=== PATIENT | female | born 1930 | race Caucasian/White ===

== ENCOUNTER 2016-08-12 14:47 | Observation (INO) | payer MEDICARE, OTHER ==
[2016-08-12] VITALS (10 sets, daily range): BP systolic 118–172; BP diastolic 49–75; PULSE 62–70; RESP 16–20; TEMP 97.8–98.1; O2SAT 92–99
[~2016-08-12] VITALS: Ht 152.4 cm; Wt 62.4 kg
[~2016-08-12 14:47] MED LIST: 1-ME1LIQ PO; ACET325 PO; ALBU6.7H INH; AMIT25; CLOP75 PO; DIOV320T PO; LEVEMIR SQ; METO25CR PO; NIFE1TAB86 PO; NITR-29 PO; NOVOLOGSS SQ; RANI150T PO; ROSU1TAB4 PO; Z.0.WALKERFRONT
[2016-08-12] MEDS ORDERED: SODIUM CHLORIDE 0.9% FLUSH 5 ML FLUSH IVF PRN ×2 (15:30→17:30)
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
[2016-08-12 15:50] LABS: AUTOMATED NEUTROPHIL # 4.6 TH/MM3 (1.8-7.7); BASOPHIL % 0.6 % (0.0-2.0); EOSINOPHIL # 0.1 TH/MM3 (0-0.4); EOSINOPHIL % 1.2 % (0.0-4.0); HEMATOCRIT 42.7 % (35.0-46.0); HEMO FLAGS DIFF FINAL; LYMPH % 11.1 % (9.0-44.0); LYMPHOCYTE # 0.7 TH/MM3 (1.0-4.8); MEAN CELL VOLUME 87.5 FL (80.0-100.0); MEAN CORPUSCULAR HEMOGLOBIN 29.1 PG (27.0-34.0); MEAN CORPUSCULAR HGB CONC 33.2 % (32.0-36.0); MONO % 10.5 % (0.0-8.0); NEUT % 76.6 % (16.0-70.0); PLATELET COUNT 150 TH/MM3 (150-450); RED BLOOD COUNT 4.88 MIL/MM3 (4.00-5.30); RED CELL DISTRIBUTION WIDTH 13.1 % (11.6-17.2)
--- NOTE | 2016-08-12 15:51 | RADHPO ---
EXAM DATE/TIME: 08/12/2016 15:42 [facility] COMPARISON: CHEST SINGLE AP, April 14, 2016, 12:17. INDICATIONS : Syncope. MEDICAL HISTORY : Atrial fibrillation SURGICAL HISTORY : None. ENCOUNTER: Initial ACUITY: 3 days PAIN SCORE: 2/10 LOCATION: Bilateral chest FINDINGS: A single portable frontal view of the chest shows hyperinflation. No discrete infiltrate or effusion. Heart is mildly enlarged but stable. Bony structures are unremarkable. CONCLUSION: Hyperinflation suggesting COPD. Cardiomegaly. Smooth Ledezma Jr., MD on August 12, 2016 at 15:49 Board Certified Radiologist. This report was verified electronically.
[2016-08-12 16:05] LABS: CHLORIDE 102 MEQ/L (98-107); POTASSIUM 3.9 MEQ/L (3.5-5.1); SODIUM (NA) 139 MEQ/L (136-145)
[2016-08-12 16:08] LABS: ANION GAP 8 MEQ/L (5-15); BICARBONATE 28.8 MEQ/L (21.0-32.0)
[2016-08-12 16:09] LABS: BLOOD UREA NITROGEN 24 MG/DL (7-18)
[2016-08-12 16:10] LABS: APTT (PATIENT) 34.2 SEC (24.3-30.1); INTERNATIONAL NORMALIZED RATIO 1.1 RATIO; PROTHROMBIN TIME - PATIENT 12.3 SEC (9.8-11.6)
[2016-08-12 16:11] LABS: ALT (GPT) 148 U/L (10-53)
[2016-08-12 16:12] LABS: AST (GOT) 159 U/L (15-37); GLOMERULAR FILTRATION RATE 36 ML/MIN (>89)
[2016-08-12 16:13] LABS: TOTAL BILIRUBIN ADULT 0.7 MG/DL (0.2-1.0)
[2016-08-12 16:14] LABS: ALKALINE PHOSPHATASE 103 U/L (45-117); CREATINE KINASE 307 U/L (26-192)
[2016-08-12] MEDS ORDERED: ALPR0.25 PO (16:21)
[2016-08-12] MEDS ORDERED: AMIO200T PO (16:21)
[2016-08-12] MEDS ORDERED: DAPA1TAB3 PO (16:21)
[2016-08-12] MEDS ORDERED: VALS1TAB70 PO (16:21)
[2016-08-12] MEDS ORDERED: METF500T PO (16:21)
[2016-08-12] MEDS ORDERED: LOSA50TA PO (16:21)
[2016-08-12] MEDS ORDERED: TRIAPOW (16:21)
[2016-08-12] MEDS ORDERED: ESCI10TA PO (16:21)
[2016-08-12] MEDS ORDERED: ROSU5 PO (16:21)
[2016-08-12] MEDS ORDERED: CLOP75TA PO (16:21)
[2016-08-12] MEDS ORDERED: AMIT25TA9 PO (16:21)
[2016-08-12] MEDS ORDERED: SITA1TAB2 PO (16:21)
[2016-08-12] MEDS ORDERED: RANI150T PO (16:21)
[2016-08-12 16:27] LABS: CKMB 4.3 NG/ML (0.5-3.6)
--- NOTE | 2016-08-12 16:53 | RADHPO ---
EXAM DATE/TIME: 08/12/2016 16:15 [facility] COMPARISON: CT BRAIN W/O CONTRAST, September 01, 2014, 14:35. INDICATIONS : Altered mental status. General weakness. Vertigo. RADIATION DOSE: 63.00 CTDIvol (mGy) MEDICAL HISTORY : Hypertension. Diabetes mellitus type 2. SURGICAL HISTORY : Hysterectomy. ENCOUNTER: Initial ACUITY: 1 day PAIN SCALE: 3/10 LOCATION: cranial TECHNIQUE: Multiple contiguous axial images were obtained of the head. Using automated exposure control and adj ustment of the mA and/or kV according to patient size, radiation dose was kept as low as reasonably a chievable to obtain optimal diagnostic quality images. FINDINGS: CEREBRUM: The ventricles are normal for age. No evidence of midline shift, mass lesion, hemorrhage or acute in farction. No extra-axial fluid collections are seen. POSTERIOR FOSSA: The cerebellum and brainstem are intact. The 4th ventricle is midline. The cerebellopontine angle i s unremarkable. EXTRACRANIAL: The visualized portion of the orbits is intact. SKULL: The calvaria is intact. No evidence of skull fracture. CONCLUSION: Normal examination for a patient of this age. No significant change has occurred. Doni Westfall MD on August 12, 2016 at 16:48 Board Certified Radiologist. This report was verified electronically.
[2016-08-12] MEDS ORDERED: SODIUM CHLORID 0.9% 500 ML INJ 500 ML IV ONE (17:00)
[2016-08-12] MEDS ORDERED: ACETAMINOPHEN 650 MG SUPP PR PRN (17:30)
[2016-08-12] MEDS ORDERED: ASPIRIN 81 MG CHEW TAB CHEW ONE (17:30)
[2016-08-12] MEDS ORDERED: ACETAMINOPHEN 325 MG TAB PO PRN (17:30)
[2016-08-12] MEDS ORDERED: ONDANSETRON HCL 4 MG/2 ML VIAL IV PRN (17:30)
[2016-08-12 17:46] LABS: KETONE, URINE NEG (NEG); NITRITE,URINE NEG (NEG)
[2016-08-12 17:56] LABS: BLOOD, URINE MOD (NEG); GLUCOSE,URINE 1000 OR GREATER mg/dL (NEG)
[2016-08-12 17:57] LABS: URINE COLOR YELLOW (YELLW/STRAW)
[2016-08-12 17:58] LABS: METHOD OF COLLECTION CLEAN CATCH; SQUAMOUS EPITHELIAL CELL URINE > 8 /hpf (0-5)
[2016-08-12 17:59] LABS: BACTERIA, URINE OCC /hpf; COMMENT (UR) CULTURE INDICATED; CULTURE IF INDICATED CULTURE INDICATED
[2016-08-12] MEDS ORDERED: DEXTROSE 50% IN WATER 50 ML VIAL(D50) IV PUSH PRN (18:00)
[2016-08-12] MEDS ORDERED: GLUCAGON 1 MG/ML VIAL OTHER PRN (18:00)
[2016-08-12] MEDS ORDERED: PILL SPLITTER OTHER PRN (18:00)
[2016-08-12] MEDS: ALPRAZolam 0.25 MG TAB PO SCH (18:14)
--- NOTE | 2016-08-12 19:57 | RADHPO ---
EXAM DATE/TIME: 08/12/2016 19:06 [facility] COMPARISON: No previous studies available for comparison. INDICATIONS : Dizziness, weakness, and vertigo. MEDICAL HISTORY : Hypercholesterolemia. Hypertension. Coronary artery disease. Heart murmur. Asthma. Arthritis. Diabe juliana. Depression. Anxiety. Measles. Pulmonary embolism. SURGICAL HISTORY : Hysterectomy. Tonsillectomy. Bilateral cataract removal. Right eye glaucoma surgery. Cardiac ablasi on. ENCOUNTER: Initial ACUITY: 1 day PAIN SCORE: 0/10 LOCATION: Bilateral neck PEAK SYSTOLIC VELOCITIES (cm/sec): ICA/CCA RATIO: Right: 1.6 Left: 1.3 ICA: Right: 110 Left: 118 CCA: Right: 69 Left: 88 ECA: Right: 139 Left: 163 VERTEBRAL: Right: 47 antegrade Left: 64 antegrade Elevated flow velocities and ICA/CCA ratios have been found to correlate with increased degrees of vessel stenosis, calculated as percentage of diameter relative to a normal segment of distal ICA/CCA FINDINGS: RIGHT CAROTID: There is mild plaque in the carotid bulb regions. No significant stenosis is visualized. The wavefor ms are within normal limits. LEFT CAROTID: There is mild plaque in the carotid bulb regions. No significant stenosis is visualized. The wavefor ms are within normal limits. VERTEBRAL ARTERIES: Antegrade flow is seen in both vertebral arteries. MISCELLANEOUS: None. CONCLUSION: Mild plaque seen on the grayscale images at the carotid bulb regions without a significant stenosis. Pollo Nash MD on August 12, 2016 at 19:54 Board Certified Radiologist. This report was verified electronically.
[2016-08-12] MEDS: INSULIN ASPART SUPPLEMENTAL SCALE SQ SCH (20:57)
[2016-08-12] MEDS: AMIODARONE 200 MG TAB PO SCH (20:57)
[2016-08-12] MEDS: SODIUM CHLORIDE 0.9% FLUSH 5 ML FLUSH IVF SCH (20:57)
[2016-08-12] MEDS: FAMOTIDINE 20 MG TAB PO SCH (20:57)
[2016-08-12] MEDS ORDERED: AMITRIPTYLINE HCL 25 MG TAB PO SCH (21:00)
[2016-08-12 22:54] LABS: CKMB 3.7 NG/ML (0.5-3.6)
[2016-08-13] VITALS: BP 147/70; PULSE 62; RESP 20; TEMP 97.5; O2SAT 92
[2016-08-13 04:00] VITALS: BP 152/66; PULSE 62; RESP 20; TEMP 96.2; O2SAT 90
[2016-08-13] MEDS: INSULIN ASPART SUPPLEMENTAL SCALE SQ SCH ×3 (06:00→16:00)
[2016-08-13 06:39] LABS: AUTOMATED NEUTROPHIL # 3.5 TH/MM3 (1.8-7.7); BASOPHIL # 0.1 TH/MM3 (0-0.2); EOSINOPHIL # 0.3 TH/MM3 (0-0.4); EOSINOPHIL % 6.4 % (0.0-4.0); HEMATOCRIT 45.6 % (35.0-46.0); HEMO FLAGS DIFF FINAL; LYMPH % 15.8 % (9.0-44.0); LYMPHOCYTE # 0.8 TH/MM3 (1.0-4.8); MEAN CELL VOLUME 86.2 FL (80.0-100.0); MEAN CORPUSCULAR HEMOGLOBIN 28.7 PG (27.0-34.0); MEAN CORPUSCULAR HGB CONC 33.3 % (32.0-36.0); MONO % 9.5 % (0.0-8.0); NEUT % 67.3 % (16.0-70.0); PLATELET COUNT 130 TH/MM3 (150-450); RED BLOOD COUNT 5.29 MIL/MM3 (4.00-5.30); WHITE BLOOD COUNT 5.2 TH/MM3 (4.0-11.0)
[2016-08-13 06:53] LABS: CHLORIDE 104 MEQ/L (98-107); POTASSIUM 3.6 MEQ/L (3.5-5.1); SODIUM (NA) 141 MEQ/L (136-145)
[2016-08-13 06:59] LABS: ANION GAP 10 MEQ/L (5-15); BICARBONATE 27.5 MEQ/L (21.0-32.0); BLOOD UREA NITROGEN 19 MG/DL (7-18)
--- NOTE | 2016-08-13 07:00 | MB ---
cc: NIGEL ABRAMS,ANIYAH CORDON,LISSET López MD DATE OF CONSULTATION 08/13/2016 REASON FOR CONSULTATION Prior records have been reviewed and the patient spoken with. She is an 86-year-old white woman who I am seeing for elevated troponin. The patient has peripheral vascular disease with prior fem-pop bypass. Because of a minimally abnormal SPECT nuclear, she underwent catheterization 04/11 which showed at most 40% narrowings of the LAD and right coronary artery, but no significant obstructive disease. She has known valvular disease with echocardiogram 01/09 showing a 50% ejection fraction with moderate aortic stenosis with mean 32-mm gradient and mild to moderate MR. She has undergone atrial flutter ablation by Dr. Birmingham 01/09. The patient notes that she has balance issues and did fall 1-1/2 weeks ago injuring her left shoulder. She also notes that she has been more sleepy recently with some vertigo, generalized weakness and difficulty concentrating. She notes mild stable dyspnea, but no PND, orthopnea, pedal edema, syncope or palpitations, chest discomfort. PAST MEDICAL HISTORY 1. Hypertension 2. Diabetes 3. Hyperlipidemia 4. Peripheral vascular disease 5. Asthma 6. Osteoarthritis 7. Prior pulmonary embolus 8. Prior atrial flutter and cardiac as above 9. Constipation 10. Venous ablation 11. Glaucoma 12. Hysterectomy SOCIAL HISTORY The patient is and has a rare drink and does not smoke. ALLERGIES ARABELLA INHIBITORS, AMOXICILLIN, FENTANYL, KEFLEX, MONOSODIUM GLUTAMATE, NEOMYCIN, METROLATINE, SULFA, SULFITE. MEDICATIONS The medication list reviewed includin. Alprazolam 2. Amiodarone 3. Amitriptyline 4. Clopidogrel 5. Farxiga 6. Escitalopram 7. Losartan 8. Metformin 9. Ranitidine 10. Crest 11. Januvia 12. Valsartan, although I do not think she is on both Valsartan and Losartan and would leave it to the primary service to review this. REVIEW OF SYSTEMS Remarkable for the balance problems. She did have some dark stool a few days ago and she is hard of hearing. She also has generalized joint aches. PHYSICAL EXAM On exam. she is alert and oriented x3. HEAD, EYES, EARS, NOSE, AND THROAT: There are no xanthelasma and oral pharyngeal mucosa normal. CHEST: Decreased breath sounds clear. JVD normal. PMI is normal. S1-S2 with a 2-3/6 mid peaking systolic ejection murmur at the base radiating to the carotids. ABDOMEN: Benign. EXTREMITIES: Show no cyanosis, clubbing or edema. Pulses carotids with bruits versus transmitted murmurs. Radials 1+. Femorals not felt through her diaper. Pedal is trace. She is not ambulated EKG shows sinus rhythm with left ventricle hypertrophy and repolarization abnormalities and a mildly prolonged QT interval. Carotid ultrasound shows no significant obstructive disease. Head CT Normal chest x-ray with hyperinflation and cardiomegaly. LABORATORY DATA CBC normal. PT/PTT normal. Urinalysis abnormal with culture indicated. Potassium 3.9, creatinine 1.4 which is elevated, glucose 172. Liver transaminase is mildly elevated. Total CPK maximum 307 with negative MB percent. Troponins flat at 0.1/0.1/0.1. TSH normal. ASSESSMENT/PLAN Jammie has no cardiac symptomatology whatsoever. The reason for her cardiac enzymes being drawn are unclear, but her troponins are minimally elevated, flat and nonspecific. The liver transaminases are mildly abnormal, but she has had this before. Certainly if she is on amiodarone which can affect this but she has had elevated transaminases before and this probably should be followed. Certainly if they persist, GI consult should be entertained. I would continue her present home medications although clarification needs to be done to make sure she is not on two angiotensin receptor blockers. Additionally, she needs to be restarted on her statins. She should continue a low cholesterol/salt/diabetic diet. I would not pursue any further coronary for cardiac intervention at this point and she does need to follow up with Dr. Castaneda. She is probably prerenal and probably has not been taking adequate oral intake. I will leave further management to the primary service. All questions have been answered. MD LION Wyatt/KEVIN /6:33 AM /6:49 AM
[2016-08-13 07:02] LABS: ALT (GPT) 161 U/L (10-53); AST (GOT) 193 U/L (15-37)
[2016-08-13 07:03] LABS: GLOMERULAR FILTRATION RATE 56 ML/MIN (>89)
[2016-08-13 07:04] LABS: TOTAL BILIRUBIN ADULT 0.6 MG/DL (0.2-1.0)
[2016-08-13 07:05] LABS: ALKALINE PHOSPHATASE 108 U/L (45-117)
[2016-08-13 07:40] VITALS: O2SAT 92
[2016-08-13 08:00] VITALS: BP 143/69; PULSE 65; RESP 20; TEMP 96.7; O2SAT 90
[2016-08-13] MEDS: ALPRAZolam 0.25 MG TAB PO SCH ×2 (08:05→12:14)
[2016-08-13] MEDS: FAMOTIDINE 20 MG TAB PO SCH (08:05)
[2016-08-13] MEDS: AMIODARONE 200 MG TAB PO SCH (08:06)
[2016-08-13] MEDS: SODIUM CHLORIDE 0.9% FLUSH 5 ML FLUSH IVF SCH (08:07)
[2016-08-13] MEDS ORDERED: ESCITALOPRAM OXALATE 10 MG TAB PO SCH (09:00)
[2016-08-13] MEDS ORDERED: CLOPIDOGREL 75 MG TAB PO SCH (09:00)
[2016-08-13] MEDS ORDERED: VALSARTAN 160 MG TAB PO SCH (09:00)
[2016-08-13 12:00] VITALS: BP 145/67; PULSE 65; RESP 22; TEMP 98.2; O2SAT 91
--- NOTE | 2016-08-13 12:29 | HHI.HP ---
[facility] Francisco Park MD Admission Diagnosis acute kidney injury, elevated transaminases, elevated troponin, dizz Diagnoses: (1) Dizziness Diagnosis: Principal (2) Weakness Diagnosis: Principal (3) Elevated troponin Diagnosis: Principal (4) Abnormal transaminases Diagnosis: Principal (5) Acute on chronic kidney disease, stage 3 Diagnosis: Principal Chief Complaint: Weakness, dizziness Travel History International Travel<30 Days: No Contact w/Intl Traveler <30 Da: No Traveled to Known Affected Are: No History of Present Illness 86-year-old female with known history of hypertension, hyperlipidemia , peripheral vascular disease, history of PE, chronic atrial fibrillation, diabetes, anxiety, depression who presented to hospital because of weakness and dizziness. Patient states that she is in her normal state of health until approximately 3 days ago when she noticed that she little more fatigued than usual. She states that she has been under a lot of stress lately with her son, that she takes care of on a daily basis because of his dementia. She does have home health care that is coming by a couple days a week that does help her and her out. However over the last 3 days she has had increased fatigue, wants to sleep all the time. Her lvbyurde-bd-mze came over and visited with her yesterday and noticed that she was slow with getting up, she indicates that she had some dizziness so they recommended her to come to the hospital for evaluation. Patient denied any other symptomatology to include headache, visual disturbances, dysphagia, chest pain, shortness of breath, dyspnea, abdominal pain, unilateral weakness, paresthesia. Patient had workup done emergency department and found to have some mild dehydration with acute renal failure superimposed on chronic kidney disease, elevated liver enzymes, elevated troponin. Because of those reasons is recommended that the patient be observed in the hospital for further evaluation.. Review of Systems Constitutional: COMPLAINS OF: Dizziness, DENIES: Diaphoretic episodes, Fatigue , Fever, Weight gain, Weight loss, Chills, Change in appetite, Night Sweats Eyes: DENIES: Blurred vision, Diplopia, Eye inflammation, Eye pain, Vision loss , Double Vision Ears, nose, mouth, throat: DENIES: Vertigo, Nasal discharge, Throat pain, Ear Pain, Running Nose, Sinus Pain Respiratory: DENIES: Apneas, Cough, Snoring, Wheezing, Hemoptysis, Sputum production, Shortness of breath Cardiovascular: DENIES: Chest pain, Palpitations, Syncope, Dyspnea on Exertion , Lower Extremity Edema, Orthopnea Gastrointestinal: DENIES: Abdominal pain, Black stools, Bloody stools, Constipation, Diarrhea, Nausea, Vomiting, Difficulty Swallowing, Anorexia Neurologic: DENIES: Abnormal gait, Headache, Localized weakness, Paresthesias, Seizures, Speech Problems, Tremor, Poor Balance Psychiatric: COMPLAINS OF: Depression, DENIES: Anxiety, Confusion, Mood changes Past Family Social History Past Medical History Pulmonary embolus Asthma PVD heart murmur hyperlipidemia type 2 diabetes hypertension anxiety and depression glaucoma History of atrial flutter Past Surgical History R Femoropopliteal revascularization 07/27/11 H/o R femoral-tibial bypass graft and R femoral-proximal peroneal bypass graft Vein stripping Hysterectomy for fibroids Tonsillectomy Laser surgery both eyes Reported Medications Reported Meds & Active Scripts Active Reported Valsartan 320 Mg Tab 320 Mg PO DAILY Triamcinolone Acetonide (Triamcinolone Acetonide (Topic) 1 Pow Pow Ranitidine (Ranitidine HCl) 150 Mg Tab 150 Mg PO HS Metformin (Metformin HCl) 500 Mg Tab 500 Mg PO BIDPC With meals Losartan (Losartan Potassium) 50 Mg Tab 50 Mg PO DAILY Januvia (Sitagliptin Phosphate) 100 Mg Tab 100 Mg PO DAILY Farxiga (Dapagliflozin) 10 Mg Tab 10 Mg PO DAILY Escitalopram (Escitalopram Oxalate) 10 Mg Tab 10 Mg PO DAILY Crestor (Rosuvastatin Calcium) 5 Mg Tab 5 Mg PO DAILY Clopidogrel (Clopidogrel Bisulfate) 75 Mg Tab 75 Mg PO DAILY Amitriptyline (Amitriptyline HCl) 25 Mg Tab 25 Mg PO HS Amiodarone (Amiodarone HCl) 200 Mg Tab 200 Mg PO BID Alprazolam 0.25 Mg Tab 0.25 Mg PO TID Allergies: Coded Allergies: ARABELLA Inhibitors (Verified Allergy, Severe, Anaphylaxis, 08/12/16) Amoxicillin (Verified Allergy, Severe, Anaphylaxis, 08/12/16) Fentanyl (Verified Allergy, Severe, 08/12/16) ALLERGIC TO PATCH, RASH AT PATCH SITE pt states she was not aware of ever having a patch Keflex (Verified Allergy, Severe, Anaphylaxis, 08/12/16) Monosodium Glutamate (Verified Allergy, Severe, asthma attack, 08/12/16) Neomycin (Verified Allergy, Severe, Anaphylaxis, 08/12/16) Petrolatum (Verified Allergy, Severe, SWELLING, 08/12/16) Sulfa (Verified Allergy, Severe, Anaphylaxis, 08/12/16) Sulfites & Bisulfites (Verified Allergy, Severe, ASTHMA ATTACK, 08/12/16) Family History Reviewed and patient states that her mother fired from old age Social History Patient denies any tobacco, alcohol or illicit drugs Physical Exam Vital Signs Vital Signs Date Time Temp Pulse Resp B/P Pulse Ox O2 Delivery O2 Flow Rate FiO2 08/13/16 08:00 96.7 65 20 143/69 90 08/13/16 07:40 92 21 08/13/16 04:00 96.2 62 20 152/66 90 08/13/16 00:00 97.5 62 20 147/70 92 08/12/16 20:20 62 08/12/16 20:00 98.1 64 20 167/75 92 08/12/16 19:00 16 95 Room Air 08/12/16 19:00 97.8 69 16 118/49 95 Room Air 08/12/16 19:00 95 21 08/12/16 18:18 69 16 100 Room Air 08/12/16 18:18 68 16 134/70 99 Room Air 08/12/16 17:55 95 21 08/12/16 17:33 62 16 170/62 66 16 171/68 69 18 134/65 08/12/16 17:02 63 16 172/70 94 Room Air 08/12/16 17:02 Room Air 08/12/16 16:08 70 16 149/72 96 Room Air 08/12/16 16:08 16 Room Air 08/12/16 15:44 98 Room Air 08/12/16 15:06 64 16 96 Room Air 08/12/16 15:02 62 16 164/65 99 Physical Exam GENERAL: Well-developed, well-nourished, in no acute distress. alert and orientated HEENT: Head is normocephalic without any lesions or masses noted. Facial features are symmetric. Eyes: Pupils equal round reactive to light. Extraocular muscles are intact. Conjunctivae were clear. Oropharyngeal: Pharynx without any erythema edema. Tongue is midline without deviation. Buccal mucosa is moist without any masses or lesions NECK: Supple without any masses. Trachea midline no deviation. No JVD, no bruits are appreciated CARDIAC: Regular rhythm, regular rate. S1/S2 are heard. 2/6 holosystolic murmur. Gallops or rubs. LUNGS: Clear to auscultation bilaterally. No wheeze, rhonchi or rales. No use of accessory muscles on inspiration or expiration. ABDOMEN: Soft, nontender. Nondistended. Bowel sounds heard in all 4 quadrants. No organomegaly or masses. Negative rebound, negative guarding EXTREMITIES: No edema, pulses are equal bilaterally. No cyanosis or clubbing NEUROLOGY: Mood and affect appear appropriate. Cranial nerves II through XII grossly intact. Muscle strength 5/5 in upper and lower extremities bilaterally. Deep tendon reflexes are 2+ in upper and lower extremities bilaterally. Laboratory Laboratory Tests Test 08/12/16 08/12/16 08/12/16 08/13/16 15:37 17:32 21:54 03:45 White Blood Count 6.0 Red Blood Count 4.88 Hemoglobin 14.2 Hematocrit 42.7 Mean Corpuscular Volume 87.5 Mean Corpuscular Hemoglobin 29.1 Mean Corpuscular Hemoglobin 33.2 Concent Red Cell Distribution Width 13.1 Platelet Count 150 Mean Platelet Volume 8.4 Neutrophils (%) (Auto) 76.6 Lymphocytes (%) (Auto) 11.1 Monocytes (%) (Auto) 10.5 Eosinophils (%) (Auto) 1.2 Basophils (%) (Auto) 0.6 Neutrophils # (Auto) 4.6 Lymphocytes # (Auto) 0.7 Monocytes # (Auto) 0.6 Eosinophils # (Auto) 0.1 Basophils # (Auto) 0.0 CBC Comment DIFF FINAL Differential Comment Prothrombin Time 12.3 Prothromb Time International 1.1 Ratio Activated Partial 34.2 Thromboplast Time Sodium Level 139 Potassium Level 3.9 Chloride Level 102 Carbon Dioxide Level 28.8 Anion Gap 8 Blood Urea Nitrogen 24 Creatinine 1.40 Estimat Glomerular Filtration 36 Rate Random Glucose 172 Calcium Level 8.7 Total Bilirubin 0.7 Aspartate Amino Transf 159 (AST/SGOT) Alanine Aminotransferase 148 (ALT/SGPT) Alkaline Phosphatase 103 Total Creatine Kinase 307 253 223 Creatine Kinase MB 4.3 3.7 4.0 Creatine Kinase MB % 1.4 1.5 1.8 Troponin I 0.10 0.10 0.10 Total Protein 6.3 Albumin 3.2 Thyroid Stimulating Hormone 1.470 3rd Gen Urine Collection Type CLEAN CATCH Urine Color YELLOW Urine Turbidity SLIGHT Urine pH 6.0 Urine Specific [place] 1.030 Urine Protein 30 Urine Glucose (UA) 1000 OR GREATER Urine Ketones NEG Urine Occult Blood MOD Urine Nitrite NEG Urine Bilirubin NEG Urine Leukocyte Esterase TRACE Urine RBC 20-24 Urine WBC 9-14 Urine Squamous Epithelial > 8 Cells Urine Transitional Epithelial 6-8 Cells Urine Bacteria OCC Microscopic Urinalysis Comment CULTURE INDICATED Urine Collection Time 17:32 Test 08/13/16 06:20 White Blood Count 5.2 Red Blood Count 5.29 Hemoglobin 15.2 Hematocrit 45.6 Mean Corpuscular Volume 86.2 Mean Corpuscular Hemoglobin 28.7 Mean Corpuscular Hemoglobin 33.3 Concent Red Cell Distribution Width 13.0 Platelet Count 130 Mean Platelet Volume 8.4 Neutrophils (%) (Auto) 67.3 Lymphocytes (%) (Auto) 15.8 Monocytes (%) (Auto) 9.5 Eosinophils (%) (Auto) 6.4 Basophils (%) (Auto) 1.0 Neutrophils # (Auto) 3.5 Lymphocytes # (Auto) 0.8 Monocytes # (Auto) 0.5 Eosinophils # (Auto) 0.3 Basophils # (Auto) 0.1 CBC Comment DIFF FINAL Differential Comment Sodium Level 141 Potassium Level 3.6 Chloride Level 104 Carbon Dioxide Level 27.5 Anion Gap 10 Blood Urea Nitrogen 19 Creatinine 0.94 Estimat Glomerular Filtration 56 Rate Random Glucose 91 Calcium Level 8.5 Total Bilirubin 0.6 Aspartate Amino Transf 193 (AST/SGOT) Alanine Aminotransferase 161 (ALT/SGPT) Alkaline Phosphatase 108 Total Protein 6.6 Albumin 3.3 Date/Time Procedure Status Source Growth 08/12/16 17:32 Urine Culture Received Urine Clean Catch Pending Result Diagram: 08/13/1620 08/13/1620 Imaging Last Impressions Head CT 08/12/16 1521 Signed Impressions: Service Date/Time: July 16:15 - CONCLUSION: Normal examination for a patient of this age. No significant change has occurred. Doni Westfall MD Chest X-Ray 08/12/16 1521 Signed Impressions: Service Date/Time: July 15:42 - CONCLUSION: Hyperinflation suggesting COPD. Cardiomegaly. Smooth Ledezma Jr., MD Carotid Artery Ultrasound 08/12/16 0000 Signed Impressions: Service Date/Time: July 19:06 - CONCLUSION: Mild plaque seen on the grayscale images at the carotid bulb regions without a significant stenosis. Pollo Nash MD Assessment and Plan Assessment and Plan Weakness, dizziness: Patient presented with three-day history of dizziness, fatigue and weakness. Likely secondary to mild dehydration, depression. Physical therapy has evaluated patient indicates that the patient is ambulating well with a walker. Patient states that she does have a walker and wheelchair at home. She indicates that she does have home health care that does come by the house regularly for her and her . Transaminitis: Unknown etiology, multifactorial with patient with statin use, amiodarone use. AST/ALT are 3 times above normal. We have discontinue statin this time will continue hold it upon discharge. Aquatics Director was consulted who indicated continuation of amiodarone at this time. Recommending follow-up liver enzymes in a week. Dr. Park was contacted by Dr. Hernandez. He indicated that he will continue follow-up on patient's condition upon discharge Acute renal failure superimposed on chronic kidney disease stage III: Patient did receive 1 L of fluid emergency department. Renal functions have returned to normal. Likely some mild dehydration which has resolved Equivocal troponin: There is no significant elevation. There were flattened patient was bluntly asymptomatic. Cardiology indicates that not related to any acute coronary event. Recommending continue follow-up with primary pan devulcanizer. Diabetes: Oral hypoglycemics have been held. Accu-Cheks with sliding scale insulin Hypertension, peripheral artery disease: Home medications have been continued Anxiety/depression: Home medications have been continued Written by Anish Parks PA-C, acting as scribe for Dr. Hernandez on 08/13/16 at 1150. The documentation accurately reflects the work and decisions performed face-to- face by Dr. Hernandez on 08/13/16 at 1150. Discharge disposition Discharge home in stable condition with home health care Activity: Ad tang. Diet: Healthy heart diet Medications per medication reconciliation, will discontinue statin at this time Follow-up primary medical doctor in one week, follow-up liver enzymes in one week Discharge disposition Anish Parks Aug 13, 2016 12:29
--- NOTE | 2016-08-13 12:30 | HHI.DCPOC ---
Discharge Care Plan Diagnosis: (1) Weakness (2) Dizziness Goals to Promote Your Health * To prevent worsening of your condition and complications * To maintain your health at the optimal level Directions to Meet Your Goals Take your medications as prescribed Follow your dietary instruction Follow activity as directed Keep your appointments as scheduled Take your immunizations and boosters as scheduled If your symptoms worsen call your PCP, if no PCP go to Urgent Care Center or Emergency Room Smoking is Dangerous to Your Health. Avoid second hand smoke Call the 24-hour hour crisis hotline for domestic abuse at Anish Parks Aug 13, 2016 12:30
--- NOTE | 2016-08-13 12:31 | HHI.FF ---
Face to Face Verification Diagnosis: (1) Weakness (2) Dizziness (3) Acute on chronic kidney disease, stage 3 (4) PVD (peripheral vascular disease) Physical Therapy Order: Evaluate and Treat, Improve ambulation, Strength and gait training Home Health Nursing Order: Medical education Signs/symptoms of disease process Nursing assessment with vital signs [place] Order: To Evaluate: Support services Order: To Provide: Long range planning, Community services I have seen patient Jammie Carmichael on 08/13/16. My clinical findings support the need for the requested home health care services because: Limited ability to care for self Need for psychosocial assistance I certify that my clinical findings support that this patient is homebound because: Unsteady gait/balance Need for psychosocial assistance Anish Parks Aug 13, 2016 12:31
--- NOTE | 2016-08-13 17:11 | EKG ---
Date Performed: 08/13/2016 Time Performed: 03:34:08 PTAGE: 86 years EKG: Possible ectopic atrial rhythm Prolonged QT interval Leftward axis Cannot rule out anterose ptal infarct - age undetermined Left ventricular hypertrophy Inferior/lateral ST-T changes may be due to hypertrophy and/or ischemia Compared to prior tracing no significant change Abnormal ECG PREVIOUS TRACING : 08/12/2016 21.45 DOCTOR: Juan Francisco Sales Interpretating Date/Time 08/13/2016 17:01:18
--- NOTE | 2016-08-13 17:11 | EKG ---
Date Performed: 08/12/2016 Time Performed: 15:27:40 PTAGE: 86 years EKG: Sinus rhythm Leftward axis Possible septal infarct - age undetermined Left ventricular hypertrophy Inferior/later al ST-T changes may be due to hypertrophy and/or ischemia Compared to prior tracing no significant ch abrahan Abnormal ECG PREVIOUS TRACING : 04/15/2016 01.03 DOCTOR: Juan Francisco Sales Interpretating Date/Time 08/13/2016 17:00:59
--- NOTE | 2016-08-13 17:11 | EKG ---
Date Performed: 08/12/2016 Time Performed: 21:45:10 PTAGE: 86 years EKG: Possible ectopic atrial rhythm. Prolonged QT interval Left axis deviation Possible anterose ptal infarct - age undetermined Possible left ventricular hypertrophy Inferior/lateral ST-T changes a re probably due to ventricular hypertrophy Compared to prior tracing no significant change Abnormal E CG PREVIOUS TRACING : 08/12/2016 15.27 DOCTOR: Juan Francisco Sales Interpretating Date/Time 08/13/2016 17:01:09
== END 2016-08-13 17:07 | disposition home or self-care (01) ==
LOC: PHED 14:47 → PHEDA 17:27 → PH3B 20:20
PROVIDERS: ADMIT Family Medicine; ATTEND Family Medicine
DX: R42 Dizziness and giddiness (principal); R53.1 Weakness; R79.89 Other specified abnormal findings of blood chemistry; N17.9 Acute kidney failure, unspecified; I12.9 Hypertensive chronic kidney disease with stage 1 through stage 4 chronic kidney disease, or unspecified chronic kidney disease; N18.3 Chronic kidney disease, stage 3 (moderate); I48.2 Chronic atrial fibrillation; I73.9 Peripheral vascular disease, unspecified; E11.22 Type 2 diabetes mellitus with diabetic chronic kidney disease; E11.51 Type 2 diabetes mellitus with diabetic peripheral angiopathy without gangrene; E78.5 Hyperlipidemia, unspecified; F41.9 Anxiety disorder, unspecified; F32.9 Major depressive disorder, single episode, unspecified; Z86.711 Personal history of pulmonary embolism; Z79.01 Long term (current) use of anticoagulants
CPT/HCPCS: 70450; 71010; 80053; 80074; 81001; 82550; 82552; 82948; 84443; 84484; 85025; 85610; 85730; 87086; 93005; 93880; 97162; 99285; G0378; G8987; G8988; J1815; J7040

== ENCOUNTER 2016-08-20 13:15 | Inpatient (IN) | payer MEDICARE, OTHER ==
[~2016-08-20] VITALS: Ht 162.6 cm; Wt 84.6 kg
[2016-08-20] VITALS (16 sets, daily range): BP systolic 99–189; BP diastolic 38–108; PULSE 33–57; RESP 14–24; TEMP 97.6–98.4; O2SAT 91–98
[~2016-08-20 13:15] MED LIST changes: -1-ME1LIQ PO; -ACET325 PO; -ALBU6.7H INH; +ALPR0.25 PO; +AMIO200T PO; -AMIT25; +AMIT25TA9 PO; -CLOP75 PO; +CLOP75TA PO; +DAPA1TAB3 PO; -DIOV320T PO; +ESCI10TA PO; -LEVEMIR SQ; +METF500T PO; -METO25CR PO; -NIFE1TAB86 PO; -NITR-29 PO; -NOVOLOGSS SQ; -ROSU1TAB4 PO; +SITA1TAB2 PO; +TRIAPOW; +VALS1TAB70 PO; -Z.0.WALKERFRONT
--- NOTE | 2016-08-20 13:35 | PD ---
HPI Chief Complaint: Cardiac Complaint Time Seen by Provider: 13:34 Travel History International Travel<30 days: No Contact w/Intl Traveler<30days: No Traveled to known affect area: No History of Present Illness HPI 86-year-old female came to the emergency room brought by her daughter with history of fatigue, tiredness and bradycardia. Daughter is giving majority of the history and says that patient has been sleeping 12-14 hours a day for past couple days. Today the home health nurse came and checked her pulse and it was in the low 40s. She advised that the patient should be brought to the emergency room. In triage patient's heart rate was in the 40s as well. Patient is denying any chest pain. She is currently awake and answering questions appropriately. Daughter said that patient was in the emergency room 2 weeks ago and was admitted for dehydration. She was given IV fluid and eventually after couple days was discharged home. Home she has been eating and drinking poorly. No history of fever or chills. Patient has history of atrial fibrillation and has had ablation. However last May she came in for atrial flutter and was started on medications including amiodarone. Patient's blood pressure is maintained. [facility] Past Medical History Narrative Medical List of her past medical and social history as reviewed from the nursing note. Arthritis: Yes (Hands) Asthma: Yes Autoimmune Disease: No Blood Disorders: No Anxiety: Yes (hx of, denies current ) Depression: Yes (hx of, denies current ) Heart Rhythm Problems: Yes Cancer: No Cardiovascular Problems: Yes High Cholesterol: Yes Chest Pain: Yes (hx of not current) Congestive Heart Failure: No COPD: No Cerebrovascular Accident: No Coronary Artery Disease: Yes Diabetes: Yes (type 2 diabetes managed by diet) Diminished Hearing: No Endocrine: Yes Gastrointestinal Disorders: Yes (frequent constipation managed nutritionally ) GERD: No Glaucoma: No Genitourinary: No Headaches: No Hepatitis: No Hiatal Hernia: No Hypertension: Yes Immune Disorder: No Implanted Vascular Access Dvce: No Kidney Stones: No Musculoskeletal: Yes Neurologic: No Psychiatric: Yes Reproductive: No Respiratory: Yes Myocardial Infarction: No Renal Failure: No Seizures: No Sickle Cell Disease: No Sleep Apnea: No Thyroid Disease: No Ulcer: No PNEUMOCCOCAL Vaccine (Year): 2007 Menopausal: Yes Past Surgical History Abdominal Surgery: No AICD: No Cardiac Surgery: Yes (ablasion previously ) Ear Surgery: No Endocrine Surgery: No Eye Surgery: Yes (glaucoma right eye (lasered)) Genitourinary Surgery: No Gynecologic Surgery: Yes (Hysterectomy 50 years ago) Hysterectomy: Yes Joint Replacement: No Neurologic Surgery: No Oral Surgery: No Pacemaker: No Thoracic Surgery: No Tonsillectomy: Yes Other Surgery: Yes (Ablasion previously ) Social History Alcohol Use: Yes (OCCAS) Tobacco Use: No Substance Use: No Allergies-Medications (Allergen,Severity, Reaction): Coded Allergies: ARABELLA Inhibitors (Verified Allergy, Severe, Anaphylaxis, 08/20/16) Amoxicillin (Verified Allergy, Severe, Anaphylaxis, 08/20/16) Fentanyl (Verified Allergy, Severe, 08/20/16) ALLERGIC TO PATCH, RASH AT PATCH SITE pt states she was not aware of ever having a patch Keflex (Verified Allergy, Severe, Anaphylaxis, 08/20/16) Monosodium Glutamate (Verified Allergy, Severe, asthma attack, 08/20/16) Neomycin (Verified Allergy, Severe, Anaphylaxis, 08/20/16) Petrolatum (Verified Allergy, Severe, SWELLING, 08/20/16) Sulfa (Verified Allergy, Severe, Anaphylaxis, 08/20/16) Sulfites & Bisulfites (Verified Allergy, Severe, ASTHMA ATTACK, 08/20/16) Comments List of her allergies reviewed from the nursing note. Reported Meds & Prescriptions Reported Meds & Active Scripts Active Reported Tresiba Flextouch Pen Inj (Insulin Degludec Inj) 600 unit/3 ML Pen 1 Units SQ DIRECTED PRN Valsartan 320 Mg Tab 320 Mg PO DAILY Ranitidine (Ranitidine HCl) 150 Mg Tab 150 Mg PO HS Metformin (Metformin HCl) 500 Mg Tab 500 Mg PO BIDPC With meals Januvia (Sitagliptin Phosphate) 100 Mg Tab 100 Mg PO DAILY Farxiga (Dapagliflozin) 10 Mg Tab 10 Mg PO DAILY Escitalopram (Escitalopram Oxalate) 10 Mg Tab 10 Mg PO DAILY Clopidogrel (Clopidogrel Bisulfate) 75 Mg Tab 75 Mg PO DAILY Amitriptyline (Amitriptyline HCl) 25 Mg Tab 25 Mg PO HS Amiodarone (Amiodarone HCl) 200 Mg Tab 200 Mg PO BID Alprazolam 0.25 Mg Tab 0.25 Mg PO TID Narrative Medication List of her home medications reviewed from the nursing note. Review of Systems Except as stated in HPI: all other systems reviewed are Neg Physical Exam Narrative GENERAL: Awake, alert, elderly and frail SKIN: Warm and dry. HEAD: Atraumatic. Normocephalic. EYES: Pupils equal and round. No scleral icterus. No injection or drainage. ENT: No nasal bleeding or discharge. Dry mucous membrane and coated tongue NECK: Trachea midline. No JVD. CARDIOVASCULAR: Regular rate and rhythm. Bradycardia. No murmur appreciated. RESPIRATORY: No accessory muscle use. Clear to auscultation. Breath sounds equal bilaterally. GASTROINTESTINAL: Abdomen soft, non-tender, nondistended. Hepatic and splenic margins not palpable. MUSCULOSKELETAL: No obvious deformities. No clubbing. No cyanosis. No edema. NEUROLOGICAL: Awake and alert. No obvious cranial nerve deficits. Motor grossly within normal limits. Normal speech. PSYCHIATRIC: Appropriate mood and affect; insight and judgment normal. Data Data Last Documented VS Orders Electrocardiogram (08/20/16 13:34) Basic Metabolic Panel (Bmp) (08/20/16 13:34) B-Type Natriuretic Peptide (08/20/16 13:34) Ckmb (Isoenzyme) Profile (08/20/16 13:34) Complete Blood Count With Diff (08/20/16 13:34) Magnesium (Mg) (08/20/16 13:34) Prothrombin Time / Inr (Pt) (08/20/16 13:34) Act Partial Throm Time (Ptt) (08/20/16 13:34) Troponin I (08/20/16 13:34) Chest, Single Ap (08/20/16 13:34) Ecg Monitoring (08/20/16 13:34) Bilateral Bp Monitoring (08/20/16 13:34) Iv Access Insert/Monitor (08/20/16 13:34) Oximetry (08/20/16 13:34) Oxygen Administration (08/20/16 13:34) Sodium Chloride 0.9% Flush (Ns Flush) (08/20/16 13:45) Urinalysis - C+S If Indicated (08/20/16 14:12) Sodium Chlorid 0.9% 500 Ml Inj (Ns 500 M (08/20/16 14:15) ^ Straight Catheter (08/20/16 14:17) ^ Infusion (08/20/16 ) Dopamine Inj Premix (Dopamine Inj Premix (08/20/16 15:30) Dopamine Inj (Intropin Inj) (08/20/16 15:30) Dopamine Inj (Intropin Inj) (08/20/16 15:30) Admit Order (Ed Use Only) (08/20/16 15:29) Labs MDM Medical Decision Making Medical Screen Exam Complete: Yes Emergency Medical Condition: Yes Medical Record Reviewed: Yes Interpretation(s) Twelve-lead EKG was reviewed by me. 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 Heart rate of 41 bpm. Differential Diagnosis Electrolyte abnormalities, amiodarone induced bradycardia, ACS, dehydration Narrative Course 2:44 PM blood test results are back. Patient has elevated BUN/creatinine is expected from dehydration. Chest x-ray is within normal limits. Awaiting for the UA. In my opinion given the way the EKG looks patient has bradycardia secondary to amiodarone. However given the fact that patient also has history of atrial flutter/A. fib due to which amiodarone was started initially there is a good possibility that patient will require pacemaker in order to control these to opposite arrhythmias. I've expressed this to the daughter and patient. They understand. Currently she does not require an emergent pacemaker or pressors. Amiodarone with require to be withheld obviously. However in anticipation of a pacemaker placement patient should be transferred to the main hospital. I discussed the case with Dr. Baum who is covering for patient's steep tender Dr. Castaneda. He agreed with the plan. Awaiting for the hospitalist to call back. 3:20 PM I was just informed by the nurse that patient's heart rate has gone down to high 30s and in 38-39. I've ordered a dopamine drip at this point in to keep the heart rate elevated. I will put a call out for the cold patcher. Critical Care Narrative Aggregate critical care time was 30 minutes. Time to perform other separately billable procedures was not included in the critical care time. My time did not include minutes spent treating any other patients simultaneously or on activities that did not directly contribute to the patient's treatment. The services I provided to this patient were to treat and/or prevent clinically significant deterioration that could result in: Symptomatic bradycardia I provided critical care services requiring my management, as noted below: Chart data review, documentation time, medication orders and management, vital sign assessments/reviewing monitor data, ordering and reviewing lab tests, ordering and interpreting/reviewing x-rays and diagnostic studies, care of the patient and discussion of the patient with the admitting physicians. Procedures EKG Prior to Arrival: Yes Physician Communication Physician Communication Dr. Baum, Dr. Vargas Diagnosis Primary Impression: Symptomatic bradycardia Additional Impressions: Dehydration Possibly amiodarone-induced bradycardia Admitting Information Admitting Physician Requests: Admit Jacoby Carroll MD Aug 20, 2016 13:34 Activated Partial 28.7 SEC Thromboplast Time Sodium Level 142 MEQ/L Potassium Level 3.7 MEQ/L Chloride Level 103 MEQ/L Carbon Dioxide Level 30.2 MEQ/L Anion Gap 9 MEQ/L Blood Urea Nitrogen 34 MG/DL Creatinine 1.20 MG/DL Estimat Glomerular Filtration 42 ML/MIN Rate Random Glucose 137 MG/DL Calcium Level 9.4 MG/DL Magnesium Level 1.9 MG/DL Total Creatine Kinase 50 U/L Troponin I 0.04 NG/ML B-Type Natriuretic Peptide 1073 PG/ML MDM Medical Decision Making Medical Screen Exam Complete: Yes Emergency Medical Condition: Yes Medical Record Reviewed: Yes Interpretation(s) Twelve-lead EKG was reviewed by me. 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 Heart rate of 41 bpm. Differential Diagnosis Electrolyte abnormalities, amiodarone induced bradycardia, ACS, dehydration Narrative Course 2:44 PM blood test results are back. Patient has elevated BUN/creatinine is expected from dehydration. Chest x-ray is within normal limits. Awaiting for the UA. In my opinion given the way the EKG looks patient has bradycardia secondary to amiodarone. However given the fact that patient also has history of atrial flutter/A. fib due to which amiodarone was started initially there is a good possibility that patient will require pacemaker to control these to contradicting arrhythmias. I've expressed this to the daughter and patient. They understand. Currently she does not require an emergent pacemaker or pressors. Amiodarone with require to be withheld obviously. However in anticipation of a pacemaker placement patient should be transferred to the main hospital. I discussed the case with Dr. Baum who is covering for patient's steep tender Dr. Castaneda. He agreed with the plan. Awaiting for the hospitalist to call back. 3:20 PM I was just informed by the nurse that patient's heart rate has gone down to high 30s and in 38-39. I've ordered a dopamine drip at this point in to keep the heart rate elevated. I put a call out for the cold patcher. Critical Care Narrative Aggregate critical care time was 30 minutes. Time to perform other separately billable procedures was not included in the critical care time. My time did not include minutes spent treating any other patients simultaneously or on activities that did not directly contribute to the patient's treatment. The services I provided to this patient were to treat and/or prevent clinically significant deterioration that could result in: Symptomatic bradycardia I provided critical care services requiring my management, as noted below: Chart data review, documentation time, medication orders and management, vital sign assessments/reviewing monitor data, ordering and reviewing lab tests, ordering and interpreting/reviewing x-rays and diagnostic studies, care of the patient and discussion of the patient with the admitting physicians. Procedures EKG Prior to Arrival: Yes Physician Communication Physician Communication Dr. Baum, Dr. Vargas Diagnosis Primary Impression: Symptomatic bradycardia Additional Impressions: Dehydration Possibly amiodarone-induced bradycardia Admitting Information Admitting Physician Requests: Jacoby You MD Aug 20, 2016 13:34
[2016-08-20] MEDS ORDERED: SODIUM CHLORIDE 0.9% FLUSH 5 ML FLUSH IVF PRN (13:45)
[2016-08-20] MEDS ORDERED: INSU1INJ13 SQ (13:46)
[2016-08-20 13:58] LABS: AUTOMATED NEUTROPHIL # 5.8 TH/MM3 (1.8-7.7); BASOPHIL # 0.1 TH/MM3 (0-0.2); BASOPHIL % 0.7 % (0.0-2.0); EOSINOPHIL # 0.3 TH/MM3 (0-0.4); HEMATOCRIT 46.1 % (35.0-46.0); HEMO FLAGS DIFF FINAL; LYMPH % 12.8 % (9.0-44.0); MEAN CELL VOLUME 87.1 FL (80.0-100.0); MEAN CORPUSCULAR HEMOGLOBIN 28.1 PG (27.0-34.0); MEAN CORPUSCULAR HGB CONC 32.3 % (32.0-36.0); MONO % 8.4 % (0.0-8.0); NEUT % 74.1 % (16.0-70.0); PLATELET COUNT 219 TH/MM3 (150-450); RED CELL DISTRIBUTION WIDTH 12.9 % (11.6-17.2); WHITE BLOOD COUNT 7.9 TH/MM3 (4.0-11.0)
--- NOTE | 2016-08-20 14:02 | RADHPO ---
EXAM DATE/TIME: 08/20/2016 13:40 [facility] COMPARISON: CHEST SINGLE AP, August 12, 2016, 15:42. INDICATIONS : Short of breath MEDICAL HISTORY : Hypercholesterolemia. Hypertension Asthma SURGICAL HISTORY : Ablasion ENCOUNTER: Initial ACUITY: 1 day PAIN SCORE: 7/10 LOCATION: Bilateral chest FINDINGS: A single view of the chest demonstrates the lungs to be symmetrically aerated without evidence of mas s, infiltrate or effusion. The cardiomediastinal contours are unremarkable. Osseous structures are intact. CONCLUSION: No acute disease. Mario Hassan MD FACR on August 20, 2016 at 14:00 Board Certified Radiologist. This report was verified electronically.
[2016-08-20 14:13] LABS: POTASSIUM 3.7 MEQ/L (3.5-5.1)
[2016-08-20] MEDS ORDERED: SODIUM CHLORID 0.9% 500 ML INJ 500 ML IV ONE (14:15)
[2016-08-20 14:16] LABS: BICARBONATE 30.2 MEQ/L (21.0-32.0); MAGNESIUM 1.9 MG/DL (1.5-2.5)
[2016-08-20 14:17] LABS: APTT (PATIENT) 28.7 SEC (24.3-30.1); PROTHROMBIN TIME - PATIENT 10.9 SEC (9.8-11.6)
[2016-08-20] MEDS ORDERED: WATER IV SCH ×2 (15:30)
[2016-08-20] MEDS ORDERED: DOPAMINE IV SCH ×2 (15:30)
[2016-08-20] MEDS ORDERED: DEXTROSE 5% IV SCH ×2 (15:30)
[2016-08-20] MEDS ORDERED: DOPamine INJ 1,600 MG in DEXTROSE 5% IN WATER INJ 240 ML IV SCH ×2 (15:30)
[2016-08-20] MEDS: DOPamine INJ PREMIX 500 ML IV SCH (15:31)
[2016-08-20] MEDS ORDERED: CHLORHEXIDINE GLUCONATE 2 % 1 PACK (2 CLOTHS) TOP PRN (16:00)
[2016-08-20] MEDS ORDERED: ACETAMINOPHEN 325 MG TAB PO PRN (16:00)
[2016-08-20] MEDS ORDERED: MAGNESIUM SULFATE 1 GM PREMIX 100 ML IV ONE (16:00)
[2016-08-20] MEDS ORDERED: MISCELLANEOUS NURSING INFORMATION XX SCH (16:00)
[2016-08-20] MEDS ORDERED: POTASSIUM CHLORIDE 20 MEQ CONTROLLED RELEASE TAB PO ONE (16:00)
[2016-08-20] MEDS ORDERED: SENNOSIDES 8.6 MG TAB PO PRN (16:00)
[2016-08-20] MEDS ORDERED: SODIUM CHLORIDE 0.9% FLUSH 5 ML FLUSH IV FLUSH PRN (16:00)
[2016-08-20] MEDS ORDERED: GLUCAGON 1 MG/ML VIAL OTHER PRN (16:00)
[2016-08-20] MEDS: INSULIN NovoLIN REGULAR SUPPLEMENTAL SCALE SQ SCH ×2 (16:00→20:11)
[2016-08-20] MEDS ORDERED: ONDANSETRON HCL 4 MG/2 ML VIAL IV PRN (16:00)
[2016-08-20] MEDS ORDERED: DEXTROSE 50% IN WATER 50 ML VIAL(D50) IV PUSH PRN (16:00)
[2016-08-20] MEDS: SODIUM CHLOR 0.9% 1000 ML INJ 1,000 ML IV SCH (16:15)
[2016-08-20 16:29] LABS: BLOOD, URINE NEG (NEG); KETONE, URINE NEG (NEG); NITRITE,URINE NEG (NEG); PH, URINE 5.5 (5.0-8.5)
[2016-08-20 16:30] LABS: GLUCOSE,URINE 1000 OR GREATER mg/dL (NEG)
[2016-08-20 16:50] LABS: METHOD OF COLLECTION CATH; URINE COLOR YELLOW (YELLW/STRAW)
[2016-08-20 16:51] LABS: BACTERIA, URINE RARE /hpf; COMMENT (UR) CULTURE INDICATED; CULTURE IF INDICATED CULTURE INDICATED; SQUAMOUS EPITHELIAL CELL URINE 0-2 /hpf (0-5); WBC, URINE 0-2 /hpf (0-5)
[2016-08-20] MEDS: ALPRAZolam 0.25 MG TAB PO SCH (18:00)
[2016-08-20] MEDS: SODIUM CHLORIDE 0.9% FLUSH 5 ML FLUSH IV FLUSH SCH (20:11)
[2016-08-20] MEDS: DOCUSATE SODIUM 100 MG CAP PO SCH (20:11)
[2016-08-20] MEDS: AMITRIPTYLINE HCL 25 MG TAB PO SCH (20:14)
--- NOTE | 2016-08-20 20:23 | RADRPT ---
EXAM DATE/TIME: 08/20/2016 19:51 [facility] COMPARISON: CHEST SINGLE AP, August 20, 2016, 13:40. INDICATIONS : Central line placement MEDICAL HISTORY : Hypercholesterolemia. Hypertension Asthma SURGICAL HISTORY : None. ENCOUNTER: Initial ACUITY: 1 day PAIN SCORE: Non-responsive. LOCATION: Bilateral chest FINDINGS: A single view of the chest demonstrates the lungs to be symmetrically aerated without evidence of mas s, infiltrate or effusion. The cardiomediastinal contours are unremarkable. Osseous structures are intact. There is a right internal jugular central venous catheter with tip in the superior vena cava. CONCLUSION: New right IJ central venous catheter with tip in the superior vena cava. No pneumothorax or other acu te complication. Lungs remain clear. Pollo Benson MD on August 20, 2016 at 20:21 Board Certified Radiologist. This report was verified electronically.
--- NOTE | 2016-08-20 21:23 | EKG ---
Date Performed: 08/20/2016 Time Performed: 13:19:48 PTAGE: 86 years EKG: Junctional rhythm. Leftward axis Possible anteroseptal infarct - age undetermined Inferior/ lateral ST-T changes may be due to myocardial ischemia Abnormal ECG NO PREVIOUS TRACING DOCTOR: Rashad Baum Interpretating Date/Time 08/20/2016 21:22:53
--- NOTE | 2016-08-20 22:04 | HHI.HP ---
[facility] Service Critical Care Medicine Primary Care Physician Francisco Park MD Admission Diagnosis symptomatic bradycardia Diagnosis: Travel History International Travel<30 Days: No Contact w/Intl Traveler <30 Da: No Traveled to Known Affected Are: No History of Present Illness 86-year-old female brought by her daughter with history of fatigue, tiredness and bradycardia. Per chart the patient has been sleeping 12-14 hours a day for past couple days. Today the home health nurse came and checked her pulse and it was in the low 40s. She advised that the patient should be brought to the emergency room. The patient is too somnolent and lethargic to provide any more history. Review of Systems ROS Unable to obtain patient is to lethargic Past Family Social History Allergies: Coded Allergies: ARABELLA Inhibitors (Verified Allergy, Severe, Anaphylaxis, 08/20/16) Amoxicillin (Verified Allergy, Severe, Anaphylaxis, 08/20/16) Fentanyl (Verified Allergy, Severe, 08/20/16) ALLERGIC TO PATCH, RASH AT PATCH SITE pt states she was not aware of ever having a patch Keflex (Verified Allergy, Severe, Anaphylaxis, 08/20/16) Monosodium Glutamate (Verified Allergy, Severe, asthma attack, 08/20/16) Neomycin (Verified Allergy, Severe, Anaphylaxis, 08/20/16) Petrolatum (Verified Allergy, Severe, SWELLING, 08/20/16) Sulfa (Verified Allergy, Severe, Anaphylaxis, 08/20/16) Sulfites & Bisulfites (Verified Allergy, Severe, ASTHMA ATTACK, 08/20/16) Past Medical History Pulmonary embolus Asthma PVD heart murmur hyperlipidemia type 2 diabetes hypertension anxiety and depression glaucoma History of atrial flutter Past Surgical History R Femoropopliteal revascularization 07/27/11 H/o R femoral-tibial bypass graft and R femoral-proximal peroneal bypass graft Vein stripping Hysterectomy for fibroids Tonsillectomy Laser surgery both eyes Reported Medications Reported Meds & Active Scripts Active Reported Tresiba Flextouch Pen Inj (Insulin Degludec Inj) 600 unit/3 ML Pen 1 Units SQ DIRECTED PRN Valsartan 320 Mg Tab 320 Mg PO DAILY Ranitidine (Ranitidine HCl) 150 Mg Tab 150 Mg PO HS Metformin (Metformin HCl) 500 Mg Tab 500 Mg PO BIDPC With meals Januvia (Sitagliptin Phosphate) 100 Mg Tab 100 Mg PO DAILY Farxiga (Dapagliflozin) 10 Mg Tab 10 Mg PO DAILY Escitalopram (Escitalopram Oxalate) 10 Mg Tab 10 Mg PO DAILY Clopidogrel (Clopidogrel Bisulfate) 75 Mg Tab 75 Mg PO DAILY Amitriptyline (Amitriptyline HCl) 25 Mg Tab 25 Mg PO HS Amiodarone (Amiodarone HCl) 200 Mg Tab 200 Mg PO BID Alprazolam 0.25 Mg Tab 0.25 Mg PO TID Active Ordered Medications Current Medications Medications (Trade) Dose Ordered Sig/Ann Route PRN Reason Start Time Stop Time Status Last Admin Dose Admin IV Flush 2 ml 2 ml UNSCH PRN IVF FLUSH AFTER USING IV ACCESS 08/20/16 13:45 Dopamine HCl/ Dextrose 500 ml @ 0 mls/hr TITRATE IV 08/20/16 15:30 08/20/16 15:31 Dopamine HCl 800 mg/Dextrose 250 ml @ 0 mls/hr TITRATE IV 08/20/16 15:30 Dopamine HCl 1600 mg/Dextrose 250 ml @ 0 mls/hr TITRATE IV 08/20/16 15:30 Sodium Chloride (NS 1000 ml Inj) 1,000 ml @ 84 mls/hr [id number] IV 08/20/16 15:52 08/20/16 16:15 IV Flush (NS Flush) 2 ml UNSCH PRN IV FLUSH FLUSH AFTER USING IV ACCESS 08/20/16 16:00 IV Flush (NS Flush) 2 ml BID IV FLUSH 08/20/16 21:00 08/20/16 20:11 Acetaminophen (Tylenol) 650 mg Q6H PRN PO PAIN 1-10 AND/OR FEVER >101F 08/20/16 16:00 Pantoprazole Sodium (Protonix Inj) 40 mg DAILY IV 08/21/16 09:00 Ondansetron HCl (Zofran Inj) 4 mg Q6H PRN IV NAUSEA OR VOMITING 08/20/16 16:00 Docusate Sodium (Colace) 100 mg BID PO 08/20/16 21:00 08/20/16 20:11 Sennosides (Senokot) 17.2 mg Q12HR PRN PO CONSTIPATION 08/20/16 16:00 Miscellaneous Information 1 [id number] XX 08/20/16 16:00 Chlorhexidine Gluconate (Chlorhexidine 2% Cloth) 3 pack Taper DAILY@04 TOP 08/21/16 04:00 08/17/17 03:59 Chlorhexidine Gluconate (Chlorhexidine 2% Cloth) 3 pack UNSCH PRN TOP HYGIENIC CARE 08/20/16 16:00 Alprazolam (Xanax) 0.25 mg TID PO 08/20/16 18:00 Amitriptyline HCl (Elavil) 25 mg HS PO 08/20/16 21:00 08/20/16 20:14 Clopidogrel Bisulfate (Plavix) 75 mg DAILY PO 08/21/16 09:00 Escitalopram Oxalate (Lexapro) 10 mg DAILY PO 08/21/16 09:00 Dextrose (D50w (Vial) Inj) 25 ml UNSCH PRN IV PUSH HYPOGLYCEMIA-SEE COMMENTS 08/20/16 16:00 Glucagon (Glucagon Inj) 1 mg UNSCH PRN OTHER HYPOGLYCEMIA-SEE COMMENTS 08/20/16 16:00 Family History Noncontributory Social History Negative 3 Physical Exam Vital Signs Vital Signs Date Time Temp Pulse Resp B/P Pulse Ox O2 Delivery O2 Flow Rate FiO2 08/20/16 18:41 97.6 33 24 109/51 91 08/20/16 18:00 44 08/20/16 18:00 97.6 44 21 133/60 94 08/20/16 17:45 97.6 51 20 109/51 91 08/20/16 17:45 51 08/20/16 16:35 98.4 52 17 107/45 94 Nasal Cannula 2 08/20/16 16:35 Nasal Cannula 2 08/20/16 16:25 45 17 99/57 97 Nasal Cannula 2 08/20/16 16:09 54 14 131/49 95 Nasal Cannula 2 08/20/16 16:00 44 08/20/16 15:52 54 17 159/75 98 Nasal Cannula 2 08/20/16 15:35 43 17 186/108 98 Nasal Cannula 2 08/20/16 15:24 38 17 145/61 96 Room Air 08/20/16 14:51 42 17 142/58 98 Room Air 08/20/16 13:57 165/61 142/58 08/20/16 13:38 08/20/16 13:37 98 Room Air 08/20/16 13:36 98 Room Air 08/20/16 13:32 97.6 41 18 189/70 98 Room Air Physical Exam GENERAL: Well-nourished, well-developed elderly lady lethargic. SKIN: Warm and dry. HEAD: Normocephalic. EYES: No scleral icterus. No injection or drainage. NECK: Supple, trachea midline. No JVD or lymphadenopathy. CARDIOVASCULAR: Regular rate and rhythm without murmurs, gallops, or rubs. RESPIRATORY: Breath sounds equal bilaterally. No accessory muscle use. GASTROINTESTINAL: Abdomen soft, non-tender, nondistended. MUSCULOSKELETAL: No cyanosis, or edema. BACK: Nontender without obvious deformity. No CVA tenderness. Laboratory Laboratory Tests Test 08/20/16 08/20/16 08/20/16 13:40 15:45 19:45 White Blood Count 7.9 Red Blood Count 5.30 Hemoglobin 14.9 Hematocrit 46.1 Mean Corpuscular Volume 87.1 Mean Corpuscular Hemoglobin 28.1 Mean Corpuscular Hemoglobin 32.3 Concent Red Cell Distribution Width 12.9 Platelet Count 219 Mean Platelet Volume 9.1 Neutrophils (%) (Auto) 74.1 Lymphocytes (%) (Auto) 12.8 Monocytes (%) (Auto) 8.4 Eosinophils (%) (Auto) 4.0 Basophils (%) (Auto) 0.7 Neutrophils # (Auto) 5.8 Lymphocytes # (Auto) 1.0 Monocytes # (Auto) 0.7 Eosinophils # (Auto) 0.3 Basophils # (Auto) 0.1 CBC Comment DIFF FINAL Differential Comment Prothrombin Time 10.9 Prothromb Time International 1.0 Ratio Activated Partial 28.7 Thromboplast Time Sodium Level 142 Potassium Level 3.7 Chloride Level 103 Carbon Dioxide Level 30.2 Anion Gap 9 Blood Urea Nitrogen 34 Creatinine 1.20 Estimat Glomerular Filtration 42 Rate Random Glucose 137 Calcium Level 9.4 Magnesium Level 1.9 Total Creatine Kinase 50 Troponin I 0.04 0.05 B-Type Natriuretic Peptide 1073 Urine Collection Type CATH Urine Color YELLOW Urine Turbidity CLEAR Urine pH 5.5 Urine Specific [place] 1.034 Urine Protein NEG Urine Glucose (UA) 1000 OR GREATER Urine Ketones NEG Urine Occult Blood NEG Urine Nitrite NEG Urine Bilirubin NEG Urine Leukocyte Esterase NEG Urine WBC 0-2 Urine WBC Clumps RARE Urine Squamous Epithelial 0-2 Cells Urine Bacteria RARE Microscopic Urinalysis Comment CULTURE INDICATED Date/Time Procedure Status Source Growth 08/20/16 15:45 Urine Culture Received Urine Catheterized Urine Pending Result Diagram: 08/20/16 1340 08/20/16 1340 Imaging Last 24 hours Impressions Chest X-Ray 08/20/16 1334 Signed Impressions: Service Date/Time: Saturday, August 20, 2016 13:40 - CONCLUSION: No acute disease. Mario Hassan MD FACR Assessment and Plan Problem List: (1) Chronic kidney disease, stage 3 ICD Code: N18.3 Status: Acute (2) HTN (hypertension) ICD Code: I10 Status: Chronic (3) Symptomatic bradycardia ICD Code: R00.1 Status: Acute Assessment and Plan Bradycardia - Symptomatic - Central line placement - Dopamine as needed to titrate for map above 65 - Cardiology consult Altered mental status - Toxic metabolism - Could be due to bradycardia and hypotension - Nonfocal neurological exam - CT head to not indicated - We'll check TSH level Chronic kidney disease - Dehydration - Gentle IV hydration - Monitor I's and O's - Monitor electrolytes and creatinine level DVT GI prophylaxis - Subcutaneous heparin Pepcid Critical Care: The total critical care time was 35 minutes. Time to perform other separately billable procedures was not included in the critical care time. Kevin Chen MD Aug 20, 2016 22:04
[2016-08-21] VITALS (15 sets, daily range): BP systolic 135–149; BP diastolic 59–66; PULSE 41–83; RESP 20–23; TEMP 97.6–99.1; O2SAT 92–97
[2016-08-21] MEDS: SODIUM CHLOR 0.9% 1000 ML INJ 1,000 ML IV SCH ×2 (03:47→17:31)
[2016-08-21] MEDS: CHLORHEXIDINE GLUCONATE 2 % 1 PACK (2 CLOTHS) TOP SCH (04:00)
[2016-08-21 04:53] LABS: AUTOMATED NEUTROPHIL # 9.4 TH/MM3 (1.8-7.7); BASOPHIL % 0.3 % (0.0-2.0); EOSINOPHIL # 0.1 TH/MM3 (0-0.4); EOSINOPHIL % 0.6 % (0.0-4.0); HEMATOCRIT 40.4 % (35.0-46.0); HEMO FLAGS DIFF FINAL; LYMPH % 5.6 % (9.0-44.0); LYMPHOCYTE # 0.7 TH/MM3 (1.0-4.8); MEAN CELL VOLUME 85.4 FL (80.0-100.0); MEAN CORPUSCULAR HEMOGLOBIN 28.9 PG (27.0-34.0); MEAN CORPUSCULAR HGB CONC 33.8 % (32.0-36.0); MONO % 14.4 % (0.0-8.0); NEUT % 79.1 % (16.0-70.0); PLATELET COUNT 231 TH/MM3 (150-450); RED BLOOD COUNT 4.74 MIL/MM3 (4.00-5.30); RED CELL DISTRIBUTION WIDTH 13.7 % (11.6-17.2); WHITE BLOOD COUNT 11.9 TH/MM3 (4.0-11.0)
[2016-08-21 05:11] LABS: PROTHROMBIN TIME - PATIENT 11.4 SEC (9.8-11.6)
[2016-08-21 05:16] LABS: ALT (GPT) 40 U/L (10-53); ANION GAP 11 MEQ/L (5-15); AST (GOT) 20 U/L (15-37); BICARBONATE 24.4 MEQ/L (21.0-32.0); CHLORIDE 104 MEQ/L (98-107); GLOMERULAR FILTRATION RATE 42 ML/MIN (>89); MAGNESIUM 1.8 MG/DL (1.5-2.5); POTASSIUM 3.4 MEQ/L (3.5-5.1); SODIUM (NA) 139 MEQ/L (136-145)
[2016-08-21 05:26] LABS: ALKALINE PHOSPHATASE 93 U/L (45-117); BLOOD UREA NITROGEN 33 MG/DL (7-18); TOTAL BILIRUBIN ADULT 0.7 MG/DL (0.2-1.0)
[2016-08-21] MEDS ORDERED: POTASSIUM CHLOR 40 MEQ PREMIX 100 ML IV ONE (06:15)
[2016-08-21] MEDS: DOPamine INJ PREMIX 500 ML IV SCH ×2 (06:39→17:31)
[2016-08-21] MEDS: INSULIN NovoLIN REGULAR SUPPLEMENTAL SCALE SQ SCH ×4 (06:39→20:55)
--- NOTE | 2016-08-21 07:51 | EKG ---
Date Performed: 08/20/2016 Time Performed: 17:50:18 PTAGE: 86 years EKG: Probable junctional rhythm. Prolonged QT interval Possible anteroseptal infarct - age undet ermined Inferior/lateral ST-T changes suggest myocardialischemia Prominent U waves Abnormal ECG PREVIOUS TRACING : 08/20/2016 13.19 No significant change from previous tracing noted. DOCTOR: Rashad Baum Interpretating Date/Time 08/21/2016 07:50:31
--- NOTE | 2016-08-21 08:28 | HHI.CCPN ---
Subjective Remarks/Hospital Course 86-year-old female brought by her daughter with history of fatigue, tiredness and bradycardia. Per chart the patient has been sleeping 12-14 hours a day for past couple days. Today the home health nurse came and checked her pulse and it was in the low 40s. She advised that the patient should be brought to the emergency room. The patient is too somnolent and lethargic to provide any more history. Subjective 08/21: Afebrile. Heart rate currently in the 50s and 60s on dopamine drip at 12 micrograms per kilogram per minute. Patient appears to have a baseline heart rate between 40 and 55 according to review of old records here at [facility]. Placed on ADA diet. No bowel movement.. Objective Vital Signs Date Time Temp Pulse Resp B/P Pulse Ox O2 Delivery O2 Flow Rate FiO2 08/21/16 06:00 65 08/21/16 04:00 99.1 22 147/66 97 08/20/16 16:35 Nasal Cannula 2 Intake and Output 08/20/16 08/20/16 08/21/16 08:00 16:00 00:00 Intake Total 1030 ml Output Total 450 ml Balance 580 ml Result Diagram: 08/21/16 0430 08/21/16 0430 Other Results Microbiology Date/Time Procedure Status Source Growth 08/20/16 15:45 Urine Culture Received Urine Catheterized Urine Pending Imaging Last Impressions Chest X-Ray 08/20/16 1334 Signed Impressions: Service Date/Time: Saturday, August 20, 2016 13:40 - CONCLUSION: No acute disease. Mario Hassan MD FACR Objective Remarks GENERAL: 86 yo female, critically ill currently resting in bed in no acute distress SKIN: Warm and dry. No rash HEAD: Normocephalic. EYES: No scleral icterus. No injection or drainage. PERRL. EOMI. ENT: No tympanic drainage. Oropharynx without erythema or exudates NECK: Supple, trachea midline. No JVD or lymphadenopathy. No carotid bruit CARDIOVASCULAR: Currently normal sinus rhythm with a heart rate 61. S1, S2. No S4. RESPIRATORY: Breath sounds equal bilaterally. No accessory muscle use. GASTROINTESTINAL: Abdomen soft, non-tender, nondistended. Hyperactive bowel sounds are appreciated MUSCULOSKELETAL: No significant peripheral edema. Prior scarring from bypass right-sided noted BACK: Nontender without obvious deformity. No CVA tenderness. Vascular Central Line Catheter: Yes Date of Insertion: Aug 20, 2016 Line: Central Venous Catheter Side: Right Location: Internal, Jugular A/P Problem List: (1) Chronic kidney disease, stage 3 ICD Code: N18.3 Status: Acute (2) HTN (hypertension) ICD Code: I10 Status: Chronic (3) Symptomatic bradycardia ICD Code: R00.1 Status: Acute Assessment and Plan Neuro/Psych: Chronic benzodiazepine use Depression/anxiety Continue Elavil 25 mg by mouth daily/home medication Continue Escitalopram 10 mg by mouth daily for depression as home medication Continue Xanax 0.25 mg 3 times a day for anxiety. Acetaminophen for fever [place]/as needed morphine for pain management CV: Symptomatically bradycardia - .. ? Junctional now currently in normal sinus rhythm History of a flutter status post ablation Nonobstructive coronary disease Hypertension Dyslipidemia Peripheral vascular disease history of post right femoropopliteal, femoral- tibial and femoroperoneal bypass This is a patient Dr. Verdin/cardiology. Cardiology has been consulted Cardiac catheterization 04/11 revealed left main without disease, LAD 40% stenosis, left circumflex coronary disease and RCA 40% stenosis. No intervention. Currently on dopamine at 12 mcg/kg/m for heart rate management. Amiodarone currently has been held. Level pending Patient is on valsartan 320 mg daily for hypertension. This is currently on hold Continue Plavix 75 mg by mouth daily for peripheral vascular disease. Resp: Documentation of asthma History of pulmonary embolism Nasal cannula to maintain saturations greater than equal to 90% Incentive spirometry while awake Follow-up chest x-ray after line placement. GI: ADA diet. Protonix for GI prophylaxis. On Zantac 150 mg a night at home. Colace/as needed Senokot for bowel regimen : Armas will be placed for accurate I's nose any critically ill patient Endo: Diabetes mellitus type 2 Home medications include Januvia 100 mg daily, Tresiba injection subcutaneous as needed and Farxiga 10 mg daily Sliding scale insulin Accu-Cheks every 6 before meals at bedtime to maintain euglycemia/moderate regimen Check TSH Renal: History chronic kidney disease stage III Creatinine currently within normal limits. Accurate I's and O's. Monitor urine output Recheck BMP in a.m. Heme: Leukocytosis Follow CBC daily. Monitor trends ID: Monitor for infection FEN: Hypokalemia Replace electrolyte as clinically indicated Received 30 mEq twice a day potassium chloride and 2 g mag sulfate today. Recheck in a.m. MSK: Osteoarthritis PT evaluate and treat Access - Right IJ CVL day 1 Prophylaxis - GI - Protonix - DVT - SCD/heparin Critical Care: The total critical care time was 35 minutes. Time to perform other separately billable procedures was not included in the critical care time. Abilio cardia - Symptomatic - Central line placement - Dopamine as needed to titrate for map above 65 - Cardiology consult Altered mental status - Toxic metabolism - Could be due to bradycardia and hypotension - Nonfocal neurological exam - CT head to not indicated - We'll check TSH level Chronic kidney disease - Dehydration - Gentle IV hydration - Monitor I's and O's - Monitor electrolytes and creatinine level DVT GI prophylaxis - Subcutaneous heparin Pepcid Critical Care: The total critical care time was 35 minutes. Time to perform other separately billable procedures was not included in the critical care time. Justin Vargas MD Aug 21, 2016 08:28
[2016-08-21] MEDS ORDERED: POTASSIUM CHLORIDE 10 MEQ CONTROLLED RELEASE TAB PO SCH (09:00)
[2016-08-21] MEDS: ESCITALOPRAM OXALATE 10 MG TAB PO SCH (09:01)
[2016-08-21] MEDS: PANTOPRAZOLE SODIUM 40 MG VIAL IV SCH (09:01)
[2016-08-21] MEDS: DOCUSATE SODIUM 100 MG CAP PO SCH ×2 (09:01→20:50)
[2016-08-21] MEDS: CLOPIDOGREL 75 MG TAB PO SCH (09:01)
[2016-08-21] MEDS: ALPRAZolam 0.25 MG TAB PO SCH ×3 (09:02→17:31)
[2016-08-21] MEDS: MAGNESIUM SULFATE 1 GM PREMIX 100 ML IV SCH ×2 (09:03→11:02)
[2016-08-21] MEDS ORDERED: POTASSIUM CHLORIDE 20 MEQ CONTROLLED RELEASE TAB PO ONE (09:15)
[2016-08-21] MEDS ORDERED: MAGNESIUM SULFATE INJ 2 GM in SODIUM CHLORIDE 0.9% INJ 96 ML IV PRN (09:45)
[2016-08-21] MEDS ORDERED: MAGNESIUM OXIDE 400 MG TAB PO PRN (09:45)
[2016-08-21] MEDS ORDERED: SODIUM PHOSPHATE INJ 30 MMOL in SODIUM CHLOR 0.9% 250 ML INJ 240 ML IV PRN (09:45)
[2016-08-21] MEDS ORDERED: MAGNESIUM SULFATE INJ 4 GM in SODIUM CHLORIDE 0.9% INJ 92 ML IV PRN (09:45)
[2016-08-21] MEDS ORDERED: POTASSIUM PHOSPHATE MONOBASIC 500 MG TAB PO/TUBE PRN (09:45)
[2016-08-21] MEDS ORDERED: POTASSIUM CL 40 MEQ/30 ML LIQ UDC PO/TUBE PRN ×2 (09:45)
[2016-08-21] MEDS ORDERED: POTASSIUM CHLOR 40 MEQ PREMIX 100 ML IV PRN ×2 (09:45)
[2016-08-21] MEDS ORDERED: POTASSIUM CHLOR 20 MEQ PREMIX 100 ML IV PRN ×2 (09:45)
[2016-08-21] MEDS ORDERED: POTASSIUM PHOSPHATE INJ 30 MMOL in SODIUM CHLOR 0.9% 250 ML INJ 250 ML IV PRN (09:45)
[2016-08-21] MEDS ORDERED: POTASSIUM PHOSPHATE MONOBASIC 500 MG TAB PO PRN (09:45)
[2016-08-21] MEDS: SODIUM CHLORIDE 0.9% FLUSH 5 ML FLUSH IV FLUSH SCH ×2 (11:02→20:50)
[2016-08-21] MEDS: AZTREONAM INJ 1,000 MG in SODIUM CHLORIDE 0.9% INJ 100 ML IV SCH ×2 (11:13→17:31)
--- NOTE | 2016-08-21 12:07 | MB ---
cc: NAYE BURTON DATE OF CONSULTATION: 08/21/2016 REASON FOR CONSULTATION Bradycardia. HISTORY OF PRESENT ILLNESS The patient is an 86-year-old white female with a history of coronary artery disease, moderate aortic stenosis, paroxysmal atrial fibrillation, paroxysmal atrial flutter, diabetes, hypertension, peripheral vascular disease who was brought to the hospital by her daughter due to increasing fatigue, generalized weakness and bradycardia. She was found to be in a junctional rhythm with heart rate in the low 40s in the emergency department. The patient was started on dopamine. She denies lightheadedness, syncope, near-syncope, palpitations, dyspnea. Overall she has felt considerably fatigued particularly in the last few days. She also denies paroxysmal nocturnal dyspnea, orthopnea, pedal edema. The patient apparently had an atrial flutter ablation last year by Dr. Birmingham although also had atrial fibrillation induced at electrophysiology study. She has been on amiodarone since that time. PAST MEDICAL HISTORY 1. Coronary artery disease with a cardiac catheterization approximately March 2016 showing 40% proximal and mid LAD lesions, 40% right coronary disease 2. Moderate aortic stenosis with a mean transvalvular aortic gradient of 32 mmHg by echo 01/07/2016. 3. Paroxysmal atrial fibrillation which was only induced at electrophysiology study December,. 4. Paroxysmal atrial flutter status post ablation December, by Dr. iBrmingham 5. Diabetes. 6. Hyperlipidemia. 7. Hypertension. 8. Peripheral vascular disease status post right popliteal aneurysm repair and right femoral peroneal bypass 2009. 9. Asthma. CARDIAC MEDICATIONS AT HOME 1. Amiodarone 200 mg b.i.d. 2. Clopidogrel 75 mg q.d. 3. Valsartan 320 mg q.d. ALLERGIES ARABELLA INHIBITORS, AMOXICILLIN, FENTANYL, KEFLEX, NEOMYCIN, SULFA, SULFITES, MONOSODIUM GLUTAMATE, PETROLATUM. FAMILY HISTORY Noncontributory. SOCIAL HISTORY The patient denies alcohol or tobacco abuse. REVIEW OF SYSTEMS As in the History of Present Illness otherwise negative or noncontributory. She also denies headache, abdominal pain, melena, dyspepsia. PHYSICAL EXAMINATION VITAL SIGNS: Her blood pressure 137/63 with a pulse of 41, respirations 23. GENERAL: She is a well-developed, thin, white female in no acute distress. HEENT: Jugular venous pressure is normal. Carotid pulses are 2+ bilaterally and without definite bruits. CHEST: Examination of the chest reveals unlabored respiratory effort with clear lung castillo. CARDIAC: On cardiac examination, she has a bradycardic regular rhythm with a grade 2/6 systolic ejection murmur heard at the base of the heart. The S2 heart sound is moderately diminished. ABDOMEN: On abdominal examination, she has a soft, nontender abdomen. Bowel sounds are present. There is no definite hepatosplenomegaly. EXTREMITIES: Examination of the extremities reveals no clubbing, cyanosis or edema. LABORATORY DATA WBC 11.9, hemoglobin 13.7, platelets 231, potassium 3.4, BUN 33, creatinine 1.20, troponin 0.06, INR 1.0. IMAGING Chest x-ray shows no acute disease. EKG from 08/20/16 at 1:19 p.m. shows junctional rhythm, possible septal infarct age undetermined, inferior and lateral ST and T-wave abnormalities, consider ischemia. IMPRESSION Bradycardia (junctional rhythm) in this 86-year-old white female with a history of multiple medical problems including coronary artery disease, aortic stenosis, paroxysmal atrial fibrillation and atrial flutter, diabetes, peripheral vascular disease, hypertension. Currently, on dopamine drip, she continues to have episodic junctional rhythm. She also has episodes of second-degree AV block type 1. No severe pauses are seen. She has had no syncope or near syncope. Most likely her bradyarrhythmias are due to amiodarone. From what I can tell the amiodarone has been used for history of atrial fibrillation. She did have an atrial flutter ablation last year, and atrial fibrillation was induced at electrophysiology study. I discussed the potential treatment options with the patient including stopping amiodarone and observing to see if her rosa arrhythmias resolve versus continuing the amiodarone then performing permanent pacemaker implant. RECOMMENDATIONS Keep the patient off amiodarone for now; we will leave the decision regarding pacemaker implant or potentially another ablation procedure to Dr. Birmingham when he returns Tuesday. MD BROOKLYN Martinez/ANDREAS /10:51 AM /11:44 AM MARIBEL
--- NOTE | 2016-08-21 16:35 | EKG ---
Date Performed: 08/21/2016 Time Performed: 09:46:44 PTAGE: 86 years EKG: Possible idioventricular rhythm with slow ventricular response or junctional rhythm Right a xis deviation Nonspecific intraventricular conduction delay Inferior ST-T changes may be due to hyper trophy and/or ischemia Prominent U waves Abnormal ECG PREVIOUS TRACING : 08/20/2016 17.50 No significant change from previous tracing noted. DOCTOR: Rashad Baum Interpretating Date/Time 08/21/2016 16:33:58
[2016-08-21] MEDS: AMITRIPTYLINE HCL 25 MG TAB PO SCH (20:50)
[2016-08-22] VITALS (14 sets, daily range): BP systolic 97–153; BP diastolic 58–92; PULSE 89–108; RESP 20–32; TEMP 97.8–98.7; O2SAT 92–95
[2016-08-22] MEDS: SODIUM CHLOR 0.9% 1000 ML INJ 1,000 ML IV SCH ×2 (03:48→22:46)
[2016-08-22] MEDS: AZTREONAM INJ 1,000 MG in SODIUM CHLORIDE 0.9% INJ 100 ML IV SCH ×3 (03:48→17:20)
[2016-08-22] MEDS: CHLORHEXIDINE GLUCONATE 2 % 1 PACK (2 CLOTHS) TOP SCH (03:48)
[2016-08-22 04:39] LABS: AUTOMATED NEUTROPHIL # 7.1 TH/MM3 (1.8-7.7); BASOPHIL % 0.5 % (0.0-2.0); EOSINOPHIL # 0.3 TH/MM3 (0-0.4); EOSINOPHIL % 2.8 % (0.0-4.0); HEMATOCRIT 39.2 % (35.0-46.0); HEMO FLAGS DIFF FINAL; LYMPH % 8.2 % (9.0-44.0); LYMPHOCYTE # 0.7 TH/MM3 (1.0-4.8); MEAN CELL VOLUME 86.8 FL (80.0-100.0); MEAN CORPUSCULAR HEMOGLOBIN 29.4 PG (27.0-34.0); MEAN CORPUSCULAR HGB CONC 33.9 % (32.0-36.0); MONO % 9.8 % (0.0-8.0); NEUT % 78.7 % (16.0-70.0); PLATELET COUNT 213 TH/MM3 (150-450); RED BLOOD COUNT 4.52 MIL/MM3 (4.00-5.30); RED CELL DISTRIBUTION WIDTH 13.4 % (11.6-17.2); WHITE BLOOD COUNT 9.1 TH/MM3 (4.0-11.0)
[2016-08-22 05:03] LABS: BICARBONATE 23.9 MEQ/L (21.0-32.0); MAGNESIUM 2.2 MG/DL (1.5-2.5); POTASSIUM 4.1 MEQ/L (3.5-5.1)
--- NOTE | 2016-08-22 05:45 | PD.PROCEDR ---
Procedure Note Procedure Central Venous Catheter (CVC, Central Line) Placement Date: 08/20/16 Time: 1850 Indication: Hemodynamic monitoring/Intravenous access A time-out was completed verifying correct patient, procedure, site, positioning , and special equipment if applicable. The patient was placed in a dependent position appropriate for central line placement based on the vein to be cannulated. The patients neck was prepped and draped in sterile fashion. 1% Lidocaine was used to anesthetize the surrounding skin area. A triple lumen <9- Gabonese> Cordis catheter was introduced into the the internal jugular vein using the Seldinger technique under ultrasound guidance. The catheter was threaded smoothly over the guide wire and appropriate blood return was obtained. Each lumen of the catheter was evacuated of air and flushed with sterile saline. The catheter was then sutured in place to the skin and a sterile dressing applied. Perfusion to the extremity distal to the point of catheter insertion was checked and found to be adequate. Estimated Blood Loss: 1ml The patient tolerated the procedure well and there were no complications. Kevin Chen MD Aug 22, 2016 05:45
[2016-08-22] MEDS: INSULIN NovoLIN REGULAR SUPPLEMENTAL SCALE SQ SCH ×4 (06:35→21:00)
[2016-08-22] MEDS: SODIUM CHLORIDE 0.9% FLUSH 5 ML FLUSH IV FLUSH SCH ×2 (07:48→22:41)
[2016-08-22] MEDS: ALPRAZolam 0.25 MG TAB PO SCH ×3 (07:48→17:20)
[2016-08-22] MEDS: ESCITALOPRAM OXALATE 10 MG TAB PO SCH (07:48)
[2016-08-22] MEDS: CLOPIDOGREL 75 MG TAB PO SCH (07:49)
[2016-08-22] MEDS: DOCUSATE SODIUM 100 MG CAP PO SCH ×2 (07:50→22:41)
[2016-08-22] MEDS: PANTOPRAZOLE SODIUM 40 MG VIAL IV SCH (07:50)
--- NOTE | 2016-08-22 09:38 | HHI.CCPN ---
Subjective Remarks/Hospital Course 86-year-old female brought by her daughter with history of fatigue, tiredness and bradycardia. Per chart the patient has been sleeping 12-14 hours a day for past couple days. Today the home health nurse came and checked her pulse and it was in the low 40s. She advised that the patient should be brought to the emergency room. The patient is too somnolent and lethargic to provide any more history. 08/21: Afebrile. Heart rate currently in the 50s and 60s on dopamine drip at 12 micrograms per kilogram per minute. Patient appears to have a baseline heart rate between 40 and 55 according to review of old records here at [facility]. Placed on ADA diet. No bowel movement. Subjective 08/22: Afebrile. Dopamine done at 3 mcg/kg/m. Rhythm changes between normal sinus rhythm in addition to a Mobitz second-degree heart block type I and atrial fibrillation. Awake and alert and following commands. Tolerating diet. Denies chest pain or shortness of breath. Objective Vital Signs Date Time Temp Pulse Resp B/P Pulse Ox O2 Delivery O2 Flow Rate FiO2 08/22/16 08:00 97.9 92 20 119/79 95 08/21/16 19:18 Nasal Cannula 2.00 Intake and Output 08/21/16 08/21/16 08/22/16 08:00 16:00 00:00 Intake Total 968 ml 2050 ml 1333 ml Output Total 300 ml 700 ml 800 ml Balance 668 ml 1350 ml 533 ml Result Diagram: 08/22/16 0335 08/22/16 0335 Other Results Microbiology Date/Time Procedure Status Source Growth 08/20/16 15:45 Urine Culture Received Urine Catheterized Urine Pending Imaging Last Impressions Chest X-Ray 08/20/16 1334 Signed Impressions: Service Date/Time: Saturday, August 20, 2016 13:40 - CONCLUSION: No acute disease. Mario Hassan MD FACR Objective Remarks GENERAL: 86 yo female, critically ill currently resting in bed in no acute distress SKIN: Warm and dry. No rash HEAD: Normocephalic. EYES: No scleral icterus. No injection or drainage. PERRL. EOMI. ENT: No tympanic drainage. Oropharynx without erythema or exudates NECK: Supple, trachea midline. No JVD or lymphadenopathy. No carotid bruit CARDIOVASCULAR: Currently normal sinus rhythm with a heart rate 61. S1, S2. No S4. RESPIRATORY: Breath sounds equal bilaterally. No accessory muscle use. GASTROINTESTINAL: Abdomen soft, non-tender, nondistended. Hyperactive bowel sounds are appreciated MUSCULOSKELETAL: No significant peripheral edema. Prior scarring from bypass right-sided noted BACK: Nontender without obvious deformity. No CVA tenderness. Urinary Catheter: Yes Assessment to: Continue Armas insert reason: Measure Accurate Output Vascular Central Line Catheter: Yes Assessment to: Continue Date of Insertion: Aug 20, 2016 Line: Central Venous Catheter Side: Right Location: Internal, Jugular A/P Problem List: (1) Chronic kidney disease, stage 3 ICD Code: N18.3 Status: Acute (2) HTN (hypertension) ICD Code: I10 Status: Chronic (3) Symptomatic bradycardia ICD Code: R00.1 Status: Acute Assessment and Plan Neuro/Psych: Chronic benzodiazepine use Depression/anxiety Continue Elavil 25 mg by mouth daily/home medication Continue Escitalopram 10 mg by mouth daily for depression as home medication Continue Xanax 0.25 mg 3 times a day for anxiety. Acetaminophen for fever [place]/as needed morphine for pain management CV: Symptomatically bradycardia - .. ? Second-degree Mobitz type I currently in normal sinus rhythm History of a flutter status post ablation 2016 Nonobstructive coronary disease Hypertension Dyslipidemia Peripheral vascular disease history of post right femoropopliteal, femoral- tibial and femoroperoneal bypass This is a patient Dr. Verdin/cardiology. Cardiology has been consulted and appreciate recommendations. Likely secondary to amiodarone. Dr. Birmingham on Tuesday for possible EPS management Cardiac catheterization 04/11 revealed left main without disease, LAD 40% stenosis, left circumflex coronary disease and RCA 40% stenosis. No intervention. Currently on dopamine at 3 mcg/kg/m for heart rate management. Amiodarone currently has been held. Level pending Patient is on valsartan 320 mg daily for hypertension. This is currently on hold Continue Plavix 75 mg by mouth daily for peripheral vascular disease. Resp: Documentation of asthma History of pulmonary embolism Nasal cannula to maintain saturations greater than equal to 92% Incentive spirometry while awake Follow-up chest x-ray after line placement. Within normal limits GI: 1800 kcal ADA diet. Protonix for GI prophylaxis. On Zantac 150 mg a night at home. Colace/Senokot twice a day for bowel regimen : Armas will be placed for accurate I's nose any critically ill patient Endo: Diabetes mellitus type 2 Home medications include Januvia 100 mg daily, Tresiba injection subcutaneous as needed and Farxiga 10 mg daily Sliding scale insulin Accu-Cheks every 6 before meals at bedtime to maintain euglycemia/moderate regimen TSH within normal limits Renal: History chronic kidney disease stage III Creatinine currently within normal limits. Accurate I's and O's. Monitor urine output Recheck BMP in a.m. Heme: Leukocytosis Follow CBC daily. Monitor trends ID: UTI Day #2 aztreonam. Noted multiple drug allergies above.. UA culture currently pending Monitor for infection FEN: Hypokalemia - resolved Replace electrolyte as clinically indicated Goal keep magnesium greater than 2, potassium greater than 4 MSK: Osteoarthritis PT evaluate and treat Access - Right IJ CVL day 3 Prophylaxis - GI - Protonix - DVT - SCD/heparin Critical Care: The total care time was 35 minutes. Time to perform other separately billable procedures was not included in the critical care time. Justin Vargas MD Aug 22, 2016 09:38
[2016-08-22] MEDS ORDERED: GLYCERIN ADULT 2 GM SUPP RECTAL PRN (10:00)
[2016-08-22] MEDS ORDERED: POLYETHYLENE GLYCOL 17 GM PKG PO ONE (10:00)
--- NOTE | 2016-08-22 10:28 | PD.CARD.PN ---
Subjective Subjective Remarks Denies dizziness, CP, abdominal pain, palpitations. Minimal dyspnea at rest. No PND. Objective Medications Item Value Date Time Clopidogrel 75 mg 08/21/16 0900 Bisulfate DAILY/PO 08/22/16 0749 (Plavix) Dopamine HCl/ 500 ml @ 0 mls/hr 08/20/16 1530 Dextrose TITRATE/IV 08/21/16 1731 Vital Signs / I&O Vital Signs Date Time Temp Pulse Resp B/P Pulse Ox O2 Delivery O2 Flow Rate FiO2 08/22/16 08:00 97.9 92 20 119/79 95 08/22/16 08:00 92 08/22/16 06:00 89 08/22/16 04:00 96 08/22/16 04:00 97.8 96 26 97/63 92 08/22/16 02:00 93 08/22/16 00:00 91 08/22/16 00:00 98.0 91 26 149/71 92 08/21/16 22:00 83 08/21/16 20:00 97.8 76 21 135/60 92 08/21/16 20:00 76 08/21/16 19:18 93 Nasal Cannula 2.00 08/21/16 18:00 79 08/21/16 17:55 94 Nasal Cannula 2.00 08/21/16 16:00 97.6 72 20 142/59 94 08/21/16 16:00 72 08/21/16 14:00 51 08/21/16 12:00 98.3 68 23 147/65 92 08/21/16 12:00 66 I/O 08/21/16 08/21/16 08/21/16 08/22/16 08/22/16 08/22/16 07:00 15:00 23:00 07:00 15:00 23:00 Intake Total 968 ml 2050 ml 1333 ml 922 ml Output Total 300 ml 700 ml 800 ml 400 ml Balance 668 ml 1350 ml 533 ml 522 ml Intake Oral 240 ml 500 ml 100 ml IV Total 728 ml 1550 ml 1233 ml 922 ml Output Urine Total 300 ml 700 ml 800 ml 400 ml # Bowel Movements 0 0 0 0 Physical Exam GENERAL: Well developed, well nourished. No acute distress. HEENT: Jugular venous pressure is normal. CHEST: Lungs clear to auscultation anteriorly. CARDIAC: Irregular rate and rhythm without S3, S4, or murmur. ABDOMEN: Soft, nontender, no hepatosplenomegaly. Bowel sounds present. EXTREMITIES: No clubbing, cyanosis, or edema. Laboratory Laboratory Tests Test 08/21/16 08/22/16 16:55 03:35 Potassium Level 4.6 MEQ/L 4.1 MEQ/L White Blood Count 9.1 TH/MM3 Red Blood Count 4.52 MIL/MM3 Hemoglobin 13.3 GM/DL Hematocrit 39.2 % Mean Corpuscular Volume 86.8 FL Mean Corpuscular Hemoglobin 29.4 PG Mean Corpuscular Hemoglobin 33.9 % Concent Red Cell Distribution Width 13.4 % Platelet Count 213 TH/MM3 Mean Platelet Volume 8.9 FL Neutrophils (%) (Auto) 78.7 % Lymphocytes (%) (Auto) 8.2 % Monocytes (%) (Auto) 9.8 % Eosinophils (%) (Auto) 2.8 % Basophils (%) (Auto) 0.5 % Neutrophils # (Auto) 7.1 TH/MM3 Lymphocytes # (Auto) 0.7 TH/MM3 Monocytes # (Auto) 0.9 TH/MM3 Eosinophils # (Auto) 0.3 TH/MM3 Basophils # (Auto) 0.0 TH/MM3 CBC Comment DIFF FINAL Differential Comment Sodium Level 140 MEQ/L Chloride Level 109 MEQ/L Carbon Dioxide Level 23.9 MEQ/L Anion Gap 7 MEQ/L Blood Urea Nitrogen 21 MG/DL Creatinine 0.85 MG/DL Estimat Glomerular Filtration 63 ML/MIN Rate Random Glucose 106 MG/DL Calcium Level 7.9 MG/DL Phosphorus Level 2.4 MG/DL Magnesium Level 2.2 MG/DL Assessment and Plan Problem List: (1) Bradycardia Assessment and Plan: HR's better off Amiodarone. Now appears to be in atrial fibrillation. Agree there may be intermittent sinus rhythm with 2nd degree AV block Type I. Will have Dr. Birmingham decide on whether to resume Amiodarone and place pacemaker or do ablation. (2) Paroxysmal atrial fibrillation Assessment and Plan: Appears to be in atrial fibrillation at present though some periods where rhythm may be sinus with 2nd degree AV block, Type I. Will have Dr. Birmingham decide on whether to resume Amiodarone and place pacemaker or do ablation. (3) Paroxysmal atrial flutter Assessment and Plan: Stable s/p ablation last year. (4) CAD (coronary artery disease) Assessment and Plan: Stable. No angina. No high grade CAD seen on cath last fall. (5) Aortic stenosis Assessment and Plan: Appears to have moderate by exam, echo. Rec repeat echo in a few months. Code Status full code Discussed Condition With patient Problem Qualifiers (1) CAD (coronary artery disease): Qualified Code: I25.10 - Coronary artery disease involving levelock coronary artery of levelock heart without angina pectoris (2) Aortic stenosis: Qualified Code: I35.0 - Aortic valve stenosis, unspecified etiology Rashad Baum MD Aug 22, 2016 10:28
[2016-08-22] MEDS ORDERED: HEPARIN SODIUM - IV 10,000 UNITS/10 ML VIAL IV ONE (10:45)
[2016-08-22] MEDS: HEPARIN-D5W INJ 250 ML IV SCH (11:13)
[2016-08-22 12:52] LABS: APTT (PATIENT) 34.6 SEC (24.3-30.1); INTERNATIONAL NORMALIZED RATIO 1.1 RATIO; PROTHROMBIN TIME - PATIENT 11.8 SEC (9.8-11.6)
[2016-08-22] MEDS ORDERED: HEPARIN SODIUM - IV 10,000 UNITS/10 ML VIAL IV PRN (16:30)
[2016-08-22 18:21] LABS: APTT (PATIENT) 67.6 SEC (24.3-30.1)
[2016-08-22] MEDS ORDERED: HALOPERIDOL LACTATE 5 MG/ML AMP IV ONE (20:00)
[2016-08-22] MEDS: RESP: ALBUTEROL 2.5 MG/IPRATROPIUM 0.5 MG NEB (PRN) INH (20:29)
[2016-08-22] MEDS ORDERED: ROCURONIUM INJ 50 MG/5 ML VIAL ONE (20:33)
[2016-08-22] MEDS ORDERED: ETOMIDATE 20 MG/10 ML VIAL ONE (20:33)
[2016-08-22 20:57] LABS: BLOOD GAS BASE EXCESS -5.7 mmol/L (-2-2); BLOOD GAS HCO3 19 mmol/L (22-26); BLOOD GAS O2 HGB SATURATION 95 % (90-100); BLOOD GAS PCO2 39 mmHg (38-42); BLOOD GAS PO2 101 mmHg (61-120); BLOOD GAS TOTAL HGB 14.1 G/DL (12.0-16.0); CRITICAL VALUE NO; DRAW SITE LT RADIAL; FIO2 28 %; LITER FLOW 3 L/M; NUMBER OF ARTERIAL PUNCTURES 2; OXYGEN DEVICE NASAL CANNULA; TEMP CORR TO 98.6; ULNAR PULSE PRESENT
[2016-08-22 20:58] LABS: STAT YES
[2016-08-22] MEDS ORDERED: MIDAZOLAM HCL 5 MG/ML VIAL (1 ML) ONE (21:37)
[2016-08-22] MEDS ORDERED: PROPOFOL 500 MG/50 ML INJ 50 ML ONE (21:38)
[2016-08-22] MEDS ORDERED: PROPOFOL 1000 MG/100 ML INJ 100 ML ONE (21:40)
--- NOTE | 2016-08-22 21:59 | PD.PROCEDR ---
Procedure Note Procedure Endotracheal Intubation A time-out was completed verifying correct patient, procedure, site, positioning , and special equipment if applicable. The patient was placed in a flat position. Sedation was obtained using Etomidate 20mg. The patient was easily ventilated using an ambu bag. The [employer]/ MAC 4 BLADE was used and inserted into the oropharynx at which time there was a Grade 1 view of the vocal cords. A 8-slovenian endotracheal tube was inserted and visualized going through the vocal cords. The stylette was removed. Colorimetric change was visualized on the CO2 meter. Breath sounds were heard in both lung castillo equally. The endotracheal tube was placed at 23 cm, measured at the teeth. A chest x-ray was ordered to assess for pneumothorax and verify endotrachealtube placement. Estimated Blood Loss: 0 The patient tolerated the procedure well and there were no complications. Kevin Chen MD Aug 22, 2016 21:59
[2016-08-22] MEDS ORDERED: MORPHINE SULFATE 8 MG/ML INJ ONE (22:05)
[2016-08-22] MEDS ORDERED: MORPHINE SULFATE 4 MG/ML INJ IV PUSH ONE (22:15)
[2016-08-22] MEDS ORDERED: MIDAZOLAM 100 MG/ML INJ 100 ML IV SCH (22:30)
[2016-08-22] MEDS: SENNOSIDES 8.6 MG TAB PO SCH (22:42)
[2016-08-22] MEDS: AMITRIPTYLINE HCL 25 MG TAB PO SCH (22:42)
--- NOTE | 2016-08-22 22:56 | RADRPT ---
EXAM DATE/TIME: 08/22/2016 22:26 [facility] COMPARISON: CHEST SINGLE AP, August 20, 2016, 19:51. INDICATIONS : E-T tube placement. MEDICAL HISTORY : Hypertension. Hypercholesterolemia. Asthma SURGICAL HISTORY : None. ENCOUNTER: Subsequent ACUITY: 3 days PAIN SCORE: Non-responsive. LOCATION: Bilateral chest FINDINGS: A single view of the chest demonstrates small bilateral pleural effusions. Endotracheal tube 3 cm abo ve the jose alfredo. Right jugular central line unchanged. Nasogastric tube tip in stomach.. The cardiomed iastinal contours are unremarkable. Osseous structures are intact. CONCLUSION: Adequate placement of endotracheal tube. Bibasilar densities and small pleural effusions. Rafiq Hahn MD on August 22, 2016 at 22:53 Board Certified Radiologist. This report was verified electronically.
[2016-08-23] VITALS (18 sets, daily range): BP systolic 102–159; BP diastolic 54–70; PULSE 55–104; RESP 12–14; TEMP 98–99.5; O2SAT 97–100
[2016-08-23 01:51] LABS: APTT (PATIENT) 59.7 SEC (24.3-30.1)
[2016-08-23] MEDS: CHLORHEXIDINE GLUCONATE 2 % 1 PACK (2 CLOTHS) TOP SCH ×2 (02:55→22:06)
[2016-08-23] MEDS: AZTREONAM INJ 1,000 MG in SODIUM CHLORIDE 0.9% INJ 100 ML IV SCH ×3 (02:55→18:44)
[2016-08-23 04:13] LABS: HEMATOCRIT 34.1 % (35.0-46.0); MEAN CELL VOLUME 86.6 FL (80.0-100.0); MEAN CORPUSCULAR HEMOGLOBIN 29.2 PG (27.0-34.0); MEAN CORPUSCULAR HGB CONC 33.7 % (32.0-36.0); PLATELET COUNT 185 TH/MM3 (150-450); RED BLOOD COUNT 3.93 MIL/MM3 (4.00-5.30); RED CELL DISTRIBUTION WIDTH 13.9 % (11.6-17.2); REVIEW FLAG FINAL; WHITE BLOOD COUNT 7.7 TH/MM3 (4.0-11.0)
[2016-08-23 04:32] LABS: BICARBONATE 21.5 MEQ/L (21.0-32.0); POTASSIUM 4.2 MEQ/L (3.5-5.1)
[2016-08-23 05:41] LABS: APTT (PATIENT) 62.3 SEC (24.3-30.1)
[2016-08-23] MEDS: ALPRAZolam 0.25 MG TAB PO SCH ×3 (10:29→18:44)
[2016-08-23] MEDS: DOCUSATE SODIUM 100 MG CAP PO SCH ×2 (10:29→20:52)
[2016-08-23] MEDS: SENNOSIDES 8.6 MG TAB PO SCH ×2 (10:29→20:52)
[2016-08-23] MEDS: ESCITALOPRAM OXALATE 10 MG TAB PO SCH (10:29)
[2016-08-23] MEDS: PANTOPRAZOLE SODIUM 40 MG VIAL IV SCH (10:30)
[2016-08-23] MEDS: MORPHINE SULFATE 4 MG/ML INJ IV PUSH PRN (10:30)
[2016-08-23] MEDS: SODIUM CHLORIDE 0.9% FLUSH 5 ML FLUSH IV FLUSH SCH ×2 (10:33→20:46)
[2016-08-23] MEDS: INSULIN NovoLIN REGULAR SUPPLEMENTAL SCALE SQ SCH ×3 (10:33→20:44)
[2016-08-23] MEDS: HEPARIN-D5W INJ 250 ML IV SCH (14:03)
[2016-08-23] MEDS: PROPOFOL 1000 MG/100 ML INJ 100 ML IV SCH ×2 (14:25→20:53)
--- NOTE | 2016-08-23 18:15 | HHI.CCPN ---
Subjective Remarks/Hospital Course 86-year-old female brought by her daughter with history of fatigue, tiredness and bradycardia. Per chart the patient has been sleeping 12-14 hours a day for past couple days. Today the home health nurse came and checked her pulse and it was in the low 40s. She advised that the patient should be brought to the emergency room. The patient is too somnolent and lethargic to provide any more history. 08/21: Afebrile. Heart rate currently in the 50s and 60s on dopamine drip at 12 micrograms per kilogram per minute. Patient appears to have a baseline heart rate between 40 and 55 according to review of old records here at [place] [facility]. Placed on ADA diet. No bowel movement. Subjective 08/22: Afebrile. Dopamine done at 3 mcg/kg/m. Rhythm changes between normal sinus rhythm in addition to a Mobitz second-degree heart block type I and atrial fibrillation. Awake and alert and following commands. Tolerating diet. Denies chest pain or shortness of breath. 08/23: The patient was reintubated overnight, secondary to altered mental status and increased lethargy. Sedation vacation obtain patient's starting to follow commands this a.m.. Dopamine was discontinued yesterday. The patient continues to vacillate between normal sinus rhythm and Mobitz second-degree heart block, and sinus arrhythmia, BP stable. Objective Vital Signs Date Time Temp Pulse Resp B/P Pulse Ox O2 Delivery O2 Flow Rate FiO2 08/23/16 16:00 65 08/23/16 16:00 99.5 14 127/58 100 08/23/16 16:00 50 08/22/16 21:07 Nasal Cannula 3.00 Intake and Output 08/22/16 08/22/16 08/23/16 08:00 16:00 00:00 Intake Total 922 ml 1146 ml 509 ml Output Total 400 ml 475 ml 350 ml Balance 522 ml 671 ml 159 ml Result Diagram: 08/23/16 0322 08/23/16 0322 Other Results Microbiology Date/Time Procedure Status Source Growth 08/22/16 13:30 Stool Occult Blood (TITA) - Final Complete Stool Stool HEMOCCULT NEGATIVE Laboratory Tests Test 08/22/16 08/22/16 20:43 22:52 Blood Gas Puncture Site LT RADIAL LT RADIAL Blood Gas Patient Temperature 98.6 98.6 Blood Gas HCO3 19 mmol/L 18 mmol/L (22-26) (22-26) Blood Gas Base Excess -5.7 mmol/L -7.4 mmol/L (-2-2) (-2-2) Blood Gas Oxygen Saturation 95 % (90-100) 98 % (90-100) Arterial Blood pH 7.32 7.30 (7.380-7.420) (7.380-7.420) Arterial Blood Partial 39 mmHg (38-42) 38 mmHg (38-42) Pressure CO2 Arterial Blood Partial 101 mmHg 343 mmHg Pressure O2 (61-120) (61-120) Arterial Blood Oxygen Content 19.0 Vol % 18.2 Vol % (12.0-20.0) (12.0-20.0) Arterial Blood 1.0 % (0-4) 0.9 % (0-4) Carboxyhemoglobin Arterial Blood Methemoglobin 1.0 % (0-2) 1.1 % (0-2) Blood Gas Hemoglobin 14.1 G/DL 12.7 G/DL (12.0-16.0) (12.0-16.0) Oxygen Delivery Device NASAL CANNULA VENTILATOR Blood Gas Liter Flow 3 L/M Blood Gas Inspired Oxygen 28 % 100 % Blood Gas Ventilator Setting AC12/500/PEEP5 Imaging Last Impressions Chest X-Ray 08/20/16 1334 Signed Impressions: Service Date/Time: Saturday, August 20, 2016 13:40 - CONCLUSION: No acute disease. Mario Hassan MD FACR Objective Remarks GENERAL: 86 yo female, critically ill currently resting in bed intubated and sedated SKIN: Warm and dry. No rash HEAD: Normocephalic. EYES: No scleral icterus. No injection or drainage. PERRL. EOMI. ENT: No tympanic drainage. Oropharynx without erythema or exudates orotracheally intubated NECK: Supple, trachea midline. No JVD or lymphadenopathy. No carotid bruit CARDIOVASCULAR: Currently normal sinus rhythm with a heart rate 61. S1, S2. No S4. RESPIRATORY: Breath sounds equal bilaterally. Mechanical ventilation GASTROINTESTINAL: Abdomen soft, non-tender, nondistended. Hyperactive bowel sounds are appreciated MUSCULOSKELETAL: No significant peripheral edema. Prior scarring from bypass right-sided noted BACK: Nontender without obvious deformity. No CVA tenderness. Urinary Catheter: Yes Armas insert reason: Measure Accurate Output Date of Insertion: Aug 20, 2016 Line: Central Venous Catheter Side: Right Location: Internal, Jugular A/P Problem List: (1) Chronic kidney disease, stage 3 ICD Code: N18.3 Status: Acute (2) HTN (hypertension) ICD Code: I10 Status: Chronic (3) Symptomatic bradycardia ICD Code: R00.1 Status: Acute Assessment and Plan Neuro/Psych: Chronic benzodiazepine use Depression/anxiety Continue Elavil 25 mg by mouth daily/home medication Continue Escitalopram 10 mg by mouth daily for depression as home medication Continue Xanax 0.25 mg 3 times a day for anxiety. Acetaminophen for fever Roby/as needed morphine for pain management Discontinue Versed infusion continue with propofol infusion consider Precedex CV: Symptomatically bradycardia - .. ? Second-degree Mobitz type I currently in normal sinus rhythm History of a flutter status post ablation 2015 Nonobstructive coronary disease Hypertension Dyslipidemia Peripheral vascular disease history of post right femoropopliteal, femoral- tibial and femoroperoneal bypass This is a patient Dr. Verdin/cardiology. Cardiology has been consulted and appreciate recommendations. Likely secondary to amiodarone. F/U Dr. [place] regarding possible EPS management Cardiac catheterization 04/11 revealed left main without disease, LAD 40% stenosis, left circumflex coronary disease and RCA 40% stenosis. No intervention. Currently on dopamine at 3 mcg/kg/m for heart rate management. Amiodarone currently has been held. Level pending Patient is on valsartan 320 mg daily for hypertension. This is currently on hold Continue Plavix 75 mg by mouth daily for peripheral vascular disease. Resp: Documentation of asthma History of pulmonary embolism Maintain saturations greater than equal to 92% Mechanical ventilation settings 12/500/0.45/5 Ventilator bundle Maintain head of bed 30 Continue duo nebs per schedule GI: 1800 kcal ADA diet. Protonix for GI prophylaxis. On Zantac 150 mg a night at home. Colace/Senokot twice a day for bowel regimen : Armas will be placed for accurate I' & O's any critically ill patient Endo: Diabetes mellitus type 2 Home medications include Januvia 100 mg daily, Tresiba injection subcutaneous as needed and Farxiga 10 mg daily Sliding scale insulin Accu-Cheks every 6 before meals at bedtime to maintain euglycemia/moderate regimen TSH within normal limits Renal: History chronic kidney disease stage III Creatinine currently within normal limits. Accurate I's and O's. Monitor urine output Monitor BMP Heme: Leukocytosis Follow CBC daily. Monitor trends ID: UTI Day #3 aztreonam, discontinued Noted multiple drug allergies above.. UA culture- Enterococcus faecalis , will initiate Linezolid Monitor for infection FEN: Hypokalemia - resolved Replace electrolyte as clinically indicated Goal keep magnesium greater than 2, potassium greater than 4 MSK: Osteoarthritis PT evaluate and treat Access - Right IJ CVL day 4 Prophylaxis - GI - Protonix - DVT - SCD/heparin Critical Care: The total care time was 32 minutes. Time to perform other separately billable procedures was not included in the critical care time. Physician Davina Solis MD Aug 23, 2016 18:15
[2016-08-23] MEDS ORDERED: ALPRAZolam 0.25 MG TAB PO PRN (19:00)
[2016-08-23] MEDS: AMITRIPTYLINE HCL 25 MG TAB PO SCH (20:53)
[2016-08-23] MEDS: SODIUM CHLOR 0.9% 1000 ML INJ 1,000 ML IV SCH (20:53)
--- NOTE | 2016-08-23 23:36 | HHI.PR ---
Subjective Remarks On mechanical ventilation Objective Vital Signs Date Time Temp Pulse Resp B/P Pulse Ox O2 Delivery O2 Flow Rate FiO2 08/23/16 22:00 66 08/23/16 20:02 99 40 08/23/16 20:00 55 08/23/16 20:00 50 08/23/16 20:00 98.0 55 14 159/70 97 08/23/16 18:00 58 08/23/16 16:00 65 08/23/16 16:00 99.5 65 14 127/58 100 08/23/16 16:00 50 08/23/16 15:19 100 45 08/23/16 14:00 77 08/23/16 12:00 80 08/23/16 12:00 50 08/23/16 12:00 98.7 80 14 131/57 99 08/23/16 11:23 99 45 08/23/16 10:37 17 08/23/16 10:00 104 08/23/16 08:00 50 08/23/16 08:00 84 08/23/16 08:00 98.3 84 12 136/61 98 08/23/16 07:53 99 45 08/23/16 06:00 87 08/23/16 04:16 98 50 08/23/16 04:00 50 08/23/16 04:00 97 08/23/16 04:00 98.2 97 14 104/58 98 08/23/16 02:00 80 08/23/16 01:12 98 100 08/23/16 00:00 100 08/23/16 00:00 98.6 96 14 102/54 97 08/23/16 00:00 96 I/O 08/22/16 08/22/16 08/22/16 08/23/16 08/23/16 08/23/16 07:00 15:00 23:00 07:00 15:00 23:00 Intake Total 922 ml 1146 ml 509 ml 525 ml 597 ml 522 ml Output Total 400 ml 475 ml 350 ml 200 ml 200 ml 300 ml Balance 522 ml 671 ml 159 ml 325 ml 397 ml 222 ml Intake Oral 480 ml IV Total 922 ml 666 ml 509 ml 525 ml 537 ml 522 ml Tube Irrigant 60 ml Output Urine Total 400 ml 475 ml 350 ml 200 ml 200 ml 300 ml # Bowel Movements 0 1 0 0 0 Result Diagram: 08/23/16 0322 08/23/16 0322 Imaging On mechanical ventilation, sedated Lungs: ventilated Heart: S1, s2 irregular Abdomen: soft, no mass Ext: no edema Last Impressions Chest X-Ray 08/22/16 0000 Signed Impressions: Service Date/Time: Monday, August 22, 2016 22:26 - CONCLUSION: Adequate placement of endotracheal tube. Bibasilar densities and small pleural effusions. Rafiq Hahn MD Current Medications Medications (Trade) Dose Ordered Sig/Ann Route Start Time Stop Time Status Last Admin Dopamine HCl/ Dextrose 500 ml @ 0 mls/hr TITRATE IV 08/20/16 15:30 08/21/16 17:31 (NS 1000 ml Inj) 1,000 ml @ 40 mls/hr Q24H IV 08/20/16 15:52 08/23/16 20:53 (NS Flush) 2 ml UNSCH PRN IV FLUSH 08/20/16 16:00 (NS Flush) 2 ml BID IV FLUSH 08/20/16 21:00 08/23/16 20:46 (Tylenol) 650 mg Q6H PRN PO 08/20/16 16:00 (Protonix Inj) 40 mg DAILY IV 08/21/16 09:00 08/23/16 10:30 (Zofran Inj) 4 mg Q6H PRN IV 08/20/16 16:00 (Colace) 100 mg BID PO 08/20/16 21:00 08/23/16 20:52 Miscellaneous Information 1 Q361D XX 08/20/16 16:00 08/20/16 16:00 (Chlorhexidine 2% Cloth) 3 pack Taper DAILY@04 TOP 08/21/16 04:00 08/17/17 03:59 08/23/16 22:06 (Chlorhexidine 2% Cloth) 3 pack UNSCH PRN TOP 08/20/16 16:00 (Xanax) 0.25 mg TID PO 08/20/16 18:00 08/23/16 18:44 (Elavil) 25 mg HS PO 08/20/16 21:00 08/23/16 20:53 (Lexapro) 10 mg DAILY PO 08/21/16 09:00 08/23/16 10:29 (D50w (Vial) Inj) 25 ml UNSCH PRN IV PUSH 08/20/16 16:00 Glucagon 1 mg 1 mg UNSCH PRN OTHER 08/20/16 16:00 Aztreonam 1000 mg/ Sodium Chloride 100 ml @ 200 mls/hr Q8H IV 08/21/16 11:00 08/23/16 18:44 Potassium Chloride 100 ml @ 50 mls/hr Q2H PRN IV 08/21/16 09:45 (KCl 20 Meq Premix Inj) 100 ml @ 50 mls/hr Q2H PRN IV 08/21/16 09:45 Potassium Chloride 40 meq 40 meq UNSCH PRN PO/TUBE 08/21/16 09:45 Potassium Chloride 100 ml @ 25 mls/hr UNSCH PRN IV 08/21/16 09:45 Potassium Chloride 100 ml @ 50 mls/hr Q2H PRN IV 08/21/16 09:45 (Magnesium Sulfate Inj/NS Inj) 100 ml @ 50 mls/hr UNSCH PRN IV 08/21/16 09:45 Magnesium Oxide 800 mg 800 mg UNSCH PRN PO 08/21/16 09:45 (Magnesium Sulfate Inj/NS Inj) 100 ml @ 50 mls/hr UNSCH PRN IV 08/21/16 09:45 Potassium Phosphate 2000 mg 2,000 mg Q4H PRN PO 08/21/16 09:45 (Sodium Phosphate Inj/NS 250 ml Inj) 250 ml @ 42 mls/hr UNSCH PRN IV 08/21/16 09:45 08/22/16 08:01 (KCl 40 Meq/30 ml Liq) 40 meq UNSCH PRN PO/TUBE 08/21/16 09:45 Potassium Phosphate 2000 mg 2,000 mg UNSCH PRN PO/TUBE 08/21/16 09:45 (Potassium Phosphate Inj/NS 250 ml Inj) 260 ml @ 42 mls/hr UNSCH PRN IV 08/21/16 09:45 (Senokot) 17.2 mg Q12HR PO 08/22/16 21:00 08/23/16 20:52 (Glycerin Adult Supp) 2 gm BID PRN RECTAL 08/22/16 10:00 (Heparin Inj) 5,000 units UNSCH PRN IV 08/22/16 16:30 Heparin Sodium (Porcine) 2500 units 2,500 units UNSCH PRN IV 08/22/16 16:30 Heparin Sodium/ Dextrose 250 ml @ 0 mls/hr TITRATE IV 08/22/16 10:30 08/23/16 14:03 (Diprivan 1000 Mg/100ml Inj) 100 ml @ 0 mls/hr TITRATE IV 08/22/16 22:15 08/23/16 20:53 (Morphine Inj) 4 mg Q3H PRN IV PUSH 08/22/16 22:30 08/23/16 10:30 (Xanax) 0.25 mg Q8H PRN PO 08/23/16 19:00 Assessment and Plan Problem List: (1) Atrial fibrillation and flutter Status: Acute Plan: Irregular rhythm. HR in the 50s. BP adequate On no pressor Continue with current management. (2) Bradycardia Status: Acute Plan: HR in the 50s. [facility] BP ok. No need for pacing support now When extubated, if necessary , pacing will be considered Condition critical. Prognosis of care. (3) HTN (hypertension) Status: Chronic Plan: SBP in the 140s. Maryuri Birmingham MD Aug 23, 2016 23:36
[2016-08-24] VITALS (19 sets, daily range): BP systolic 131–151; BP diastolic 56–70; PULSE 59–88; RESP 12–18; TEMP 98–99.3; O2SAT 94–100
[2016-08-24] MEDS: AZTREONAM INJ 1,000 MG in SODIUM CHLORIDE 0.9% INJ 100 ML IV SCH (01:35)
[2016-08-24] MEDS: INSULIN NovoLIN REGULAR SUPPLEMENTAL SCALE SQ SCH ×4 (04:55→20:28)
[2016-08-24 06:33] LABS: MEAN CELL VOLUME 87.3 FL (80.0-100.0); MEAN CORPUSCULAR HEMOGLOBIN 28.6 PG (27.0-34.0); MEAN CORPUSCULAR HGB CONC 32.8 % (32.0-36.0); PLATELET COUNT 207 TH/MM3 (150-450); RED BLOOD COUNT 4.47 MIL/MM3 (4.00-5.30); RED CELL DISTRIBUTION WIDTH 13.7 % (11.6-17.2); REVIEW FLAG FINAL
--- NOTE | 2016-08-24 06:43 | RADRPT ---
EXAM DATE/TIME: 08/24/2016 05:08 [facility] COMPARISON: CHEST SINGLE AP, August 22, 2016, 22:26. INDICATIONS : Respiratory failure. MEDICAL HISTORY : Hypertension. Coronary artery disease. SURGICAL HISTORY : None. ENCOUNTER: Subsequent ACUITY: 2 weeks PAIN SCORE: Non-responsive. LOCATION: Bilateral chest FINDINGS: Right central line tip in the superior vena cava. Endotracheal tube in satisfactory position. NG ente rs stomach. There is bilateral mostly basilar airspace consolidation and small effusions. No signific ant change from August 22. CONCLUSION: 1. Bilateral mostly basilar airspace consolidation with small pleural effusions. Support apparatus in satisfactory position. Doni Westfall MD on August 24, 2016 at 6:40 Board Certified Radiologist. This report was verified electronically.
[2016-08-24 07:12] LABS: POTASSIUM 3.6 MEQ/L (3.5-5.1)
[2016-08-24] MEDS: SODIUM CHLORIDE 0.9% FLUSH 5 ML FLUSH IV FLUSH SCH ×2 (08:15→20:24)
[2016-08-24] MEDS: ALPRAZolam 0.25 MG TAB PO SCH ×3 (08:16→18:05)
[2016-08-24] MEDS: SENNOSIDES 8.6 MG TAB PO SCH ×2 (08:16→20:23)
[2016-08-24] MEDS: MORPHINE SULFATE 4 MG/ML INJ IV PUSH PRN ×3 (08:17→23:28)
[2016-08-24] MEDS: ESCITALOPRAM OXALATE 10 MG TAB PO SCH (08:17)
[2016-08-24] MEDS: DOCUSATE SODIUM 100 MG CAP PO SCH ×2 (08:17→20:23)
[2016-08-24] MEDS: PANTOPRAZOLE SODIUM 40 MG VIAL IV SCH (08:17)
[2016-08-24] MEDS ORDERED: LINEZOLID 600 MG PREMIX 300 ML IV SCH (09:45)
[2016-08-24] MEDS: DEXMEDETOMIDINE INJ 50 ML IV SCH ×4 (10:04→20:23)
--- NOTE | 2016-08-24 10:20 | HHI.CCPN ---
Subjective Remarks/Hospital Course 86-year-old female brought by her daughter with history of fatigue, tiredness and bradycardia. Per chart the patient has been sleeping 12-14 hours a day for past couple days. Today the home health nurse came and checked her pulse and it was in the low 40s. She advised that the patient should be brought to the emergency room. The patient is too somnolent and lethargic to provide any more history. 08/21: Afebrile. Heart rate currently in the 50s and 60s on dopamine drip at 12 micrograms per kilogram per minute. Patient appears to have a baseline heart rate between 40 and 55 according to review of old records here at [place]. Placed on ADA diet. No bowel movement. Subjective 08/22: Afebrile. Dopamine done at 3 mcg/kg/m. Rhythm changes between normal sinus rhythm in addition to a Mobitz second-degree heart block type I and atrial fibrillation. Awake and alert and following commands. Tolerating diet. Denies chest pain or shortness of breath. 08/23: The patient was reintubated overnight, secondary to altered mental status and increased lethargy. Sedation vacation obtain patient's starting to follow commands this a.m.. Dopamine was discontinued yesterday. The patient continues to vacillate between normal sinus rhythm and Mobitz second-degree heart block, and sinus arrhythmia, BP stable. 08/24:Afebrile. No acute events overnight. The patient is now following commands on sedation vacation. Plan to change transition to Precedex infusion, with discontinuation of propofol and continue CPAP trials. The family has requested palliative medicine consult. Objective Vital Signs Date Time Temp Pulse Resp B/P Pulse Ox O2 Delivery O2 Flow Rate FiO2 08/24/16 08:24 15 08/24/16 08:00 40 08/24/16 08:00 88 08/24/16 08:00 98.5 151/64 97 08/22/16 21:07 Nasal Cannula 3.00 Intake and Output 08/23/16 08/23/16 08/24/16 08:00 16:00 00:00 Intake Total 525 ml 597 ml 522 ml Output Total 200 ml 200 ml 300 ml Balance 325 ml 397 ml 222 ml Result Diagram: 08/24/16 0600 08/24/16 0600 Other Results Microbiology Date/Time Procedure Status Source Growth 08/22/16 13:30 Stool Occult Blood (TITA) - Final Complete Stool Stool HEMOCCULT NEGATIVE Imaging Last Impressions Chest X-Ray 08/20/16 1334 Signed Impressions: Service Date/Time: Saturday, August 20, 2016 13:40 - CONCLUSION: No acute disease. Mario Hsasan MD FACR Objective Remarks GENERAL: 86 yo female, critically ill currently resting in bed intubated and sedated SKIN: Warm and dry. No rash HEAD: Normocephalic. EYES: No scleral icterus. No injection or drainage. PERRL. EOMI. ENT: No tympanic drainage. Oropharynx without erythema or exudates orotracheally intubated NECK: Supple, trachea midline. No JVD or lymphadenopathy. No carotid bruit CARDIOVASCULAR: Currently normal sinus rhythm with a heart rate 61. S1, S2. No S4. RESPIRATORY: Breath sounds equal bilaterally. Mechanical ventilation GASTROINTESTINAL: Abdomen soft, non-tender, nondistended. Hyperactive bowel sounds are appreciated MUSCULOSKELETAL: No significant peripheral edema. Prior scarring from bypass right-sided noted BACK: Nontender without obvious deformity. No CVA tenderness. Urinary Catheter: Yes Armas insert reason: Measure Accurate Output Date of Insertion: Aug 20, 2016 Line: Central Venous Catheter Side: Right Location: Internal, Jugular A/P Problem List: (1) Chronic kidney disease, stage 3 ICD Code: N18.3 Status: Acute (2) HTN (hypertension) ICD Code: I10 Status: Chronic (3) Symptomatic bradycardia ICD Code: R00.1 Status: Acute Assessment and Plan Neuro/Psych: Chronic benzodiazepine use Depression/anxiety Continue Elavil 25 mg by mouth daily/home medication Continue Escitalopram 10 mg by mouth daily for depression as home medication Continue Xanax 0.25 mg 3 times a day for anxiety. Acetaminophen for fever Onyx/as needed morphine for pain management Discontinue propofol infusion , begin Precedex infusion 08/24-F/U EEG results CV: Symptomatically bradycardia - .. ? Second-degree Mobitz type I currently in normal sinus rhythm History of a flutter status post ablation 2016 Nonobstructive coronary disease Hypertension Dyslipidemia Peripheral vascular disease history of post right femoropopliteal, femoral- tibial and femoroperoneal bypass This is a patient Dr. Verdin/cardiology. Cardiology has been consulted and appreciate recommendations. Likely secondary to amiodarone. F/U Dr. Birmingham regarding possible EPS management Cardiac catheterization 04/11 revealed left main without disease, LAD 40% stenosis, left circumflex coronary disease and RCA 40% stenosis. No intervention. Currently on dopamine at 3 mcg/kg/m for heart rate management. Amiodarone currently has been held. Level pending Patient is on valsartan 320 mg daily for hypertension. This is currently on hold Continue Plavix 75 mg by mouth daily for peripheral vascular disease. Heparin infusion per cardiology recommendations Resp: Documentation of asthma History of pulmonary embolism Maintain saturations greater than equal to 92% Mechanical ventilation settings 12/500/0.45/5 Ventilator bundle Maintain head of bed 30 Continue duo nebs per schedule Will begin CPAP trials today GI: Begin tube feeds. Peptamen AF D/C Protonix for GI prophylaxis, change to Pepcid. On Zantac 150 mg a night at home. Colace/Senokot twice a day for bowel regimen : Change Armas Maintain/ strict accurate I' & O's Endo: Diabetes mellitus type 2 Home medications include Januvia 100 mg daily, Tresiba injection subcutaneous as needed and Farxiga 10 mg daily Sliding scale insulin Accu-Cheks every 6 before meals at bedtime to maintain euglycemia/moderate regimen TSH within normal limits Renal: History chronic kidney disease stage III Creatinine currently within normal limits. Accurate I's and O's. Monitor urine output Monitor BMP Heme: Leukocytosis Follow CBC daily. Monitor trends ID: UTI Day #3 aztreonam, [id number]. Noted multiple drug allergies above.. UA culture- Enterococcus faecalis , will initiate Vancomycin Pharmacy dosing initiated (maintain therapeutic level 10-15) Monitor for infection FEN: Hypokalemia - resolved Replace electrolyte as clinically indicated Goal keep magnesium greater than 2, potassium greater than 4 MSK: Osteoarthritis PT evaluate and treat Access - Right IJ CVL day 4 Prophylaxis - GI - Protonix - DVT - SCD/heparin infusion Dispo: Provided update on patient's medical status with daughter Lilian, and [employer] at bedside. Family requests palliative care consult at this time, to discuss goals of care. Family stated they would not patient to have a PEG placement. We will follow-up palliative care recommendations. Critical Care: Level 3 Physician Davina Solis MD Aug 24, 2016 10:20
[2016-08-24] MEDS ORDERED: NITROFURANTOIN MONOHYD MACROCR 100 MG CAP PO SCH (11:00)
[2016-08-24] MEDS ORDERED: PILL SPLITTER OTHER PRN (11:15)
[2016-08-24] MEDS ORDERED: Vancomycin Consult Pharmacy XX SCH (11:30)
[2016-08-24] MEDS: ARTIFICIAL TEARS OPTH OINT 3.5 APPLIC/3.5 GM TUBO EACH EYE SCH ×2 (11:48→20:27)
[2016-08-24] MEDS: VANCOMYCIN INJ 1,250 MG in SODIUM CHLOR 0.9% 250 ML INJ 250 ML IV SCH (11:48)
[2016-08-24] MEDS: FAMOTIDINE 20 MG TAB NG SCH ×2 (12:00→20:23)
--- NOTE | 2016-08-24 15:50 | PD.CARD.PN ---
Subjective Subjective Remarks Mechanically ventilated, sedated, undergoing EEG. Objective Medications Current Medications Medications (Trade) Dose Ordered Sig/Ann Route Start Time Stop Time Status Last Admin Dopamine HCl/ Dextrose 500 ml @ 0 mls/hr TITRATE IV 08/20/16 15:30 08/21/16 17:31 (NS 1000 ml Inj) 1,000 ml @ 40 mls/hr Q24H IV 08/20/16 15:52 08/23/16 20:53 (NS Flush) 2 ml UNSCH PRN IV FLUSH 08/20/16 16:00 (NS Flush) 2 ml BID IV FLUSH 08/20/16 21:00 08/24/16 08:15 (Tylenol) 650 mg Q6H PRN PO 08/20/16 16:00 (Zofran Inj) 4 mg Q6H PRN IV 08/20/16 16:00 (Colace) 100 mg BID PO 08/20/16 21:00 08/24/16 08:17 Miscellaneous Information 1 Q361D XX 08/20/16 16:00 08/20/16 16:00 (Chlorhexidine 2% Cloth) 3 pack Taper DAILY@04 TOP 08/21/16 04:00 08/17/17 03:59 08/23/16 22:06 (Chlorhexidine 2% Cloth) 3 pack UNSCH PRN TOP 08/20/16 16:00 (Xanax) 0.25 mg TID PO 08/20/16 18:00 08/24/16 12:38 (Elavil) 25 mg HS PO 08/20/16 21:00 08/23/16 20:53 (Lexapro) 10 mg DAILY PO 08/21/16 09:00 08/24/16 08:17 (D50w (Vial) Inj) 25 ml UNSCH PRN IV PUSH 08/20/16 16:00 Glucagon 1 mg 1 mg UNSCH PRN OTHER 08/20/16 16:00 Potassium Chloride 100 ml @ 50 mls/hr Q2H PRN IV 08/21/16 09:45 (KCl 20 Meq Premix Inj) 100 ml @ 50 mls/hr Q2H PRN IV 08/21/16 09:45 Potassium Chloride 40 meq 40 meq UNSCH PRN PO/TUBE 08/21/16 09:45 Potassium Chloride 100 ml @ 25 mls/hr UNSCH PRN IV 08/21/16 09:45 Potassium Chloride 100 ml @ 50 mls/hr Q2H PRN IV 08/21/16 09:45 (Magnesium Sulfate Inj/NS Inj) 100 ml @ 50 mls/hr UNSCH PRN IV 08/21/16 09:45 Magnesium Oxide 800 mg 800 mg UNSCH PRN PO 08/21/16 09:45 (Magnesium Sulfate Inj/NS Inj) 100 ml @ 50 mls/hr UNSCH PRN IV 08/21/16 09:45 Potassium Phosphate 2000 mg 2,000 mg Q4H PRN PO 08/21/16 09:45 (Sodium Phosphate Inj/NS 250 ml Inj) 250 ml @ 42 mls/hr UNSCH PRN IV 08/21/16 09:45 08/22/16 08:01 (KCl 40 Meq/30 ml Liq) 40 meq UNSCH PRN PO/TUBE 08/21/16 09:45 Potassium Phosphate 2000 mg 2,000 mg UNSCH PRN PO/TUBE 08/21/16 09:45 (Potassium Phosphate Inj/NS 250 ml Inj) 260 ml @ 42 mls/hr UNSCH PRN IV 08/21/16 09:45 08/24/16 14:06 (Senokot) 17.2 mg Q12HR PO 08/22/16 21:00 08/24/16 08:16 (Glycerin Adult Supp) 2 gm BID PRN RECTAL 08/22/16 10:00 (Heparin Inj) 5,000 units UNSCH PRN IV 08/22/16 16:30 Heparin Sodium (Porcine) 2500 units 2,500 units UNSCH PRN IV 08/22/16 16:30 Heparin Sodium/ Dextrose 250 ml @ 0 mls/hr TITRATE IV 08/22/16 10:30 08/23/16 14:03 (Diprivan 1000 Mg/100ml Inj) 100 ml @ 0 mls/hr TITRATE IV 08/22/16 22:15 08/23/16 20:53 (Morphine Inj) 4 mg Q3H PRN IV PUSH 08/22/16 22:30 08/24/16 08:17 (Xanax) 0.25 mg Q8H PRN PO 08/23/16 19:00 Artificial Tears 1 applic 1 applic Q12HR EACH EYE 08/24/16 10:00 08/24/16 11:48 (Precedex Inj) 50 ml @ 0 mls/hr TITRATE IV 08/24/16 09:45 08/24/16 12:38 (Pepcid) 10 mg BID NG 08/24/16 11:15 08/24/16 12:00 Miscellaneous 1 ea 1 ea UNSCH PRN OTHER 08/24/16 11:15 Vancomycin HCl 1250 mg/Sodium Chloride 262.5 ml @ 250 mls/hr Q24H IV 08/24/16 12:00 08/24/16 11:48 (Vancomycin Consult Pharmacy) ml @ 0 mls/hr UNSCH XX 08/24/16 11:30 Miscellaneous Information SPECIFIC LAB TO BE DAE... ONCE ONCE XX 08/26/16 11:45 08/26/16 11:46 Vital Signs / I&O Vital Signs Date Time Temp Pulse Resp B/P Pulse Ox O2 Delivery O2 Flow Rate FiO2 08/24/16 14:00 61 08/24/16 12:13 97 50 08/24/16 12:00 69 08/24/16 12:00 99.1 69 17 131/56 94 08/24/16 12:00 40 08/24/16 10:00 75 08/24/16 08:24 15 08/24/16 08:00 40 08/24/16 08:00 88 08/24/16 08:00 98.5 71 15 151/64 97 08/24/16 07:48 97 40 08/24/16 06:00 59 08/24/16 04:09 100 40 08/24/16 04:00 65 08/24/16 04:00 98.0 65 12 147/70 97 08/24/16 04:00 50 08/24/16 02:00 60 08/24/16 00:40 97 40 08/24/16 00:00 50 08/24/16 00:00 98.2 59 14 145/65 98 08/24/16 00:00 59 08/23/16 22:00 66 08/23/16 20:02 99 40 08/23/16 20:00 55 08/23/16 20:00 50 08/23/16 20:00 98.0 55 14 159/70 97 08/23/16 18:00 58 08/23/16 16:00 65 08/23/16 16:00 99.5 65 14 127/58 100 08/23/16 16:00 50 I/O 08/23/16 08/23/16 08/23/16 08/24/16 08/24/16 08/24/16 07:00 15:00 23:00 07:00 15:00 23:00 Intake Total 525 ml 597 ml 522 ml 622 ml 690 ml Output Total 200 ml 200 ml 300 ml 350 ml 475 ml Balance 325 ml 397 ml 222 ml 272 ml 215 ml IV Total 525 ml 537 ml 522 ml 622 ml 678 ml Tube Feeding 12 ml Tube Irrigant 60 ml Output Urine Total 200 ml 200 ml 300 ml 350 ml 475 ml # Bowel Movements 0 0 0 Physical Exam GENERAL: Thin, well-developed patient. SKIN: Warm and dry. HEAD: Normocephalic. EYES: No scleral icterus. No injection or drainage. NECK: Supple, orally intubated. CARDIOVASCULAR: Irregular rate and rhythm without murmurs, gallops, or rubs. RESPIRATORY: Breath sounds equal bilaterally. No accessory muscle use. GASTROINTESTINAL: Abdomen soft, nondistended. EXTREMITIES: No cyanosis, or edema. NEUROLOGICAL: Intubated, sedated. Laboratory Laboratory Tests Test 08/24/16 06:00 White Blood Count 10.0 TH/MM3 Red Blood Count 4.47 MIL/MM3 Hemoglobin 12.8 GM/DL Hematocrit 39.0 % Mean Corpuscular Volume 87.3 FL Mean Corpuscular Hemoglobin 28.6 PG Mean Corpuscular Hemoglobin 32.8 % Concent Red Cell Distribution Width 13.7 % Platelet Count 207 TH/MM3 Mean Platelet Volume 9.1 FL Activated Partial 44.0 SEC Thromboplast Time Sodium Level 140 MEQ/L Potassium Level 3.6 MEQ/L Chloride Level 109 MEQ/L Carbon Dioxide Level 21.0 MEQ/L Anion Gap 10 MEQ/L Blood Urea Nitrogen 25 MG/DL Creatinine 0.96 MG/DL Estimat Glomerular Filtration 55 ML/MIN Rate Random Glucose 127 MG/DL Calcium Level 8.0 MG/DL Phosphorus Level 2.4 MG/DL Magnesium Level 2.0 MG/DL Imaging Last Impressions Chest X-Ray 08/24/16 0600 Signed Impressions: Service Date/Time: Wednesday, August 24, 2016 05:08 - CONCLUSION: 1. Bilateral mostly basilar airspace consolidation with small pleural effusions. Support apparatus in satisfactory position. Doni Westfall MD Assessment and Plan Problem List: (1) Bradycardia Assessment and Plan: HR in the range of 60's-80's, irregular. BP adequate, not on pressors. No need for pacing at this time. (2) Paroxysmal atrial fibrillation Assessment and Plan: Developed bradycardia on amiodarone, now held. Family had requested palliative care consult. Will follow and determine further management decisions on patient's clinical status. Assessment and Plan D/W Dr. [place], RN. Berkley Hercules Aug 24, 2016 15:49
--- NOTE | 2016-08-24 16:33 | MG ---
cc: BILLIE SALCIDO M.D. Lab No: Date: 08/24/2016 Age: Sex: F Race: EEG NUMBER [id number] TECHNIQUE 17 channel EEG. DESCRIPTION The background rhythm reveals general slowing in the theta frequency at roughly 6 Hz. Amplitude 10-20 microvolts. There is fairly prominent muscle artifact in the tracing but I do not see any epileptiform discharges. There are no lateralizing features. Hyperventilation was not done. Photic was done with no significant driving response. INTERPRETATION Abnormal study consistent with a moderate encephalopathic state. MD PRIMO Barron/JARAD /2:55 PM /4:32 PM
[2016-08-24] MEDS: HEPARIN-D5W INJ 250 ML IV SCH (18:28)
--- NOTE | 2016-08-24 18:44 | PD.CONS ---
Consult Service Palliative Care . Consult Requested By Dr. Christine . Primary Care Physician Francisco Park MD . Reason for Consultation a. To assist with evaluation and management of symptoms including: dyspnea, debility. b. To assist medical decision maker(s) with: better understanding of current medical conditions; weighing benefits/burdens of medical treatment options; making medical treatment decisions. . HPI History of Present Illness Mrs. Reyes is an 86 year old female with past medical history of CAD, moderate aortic stenosis, atrial fibrillation, atrial flutter s/p ablation, diabetes, hypertension and peripheral vascular disease. She presented to [facility] emergency room with increased generalized weakness, fatigue and bradycardia. Upon arrival she was found to have a junctional rhythm with heart rate in the 40s. She denied any lightheadedness, syncope, palpitations or dyspnea. She reported increased weakness and fatigue. She was started on Dopamine drip. Additional findings on arrival to the emergency department revealed: * WBC 7.9, hemoglobin 14.9, hematocrit 46.1, platelet count 219, neutrophils 74.1% * PT 10.9, INR 1.0, PTT 28.7 * Sodium 142, potassium 3.7, chloride 103, carbon dioxide 30.2, BUN 34, creatinine 1.20, GFR 42, glucose 137, calcium 9.4, magnesium 1.9 * total creatine kinase 50, troponin 0.04, BNP 1073 Cardiology, Dr. Baum was consulted for bradycardia with recommendation for medical management until Dr. Birmingham could see the patient. Dr. Birmingham saw patient on 08/23/16 with no plan for pacemaker at this time, might consider once extubated. Patient was extubated and free intubated on 08/22/16. She remains in critical condition in ICU on mechanical ventilation. She follow some commands with sedation vacation. Discussed with Dr. Christine, her plan for discontinuation of propofol, starting Precedex in hopes to lessen sedation, continue CPAP trials. Family requested palliative care consultation. Palliative care is consulted to assist with symptom management and further clarification of treatment goals. I have placed a call to the patient's family , daughters are attempting to coordinate a family meeting and will notify palliative care when they will be available. . Past Family Social History Coded Allergies: ARABELLA Inhibitors (Verified Allergy, Severe, Anaphylaxis, 08/20/16) Amoxicillin (Verified Allergy, Severe, Anaphylaxis, 08/20/16) Fentanyl (Verified Allergy, Severe, 08/20/16) ALLERGIC TO PATCH, RASH AT PATCH SITE pt states she was not aware of ever having a patch Keflex (Verified Allergy, Severe, Anaphylaxis, 08/20/16) Monosodium Glutamate (Verified Allergy, Severe, asthma attack, 08/20/16) Neomycin (Verified Allergy, Severe, Anaphylaxis, 08/20/16) Petrolatum (Verified Allergy, Severe, SWELLING, 08/20/16) Sulfa (Verified Allergy, Severe, Anaphylaxis, 08/20/16) Sulfites & Bisulfites (Verified Allergy, Severe, ASTHMA ATTACK, 08/20/16) Past Medical History Coronary artery disease moderate aortic stenosis paroxysmal atrial fibrillation Pulmonary embolus Asthma PVD heart murmur hyperlipidemia type 2 diabetes hypertension anxiety and depression glaucoma History of atrial flutter . Past Surgical History Cardiac catheterization March 2016 R Femoropopliteal revascularization 07/27/11 H/o R femoral-tibial bypass graft and R femoral-proximal peroneal bypass graft Vein stripping Hysterectomy for fibroids 50 years ago Tonsillectomy Laser surgery right eye cardiac ablation December 2015 . Reported Medications Reported Meds & Active Scripts Active Reported Tresiba Flextouch Pen Inj (Insulin Degludec Inj) 600 unit/3 ML Pen 1 Units SQ DIRECTED PRN Valsartan 320 Mg Tab 320 Mg PO DAILY Ranitidine (Ranitidine HCl) 150 Mg Tab 150 Mg PO HS Metformin (Metformin HCl) 500 Mg Tab 500 Mg PO BIDPC With meals Januvia (Sitagliptin Phosphate) 100 Mg Tab 100 Mg PO DAILY Farxiga (Dapagliflozin) 10 Mg Tab 10 Mg PO DAILY Escitalopram (Escitalopram Oxalate) 10 Mg Tab 10 Mg PO DAILY Clopidogrel (Clopidogrel Bisulfate) 75 Mg Tab 75 Mg PO DAILY Amitriptyline (Amitriptyline HCl) 25 Mg Tab 25 Mg PO HS Amiodarone (Amiodarone HCl) 200 Mg Tab 200 Mg PO BID Alprazolam 0.25 Mg Tab 0.25 Mg PO TID . Current Medications Medications (Trade) Dose Ordered Sig/Ann Route Start Time Stop Time Status Last Admin Dopamine HCl/ Dextrose 500 ml @ 0 mls/hr TITRATE IV 08/20/16 15:30 08/21/16 17:31 (NS 1000 ml Inj) 1,000 ml @ 40 mls/hr Q24H IV 08/20/16 15:52 08/23/16 20:53 (NS Flush) 2 ml UNSCH PRN IV FLUSH 08/20/16 16:00 (NS Flush) 2 ml BID IV FLUSH 08/20/16 21:00 08/24/16 08:15 (Tylenol) 650 mg Q6H PRN PO 08/20/16 16:00 (Zofran Inj) 4 mg Q6H PRN IV 08/20/16 16:00 (Colace) 100 mg BID PO 08/20/16 21:00 08/24/16 08:17 Miscellaneous Information 1 Q361D XX 08/20/16 16:00 08/20/16 16:00 (Chlorhexidine 2% Cloth) 3 pack Taper DAILY@04 TOP 08/21/16 04:00 08/17/17 03:59 08/23/16 22:06 (Chlorhexidine 2% Cloth) 3 pack UNSCH PRN TOP 08/20/16 16:00 (Xanax) 0.25 mg TID PO 08/20/16 18:00 08/24/16 18:05 (Elavil) 25 mg HS PO 08/20/16 21:00 08/23/16 20:53 (Lexapro) 10 mg DAILY PO 08/21/16 09:00 08/24/16 08:17 (D50w (Vial) Inj) 25 ml UNSCH PRN IV PUSH 08/20/16 16:00 Glucagon 1 mg 1 mg UNSCH PRN OTHER 08/20/16 16:00 Potassium Chloride 100 ml @ 50 mls/hr Q2H PRN IV 08/21/16 09:45 (KCl 20 Meq Premix Inj) 100 ml @ 50 mls/hr Q2H PRN IV 08/21/16 09:45 Potassium Chloride 40 meq 40 meq UNSCH PRN PO/TUBE 08/21/16 09:45 Potassium Chloride 100 ml @ 25 mls/hr UNSCH PRN IV 08/21/16 09:45 Potassium Chloride 100 ml @ 50 mls/hr Q2H PRN IV 08/21/16 09:45 (Magnesium Sulfate Inj/NS Inj) 100 ml @ 50 mls/hr UNSCH PRN IV 08/21/16 09:45 Magnesium Oxide 800 mg 800 mg UNSCH PRN PO 08/21/16 09:45 (Magnesium Sulfate Inj/NS Inj) 100 ml @ 50 mls/hr UNSCH PRN IV 08/21/16 09:45 Potassium Phosphate 2000 mg 2,000 mg Q4H PRN PO 08/21/16 09:45 (Sodium Phosphate Inj/NS 250 ml Inj) 250 ml @ 42 mls/hr UNSCH PRN IV 08/21/16 09:45 08/22/16 08:01 (KCl 40 Meq/30 ml Liq) 40 meq UNSCH PRN PO/TUBE 08/21/16 09:45 Potassium Phosphate 2000 mg 2,000 mg UNSCH PRN PO/TUBE 08/21/16 09:45 (Potassium Phosphate Inj/NS 250 ml Inj) 260 ml @ 42 mls/hr UNSCH PRN IV 08/21/16 09:45 08/24/16 14:06 (Senokot) 17.2 mg Q12HR PO 08/22/16 21:00 08/24/16 08:16 (Glycerin Adult Supp) 2 gm BID PRN RECTAL 08/22/16 10:00 (Heparin Inj) 5,000 units UNSCH PRN IV 08/22/16 16:30 Heparin Sodium (Porcine) 2500 units 2,500 units UNSCH PRN IV 08/22/16 16:30 Heparin Sodium/ Dextrose 250 ml @ 0 mls/hr TITRATE IV 08/22/16 10:30 08/23/16 14:03 (Diprivan 1000 Mg/100ml Inj) 100 ml @ 0 mls/hr TITRATE IV 08/22/16 22:15 08/23/16 20:53 (Morphine Inj) 4 mg Q3H PRN IV PUSH 08/22/16 22:30 08/24/16 08:17 (Xanax) 0.25 mg Q8H PRN PO 08/23/16 19:00 Artificial Tears 1 applic 1 applic Q12HR EACH EYE 08/24/16 10:00 08/24/16 11:48 (Precedex Inj) 50 ml @ 0 mls/hr TITRATE IV 08/24/16 09:45 08/24/16 18:05 (Pepcid) 10 mg BID NG 08/24/16 11:15 08/24/16 12:00 Miscellaneous 1 ea 1 ea UNSCH PRN OTHER 08/24/16 11:15 Vancomycin HCl 1250 mg/Sodium Chloride 262.5 ml @ 250 mls/hr Q24H IV 08/24/16 12:00 08/24/16 11:48 (Vancomycin Consult Pharmacy) ml @ 0 mls/hr UNSCH XX 08/24/16 11:30 Miscellaneous Information SPECIFIC LAB TO BE ... ONCE ONCE XX 08/26/16 11:45 08/26/16 11:46 . Family History Son with liver failure. . Substance Use Tobacco: never smoked. Alcohol: occasional. Prescription med abuse: none. Illicits: none. . 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 Patient has 3 daughters and one son. . Spiritual/Cultural Factors Moravian ray. . Living Will: Completed, but not made available Ethical and Legal Issues Patient currently incapacitated to make her own health care decisions. Notes indicate patient has a living will, will request copy. . Physical Exam Vital Signs Date Time Temp Pulse Resp B/P Pulse Ox O2 Delivery O2 Flow Rate FiO2 08/24/16 15:45 98 50 08/24/16 14:00 61 08/24/16 12:13 97 50 08/24/16 12:00 69 08/24/16 12:00 99.1 69 17 131/56 94 08/24/16 12:00 40 08/24/16 10:00 75 08/24/16 08:24 15 08/24/16 08:00 40 08/24/16 08:00 88 08/24/16 08:00 98.5 71 15 151/64 97 08/24/16 07:48 97 40 08/24/16 06:00 59 08/24/16 04:09 100 40 08/24/16 04:00 65 08/24/16 04:00 98.0 65 12 147/70 97 08/24/16 04:00 50 08/24/16 02:00 60 08/24/16 00:40 97 40 08/24/16 00:00 50 08/24/16 00:00 98.2 59 14 145/65 98 08/24/16 00:00 59 08/23/16 22:00 66 08/23/16 20:02 99 40 08/23/16 20:00 55 08/23/16 20:00 50 08/23/16 20:00 98.0 55 14 159/70 97 08/23/16 08/24/16 19:00 07:00 Intake Total 597 ml 1144 ml Output Total 200 ml 650 ml Balance 397 ml 494 ml IV Total 537 ml 1144 ml Tube Irrigant 60 ml Output Urine Total 200 ml 650 ml # Bowel Movements 0 Exam CONSTITUTIONAL/GENERAL: This is an elderly, critically ill patient, sedated and intubated. TUBES/LINES/DRAINS: ETT, OG, central line, PIV left, bilateral soft wrist restraints, Armas, SCD's SKIN: No jaundice, rashes, or lesions. Ecchymoses on upper extremities. 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 Skin temperature appropriate. Not diaphoretic. HEAD: Atraumatic. Normocephalic. EYES: Pupils equal and round and reactive. Extraocular motions intact. No scleral icterus. No injection or drainage. Fundi not examined. ENT: unable to adequately assess hearing. Nose without bleeding or purulent drainage. Throat difficult to visualize secondary to tubes. NECK: Trachea midline. CARDIOVASCULAR: rate 60s, atrial fibrillation on monitor. RESPIRATORY/CHEST: Symmetric, unlabored respirations on mechanical ventilation. Expiratory wheeze noted on right, diminished breath sounds left greater than right. GASTROINTESTINAL: Abdomen soft, non-tender, nondistended. No guarding. Bowel sounds present. GENITOURINARY: Without palpable bladder distension. Armas catheter in place. MUSCULOSKELETAL: Extremities without clubbing, cyanosis, or edema. No mottling or clubbing. LYMPHATICS: No palpable cervical or supraclavicular adenopathy. NEUROLOGICAL: Awakens briefly. Does not answer questions for me. Moves all extremities. PSYCHIATRIC: No obvious anxiety/depression. no apparent hallucinations or other psychotic thought process. . Diagnostic Tests Laboratory Laboratory Tests Test 08/22/16 08/22/16 08/22/16 08/22/16 03:35 11:20 17:52 20:43 White Blood Count 9.1 TH/MM3 (4.0-11.0) Red Blood Count 4.52 MIL/MM3 (4.00-5.30) Hemoglobin 13.3 GM/DL (11.6-15.3) Hematocrit 39.2 % (35.0-46.0) Mean Corpuscular Volume 86.8 FL (80.0-100.0) Mean Corpuscular Hemoglobin 29.4 PG (27.0-34.0) Mean Corpuscular Hemoglobin 33.9 % Concent (32.0-36.0) Red Cell Distribution Width 13.4 % (11.6-17.2) Platelet Count 213 TH/MM3 (150-450) Mean Platelet Volume 8.9 FL (7.0-11.0) Neutrophils (%) (Auto) 78.7 % (16.0-70.0) Lymphocytes (%) (Auto) 8.2 % (9.0-44.0) Monocytes (%) (Auto) 9.8 % (0.0-8.0) Eosinophils (%) (Auto) 2.8 % (0.0-4.0) Basophils (%) (Auto) 0.5 % (0.0-2.0) Neutrophils # (Auto) 7.1 TH/MM3 (1.8-7.7) Lymphocytes # (Auto) 0.7 TH/MM3 (1.0-4.8) Monocytes # (Auto) 0.9 TH/MM3 (0-0.9) Eosinophils # (Auto) 0.3 TH/MM3 (0-0.4) Basophils # (Auto) 0.0 TH/MM3 (0-0.2) CBC Comment DIFF FINAL Differential Comment Sodium Level 140 MEQ/L (136-145) Potassium Level 4.1 MEQ/L (3.5-5.1) Chloride Level 109 MEQ/L (98-107) Carbon Dioxide Level 23.9 MEQ/L (21.0-32.0) Anion Gap 7 MEQ/L (5-15) Blood Urea Nitrogen 21 MG/DL (7-18) Creatinine 0.85 MG/DL (0.50-1.00) Estimat Glomerular Filtration 63 ML/MIN (>89) Rate Random Glucose 106 MG/DL (74-106) Calcium Level 7.9 MG/DL (8.5-10.1) Phosphorus Level 2.4 MG/DL 3.5 MG/DL (2.5-4.9) (2.5-4.9) Magnesium Level 2.2 MG/DL (1.5-2.5) Prothrombin Time 11.8 SEC (9.8-11.6) Prothromb Time International 1.1 RATIO Ratio Activated Partial 34.6 SEC 67.6 SEC Thromboplast Time (24.3-30.1) (24.3-30.1) Blood Gas Puncture Site LT RADIAL Blood Gas Patient Temperature 98.6 Blood Gas HCO3 19 mmol/L (22-26) Blood Gas Base Excess -5.7 mmol/L (-2-2) Blood Gas Oxygen Saturation 95 % (90-100) Arterial Blood pH 7.32 (7.380-7.420) Arterial Blood Partial 39 mmHg (38-42) Pressure CO2 Arterial Blood Partial 101 mmHg Pressure O2 (61-120) Arterial Blood Oxygen Content 19.0 Vol % (12.0-20.0) Arterial Blood 1.0 % (0-4) Carboxyhemoglobin Arterial Blood Methemoglobin 1.0 % (0-2) Blood Gas Hemoglobin 14.1 G/DL (12.0-16.0) Oxygen Delivery Device NASAL CANNULA Blood Gas Liter Flow 3 L/M Blood Gas Inspired Oxygen 28 % Test 08/22/16 08/23/16 08/23/16 08/23/16 22:52 01:20 03:22 05:15 Blood Gas Puncture Site LT RADIAL Blood Gas Patient Temperature 98.6 Blood Gas HCO3 18 mmol/L (22-26) Blood Gas Base Excess -7.4 mmol/L (-2-2) Blood Gas Oxygen Saturation 98 % (90-100) Arterial Blood pH 7.30 (7.380-7.420) Arterial Blood Partial 38 mmHg (38-42) Pressure CO2 Arterial Blood Partial 343 mmHg Pressure O2 (61-120) Arterial Blood Oxygen Content 18.2 Vol % (12.0-20.0) Arterial Blood 0.9 % (0-4) Carboxyhemoglobin Arterial Blood Methemoglobin 1.1 % (0-2) Blood Gas Hemoglobin 12.7 G/DL (12.0-16.0) Oxygen Delivery Device VENTILATOR Blood Gas Ventilator Setting AC12/500/PEEP5 Blood Gas Inspired Oxygen 100 % Activated Partial 59.7 SEC 62.3 SEC Thromboplast Time (24.3-30.1) (24.3-30.1) White Blood Count 7.7 TH/MM3 (4.0-11.0) Red Blood Count 3.93 MIL/MM3 (4.00-5.30) Hemoglobin 11.5 GM/DL (11.6-15.3) Hematocrit 34.1 % (35.0-46.0) Mean Corpuscular Volume 86.6 FL (80.0-100.0) Mean Corpuscular Hemoglobin 29.2 PG (27.0-34.0) Mean Corpuscular Hemoglobin 33.7 % Concent (32.0-36.0) Red Cell Distribution Width 13.9 % (11.6-17.2) Platelet Count 185 TH/MM3 (150-450) Mean Platelet Volume 8.9 FL (7.0-11.0) Sodium Level 142 MEQ/L (136-145) Potassium Level 4.2 MEQ/L (3.5-5.1) Chloride Level 111 MEQ/L (98-107) Carbon Dioxide Level 21.5 MEQ/L (21.0-32.0) Anion Gap 10 MEQ/L (5-15) Blood Urea Nitrogen 26 MG/DL (7-18) Creatinine 1.03 MG/DL (0.50-1.00) Estimat Glomerular Filtration 51 ML/MIN (>89) Rate Random Glucose 178 MG/DL (74-106) Calcium Level 7.6 MG/DL (8.5-10.1) Phosphorus Level 3.8 MG/DL (2.5-4.9) Magnesium Level 2.0 MG/DL (1.5-2.5) Test 08/24/16 06:00 White Blood Count 10.0 TH/MM3 (4.0-11.0) Red Blood Count 4.47 MIL/MM3 (4.00-5.30) Hemoglobin 12.8 GM/DL (11.6-15.3) Hematocrit 39.0 % (35.0-46.0) Mean Corpuscular Volume 87.3 FL (80.0-100.0) Mean Corpuscular Hemoglobin 28.6 PG (27.0-34.0) Mean Corpuscular Hemoglobin 32.8 % Concent (32.0-36.0) Red Cell Distribution Width 13.7 % (11.6-17.2) Platelet Count 207 TH/MM3 (150-450) Mean Platelet Volume 9.1 FL (7.0-11.0) Activated Partial 44.0 SEC Thromboplast Time (24.3-30.1) Sodium Level 140 MEQ/L (136-145) Potassium Level 3.6 MEQ/L (3.5-5.1) Chloride Level 109 MEQ/L (98-107) Carbon Dioxide Level 21.0 MEQ/L (21.0-32.0) Anion Gap 10 MEQ/L (5-15) Blood Urea Nitrogen 25 MG/DL (7-18) Creatinine 0.96 MG/DL (0.50-1.00) Estimat Glomerular Filtration 55 ML/MIN (>89) Rate Random Glucose 127 MG/DL (74-106) Calcium Level 8.0 MG/DL (8.5-10.1) Phosphorus Level 2.4 MG/DL (2.5-4.9) Magnesium Level 2.0 MG/DL (1.5-2.5) Result Diagram: 08/24/16 0600 08/24/16 0600 Microbiology Microbiology Date/Time Procedure Status Source Growth 08/22/16 13:30 Stool Occult Blood (TITA) - Final Complete Stool Stool HEMOCCULT NEGATIVE 08/24/16 13:30 Gram Stain Received Sputum Endotracheal Pending 08/24/16 13:30 Sputum Culture Received Sputum Endotracheal Pending Imaging Last Impressions Chest X-Ray 08/24/16 0600 Signed Impressions: Service Date/Time: Wednesday, August 24, 2016 05:08 - CONCLUSION: 1. Bilateral mostly basilar airspace consolidation with small pleural effusions. Support apparatus in satisfactory position. Doni Westfall MD Patient/Family Conference Issues Discussed: * Palliative care role, purpose, approach * Additional medical, psychosocial, and spiritual history * Patients general health, functional status, and cognitive changes in the months leading up to the current hospitalization * Patient/family understanding of the current medical problems * Patient/family understanding of prognosis * Patients goals of care as best understood from advance directives and/or conversations and/or values * Current medical treatment options and benefits/burdens of those options * Likely scenarios comparing ongoing aggressive care with a transition to comfort measures only * Questions answered to the best of my ability * Palliative care contact information provided Assessment and Plan Disease Oriented Problem List: (1) Respiratory failure (2) Paroxysmal atrial flutter (3) Paroxysmal atrial fibrillation (4) CAD (coronary artery disease) (5) Bradycardia (6) Aortic stenosis Symptom Scale: (1) Shortness of breath 0-10 Scale: Unable to quantify Comment: on mech vent (2) Weakness 0-10 Scale: Unable to quantify Pertinent Non-Medical Issues Psychosocial: , spouse has ES dementia on hospice. 3 daughters and 1 son. Spiritual: Moravian ray Legal: Patient currently incapacitated to make her own health care decisions. Notes indicate patient has a living will, will request copy. Ethical issues impacting care: No known concerns at this time. . Important Contacts * Joanie Garcia, daughter: [phone] or [phone] * Lilian Mahan, daughter: [phone] . Prognosis Will need to speak with cardiology and pack operator for further clarification of overall prognosis. . Code Status: Full Code Plan * Patient currently incapacitated to make her own health care decisions. Notes indicate patient has a Living Will. Will request a copy. * FULL CODE. * Spoke with daughterLilian via telephone. She will attempt to coordinate a family meeting with her siblings and notify palliative care of date/time. * SYMPTOMS: Dyspnea: on mech vent. Anxiety: changed to Precedex drip this morning. Appears comfortable. * Palliative care number provided. * Palliative care will further clarify goals at family meeting. Will be available to assist with symptom management and clarification of treatment goals throughout hospital course. . Thank you for the opportunity to participate in the care of Ms. Carmichael. Attestation To help prompt me to consider important information that might be impacting today's encounter and assessment, information from prior notes written by myself or my colleagues may have been "brought forward" into today's note. My signature on this note, however, is an attestation that I personally performed the exam, history, and/or decision-making noted today, and, unless otherwise indicated, the interactions with patient, family, and staff as well as the review of records all occurred today. I also attest that the listed assessment and stated plan reflect my best clinical judgment today based on the combination of historical information, prior notes, and today's exam/ interactions. When time spent is documented, it refers only to time spent today by the signer, or if indicated, combined time spent today by collaborating physician/nurse practitioner. HAKEEM MANN Aug 24, 2016 18:44
[2016-08-24] MEDS: AMITRIPTYLINE HCL 25 MG TAB PO SCH (20:23)
[2016-08-24] MEDS: SODIUM CHLOR 0.9% 1000 ML INJ 1,000 ML IV SCH (20:28)
[2016-08-25] VITALS (19 sets, daily range): BP systolic 98–152; BP diastolic 53–64; PULSE 54–75; RESP 16–22; TEMP 98–99.3; O2SAT 94–100
[2016-08-25] MEDS: DEXMEDETOMIDINE INJ 50 ML IV SCH ×4 (00:44→20:20)
[2016-08-25] MEDS: CHLORHEXIDINE GLUCONATE 2 % 1 PACK (2 CLOTHS) TOP SCH (02:27)
[2016-08-25] MEDS: INSULIN NovoLIN REGULAR SUPPLEMENTAL SCALE SQ SCH ×4 (05:51→20:21)
[2016-08-25] MEDS: MORPHINE SULFATE 4 MG/ML INJ IV PUSH PRN (06:37)
--- NOTE | 2016-08-25 06:39 | RADRPT ---
EXAM DATE/TIME: 08/25/2016 04:55 [facility] COMPARISON: CHEST SINGLE AP, August 24, 2016, 5:08. INDICATIONS : Respiratory failure. MEDICAL HISTORY : None. SURGICAL HISTORY : None. ENCOUNTER: Subsequent ACUITY: 4 - 6 days PAIN SCORE: Non-responsive. LOCATION: Bilateral chest FINDINGS: Endotracheal tube in satisfactory position. NG enters stomach. Basilar airspace disease and small eff usions similar to August 24. Right central line tip in superior vena cava. CONCLUSION: 1. Support apparatus unchanged. Stable basilar airspace disease and small effusions. Doni Westfall MD on August 25, 2016 at 6:36 Board Certified Radiologist. This report was verified electronically.
[2016-08-25 07:15] LABS: HEMATOCRIT 35.6 % (35.0-46.0); MEAN CELL VOLUME 87.4 FL (80.0-100.0); MEAN CORPUSCULAR HEMOGLOBIN 29.1 PG (27.0-34.0); MEAN CORPUSCULAR HGB CONC 33.3 % (32.0-36.0); PLATELET COUNT 200 TH/MM3 (150-450); RED BLOOD COUNT 4.08 MIL/MM3 (4.00-5.30); RED CELL DISTRIBUTION WIDTH 13.8 % (11.6-17.2); REVIEW FLAG FINAL; WHITE BLOOD COUNT 10.7 TH/MM3 (4.0-11.0)
[2016-08-25 07:19] LABS: APTT (PATIENT) 48.8 SEC (24.3-30.1)
[2016-08-25 07:33] LABS: BICARBONATE 20.8 MEQ/L (21.0-32.0); POTASSIUM 4.1 MEQ/L (3.5-5.1)
[2016-08-25] MEDS: DOCUSATE SODIUM 100 MG CAP PO SCH ×2 (10:23→20:20)
[2016-08-25] MEDS: SENNOSIDES 8.6 MG TAB PO SCH ×2 (10:24→20:20)
[2016-08-25] MEDS: ESCITALOPRAM OXALATE 10 MG TAB PO SCH (10:24)
[2016-08-25] MEDS: FAMOTIDINE 20 MG TAB NG SCH ×2 (10:25→20:20)
[2016-08-25] MEDS: SODIUM CHLORIDE 0.9% FLUSH 5 ML FLUSH IV FLUSH SCH ×2 (10:25→20:20)
[2016-08-25] MEDS: ALPRAZolam 0.25 MG TAB PO SCH ×2 (10:25→12:32)
[2016-08-25] MEDS: ARTIFICIAL TEARS OPTH OINT 3.5 APPLIC/3.5 GM TUBO EACH EYE SCH ×2 (10:26→20:20)
--- NOTE | 2016-08-25 11:30 | HHI.HCPN ---
Call from daughter, Lilian to request family meeting at 4:30pm. Palliative care will meet with family this afternoon. HAKEEM MANN Aug 25, 2016 11:30
[2016-08-25] MEDS: VANCOMYCIN INJ 1,250 MG in SODIUM CHLOR 0.9% 250 ML INJ 250 ML IV SCH (12:32)
--- NOTE | 2016-08-25 13:43 | HHI.CCPN ---
Subjective Remarks/Hospital Course 86-year-old female brought by her daughter with history of fatigue, tiredness and bradycardia. Per chart the patient has been sleeping 12-14 hours a day for past couple days. Today the home health nurse came and checked her pulse and it was in the low 40s. She advised that the patient should be brought to the emergency room. The patient is too somnolent and lethargic to provide any more history. 08/21: Afebrile. Heart rate currently in the 50s and 60s on dopamine drip at 12 micrograms per kilogram per minute. Patient appears to have a baseline heart rate between 40 and 55 according to review of old records here at [facility]. Placed on ADA diet. No bowel movement. Subjective 08/22: Afebrile. Dopamine done at 3 mcg/kg/m. Rhythm changes between normal sinus rhythm in addition to a Mobitz second-degree heart block type I and atrial fibrillation. Awake and alert and following commands. Tolerating diet. Denies chest pain or shortness of breath. 08/23: The patient was reintubated overnight, secondary to altered mental status and increased lethargy. Sedation vacation obtain patient's starting to follow commands this a.m.. Dopamine was discontinued yesterday. The patient continues to vacillate between normal sinus rhythm and Mobitz second-degree heart block, and sinus arrhythmia, BP stable. 08/24:Afebrile. No acute events overnight. The patient is now following commands on sedation vacation. Plan to change transition to Precedex infusion, with discontinuation of propofol and continue CPAP trials. The family has requested palliative medicine consult. 08/25: The patient was bradycardic overnight heart rate 30s, normotensive, had received morphine 4 mg IV for agitation last evening. Palliative care has a planned family meeting today, to discuss goals of care. UA culture revealed Enterobacter fecalis the patient was started on vancomycin yesterday afternoon. Objective Vital Signs Date Time Temp Pulse Resp B/P Pulse Ox O2 Delivery O2 Flow Rate FiO2 08/25/16 11:57 96 40 08/25/16 06:00 62 08/25/16 04:00 98.0 18 152/64 08/22/16 21:07 Nasal Cannula 3.00 Intake and Output 08/24/16 08/24/16 08/25/16 08:00 16:00 00:00 Intake Total 622 ml 690 ml 521 ml Output Total 350 ml 475 ml 300 ml Balance 272 ml 215 ml 221 ml Result Diagram: 08/25/16 0600 08/25/16 0600 Imaging Last Impressions Chest X-Ray 08/20/16 1334 Signed Impressions: Service Date/Time: Saturday, August 20, 2016 13:40 - CONCLUSION: No acute disease. Mario Hassan MD FACR Objective Remarks GENERAL: 86 yo female, critically ill currently resting in bed intubated and sedated SKIN: Warm and dry. No rash HEAD: Normocephalic. EYES: No scleral icterus. No injection or drainage. PERRL. EOMI. ENT: No tympanic drainage. Oropharynx without erythema or exudates orotracheally intubated NECK: Supple, trachea midline. No JVD or lymphadenopathy. No carotid bruit CARDIOVASCULAR: Currently normal sinus rhythm with a heart rate 55. S1, S2. No S4. RESPIRATORY: Breath sounds equal bilaterally. Mechanical ventilation GASTROINTESTINAL: Abdomen soft, non-tender, nondistended. Normoactive bowel sounds are appreciated. Tube feeds infusing MUSCULOSKELETAL: No significant peripheral edema. Prior scarring from bypass right-sided noted BACK: Nontender without obvious deformity. No CVA tenderness. Urinary Catheter: Yes Vascular Central Line Catheter: Yes Date of Insertion: Aug 20, 2016 Line: Central Venous Catheter Side: Right Location: Internal, Jugular A/P Problem List: (1) Chronic kidney disease, stage 3 ICD Code: N18.3 Status: Acute (2) HTN (hypertension) ICD Code: I10 Status: Chronic (3) Symptomatic bradycardia ICD Code: R00.1 Status: Acute Assessment and Plan Neuro/Psych: Chronic benzodiazepine use Depression/anxiety Continue Elavil 25 mg by mouth daily/home medication Continue Escitalopram 10 mg by mouth daily for depression as home medication Continue Xanax 0.25 mg 3 times a day for anxiety. Acetaminophen for fever [place]/as needed morphine for pain management Discontinue propofol infusion , begin Precedex infusion 08/24-F/U EEG results CV: Symptomatically bradycardia - .. ? Second-degree Mobitz type I currently in normal sinus rhythm History of a flutter status post ablation 2016 Nonobstructive coronary disease Hypertension Dyslipidemia Peripheral vascular disease history of post right femoropopliteal, femoral- tibial and femoroperoneal bypass This is a patient Dr. Verdin/cardiology. Cardiology has been consulted and appreciate recommendations. Likely secondary to amiodarone. F/U Dr. [place] regarding possible EPS management Cardiac catheterization 04/11 revealed left main without disease, LAD 40% stenosis, left circumflex coronary disease and RCA 40% stenosis. No intervention. Currently on dopamine at 3 mcg/kg/m for heart rate management discontinued 08/22 Amiodarone currently has been held. Level pending Patient is on valsartan 320 mg daily for hypertension. This is currently on hold Continue Plavix 75 mg by mouth daily for peripheral vascular disease. Heparin infusion per cardiology recommendations Resp: Documentation of asthma History of pulmonary embolism Maintain saturations greater than equal to 92% Mechanical ventilation settings 12/500/0.45/5 Ventilator bundle Maintain head of bed 30 Continue duo nebs per schedule Continue CPAP trials GI: Peptamen AF D/C Protonix for GI prophylaxis, change to Pepcid. On Zantac 150 mg a night at home. Colace/Senokot twice a day for bowel regimen : Armas changed yesterday, initiation of vancomycin Maintain/ strict accurate I' & O's Endo: Diabetes mellitus type 2 Home medications include Januvia 100 mg daily, Tresiba injection subcutaneous as needed and Farxiga 10 mg daily Sliding scale insulin Accu-Cheks every 6 before meals at bedtime to maintain euglycemia/moderate regimen TSH within normal limits Renal: History chronic kidney disease stage III Creatinine currently within normal limits. Accurate I's and O's. Monitor urine output Monitor BMP Heme: Leukocytosis Follow CBC daily. Monitor trends ID: UTI Day #3 aztreonam, discontinued 06/22. Noted multiple drug allergies above.. UA culture- Enterococcus faecalis, Vancomycin(day 2) Pharmacy dosing initiated ( maintain therapeutic level 10-15) unable to utilize the nasal lid secondary to SSRI medication Monitor for infection FEN: Hypokalemia - resolved Replace electrolyte as clinically indicated Goal keep magnesium greater than 2, potassium greater than 4 MSK: Osteoarthritis PT evaluate and treat Access - Right IJ CVL day 5 Prophylaxis - GI - Protonix - DVT - SCD/heparin infusion Dispo: Provided update on patient's medical status with daughter Lilian, by phone and DESIGN ENGINEERING SPECIALIST at bedside. Family requests palliative care consult at this time, to discuss goals of care. Family stated they would not patient to have a PEG placement. We will follow-up palliative care recommendations. Critical Care: Level 3 Physician Davina Solis MD Aug 25, 2016 13:43
--- NOTE | 2016-08-25 15:05 | HHI.HCPN ---
Reason for visit a. To assist with evaluation and management of symptoms including: dyspnea, debility, agitation. b. To assist medical decision maker(s) with: better understanding of current medical conditions; weighing benefits/burdens of medical treatment options; making medical treatment decisions. . Subjective/Interval History Patient seen and examined in ICU. Discussed with nurse and Dr. Christine. No family at bedside. Patient is sedated on Precedex. Remains on mech vent, FiO2 40%. She does not open eyes to voice or exam. Afebrile. HR range 20-60 overnight. LBM 08/23/16. WBC 10.7, hemoglobin 11.9, platelets 200. Creatinine 0.93. Urinalysis culture positive enterococcus faecalis, on Vancomycin Chest x-ray stable with basilar airspace disease and small effusions. . Family/friend interactions Family meeting 08/25/16 4:30pm. Met with 3 daughters, son and in son's hospital room. Family wants to continue aggressive care short of cardiac resuscitation for now. They are hopeful she will will be able to wean from vent in the coming days. They are all certain she would not want trach or PEG, we will discuss further if this decision is needed in the coming days/ week. Palliative care number provided. . Advance Directives Living Will: Completed, but not made available Advance Directive Specifics Significant change in goals: Intubation Only. Continue aggressive care short of no chest compressions, shock or ACLS for now. Family feels pt would not want trach/PEG, hopeful she can be weaned in the coming days. . Objective Vital Signs Date Time Temp Pulse Resp B/P Pulse Ox O2 Delivery O2 Flow Rate FiO2 08/25/16 11:57 96 40 08/25/16 08:00 50 08/25/16 07:46 96 40 08/25/16 06:00 62 08/25/16 04:06 99 50 08/25/16 04:00 61 08/25/16 04:00 50 08/25/16 04:00 98.0 60 18 152/64 100 08/25/16 02:00 58 08/25/16 01:12 99 50 08/25/16 00:00 50 08/25/16 00:00 61 08/25/16 00:00 98.2 61 18 122/58 99 08/24/16 22:10 99 50 08/24/16 22:00 67 08/24/16 20:00 98.8 65 18 135/58 97 08/24/16 20:00 50 08/24/16 20:00 65 08/24/16 19:10 97 50 08/24/16 18:00 62 08/24/16 16:00 62 08/24/16 16:00 99.3 62 14 141/62 99 08/24/16 16:00 50 08/24/16 15:45 98 50 Intake & Output 08/25/16 08/25/16 07:00 19:00 Intake Total 1386 ml Output Total 500 ml Balance 886 ml IV Total 1032 ml Tube Feeding 354 ml Output Urine Total 500 ml Physical Exam CONSTITUTIONAL/GENERAL: This is an elderly, critically ill patient, sedated and intubated. TUBES/LINES/DRAINS: ETT, OG, central line, PIV left, bilateral soft wrist restraints, Armas, SCD's SKIN: No jaundice, rashes, or lesions. Ecchymoses on upper extremities. 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 Skin temperature appropriate. Not diaphoretic. EYES: Pupils equal and round and reactive. ENT: unable to adequately assess hearing. Nose without bleeding or purulent drainage. Throat difficult to visualize secondary to tubes. CARDIOVASCULAR: rate 50-60, atrial fibrillation on monitor. RESPIRATORY/CHEST: Symmetric, unlabored respirations on mechanical ventilation. Diminished breath sounds left greater than right. GASTROINTESTINAL: Abdomen soft, non-tender, nondistended. No guarding. Bowel sounds present. GENITOURINARY: Without palpable bladder distension. Armas catheter in place. MUSCULOSKELETAL: Extremities without clubbing, cyanosis, or edema. No mottling or clubbing. NEUROLOGICAL: Awakens briefly. Does not answer questions for me. Moves all extremities. PSYCHIATRIC: No obvious anxiety/depression. no apparent hallucinations or other psychotic thought process. . Diagnostic Tests Laboratory Laboratory Tests Test 08/22/16 08/22/16 08/22/16 08/23/16 17:52 20:43 22:52 01:20 Activated Partial 67.6 SEC 59.7 SEC Thromboplast Time (24.3-30.1) (24.3-30.1) Phosphorus Level 3.5 MG/DL (2.5-4.9) Blood Gas Puncture Site LT RADIAL LT RADIAL Blood Gas Patient Temperature 98.6 98.6 Blood Gas HCO3 19 mmol/L 18 mmol/L (22-26) (22-26) Blood Gas Base Excess -5.7 mmol/L -7.4 mmol/L (-2-2) (-2-2) Blood Gas Oxygen Saturation 95 % (90-100) 98 % (90-100) Arterial Blood pH 7.32 7.30 (7.380-7.420) (7.380-7.420) Arterial Blood Partial 39 mmHg (38-42) 38 mmHg (38-42) Pressure CO2 Arterial Blood Partial 101 mmHg 343 mmHg Pressure O2 (61-120) (61-120) Arterial Blood Oxygen Content 19.0 Vol % 18.2 Vol % (12.0-20.0) (12.0-20.0) Arterial Blood 1.0 % (0-4) 0.9 % (0-4) Carboxyhemoglobin Arterial Blood Methemoglobin 1.0 % (0-2) 1.1 % (0-2) Blood Gas Hemoglobin 14.1 G/DL 12.7 G/DL (12.0-16.0) (12.0-16.0) Oxygen Delivery Device NASAL CANNULA VENTILATOR Blood Gas Liter Flow 3 L/M Blood Gas Inspired Oxygen 28 % 100 % Blood Gas Ventilator Setting AC12/500/PEEP5 Test 08/23/16 08/23/16 08/24/16 08/25/16 03:22 05:15 06:00 06:00 White Blood Count 7.7 TH/MM3 10.0 TH/MM3 10.7 TH/MM3 (4.0-11.0) (4.0-11.0) (4.0-11.0) Red Blood Count 3.93 MIL/MM3 4.47 MIL/MM3 4.08 MIL/MM3 (4.00-5.30) (4.00-5.30) (4.00-5.30) Hemoglobin 11.5 GM/DL 12.8 GM/DL 11.9 GM/DL (11.6-15.3) (11.6-15.3) (11.6-15.3) Hematocrit 34.1 % 39.0 % 35.6 % (35.0-46.0) (35.0-46.0) (35.0-46.0) Mean Corpuscular Volume 86.6 FL 87.3 FL 87.4 FL (80.0-100.0) (80.0-100.0) (80.0-100.0) Mean Corpuscular Hemoglobin 29.2 PG 28.6 PG 29.1 PG (27.0-34.0) (27.0-34.0) (27.0-34.0) Mean Corpuscular Hemoglobin 33.7 % 32.8 % 33.3 % Concent (32.0-36.0) (32.0-36.0) (32.0-36.0) Red Cell Distribution Width 13.9 % 13.7 % 13.8 % (11.6-17.2) (11.6-17.2) (11.6-17.2) Platelet Count 185 TH/MM3 207 TH/MM3 200 TH/MM3 (150-450) (150-450) (150-450) Mean Platelet Volume 8.9 FL 9.1 FL 9.0 FL (7.0-11.0) (7.0-11.0) (7.0-11.0) Sodium Level 142 MEQ/L 140 MEQ/L 142 MEQ/L (136-145) (136-145) (136-145) Potassium Level 4.2 MEQ/L 3.6 MEQ/L 4.1 MEQ/L (3.5-5.1) (3.5-5.1) (3.5-5.1) Chloride Level 111 MEQ/L 109 MEQ/L 110 MEQ/L (98-107) (98-107) (98-107) Carbon Dioxide Level 21.5 MEQ/L 21.0 MEQ/L 20.8 MEQ/L (21.0-32.0) (21.0-32.0) (21.0-32.0) Anion Gap 10 MEQ/L (5-15) 10 MEQ/L (5-15) 11 MEQ/L (5-15) Blood Urea Nitrogen 26 MG/DL (7-18) 25 MG/DL (7-18) 29 MG/DL (7-18) Creatinine 1.03 MG/DL 0.96 MG/DL 0.93 MG/DL (0.50-1.00) (0.50-1.00) (0.50-1.00) Estimat Glomerular Filtration 51 ML/MIN (>89) 55 ML/MIN (>89) 57 ML/MIN (>89) Rate Random Glucose 178 MG/DL 127 MG/DL 173 MG/DL (74-106) (74-106) (74-106) Calcium Level 7.6 MG/DL 8.0 MG/DL 8.1 MG/DL (8.5-10.1) (8.5-10.1) (8.5-10.1) Phosphorus Level 3.8 MG/DL 2.4 MG/DL 3.1 MG/DL (2.5-4.9) (2.5-4.9) (2.5-4.9) Magnesium Level 2.0 MG/DL 2.0 MG/DL 2.0 MG/DL (1.5-2.5) (1.5-2.5) (1.5-2.5) Activated Partial 62.3 SEC 44.0 SEC 48.8 SEC Thromboplast Time (24.3-30.1) (24.3-30.1) (24.3-30.1) Result Diagram: 08/25/16 0600 08/25/16 0600 Microbiology Microbiology Date/Time Procedure Status Source Growth 08/24/16 13:30 Gram Stain - Final Resulted Sputum Endotracheal 08/24/16 13:30 Sputum Culture - Preliminary Resulted Sputum Endotracheal IMMATURE GROWTH - REINCUBATE . Imaging Last Impressions Chest X-Ray 08/25/16 0600 Signed Impressions: Service Date/Time: Thursday, August 25, 2016 04:55 - CONCLUSION: 1. Support apparatus unchanged. Stable basilar airspace disease and small effusions. Doni Westfall MD . Assessment and Plan Disease Oriented Problem List: (1) Respiratory failure (2) Paroxysmal atrial flutter (3) Paroxysmal atrial fibrillation (4) CAD (coronary artery disease) (5) Bradycardia (6) Aortic stenosis Symptom Scale: (1) Shortness of breath 0-10 Scale: Unable to quantify Comment: on mech vent (2) Weakness 0-10 Scale: Unable to quantify Pertinent Non-Medical Issues Psychosocial: . Spiritual: [facility] Legal:Patient currently incapacitated to make her own health care decisions. Notes indicate patient has a living will, will request copy. Ethical issues impacting care: No known concerns at this time. . Important Contacts * Joanie Garcia, daughter: [phone] or [phone] * Lilian Mahan, daughter: [phone] . Prognosis Will need to speak with cardiology and rotary dryer operator for further clarification of overall prognosis. . Code Status: Alternative Code (Intubation Only) Plan * Patient currently incapacitated to make her own health care decisions. Notes indicate patient has a Living Will. Will request a copy. * Intubation Only. . * Met with 3 daughters, son and in son's hospital room. Family wants to continue aggressive care short of cardiac resuscitation for now. They are hopeful she will will be able to wean from vent in the coming days. They are all certain she would not want trach or PEG, we will discuss further if this decision is needed in the coming days/ week. Palliative care number provided. * SYMPTOMS: Dyspnea: on mech vent. Anxiety: On Precedex drip this morning. Appears comfortable. Agitation: was pulling at ET tube despite Precedex drip per nursing staff, was given one dose of Morphine and became bradycardic. * Will be available to assist with symptom management and clarification of treatment goals throughout hospital course. . Attestation To help prompt me to consider important information that might be impacting today's encounter and assessment, information from prior notes written by myself or my colleagues may have been "brought forward" into today's note. My signature on this note, however, is an attestation that I personally performed the exam, history, and/or decision-making noted today, and, unless otherwise indicated, the interactions with patient, family, and staff as well as the review of records all occurred today. I also attest that the listed assessment and stated plan reflect my best clinical judgment today based on the combination of historical information, prior notes, and today's exam/ interactions. When time spent is documented, it refers only to time spent today by the signer, or if indicated, combined time spent today by collaborating physician/nurse practitioner. HAKEEM MANN Aug 25, 2016 15:05
[2016-08-25] MEDS: AMITRIPTYLINE HCL 25 MG TAB PO SCH (20:20)
[2016-08-25] MEDS: SODIUM CHLOR 0.9% 1000 ML INJ 1,000 ML IV SCH (20:21)
[2016-08-26] VITALS (19 sets, daily range): BP systolic 115–138; BP diastolic 54–63; PULSE 55–79; RESP 16–20; TEMP 98.2–99.4; O2SAT 93–99
[2016-08-26] MEDS: CHLORHEXIDINE GLUCONATE 2 % 1 PACK (2 CLOTHS) TOP SCH ×2 (02:33→22:24)
[2016-08-26] MEDS: HEPARIN-D5W INJ 250 ML IV SCH (02:53)
[2016-08-26] MEDS: INSULIN NovoLIN REGULAR SUPPLEMENTAL SCALE SQ SCH ×4 (06:33→22:22)
[2016-08-26 06:37] LABS: BLOOD GAS BASE EXCESS -7.4 mmol/L (-2-2); BLOOD GAS CARBOXYHEMOGLOBIN 0.9 % (0-4); BLOOD GAS HCO3 18 mmol/L (22-26); BLOOD GAS METHEMOGLOBIN 1.1 % (0-2); BLOOD GAS O2 HGB SATURATION 98 % (90-100); BLOOD GAS OXYGEN CONTENT 18.2 Vol % (12.0-20.0); BLOOD GAS PCO2 38 mmHg (38-42); BLOOD GAS PO2 343 mmHg (61-120); BLOOD GAS TOTAL HGB 12.7 G/DL (12.0-16.0); CRITICAL VALUE NO; DRAW SITE LT RADIAL; FIO2 100 %; NUMBER OF ARTERIAL PUNCTURES 1; OXYGEN DEVICE VENTILATOR; STAT NO; TEMP CORR TO 98.6; ULNAR PULSE PRESENT; VENT SETTINGS AC12/500/PEEP5
[2016-08-26 07:10] LABS: APTT (PATIENT) 38.5 SEC (24.3-30.1)
[2016-08-26 07:33] LABS: AUTOMATED NEUTROPHIL # 7.7 TH/MM3 (1.8-7.7); BASOPHIL % 0.3 % (0.0-2.0); EOSINOPHIL # 0.1 TH/MM3 (0-0.4); EOSINOPHIL % 0.8 % (0.0-4.0); HEMATOCRIT 33.3 % (35.0-46.0); HEMO FLAGS DIFF FINAL; LYMPH % 6.3 % (9.0-44.0); LYMPHOCYTE # 0.6 TH/MM3 (1.0-4.8); MEAN CELL VOLUME 87.9 FL (80.0-100.0); MEAN CORPUSCULAR HEMOGLOBIN 28.8 PG (27.0-34.0); MEAN CORPUSCULAR HGB CONC 32.8 % (32.0-36.0); MONO % 7.8 % (0.0-8.0); NEUT % 84.8 % (16.0-70.0); PLATELET COUNT 189 TH/MM3 (150-450); RED BLOOD COUNT 3.79 MIL/MM3 (4.00-5.30); RED CELL DISTRIBUTION WIDTH 14.1 % (11.6-17.2); WHITE BLOOD COUNT 9.1 TH/MM3 (4.0-11.0)
[2016-08-26 07:56] LABS: ALKALINE PHOSPHATASE 485 U/L (45-117); ALT (GPT) 40 U/L (10-53); ANION GAP 9 MEQ/L (5-15); AST (GOT) 31 U/L (15-37); BICARBONATE 23.1 MEQ/L (21.0-32.0); BLOOD UREA NITROGEN 39 MG/DL (7-18); CHLORIDE 109 MEQ/L (98-107); GLOMERULAR FILTRATION RATE 25 ML/MIN (>89); POTASSIUM 4.5 MEQ/L (3.5-5.1); SODIUM (NA) 141 MEQ/L (136-145); TOTAL BILIRUBIN ADULT 0.3 MG/DL (0.2-1.0)
[2016-08-26] MEDS ORDERED: MIDAZOLAM HCL 2 MG/2 ML VIAL IV ONE (08:00)
[2016-08-26] MEDS: ARTIFICIAL TEARS OPTH OINT 3.5 APPLIC/3.5 GM TUBO EACH EYE SCH ×2 (09:00→20:53)
[2016-08-26] MEDS: DEXMEDETOMIDINE INJ 50 ML IV SCH ×4 (09:54→22:21)
[2016-08-26] MEDS: SENNOSIDES 8.6 MG TAB PO SCH ×2 (09:55→22:23)
[2016-08-26] MEDS: SODIUM CHLORIDE 0.9% FLUSH 5 ML FLUSH IV FLUSH SCH ×2 (09:55→22:23)
[2016-08-26] MEDS: FAMOTIDINE 20 MG TAB NG SCH ×2 (09:55→22:22)
[2016-08-26] MEDS: ESCITALOPRAM OXALATE 10 MG TAB PO SCH (09:55)
[2016-08-26] MEDS: DOCUSATE SODIUM 100 MG CAP PO SCH ×2 (09:55→22:22)
[2016-08-26] MEDS ORDERED: PHARMACY ORDERED LAB XX ONE (11:45)
--- NOTE | 2016-08-26 11:56 | HHI.HCPN ---
Reason for visit a. To assist with evaluation and management of symptoms including: dyspnea, debility, agitation. b. To assist medical decision maker(s) with: better understanding of current medical conditions; weighing benefits/burdens of medical treatment options; making medical treatment decisions. . Subjective/Interval History Patient seen and examined in ICU. Discussed with nurse and RT. No family at bedside. Patient is sedated on Precedex. Patient has been on CPAP with increasing agitation. She is being suctioned for thick whitish sputum. Sputum culture positive Staph aureus, sensitivity pending. Her eyes are open, she is not tracking or following commands. Afebrile. HR range 40-50. LBM 08/23/16. WBC 9.1, hemoglobin 11.9. Creatinine 1.92. Alk phos has increased from 93 to 485. No new imaging. . Family/friend interactions Spoke with daughterLilian via telephone. She asks if I can assist with [place] paperwork, I agreed. Medical update provided including worsening renal function , positive sputum (awaiting sensitivity) and continued agitation today. . Advance Directives Living Will: Completed, but not made available Advance Directive Specifics Significant change in goals: Intubation Only. Continue aggressive care short of no chest compressions, shock or ACLS for now. Family feels pt would not want trach/PEG, hopeful she can be weaned in the coming days. . Objective Vital Signs Date Time Temp Pulse Resp B/P Pulse Ox O2 Delivery O2 Flow Rate FiO2 08/26/16 10:10 95 40 08/26/16 10:00 77 08/26/16 08:09 96 40 08/26/16 08:09 40 08/26/16 08:00 68 08/26/16 08:00 50 08/26/16 06:00 79 08/26/16 04:06 97 40 08/26/16 04:00 61 08/26/16 04:00 50 08/26/16 04:00 98.6 61 18 124/59 97 08/26/16 02:00 56 08/26/16 01:05 99 40 08/26/16 00:00 55 08/26/16 00:00 50 08/26/16 00:00 98.2 55 18 117/54 93 08/25/16 22:34 96 40 08/25/16 22:00 75 08/25/16 20:00 50 08/25/16 20:00 65 08/25/16 20:00 98.5 65 18 98/56 99 08/25/16 19:50 97 40 08/25/16 18:00 63 08/25/16 16:00 99.3 67 16 112/53 94 08/25/16 16:00 50 08/25/16 16:00 62 08/25/16 15:49 94 40 08/25/16 14:00 54 08/25/16 12:00 54 08/25/16 12:00 99.1 54 17 108/53 94 08/25/16 12:00 50 08/25/16 11:57 96 40 Intake & Output 08/26/16 08/26/16 07:00 19:00 Intake Total 1466 ml Output Total 500 ml Balance 966 ml IV Total 966 ml Tube Feeding 500 ml Output Urine Total 500 ml Physical Exam CONSTITUTIONAL/GENERAL: This is an elderly, critically ill patient, sedated and intubated. TUBES/LINES/DRAINS: ETT, OG, central line, PIV left, bilateral soft wrist restraints, Armas, SCD's SKIN: No jaundice, rashes, or lesions. Ecchymoses on upper extremities. 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 Skin temperature appropriate. Not diaphoretic. ENT: unable to adequately assess hearing. Nose without bleeding or purulent drainage. Throat difficult to visualize secondary to tubes. Thick whitish secretions when suctioned. CARDIOVASCULAR: rate 40-50, irregular. RESPIRATORY/CHEST: Symmetric, unlabored respirations on mechanical ventilation. Diminished breath sounds left greater than right. GASTROINTESTINAL: Abdomen soft, non-tender, nondistended. No guarding. Bowel sounds present. GENITOURINARY: Without palpable bladder distension. Armas catheter in place. MUSCULOSKELETAL: Extremities without clubbing, cyanosis, or edema. No mottling or clubbing. NEUROLOGICAL: Eyes open, does not track or follow commands. Moves all extremities. PSYCHIATRIC: Agitation, restless, facial grimacing. . Diagnostic Tests Laboratory Laboratory Tests Test 08/24/16 08/25/16 08/26/16 06:00 06:00 06:00 White Blood Count 10.0 TH/MM3 10.7 TH/MM3 9.1 TH/MM3 (4.0-11.0) (4.0-11.0) (4.0-11.0) Red Blood Count 4.47 MIL/MM3 4.08 MIL/MM3 3.79 MIL/MM3 (4.00-5.30) (4.00-5.30) (4.00-5.30) Hemoglobin 12.8 GM/DL 11.9 GM/DL 10.9 GM/DL (11.6-15.3) (11.6-15.3) (11.6-15.3) Hematocrit 39.0 % 35.6 % 33.3 % (35.0-46.0) (35.0-46.0) (35.0-46.0) Mean Corpuscular Volume 87.3 FL 87.4 FL 87.9 FL (80.0-100.0) (80.0-100.0) (80.0-100.0) Mean Corpuscular Hemoglobin 28.6 PG 29.1 PG 28.8 PG (27.0-34.0) (27.0-34.0) (27.0-34.0) Mean Corpuscular Hemoglobin 32.8 % 33.3 % 32.8 % Concent (32.0-36.0) (32.0-36.0) (32.0-36.0) Red Cell Distribution Width 13.7 % 13.8 % 14.1 % (11.6-17.2) (11.6-17.2) (11.6-17.2) Platelet Count 207 TH/MM3 200 TH/MM3 189 TH/MM3 (150-450) (150-450) (150-450) Mean Platelet Volume 9.1 FL 9.0 FL 9.5 FL (7.0-11.0) (7.0-11.0) (7.0-11.0) Activated Partial 44.0 SEC 48.8 SEC 38.5 SEC Thromboplast Time (24.3-30.1) (24.3-30.1) (24.3-30.1) Sodium Level 140 MEQ/L 142 MEQ/L 141 MEQ/L (136-145) (136-145) (136-145) Potassium Level 3.6 MEQ/L 4.1 MEQ/L 4.5 MEQ/L (3.5-5.1) (3.5-5.1) (3.5-5.1) Chloride Level 109 MEQ/L 110 MEQ/L 109 MEQ/L (98-107) (98-107) (98-107) Carbon Dioxide Level 21.0 MEQ/L 20.8 MEQ/L 23.1 MEQ/L (21.0-32.0) (21.0-32.0) (21.0-32.0) Anion Gap 10 MEQ/L (5-15) 11 MEQ/L (5-15) 9 MEQ/L (5-15) Blood Urea Nitrogen 25 MG/DL (7-18) 29 MG/DL (7-18) 39 MG/DL (7-18) Creatinine 0.96 MG/DL 0.93 MG/DL 1.92 MG/DL (0.50-1.00) (0.50-1.00) (0.50-1.00) Estimat Glomerular Filtration 55 ML/MIN (>89) 57 ML/MIN (>89) 25 ML/MIN (>89) Rate Random Glucose 127 MG/DL 173 MG/DL 338 MG/DL (74-106) (74-106) (74-106) Calcium Level 8.0 MG/DL 8.1 MG/DL 8.0 MG/DL (8.5-10.1) (8.5-10.1) (8.5-10.1) Phosphorus Level 2.4 MG/DL 3.1 MG/DL (2.5-4.9) (2.5-4.9) Magnesium Level 2.0 MG/DL 2.0 MG/DL (1.5-2.5) (1.5-2.5) Neutrophils (%) (Auto) 84.8 % (16.0-70.0) Lymphocytes (%) (Auto) 6.3 % (9.0-44.0) Monocytes (%) (Auto) 7.8 % (0.0-8.0) Eosinophils (%) (Auto) 0.8 % (0.0-4.0) Basophils (%) (Auto) 0.3 % (0.0-2.0) Neutrophils # (Auto) 7.7 TH/MM3 (1.8-7.7) Lymphocytes # (Auto) 0.6 TH/MM3 (1.0-4.8) Monocytes # (Auto) 0.7 TH/MM3 (0-0.9) Eosinophils # (Auto) 0.1 TH/MM3 (0-0.4) Basophils # (Auto) 0.0 TH/MM3 (0-0.2) CBC Comment DIFF FINAL Differential Comment Total Bilirubin 0.3 MG/DL (0.2-1.0) Aspartate Amino Transf 31 U/L (15-37) (AST/SGOT) Alanine Aminotransferase 40 U/L (10-53) (ALT/SGPT) Alkaline Phosphatase 485 U/L (45-117) Total Protein 5.0 GM/DL (6.4-8.2) Albumin 1.7 GM/DL (3.4-5.0) Result Diagram: 08/26/16 0600 08/26/16 0600 Microbiology Microbiology Date/Time Procedure Status Source Growth 08/24/16 13:30 Gram Stain - Final Resulted Sputum Endotracheal 08/24/16 13:30 Sputum Culture - Preliminary Resulted Staphylococcus Aureus Imaging Last Impressions Chest X-Ray 08/25/16 0600 Signed Impressions: Service Date/Time: Thursday, August 25, 2016 04:55 - CONCLUSION: 1. Support apparatus unchanged. Stable basilar airspace disease and small effusions. Doni Westfall MD Assessment and Plan Disease Oriented Problem List: (1) Respiratory failure (2) Paroxysmal atrial flutter (3) Paroxysmal atrial fibrillation (4) CAD (coronary artery disease) (5) Bradycardia (6) Aortic stenosis Symptom Scale: (1) Shortness of breath 0-10 Scale: Unable to quantify Comment: on mech vent (2) Weakness 0-10 Scale: Unable to quantify Pertinent Non-Medical Issues Psychosocial: . Spiritual: Rastafarian ray Legal:Patient currently incapacitated to make her own health care decisions. Notes indicate patient has a living will, will request copy. Ethical issues impacting care: No known concerns at this time. . Important Contacts * Joanie Garcia, daughter: [phone] or [phone] * Lilian Mahan, daughter: [phone] . Prognosis Will need to speak with cardiology and civil lawyer for further clarification of overall prognosis. . Code Status: Alternative Code (Intubation Only) Plan * Patient currently incapacitated to make her own health care decisions. Copy of Living Will on chart. Sent to HIM to be scanned in. According to LW is primary HCS (he has end stage dementia and is unable to participate) and son Douglas is alternate HCS, however his name is crossed off and daughter, Sandra Yu (Michelle) is written in as HCS. All family is working together to make decisions. * Intubation Only - family considering reintubation if pt self extubates. * 08/26/16 - Update provided to 2 daughters via telephone. Per family meeting - family wants to continue aggressive care short of cardiac resuscitation for now. They are hopeful she will will be able to wean from vent in the coming days. They are all certain she would not want trach or PEG, we will discuss further if this decision is needed in the coming days/ week. * SYMPTOMS: Dyspnea: on mech vent. Anxiety: On Precedex drip this morning. Appears comfortable. Agitation: was pulling at ET tube despite Precedex drip per nursing staff, was given one dose of Morphine and became bradycardic. * Palliative care will continue to follow to assist with symptom management and clarification of treatment goals throughout hospital course. . Attestation To help prompt me to consider important information that might be impacting today's encounter and assessment, information from prior notes written by myself or my colleagues may have been "brought forward" into today's note. My signature on this note, however, is an attestation that I personally performed the exam, history, and/or decision-making noted today, and, unless otherwise indicated, the interactions with patient, family, and staff as well as the review of records all occurred today. I also attest that the listed assessment and stated plan reflect my best clinical judgment today based on the combination of historical information, prior notes, and today's exam/ interactions. When time spent is documented, it refers only to time spent today by the signer, or if indicated, combined time spent today by collaborating physician/nurse practitioner. HAKEEM MANN Aug 26, 2016 11:47
--- NOTE | 2016-08-26 13:56 | HHI.CCPN ---
Subjective Remarks/Hospital Course 86-year-old female brought by her daughter with history of fatigue, tiredness and bradycardia. Per chart the patient has been sleeping 12-14 hours a day for past couple days. Today the home health nurse came and checked her pulse and it was in the low 40s. She advised that the patient should be brought to the emergency room. The patient is too somnolent and lethargic to provide any more history. 08/21: Afebrile. Heart rate currently in the 50s and 60s on dopamine drip at 12 micrograms per kilogram per minute. Patient appears to have a baseline heart rate between 40 and 55 according to review of old records here at [place]. Placed on ADA diet. No bowel movement. Subjective 08/22: Afebrile. Dopamine done at 3 mcg/kg/m. Rhythm changes between normal sinus rhythm in addition to a Mobitz second-degree heart block type I and atrial fibrillation. Awake and alert and following commands. Tolerating diet. Denies chest pain or shortness of breath. 08/23: The patient was reintubated overnight, secondary to altered mental status and increased lethargy. Sedation vacation obtain patient's starting to follow commands this a.m.. Dopamine was discontinued yesterday. The patient continues to vacillate between normal sinus rhythm and Mobitz second-degree heart block, and sinus arrhythmia, BP stable. 08/24:Afebrile. No acute events overnight. The patient is now following commands on sedation vacation. Plan to change transition to Precedex infusion, with discontinuation of propofol and continue CPAP trials. The family has requested palliative medicine consult. 08/25: The patient was bradycardic overnight heart rate 30s, normotensive, had received morphine 4 mg IV for agitation last evening. Palliative care has a planned family meeting today, to discuss goals of care. UA culture revealed Proteus the patient was started on vancomycin yesterday afternoon. 08/26: No change in neurological status. The patient does not follow commands, but does become anxious, attempting to pull out endotracheal tube. The patient was started on vancomycin 08/24, noted elevation in creatinine and decreasing urinary output overnight, vancomycin discontinued. Infectious disease consulted secondary to multiple allergies. Objective Vital Signs Date Time Temp Pulse Resp B/P Pulse Ox O2 Delivery O2 Flow Rate FiO2 08/26/16 12:00 68 3/2/17 12:00 50 08/26/16 10:10 95 08/26/16 04:00 98.6 18 124/59 08/22/16 21:07 Nasal Cannula 3.00 Intake and Output 08/25/16 08/25/16 08/26/16 08:00 16:00 00:00 Intake Total 865 ml 1402 ml 921 ml Output Total 200 ml 150 ml 250 ml Balance 665 ml 1252 ml 671 ml Result Diagram: 08/26/16 0600 08/26/16 0600 Imaging Last Impressions Chest X-Ray 08/20/16 1334 Signed Impressions: Service Date/Time: Saturday, August 20, 2016 13:40 - CONCLUSION: No acute disease. Mario Hassan MD FACR Objective Remarks GENERAL: 86 yo female, critically ill currently resting in bed intubated and sedated SKIN: Warm and dry. No rash HEAD: Normocephalic. EYES: No scleral icterus. No injection or drainage. PERRL. EOMI. ENT: No tympanic drainage. Oropharynx without erythema or exudates orotracheally intubated NECK: Supple, trachea midline. No JVD or lymphadenopathy. No carotid bruit CARDIOVASCULAR: Currently normal sinus rhythm with a heart rate 55. S1, S2. No S4. RESPIRATORY: Breath sounds equal bilaterally. Mechanical ventilation GASTROINTESTINAL: Abdomen soft, non-tender, nondistended. Normoactive bowel sounds are appreciated. Tube feeds infusing MUSCULOSKELETAL: No significant peripheral edema. Prior scarring from bypass right-sided noted BACK: Nontender without obvious deformity. No CVA tenderness. Urinary Catheter: Yes Armas insert reason: Measure Accurate Output Date of Insertion: Aug 20, 2016 Line: Central Venous Catheter Side: Right Location: Internal, Jugular A/P Problem List: (1) Chronic kidney disease, stage 3 ICD Code: N18.3 Status: Acute (2) HTN (hypertension) ICD Code: I10 Status: Chronic (3) Symptomatic bradycardia ICD Code: R00.1 Status: Acute Assessment and Plan Neuro/Psych: Chronic benzodiazepine use Depression/anxiety Continue Elavil 25 mg by mouth daily/home medication Continue Escitalopram 10 mg by mouth daily for depression as home medication Continue Xanax 0.25 mg 3 times a day for anxiety. Acetaminophen for fever [place]/as needed morphine for pain management Precedex infusion low-dose, with anticipation for SBT trials and possible extubation 08/24-/U EEG results CV: Symptomatically bradycardia - .. ? Second-degree Mobitz type I currently in normal sinus rhythm History of a flutter status post ablation 2016 Nonobstructive coronary disease Hypertension Dyslipidemia Peripheral vascular disease history of post right femoropopliteal, femoral- tibial and femoroperoneal bypass This is a patient Dr. Verdin/cardiology. Cardiology has been consulted and appreciate recommendations. Likely secondary to amiodarone. F/U Dr. [place] regarding possible EPS management Cardiac catheterization 04/11 revealed left main without disease, LAD 40% stenosis, left circumflex coronary disease and RCA 40% stenosis. No intervention. Currently on dopamine at 3 mcg/kg/m for heart rate management discontinued 08/22 Amiodarone currently has been held. Level pending Patient is on valsartan 320 mg daily for hypertension. This is currently on hold Continue Plavix 75 mg by mouth daily for peripheral vascular disease. Heparin infusion per cardiology recommendations Resp: Documentation of asthma History of pulmonary embolism Maintain saturations greater than equal to 92% Mechanical ventilation settings 12/500/0.45/5 Ventilator bundle Maintain head of bed 30 Continue duo nebs per schedule Continue CPAP trials Obtain SBT-and plan for trial of extubation GI: Peptamen AF D/C Protonix for GI prophylaxis, change to Pepcid. On Zantac 150 mg a night at home. Colace/Senokot twice a day for bowel regimen : Armas changed yesterday, initiation of vancomycin 08/24- 08/26 Proteus UTI, hesitancy towards utilization of Linezolid with patient's long-term SSRI use, nitrofurantoin unable to administer via gastric tube. Maintain/ strict accurate I' & O's Endo: Diabetes mellitus type 2 Home medications include Januvia 100 mg daily, Tresiba injection subcutaneous as needed and Farxiga 10 mg daily Sliding scale insulin Accu-Cheks every 6 before meals at bedtime to maintain euglycemia/moderate regimen TSH within normal limits Renal: History chronic kidney disease stage III Creatinine currently within normal limits. Accurate I's and O's. Monitor urine output Monitor BMP Heme: Leukocytosis Follow CBC daily. Monitor trends ID: UTI Day #3 aztreonam, discontinued 06/22. Noted multiple drug allergies above.. UA culture- Enterococcus faecalis, Vancomycin(day 3) discontinued Pharmacy dosing initiated (maintain therapeutic level 10-15) unable to utilize the nasal lid secondary to SSRI medication Monitor for infection ID consulted-appreciate recommendations FEN: Hypokalemia - resolved Replace electrolyte as clinically indicated Goal keep magnesium greater than 2, potassium greater than 4 MSK: Osteoarthritis PT evaluate and treat Access - Right IJ CVL day 6 Prophylaxis - GI - Protonix - DVT - SCD/heparin infusion Dispo: Discussed with MANUFACTURING LAB TECHNICIAN at bedside. CODE STATUS changed to alternate, no CPR, no shock (defibrillation). Family stated they would not like patient to have a PEG, Trach placement. Attempts at weaning continue. Critical Care: Level 3 Physician Davina Solis MD Aug 26, 2016 13:56 Davina Christine MD Aug 26, 2016 13:56
[2016-08-26 15:29] LABS: MAGNESIUM 2.3 MG/DL (1.5-2.5)
[2016-08-26 19:31] LABS: APTT (PATIENT) 43.8 SEC (24.3-30.1)
--- NOTE | 2016-08-26 20:02 | PD.ID.CON ---
History of Present Illness Service ID Consult Requested By Dr Christine Reason for Consult UTI Primary Care Physician Francisco Park MD Diagnoses: History of Present Illness Pt is sedated intubated on mech vent and is unable to provide history History was obtained from the chart and from her nurse at b/s 86 yo female with past medical history of CAD, moderate aortic stenosis, atrial fibrillation, atrial flutter s/p ablation, diabetes, hypertension and peripheral vascular disease. presented to [facility] emergency room with increased generalized weakness, fatigue and bradycardia. Upon arrival she was found to have a junctional rhythm with heart rate in the 40s. She was started on Dopamine drip. Cardiology, Dr. Baum was consulted for bradycardia with recommendation for medical management until Dr. Birmingham could see the patient. Dr. Birmingham saw patient on 08/23/16 with no plan for pacemaker at this time, might consider once extubated. Patient was extubated and re- intubated on 08/22/16. She remains in critical condition in ICU on mechanical ventilation. She does not followm commands She has moderated endotracheal secretions Pt was on vanco but it was stopped over concerns for CAITLYN (pt GFR went down to 25) Pt is growing enterococcus fecalis in the urine clx, though UA was fairly unremarkable and MSSA in sputum clx CXR showed basilar airspace disease and small effusions Review of Systems ROS Limitations: Clinical Condition, Intubated, Altered Mental Status Past Family Social History Allergies: Coded Allergies: ARABELLA Inhibitors (Verified Allergy, Severe, Anaphylaxis, 08/20/16) Amoxicillin (Verified Allergy, Severe, Anaphylaxis, 08/20/16) Fentanyl (Verified Allergy, Severe, 08/20/16) ALLERGIC TO PATCH, RASH AT PATCH SITE pt states she was not aware of ever having a patch Keflex (Verified Allergy, Severe, Anaphylaxis, 08/20/16) Monosodium Glutamate (Verified Allergy, Severe, asthma attack, 08/20/16) Neomycin (Verified Allergy, Severe, Anaphylaxis, 08/20/16) Petrolatum (Verified Allergy, Severe, SWELLING, 08/20/16) Sulfa (Verified Allergy, Severe, Anaphylaxis, 08/20/16) Sulfites & Bisulfites (Verified Allergy, Severe, ASTHMA ATTACK, 08/20/16) Past Medical History Pulmonary embolus Asthma PVD heart murmur hyperlipidemia type 2 diabetes hypertension anxiety and depression glaucoma History of atrial flutter Past Surgical History R Femoropopliteal revascularization 07/27/11 H/o R femoral-tibial bypass graft and R femoral-proximal peroneal bypass graft Vein stripping Hysterectomy for fibroids Tonsillectomy Laser surgery both eyes Active Ordered Medications Medications where reviewed in EMR Antibiotics Include: vancomycin Family History Non-Contributory. Social History No Tobacco. No ETOH. No Illicit Drugs. Physical Exam Vital Signs Vital Signs Date Time Temp Pulse Resp B/P Pulse Ox O2 Delivery O2 Flow Rate FiO2 08/26/16 18:00 65 08/26/16 16:00 69 08/26/16 16:00 50 08/26/16 16:00 98.6 68 16 127/59 96 08/26/16 15:36 97 40 08/26/16 14:00 74 08/26/16 12:00 98.9 72 17 136/60 96 08/26/16 12:00 68 08/26/16 12:00 50 08/26/16 10:10 95 40 08/26/16 10:00 77 08/26/16 08:09 96 40 08/26/16 08:09 40 08/26/16 08:00 68 08/26/16 08:00 50 08/26/16 08:00 98.8 59 16 115/55 96 08/26/16 06:00 79 08/26/16 04:06 97 40 08/26/16 04:00 61 08/26/16 04:00 50 08/26/16 04:00 98.6 61 18 124/59 97 08/26/16 02:00 56 08/26/16 01:05 99 40 08/26/16 00:00 55 08/26/16 00:00 50 08/26/16 00:00 98.2 55 18 117/54 93 08/25/16 22:34 96 40 08/25/16 22:00 75 Physical Exam CONSTITUTIONAL/GENERAL: This is an adequately nourished patient, in no apparent distress. TUBES/LINES/DRAINS: SKIN: No jaundice, rashes, or lesions. Ecchymoses on upper extremities. No wounds seen anteriorly. Skin temperature appropriate. Not diaphoretic. HEAD: Atraumatic. Normocephalic. EYES: Pupils equal and round and reactive. Extraocular motions intact. No scleral icterus. No injection or drainage. Fundi not examined. ENT: Nose without bleeding or purulent drainage. Throat without visible erythema, exudates, masses, or lesions. NECK: Trachea midline. Supple, nontender. No palpable thyroid enlargement or nodularity. CARDIOVASCULAR: Regular rate and rhythm without murmurs, gallops, or rubs. No JVD. Peripheral pulses symmetric. RESPIRATORY/CHEST: Symmetric, unlabored respirations. Clear to auscultation. Breath sounds equal bilaterally. No wheezes, rales, or rhonchi. GASTROINTESTINAL: Abdomen soft, non-tender, nondistended. No hepato-splenomegaly , or palpable masses. No guarding. Bowel sounds present. GENITOURINARY: Without palpable bladder distension. Armas catheter in place. MUSCULOSKELETAL: Extremities without clubbing, cyanosis, or edema. No joint tenderness or effusion noted. No calf tenderness. No mottling or clubbing. LYMPHATICS: No palpable cervical or supraclavicular adenopathy. NEUROLOGICAL: Obtunded. Not follows commands. Moves all extremities not purposeful PSYCHIATRIC: unable to assess Laboratory Laboratory Tests Test 08/26/16 08/26/16 08/26/16 08/26/16 06:00 11:55 12:15 14:39 White Blood Count 9.1 Red Blood Count 3.79 Hemoglobin 10.9 Hematocrit 33.3 Mean Corpuscular Volume 87.9 Mean Corpuscular Hemoglobin 28.8 Mean Corpuscular Hemoglobin 32.8 Concent Red Cell Distribution Width 14.1 Platelet Count 189 Mean Platelet Volume 9.5 Neutrophils (%) (Auto) 84.8 Lymphocytes (%) (Auto) 6.3 Monocytes (%) (Auto) 7.8 Eosinophils (%) (Auto) 0.8 Basophils (%) (Auto) 0.3 Neutrophils # (Auto) 7.7 Lymphocytes # (Auto) 0.6 Monocytes # (Auto) 0.7 Eosinophils # (Auto) 0.1 Basophils # (Auto) 0.0 CBC Comment DIFF FINAL Differential Comment Activated Partial 38.5 47.0 Thromboplast Time Sodium Level 141 Potassium Level 4.5 Chloride Level 109 Carbon Dioxide Level 23.1 Anion Gap 9 Blood Urea Nitrogen 39 Creatinine 1.92 Estimat Glomerular Filtration 25 Rate Random Glucose 338 Calcium Level 8.0 Total Bilirubin 0.3 Aspartate Amino Transf 31 (AST/SGOT) Alanine Aminotransferase 40 (ALT/SGPT) Alkaline Phosphatase 485 Total Protein 5.0 Albumin 1.7 Vancomycin Level Trough 13.3 Phosphorus Level 3.1 Magnesium Level 2.3 Test 08/26/16 18:00 Activated Partial 43.8 Thromboplast Time Date/Time Procedure Status Source Growth 08/24/16 13:30 Gram Stain - Final Resulted Sputum Endotracheal 08/24/16 13:30 Sputum Culture - Preliminary Resulted Staphylococcus Aureus 08/22/16 13:30 Stool Occult Blood (TITA) - Final Complete Stool Stool HEMOCCULT NEGATIVE Result Diagram: 08/26/16 0608/26/16 06 Imaging Last Impressions Chest X-Ray 08/25/16599 Signed Impressions: Service Date/Time: Thursday, August 25, 2016 04:55 - CONCLUSION: 1. Support apparatus unchanged. Stable basilar airspace disease and small effusions. Doni Westfall MD Assessment and Plan Assessment and Plan MSSA PNA Acute VDRF Symptomatic bradycardia Ent fecalis bacteriuria Multipld abx allergies Acute kidney injury - Start levaquine, clindamycin - rechk vancomycin level in am Mackenzie Gordon MD Aug 26, 2016 20:02
[2016-08-26] MEDS: AMITRIPTYLINE HCL 25 MG TAB PO SCH (22:22)
[2016-08-26] MEDS: SODIUM CHLOR 0.9% 1000 ML INJ 1,000 ML IV SCH (22:24)
[2016-08-26 23:52] LABS: AMIODARONE 1.9 mcg/mL (1.5-2.5); DESETHYLAMIODARONE 1.2 mcg/mL (1.5-2.5)
[2016-08-27] VITALS (21 sets, daily range): BP systolic 101–167; BP diastolic 55–65; PULSE 48–107; RESP 17–28; TEMP 98.3–100; O2SAT 95–100
[2016-08-27] MEDS: DEXMEDETOMIDINE INJ 50 ML IV SCH ×3 (00:25→05:45)
[2016-08-27] MEDS: LEVOFLOXACIN 750 MG PREMIX INJ 150 ML IV SCH (01:25)
[2016-08-27] MEDS: CLINDAMYCIN INJ 600 MG in SODIUM CHLORIDE 0.9% INJ 100 ML IV SCH ×4 (02:09→18:32)
[2016-08-27] MEDS: HEPARIN-D5W INJ 250 ML IV SCH (04:00)
[2016-08-27 06:02] LABS: APTT (PATIENT) 48.1 SEC (24.3-30.1)
[2016-08-27 06:04] LABS: MEAN CELL VOLUME 87.7 FL (80.0-100.0); MEAN CORPUSCULAR HEMOGLOBIN 29.3 PG (27.0-34.0); MEAN CORPUSCULAR HGB CONC 33.4 % (32.0-36.0); PLATELET COUNT 180 TH/MM3 (150-450); RED BLOOD COUNT 3.87 MIL/MM3 (4.00-5.30); RED CELL DISTRIBUTION WIDTH 14.4 % (11.6-17.2); WHITE BLOOD COUNT 9.8 TH/MM3 (4.0-11.0)
[2016-08-27 06:12] LABS: REVIEW FLAG FINAL
[2016-08-27] MEDS: INSULIN NovoLIN REGULAR SUPPLEMENTAL SCALE SQ SCH ×3 (06:20→16:11)
[2016-08-27 06:36] LABS: BLOOD GAS BASE EXCESS -10.2 mmol/L (-2-2); BLOOD GAS CARBOXYHEMOGLOBIN 0.6 % (0-4); BLOOD GAS HCO3 18 mmol/L (22-26); BLOOD GAS O2 HGB SATURATION 89 % (90-100); BLOOD GAS OXYGEN CONTENT 15.4 Vol % (12.0-20.0); BLOOD GAS PCO2 60 mmHg (38-42); BLOOD GAS PO2 79 mmHg (61-120); BLOOD GAS TOTAL HGB 12.3 G/DL (12.0-16.0); TEMP CORR TO 98.6
[2016-08-27 06:37] LABS: CRITICAL VALUE YES; DRAW SITE RT RADIAL; FIO2 100 %; NUMBER OF ARTERIAL PUNCTURES 1; OXYGEN DEVICE VENTILATOR; VENT SETTINGS AC12/500/PEE5
[2016-08-27 06:38] LABS: STAT YES; ULNAR PULSE PRESENT
[2016-08-27] MEDS ORDERED: SODIUM BICARBONATE 8.4% INJ 50 ML ONE (06:43)
[2016-08-27] MEDS ORDERED: SODIUM BICARBONATE 8.4% INJ 50 MEQ/50 ML SYR IV PUSH ONE (06:45)
--- NOTE | 2016-08-27 06:51 | RADRPT ---
EXAM DATE/TIME: 08/27/2016 05:16 [place] COMPARISON: CHEST SINGLE AP, August 25, 2016, 4:55. INDICATIONS : Shortness of breath. MEDICAL HISTORY : Hypertension. Coronary artery disease. SURGICAL HISTORY : ENCOUNTER: Subsequent ACUITY: 1 week PAIN SCORE: Non-responsive. LOCATION: Bilateral chest FINDINGS: Endotracheal tube tip is 2 cm above the jose alfredo. Right central line descends into the SVC. A nasogastr ic tube remains in place with tip extending in the stomach. Hazy bilateral perihilar and basilar lung opacities are slightly improved with less confluent density in the bases. Cardiac contours are stabl e. CONCLUSION: Slight improvement in aeration Pollo Ramey MD on August 27, 2016 at 6:48 Board Certified Radiologist. This report was verified electronically.
[2016-08-27 06:57] LABS: BICARBONATE 20.7 MEQ/L (21.0-32.0); POTASSIUM 4.9 MEQ/L (3.5-5.1)
--- NOTE | 2016-08-27 06:58 | HHI.CCPN ---
Subjective Remarks/Hospital Course 86-year-old female brought by her daughter with history of fatigue, tiredness and bradycardia. Per chart the patient has been sleeping 12-14 hours a day for past couple days. Today the home health nurse came and checked her pulse and it was in the low 40s. She advised that the patient should be brought to the emergency room. The patient is too somnolent and lethargic to provide any more history. 08/21: Afebrile. Heart rate currently in the 50s and 60s on dopamine drip at 12 micrograms per kilogram per minute. Patient appears to have a baseline heart rate between 40 and 55 according to review of old records here at [place]. Placed on ADA diet. No bowel movement. Subjective 08/22: Afebrile. Dopamine done at 3 mcg/kg/m. Rhythm changes between normal sinus rhythm in addition to a Mobitz second-degree heart block type I and atrial fibrillation. Awake and alert and following commands. Tolerating diet. Denies chest pain or shortness of breath. 08/23: The patient was reintubated overnight, secondary to altered mental status and increased lethargy. Sedation vacation obtain patient's starting to follow commands this a.m.. Dopamine was discontinued yesterday. The patient continues to vacillate between normal sinus rhythm and Mobitz second-degree heart block, and sinus arrhythmia, BP stable. 08/24:Afebrile. No acute events overnight. The patient is now following commands on sedation vacation. Plan to change transition to Precedex infusion, with discontinuation of propofol and continue CPAP trials. The family has requested palliative medicine consult. 08/25: The patient was bradycardic overnight heart rate 30s, normotensive, had received morphine 4 mg IV for agitation last evening. Palliative care has a planned family meeting today, to discuss goals of care. UA culture revealed Proteus the patient was started on vancomycin yesterday afternoon. 08/26: No change in neurological status. The patient does not follow commands, but does become anxious, attempting to pull out endotracheal tube. The patient was noted to have Proteus infection and was started on vancomycin 08/24, noted elevation in creatinine and decreasing urinary output overnight, vancomycin discontinued. Infectious disease consulted secondary to multiple allergies. The patient continues to be bradycardic , overnight lowest in the mid 30s currently 48-55, 08/27: Early this a.m.0620, during positioning the patient was noted to be severely bradycardic, heart rate 28, intermittent blood pressure was not obtainable, all sedation discontinued. The patient's heart rate trended upward after repositioning supine mid 30s at 0625, blood pressure 143/58. Stat ABG drawn, with noted mixed respiratory metabolic acidosis, pH 7.10 PCO2 60 bicarbonate 17 base deficit,-10. The patient continues on heparin infusion. Urine output improved overnight Objective Vital Signs Date Time Temp Pulse Resp B/P Pulse Ox O2 Delivery O2 Flow Rate FiO2 08/27/16 04:11 97 40 08/27/16 00:00 99.6 60 18 167/65 Intake and Output 08/26/16 08/26/16 08/27/16 08:00 16:00 00:00 Intake Total 545 ml 694 ml 1499 ml Output Total 250 ml 300 ml 350 ml Balance 295 ml 394 ml 1149 ml Result Diagram: 08/27/16 0533 08/26/16 0600 Other Results Laboratory Tests Test 08/27/16 06:23 Blood Gas Puncture Site RT RADIAL Blood Gas Patient Temperature 98.6 Blood Gas HCO3 18 mmol/L (22-26) Blood Gas Base Excess -10.2 mmol/L (-2-2) Blood Gas Oxygen Saturation 89 % (90-100) Arterial Blood pH 7.10 (7.380-7.420) Arterial Blood Partial 60 mmHg (38-42) Pressure CO2 Arterial Blood Partial 79 mmHg Pressure O2 (61-120) Arterial Blood Oxygen Content 15.4 Vol % (12.0-20.0) Arterial Blood 0.6 % (0-4) Carboxyhemoglobin Arterial Blood Methemoglobin 1.0 % (0-2) Blood Gas Hemoglobin 12.3 G/DL (12.0-16.0) Oxygen Delivery Device VENTILATOR Blood Gas Ventilator Setting AC12/500/PEE5 Blood Gas Inspired Oxygen 100 % Imaging Last Impressions Chest X-Ray 08/20/16 1334 Signed Impressions: Service Date/Time: Saturday, August 20, 2016 13:40 - CONCLUSION: No acute disease. Mario Hassan MD FACR Objective Remarks GENERAL: 86 yo female, critically ill currently resting in bed intubated and nonresponsive, breathing over the vent SKIN: Warm and dry. No rash HEAD: Normocephalic. EYES: No scleral icterus. No injection or drainage. PERRL. EOMI. ENT: No tympanic drainage. Oropharynx without erythema or exudates orotracheally intubated NECK: Supple, trachea midline. No JVD or lymphadenopathy. No carotid bruit CARDIOVASCULAR: Currently normal sinus bradycardia with a heart rate 28-35. S1 , S2. No S4. RESPIRATORY: Breath sounds equal bilaterally, coarse. Mechanical ventilation GASTROINTESTINAL: Abdomen soft, non-tender, nondistended. Normoactive bowel sounds are appreciated. Tube feeds infusing MUSCULOSKELETAL: Peripheral edema bilateral extremities. Prior scarring from bypass right-sided noted BACK: Nontender without obvious deformity. No CVA tenderness. Vascular Central Line Catheter: Yes Date of Insertion: Aug 20, 2016 Line: Central Venous Catheter Side: Right Location: Internal, Jugular A/P Problem List: (1) Chronic kidney disease, stage 3 ICD Code: N18.3 Status: Acute (2) HTN (hypertension) ICD Code: I10 Status: Chronic (3) Symptomatic bradycardia ICD Code: R00.1 Status: Acute Assessment and Plan Neuro/Psych: Chronic benzodiazepine use Depression/anxiety Continue Elavil 25 mg by mouth daily/home medication Continue Escitalopram 10 mg by mouth daily for depression as home medication Discontinued Xanax 0.25 Acetaminophen for fever Precedex infusion discontinued, placed on propofol infusion low-dose 08/24-F/U EEG results CV: Symptomatically bradycardia - .. ? Second-degree Mobitz type I currently in normal sinus rhythm History of a flutter status post ablation 2015 Nonobstructive coronary disease Hypertension Dyslipidemia Peripheral vascular disease history of post right femoropopliteal, femoral- tibial and femoroperoneal bypass This is a patient Dr. Verdin/cardiology. Cardiology has been consulted and appreciate recommendations. Likely secondary to amiodarone. No plansby Dr Birmingham for intervention this time Cardiac catheterization 04/11 revealed left main without disease, LAD 40% stenosis, left circumflex coronary disease and RCA 40% stenosis. No intervention. Currently on dopamine at 3 mcg/kg/m for heart rate management discontinued . Amiodarone currently has been held. Level pending Patient is on valsartan 320 mg daily for hypertension. This is currently on hold Continue Plavix 75 mg by mouth daily for peripheral vascular disease. Heparin infusion per cardiology recommendations Resp: Documentation of asthma History of pulmonary embolism Maintain saturations greater than equal to 92% Mechanical ventilation settings 12/500/100/5 Ventilator bundle Maintain head of bed 30 Continue duo nebs per schedule Continue CPAP trials GI: Peptamen AF D/C Protonix for GI prophylaxis, change to Pepcid. On Zantac 150 mg a night at home. Colace/Senokot twice a day for bowel regimen : Armas changed yesterday, initiation of vancomycin 08/24- 08/26 Proteus UTI, hesitancy towards utilization of Linezolid with patient's long-term SSRI use, nitrofurantoin unable to administer via gastric tube. Maintain/ strict accurate I' & O's Endo: Diabetes mellitus type 2 Home medications include Januvia 100 mg daily, Tresiba injection subcutaneous as needed and Farxiga 10 mg daily Sliding scale insulin Accu-Cheks every 6 before meals at bedtime to maintain euglycemia/moderate regimen TSH within normal limits Renal: History chronic kidney disease stage III Creatinine currently within normal limits. Accurate I's and O's. Monitor urine output, much improved overnight,approximately 60 cc/hour Monitor BMP Heme: Leukocytosis-resolved Follow CBC daily. Monitor trends ID: UTI Day #3 aztreonam, discontinued 06/22. Noted multiple drug allergies above.. UA culture- Enterococcus faecalis, Vancomycin(day 3) discontinued Pharmacy dosing initiated (maintain therapeutic level 10-15) unable to utilize the nasal lid secondary to SSRI medication Monitor for infection ID consulted-appreciate recommendations Urine output increased to 60 cc/hour overnight FEN: Hypokalemia - resolved Replace electrolyte as clinically indicated Goal keep magnesium greater than 2, potassium greater than 4 MSK: Osteoarthritis PT evaluate and treat Access - Right IJ CVL day 7 Prophylaxis - GI - Protonix - DVT - SCD/heparin infusion Dispo: Discussed with [employer]AN UNDERWRITER at bedside. CODE STATUS changed to alternate, no CPR, no shock (defibrillation). Family stated they would not like patient to have a PEG, Trach placement. Attempts at weaning continue. Critical Care: Level 3 Physician Davina Solis MD Aug 27, 2016 06:58
[2016-08-27] MEDS ORDERED: DEXTROSE 50% IN WATER 50 ML VIAL(D50) IV PUSH PRN (07:15)
[2016-08-27] MEDS ORDERED: GLUCAGON 1 MG/ML VIAL OTHER PRN (07:15)
[2016-08-27] MEDS ORDERED: fentaNYL DRIP 250 ML IV SCH (07:15)
[2016-08-27] MEDS: SENNOSIDES 8.6 MG TAB PO SCH (08:18)
[2016-08-27] MEDS: FAMOTIDINE 20 MG TAB NG SCH (08:19)
[2016-08-27] MEDS: SODIUM CHLORIDE 0.9% FLUSH 5 ML FLUSH IV FLUSH SCH (08:19)
[2016-08-27] MEDS: ESCITALOPRAM OXALATE 10 MG TAB PO SCH (08:19)
[2016-08-27] MEDS: ARTIFICIAL TEARS OPTH OINT 3.5 APPLIC/3.5 GM TUBO EACH EYE SCH (08:19)
[2016-08-27] MEDS: DOCUSATE SODIUM 100 MG CAP PO SCH (08:19)
[2016-08-27] MEDS: PROPOFOL 1000 MG/100 ML INJ 100 ML IV SCH ×2 (08:25→18:36)
[2016-08-27 08:44] LABS: BLOOD GAS BASE EXCESS -5.2 mmol/L (-2-2); BLOOD GAS CARBOXYHEMOGLOBIN 0.9 % (0-4); BLOOD GAS HCO3 20 mmol/L (22-26); BLOOD GAS METHEMOGLOBIN 1.3 % (0-2); BLOOD GAS O2 HGB SATURATION 98 % (90-100); BLOOD GAS OXYGEN CONTENT 16.7 Vol % (12.0-20.0); BLOOD GAS PCO2 40 mmHg (38-42); BLOOD GAS PO2 355 mmHg (61-120); BLOOD GAS TOTAL HGB 11.5 G/DL (12.0-16.0); CRITICAL VALUE NO; FIO2 100 %; OXYGEN DEVICE VENTILATOR; TEMP CORR TO 98.6; VENT SETTINGS AC/16/500/PEEP5
[2016-08-27 08:45] LABS: DRAW SITE LT RADIAL; NUMBER OF ARTERIAL PUNCTURES 1; STAT NO; ULNAR PULSE PRESENT
--- NOTE | 2016-08-27 14:03 | HHI.HCPN ---
Reason for visit a. To assist with evaluation and management of symptoms including: dyspnea, debility, agitation. b. To assist medical decision maker(s) with: better understanding of current medical conditions; weighing benefits/burdens of medical treatment options; making medical treatment decisions. . Subjective/Interval History Patient seen and examined in ICU. Discussed with nurse and Dr. Christine. Remains agitated and encephalopathic off sedation. She is not tracking or following commands. Patient is sedated on Propofol. On CPAP. Sputum culture positive Staph aureus. Afebrile. HR 60-70. Had another episode of bradycardia rate 20. LBM 08/23/16. Creatinine stable today at 1.9. Lactic acid 1.3. BNP 631. Chest x-ray slight improvement. . Family/friend interactions Met with spouse (who has end stage dementia, does not participate in meetings), son, 2 of 3 daughters to provide medical update. Family elected NO CODE, if able to be medically extubated they do not want patient reintubated. I reviewed my conversation with Dr. Christine this morning with general concern that patient may not do well or be able to be weaned from mech vent. Family would like to continue aggressive care short of NO CODE through the weekend and reevaluate patient status Tuesday08/30/16. . Advance Directives Living Will: Completed, but not made available Advance Directive Specifics Significant change in goals: NO CODE (Do not reintubate if medically extubated). Met with spouse (who has end stage dementia, does not participate in meetings), son, 2 of 3 daughters to provide medical update. Family elected NO CODE, if able to be medically extubated they do not want patient reintubated. I reviewed my conversation with Dr. Christine this morning with general concern that patient may not do well or be able to be weaned from mech vent. Family would like to continue aggressive care short of NO CODE through the and reevaluate patient status Tuesday. Objective Vital Signs Date Time Temp Pulse Resp B/P Pulse Ox O2 Delivery O2 Flow Rate FiO2 08/27/16 12:00 71 08/27/16 12:00 50 08/27/16 11:59 98 50 08/27/16 10:00 58 08/27/16 09:28 96 50 08/27/16 09:27 50 08/27/16 08:48 100 50 08/27/16 08:00 50 08/27/16 08:00 73 08/27/16 07:47 100 100 08/27/16 06:00 48 08/27/16 04:11 97 40 08/27/16 04:00 98.3 64 22 137/60 97 08/27/16 04:00 50 08/27/16 04:00 64 08/27/16 02:00 59 08/27/16 01:10 98 40 08/27/16 00:00 99.6 60 18 167/65 98 08/27/16 00:00 50 08/27/16 00:00 60 08/26/16 22:06 96 40 08/26/16 22:00 69 08/26/16 20:00 99.4 60 20 138/63 97 08/26/16 20:00 60 08/26/16 20:00 50 08/26/16 19:15 96 40 08/26/16 18:00 65 08/26/16 16:00 69 08/26/16 16:00 50 08/26/16 16:00 98.6 68 16 127/59 96 08/26/16 15:36 97 40 08/26/16 14:00 74 Intake & Output 08/27/16 08/27/16 07:00 19:00 Intake Total 2428 ml Output Total 750 ml Balance 1678 ml IV Total 1089 ml Tube Feeding 1219 ml Other 120 ml Output Urine Total 750 ml Physical Exam CONSTITUTIONAL/GENERAL: This is an elderly, critically ill patient, sedated and intubated. TUBES/LINES/DRAINS: ETT, OG, central line, PIV left, bilateral soft wrist restraints, Armas, SCD's SKIN: No jaundice, rashes, or lesions. Ecchymoses on upper extremities. 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 Skin temperature appropriate. Not diaphoretic. ENT: unable to adequately assess hearing. Nose without bleeding or purulent drainage. Throat difficult to visualize secondary to tubes. Thick whitish secretions when suctioned. CARDIOVASCULAR: rate 60, irregular. RESPIRATORY/CHEST: Symmetric, unlabored respirations on mechanical ventilation. Diminished breath sounds left greater than right. GASTROINTESTINAL: Abdomen soft, non-tender, nondistended. No guarding. Bowel sounds present. GENITOURINARY: Without palpable bladder distension. Armas catheter in place. MUSCULOSKELETAL: Extremities without clubbing, cyanosis, or edema. No mottling or clubbing. NEUROLOGICAL: Eyes open, does not track or follow commands. Moves all extremities. PSYCHIATRIC: Relaxed during my visit. . Diagnostic Tests Laboratory Laboratory Tests Test 08/25/16 08/26/16 08/26/16 08/26/16 06:00 06:00 11:55 12:15 White Blood Count 10.7 TH/MM3 9.1 TH/MM3 (4.0-11.0) (4.0-11.0) Red Blood Count 4.08 MIL/MM3 3.79 MIL/MM3 (4.00-5.30) (4.00-5.30) Hemoglobin 11.9 GM/DL 10.9 GM/DL (11.6-15.3) (11.6-15.3) Hematocrit 35.6 % 33.3 % (35.0-46.0) (35.0-46.0) Mean Corpuscular Volume 87.4 FL 87.9 FL (80.0-100.0) (80.0-100.0) Mean Corpuscular Hemoglobin 29.1 PG 28.8 PG (27.0-34.0) (27.0-34.0) Mean Corpuscular Hemoglobin 33.3 % 32.8 % Concent (32.0-36.0) (32.0-36.0) Red Cell Distribution Width 13.8 % 14.1 % (11.6-17.2) (11.6-17.2) Platelet Count 200 TH/MM3 189 TH/MM3 (150-450) (150-450) Mean Platelet Volume 9.0 FL 9.5 FL (7.0-11.0) (7.0-11.0) Activated Partial 48.8 SEC 38.5 SEC 47.0 SEC Thromboplast Time (24.3-30.1) (24.3-30.1) (24.3-30.1) Sodium Level 142 MEQ/L 141 MEQ/L (136-145) (136-145) Potassium Level 4.1 MEQ/L 4.5 MEQ/L (3.5-5.1) (3.5-5.1) Chloride Level 110 MEQ/L 109 MEQ/L (98-107) (98-107) Carbon Dioxide Level 20.8 MEQ/L 23.1 MEQ/L (21.0-32.0) (21.0-32.0) Anion Gap 11 MEQ/L (5-15) 9 MEQ/L (5-15) Blood Urea Nitrogen 29 MG/DL (7-18) 39 MG/DL (7-18) Creatinine 0.93 MG/DL 1.92 MG/DL (0.50-1.00) (0.50-1.00) Estimat Glomerular Filtration 57 ML/MIN (>89) 25 ML/MIN (>89) Rate Random Glucose 173 MG/DL 338 MG/DL (74-106) (74-106) Calcium Level 8.1 MG/DL 8.0 MG/DL (8.5-10.1) (8.5-10.1) Phosphorus Level 3.1 MG/DL (2.5-4.9) Magnesium Level 2.0 MG/DL (1.5-2.5) Neutrophils (%) (Auto) 84.8 % (16.0-70.0) Lymphocytes (%) (Auto) 6.3 % (9.0-44.0) Monocytes (%) (Auto) 7.8 % (0.0-8.0) Eosinophils (%) (Auto) 0.8 % (0.0-4.0) Basophils (%) (Auto) 0.3 % (0.0-2.0) Neutrophils # (Auto) 7.7 TH/MM3 (1.8-7.7) Lymphocytes # (Auto) 0.6 TH/MM3 (1.0-4.8) Monocytes # (Auto) 0.7 TH/MM3 (0-0.9) Eosinophils # (Auto) 0.1 TH/MM3 (0-0.4) Basophils # (Auto) 0.0 TH/MM3 (0-0.2) CBC Comment DIFF FINAL Differential Comment Total Bilirubin 0.3 MG/DL (0.2-1.0) Aspartate Amino Transf 31 U/L (15-37) (AST/SGOT) Alanine Aminotransferase 40 U/L (10-53) (ALT/SGPT) Alkaline Phosphatase 485 U/L (45-117) Total Protein 5.0 GM/DL (6.4-8.2) Albumin 1.7 GM/DL (3.4-5.0) Vancomycin Level Trough 13.3 MCG/ML (5.0-10.0) Test 08/26/16 08/26/16 08/27/16 08/27/16 14:39 18:00 05:33 06:23 Phosphorus Level 3.1 MG/DL (2.5-4.9) Magnesium Level 2.3 MG/DL (1.5-2.5) Activated Partial 43.8 SEC 48.1 SEC Thromboplast Time (24.3-30.1) (24.3-30.1) White Blood Count 9.8 TH/MM3 (4.0-11.0) Red Blood Count 3.87 MIL/MM3 (4.00-5.30) Hemoglobin 11.3 GM/DL (11.6-15.3) Hematocrit 34.0 % (35.0-46.0) Mean Corpuscular Volume 87.7 FL (80.0-100.0) Mean Corpuscular Hemoglobin 29.3 PG (27.0-34.0) Mean Corpuscular Hemoglobin 33.4 % Concent (32.0-36.0) Red Cell Distribution Width 14.4 % (11.6-17.2) Platelet Count 180 TH/MM3 (150-450) Mean Platelet Volume 9.5 FL (7.0-11.0) Sodium Level 141 MEQ/L (136-145) Potassium Level 4.9 MEQ/L (3.5-5.1) Chloride Level 110 MEQ/L (98-107) Carbon Dioxide Level 20.7 MEQ/L (21.0-32.0) Anion Gap 10 MEQ/L (5-15) Blood Urea Nitrogen 45 MG/DL (7-18) Creatinine 1.90 MG/DL (0.50-1.00) Estimat Glomerular Filtration 25 ML/MIN (>89) Rate Random Glucose 415 MG/DL (74-106) Calcium Level 8.3 MG/DL (8.5-10.1) B-Type Natriuretic Peptide 631 PG/ML (0-100) Random Vancomycin Level 9.3 COMMENT Blood Gas Puncture Site RT RADIAL Blood Gas Patient Temperature 98.6 Blood Gas HCO3 18 mmol/L (22-26) Blood Gas Base Excess -10.2 mmol/L (-2-2) Blood Gas Oxygen Saturation 89 % (90-100) Arterial Blood pH 7.10 (7.380-7.420) Arterial Blood Partial 60 mmHg (38-42) Pressure CO2 Arterial Blood Partial 79 mmHg Pressure O2 (61-120) Arterial Blood Oxygen Content 15.4 Vol % (12.0-20.0) Arterial Blood 0.6 % (0-4) Carboxyhemoglobin Arterial Blood Methemoglobin 1.0 % (0-2) Blood Gas Hemoglobin 12.3 G/DL (12.0-16.0) Oxygen Delivery Device VENTILATOR Blood Gas Ventilator Setting AC12/500/PEE5 Blood Gas Inspired Oxygen 100 % Test 08/27/16 08/27/16 08:30 10:30 Blood Gas Puncture Site LT RADIAL Blood Gas Patient Temperature 98.6 Blood Gas HCO3 20 mmol/L (22-26) Blood Gas Base Excess -5.2 mmol/L (-2-2) Blood Gas Oxygen Saturation 98 % (90-100) Arterial Blood pH 7.31 (7.380-7.420) Arterial Blood Partial 40 mmHg (38-42) Pressure CO2 Arterial Blood Partial 355 mmHg Pressure O2 (61-120) Arterial Blood Oxygen Content 16.7 Vol % (12.0-20.0) Arterial Blood 0.9 % (0-4) Carboxyhemoglobin Arterial Blood Methemoglobin 1.3 % (0-2) Blood Gas Hemoglobin 11.5 G/DL (12.0-16.0) Oxygen Delivery Device VENTILATOR Blood Gas Ventilator Setting AC/16/500/PEEP5 Blood Gas Inspired Oxygen 100 % Lactic Acid Level 1.6 mmol/L (0.4-2.0) Result Diagram: 08/27/16 0533 08/27/16 0533 Microbiology Microbiology Date/Time Procedure Status Source Growth 08/24/16 13:30 Gram Stain - Final Complete Sputum Endotracheal 08/24/16 13:30 Sputum Culture - Final Complete Staphylococcus Aureus Imaging Last Impressions Chest X-Ray 08/27/16 0600 Signed Impressions: Service Date/Time: Saturday, August 27, 2016 05:16 - CONCLUSION: Slight improvement in aeration Pollo Ramey MD Assessment and Plan Disease Oriented Problem List: (1) Respiratory failure (2) Paroxysmal atrial flutter (3) Paroxysmal atrial fibrillation (4) CAD (coronary artery disease) (5) Bradycardia (6) Aortic stenosis Symptom Scale: (1) Shortness of breath 0-10 Scale: Unable to quantify Comment: on mech vent (2) Weakness 0-10 Scale: Unable to quantify Pertinent Non-Medical Issues Psychosocial: . Spiritual: Orthodoxy ray Legal:Patient currently incapacitated to make her own health care decisions. Notes indicate patient has a living will, will request copy. Ethical issues impacting care: No known concerns at this time. . Important Contacts * Joanie Garcia, daughter: [phone] or [phone] * Lilian Mahan, daughter: [phone] . Prognosis Will need to speak with cardiology and technical operations manager for further clarification of overall prognosis. . Code Status: No Code (DO NOT reintubate if medically extubated. ) Plan * Patient currently incapacitated to make her own health care decisions. Copy of Living Will on chart. Sent to HIM to be scanned in. According to LW is primary HCS (he has end stage dementia and is unable to participate) and son Douglas is alternate HCS, however his name is crossed off and daughter, Sandra "Lilian" Aimee is written in as HCS. All family is working together to make decisions. * Intubation Only - family considering reintubation if pt self extubates. * 08/27/16 - Met with spouse (who has end stage dementia, does not participate in meetings), son, 2 of 3 daughters to provide medical update. Family elected NO CODE, if able to be medically extubated they do not want patient reintubated. I reviewed my conversation with Dr. Christine this morning with general concern that patient may not do well or be able to be weaned from mech vent. Family would like to continue aggressive care short of NO CODE through the weekend and reevaluate patient status Tuesday08/30/16. * [place] paperwork completed and faxed for daughter. Copy on chart, original given to nurse to return to daughter when she returns later today. * SYMPTOMS: Dyspnea: on mech vent. Anxiety: On Propofol drip this morning. Appears comfortable. Agitation: was pulling at ET tube despite Precedex drip per nursing staff, another episode of bradycardic early this morning, changed sedation to Propofol. Appears more comfortable. * Palliative care will continue to follow to assist with symptom management and clarification of treatment goals throughout hospital course. . Time Spent Total Floor Time (mins): 45 Face to Face Time (mins): 30 >50% Counseling/Coord of Care: Yes Attestation To help prompt me to consider important information that might be impacting today's encounter and assessment, information from prior notes written by myself or my colleagues may have been "brought forward" into today's note. My signature on this note, however, is an attestation that I personally performed the exam, history, and/or decision-making noted today, and, unless otherwise indicated, the interactions with patient, family, and staff as well as the review of records all occurred today. I also attest that the listed assessment and stated plan reflect my best clinical judgment today based on the combination of historical information, prior notes, and today's exam/ interactions. When time spent is documented, it refers only to time spent today by the signer, or if indicated, combined time spent today by collaborating physician/nurse practitioner. . HAKEEM MANN Aug 27, 2016 14:02
--- NOTE | 2016-08-27 17:50 | HHI.IDPN ---
Subjective Subjective Remarks Doing worse large amount of thick rivera secretions Episod eof bradicardia of 28 BPM not a candidate for pacemaker UOP imprtoved Antibiotics clinda levaquine Allergies: Coded Allergies: ARABELLA Inhibitors (Verified Allergy, Severe, Anaphylaxis, 08/20/16) Amoxicillin (Verified Allergy, Severe, Anaphylaxis, 08/20/16) Fentanyl (Verified Allergy, Severe, 08/20/16) ALLERGIC TO PATCH, RASH AT PATCH SITE pt states she was not aware of ever having a patch Keflex (Verified Allergy, Severe, Anaphylaxis, 08/20/16) Monosodium Glutamate (Verified Allergy, Severe, asthma attack, 08/20/16) Neomycin (Verified Allergy, Severe, Anaphylaxis, 08/20/16) Petrolatum (Verified Allergy, Severe, SWELLING, 08/20/16) Sulfa (Verified Allergy, Severe, Anaphylaxis, 08/20/16) Sulfites & Bisulfites (Verified Allergy, Severe, ASTHMA ATTACK, 08/20/16) Objective . Vital Signs Date Time Temp Pulse Resp B/P Pulse Ox O2 Delivery O2 Flow Rate FiO2 08/27/16 16:36 98 50 08/27/16 14:00 93 08/27/16 12:00 71 08/27/16 12:00 50 08/27/16 11:59 98 50 08/27/16 10:00 58 08/27/16 09:28 96 50 08/27/16 09:27 50 08/27/16 08:48 100 50 08/27/16 08:00 50 08/27/16 08:00 73 08/27/16 07:47 100 100 08/27/16 06:00 48 08/27/16 04:11 97 40 08/27/16 04:00 98.3 64 22 137/60 97 08/27/16 04:00 50 08/27/16 04:00 64 08/27/16 02:00 59 08/27/16 01:10 98 40 08/27/16 00:00 99.6 60 18 167/65 98 08/27/16 00:00 50 08/27/16 00:00 60 08/26/16 22:06 96 40 08/26/16 22:00 69 08/26/16 20:00 99.4 60 20 138/63 97 08/26/16 20:00 60 08/26/16 20:00 50 08/26/16 19:15 96 40 08/26/16 18:00 65 08/26/16 08/26/16 08/27/16 15:00 23:00 07:00 Intake Total 694 ml 1499 ml 929 ml Output Total 300 ml 350 ml 400 ml Balance 394 ml 1149 ml 529 ml IV Total 694 ml 492 ml 597 ml Tube Feeding 887 ml 332 ml Other 120 ml Output Urine Total 300 ml 350 ml 400 ml # Bowel Movements 0 . Laboratory Tests Test 08/26/16 08/27/16 06:00 05:33 White Blood Count 9.1 TH/MM3 9.8 TH/MM3 Red Blood Count 3.79 MIL/MM3 3.87 MIL/MM3 Hemoglobin 10.9 GM/DL 11.3 GM/DL Hematocrit 33.3 % 34.0 % Mean Corpuscular Volume 87.9 FL 87.7 FL Mean Corpuscular Hemoglobin 28.8 PG 29.3 PG Mean Corpuscular Hemoglobin 32.8 % 33.4 % Concent Red Cell Distribution Width 14.1 % 14.4 % Platelet Count 189 TH/MM3 180 TH/MM3 Mean Platelet Volume 9.5 FL 9.5 FL Neutrophils (%) (Auto) 84.8 % Lymphocytes (%) (Auto) 6.3 % Monocytes (%) (Auto) 7.8 % Eosinophils (%) (Auto) 0.8 % Basophils (%) (Auto) 0.3 % Neutrophils # (Auto) 7.7 TH/MM3 Lymphocytes # (Auto) 0.6 TH/MM3 Monocytes # (Auto) 0.7 TH/MM3 Eosinophils # (Auto) 0.1 TH/MM3 Basophils # (Auto) 0.0 TH/MM3 CBC Comment DIFF FINAL Differential Comment Laboratory Tests Test 08/26/16 08/26/16 08/27/16 08/27/16 06:00 14:39 05:33 10:30 Sodium Level 141 MEQ/L 141 MEQ/L Potassium Level 4.5 MEQ/L 4.9 MEQ/L Chloride Level 109 MEQ/L 110 MEQ/L Carbon Dioxide Level 23.1 MEQ/L 20.7 MEQ/L Anion Gap 9 MEQ/L 10 MEQ/L Blood Urea Nitrogen 39 MG/DL 45 MG/DL Creatinine 1.92 MG/DL 1.90 MG/DL Estimat Glomerular Filtration 25 ML/MIN 25 ML/MIN Rate Random Glucose 338 MG/DL 415 MG/DL Calcium Level 8.0 MG/DL 8.3 MG/DL Total Bilirubin 0.3 MG/DL Aspartate Amino Transf 31 U/L (AST/SGOT) Alanine Aminotransferase 40 U/L (ALT/SGPT) Alkaline Phosphatase 485 U/L Total Protein 5.0 GM/DL Albumin 1.7 GM/DL Phosphorus Level 3.1 MG/DL Magnesium Level 2.3 MG/DL B-Type Natriuretic Peptide 631 PG/ML Lactic Acid Level 1.6 mmol/L Imaging Last Impressions Chest X-Ray 08/27/16 0600 Signed Impressions: Service Date/Time: Saturday, August 27, 2016 05:16 - CONCLUSION: Slight improvement in aeration Pollo Ramey MD Physical Exam ONSTITUTIONAL/GENERAL: This is an adequately nourished patient,sedated int'd on vent SKIN: No jaundice, rashes, or lesions. Ecchymoses on upper extremities. No wounds seen anteriorly. Skin temperature appropriate. Not diaphoretic. HEAD: Atraumatic. Normocephalic. EYES: Pupils equal and round and reactive. Extraocular motions intact. No scleral icterus. No injection or drainage. Fundi not examined. ENT: Nose without bleeding or purulent drainage. Throat without visible erythema, exudates, masses, or lesions. NECK: Trachea midline. Supple, nontender. No palpable thyroid enlargement or nodularity. CARDIOVASCULAR: Regular rate and rhythm without murmurs, gallops, or rubs. No JVD. Peripheral pulses symmetric. RESPIRATORY/CHEST: Symmetric, unlabored respirations. Diffuse rhonchi to auscultation. Breath sounds equal bilaterally. No wheezes, rales, or rhonchi. GASTROINTESTINAL: Abdomen soft, non-tender, nondistended. No hepato-splenomegaly , or palpable masses. No guarding. Bowel sounds present. GENITOURINARY: Without palpable bladder distension. Armas catheter in place. MUSCULOSKELETAL: Extremities without clubbing, cyanosis, or edema. No joint tenderness or effusion noted. No calf tenderness. No mottling or clubbing. LYMPHATICS: No palpable cervical or supraclavicular adenopathy. NEUROLOGICAL: Obtunded. Not follows commands. Moves all extremities not purposeful PSYCHIATRIC: unable to assess Assessment & Plan Remarks MSSA PNA Acute VDRF, on 100% FiO2 Symptomatic bradycardia Ent fecalis bacteriuria Multipld abx allergies Acute kidney injury ? vancomycin induced - UOP improved after vancomycion stopped - cont levaquine, - cont clindamycin -start zyvox - repaet sputum clx - chk leg/pneumococcal AG - chk influenza AG dw Mackenzie Chaudhari MD Aug 27, 2016 17:49
[2016-08-27] MEDS: LINEZOLID 600 MG PREMIX 300 ML IV SCH (18:32)
[2016-08-27] MEDS: RESP: ALBUTEROL 2.5 MG/IPRATROPIUM 0.5 MG NEB (PRN) INH (19:53)
[2016-08-28] VITALS (19 sets, daily range): BP systolic 128–187; BP diastolic 59–96; PULSE 71–116; RESP 22–28; TEMP 97.4–99.6; O2SAT 88–99
[2016-08-28] MEDS: INSULIN NovoLIN REGULAR SUPPLEMENTAL SCALE SQ SCH ×5 (00:03→21:00)
[2016-08-28] MEDS: AMITRIPTYLINE HCL 25 MG TAB PO SCH ×2 (00:03→20:59)
[2016-08-28] MEDS: FAMOTIDINE 20 MG TAB NG SCH ×3 (00:04→20:59)
[2016-08-28] MEDS: CLINDAMYCIN INJ 600 MG in SODIUM CHLORIDE 0.9% INJ 100 ML IV SCH ×4 (00:04→18:44)
[2016-08-28] MEDS: SODIUM CHLOR 0.9% 1000 ML INJ 1,000 ML IV SCH ×2 (00:04→21:52)
[2016-08-28] MEDS: CHLORHEXIDINE GLUCONATE 2 % 1 PACK (2 CLOTHS) TOP SCH (00:05)
[2016-08-28] MEDS: SENNOSIDES 8.6 MG TAB PO SCH ×3 (00:06→20:59)
[2016-08-28] MEDS: ARTIFICIAL TEARS OPTH OINT 3.5 APPLIC/3.5 GM TUBO EACH EYE SCH ×3 (00:06→21:00)
[2016-08-28] MEDS: DOCUSATE SODIUM 100 MG CAP PO SCH ×3 (00:09→20:59)
[2016-08-28] MEDS: SODIUM CHLORIDE 0.9% FLUSH 5 ML FLUSH IV FLUSH SCH ×3 (00:10→20:59)
[2016-08-28] MEDS: RESP: ALBUTEROL 2.5 MG/IPRATROPIUM 0.5 MG NEB (PRN) INH ×2 (04:10→19:35)
[2016-08-28] MEDS: LINEZOLID 600 MG PREMIX 300 ML IV SCH ×2 (04:37→18:44)
[2016-08-28 07:53] LABS: AUTOMATED NEUTROPHIL # 11.1 TH/MM3 (1.8-7.7); BASOPHIL # 0.1 TH/MM3 (0-0.2); BASOPHIL % 0.8 % (0.0-2.0); EOSINOPHIL # 0.2 TH/MM3 (0-0.4); EOSINOPHIL % 1.4 % (0.0-4.0); HEMATOCRIT 35.8 % (35.0-46.0); LYMPHOCYTE # 0.7 TH/MM3 (1.0-4.8); MEAN CELL VOLUME 88.6 FL (80.0-100.0); MEAN CORPUSCULAR HEMOGLOBIN 28.3 PG (27.0-34.0); MEAN CORPUSCULAR HGB CONC 31.9 % (32.0-36.0); MONO % 10.6 % (0.0-8.0); NEUT % 82.2 % (16.0-70.0); PLATELET COUNT 262 TH/MM3 (150-450); RED BLOOD COUNT 4.04 MIL/MM3 (4.00-5.30); RED CELL DISTRIBUTION WIDTH 14.7 % (11.6-17.2); WHITE BLOOD COUNT 13.5 TH/MM3 (4.0-11.0)
[2016-08-28 07:59] LABS: HEMO FLAGS AUTO DIFF
[2016-08-28 08:10] LABS: BICARBONATE 22.4 MEQ/L (21.0-32.0); MAGNESIUM 2.1 MG/DL (1.5-2.5); POTASSIUM 4.5 MEQ/L (3.5-5.1)
[2016-08-28] MEDS: HEPARIN-D5W INJ 250 ML IV SCH (08:21)
[2016-08-28] MEDS: PROPOFOL 1000 MG/100 ML INJ 100 ML IV SCH ×2 (08:22→22:51)
[2016-08-28 08:58] LABS: BANDS 16 % (0-6); METAMYELOCYTES 2 % (0-1); MYELOCYTES 4 % (0-0); POLYS (SEG NEUTROPHILS) 67 % (16-70); WBC DIFF SAMPLE 100
[2016-08-28 08:59] LABS: KERATOCYTES OCC (NORMAL); PLATELET ESTIMATE SMEAR NORMAL (NORMAL); PLATELET MORPHOLOGY ENLARGED (NORMAL); SCAN/DIFF FINAL DIFF MANUAL
[2016-08-28] MEDS: METOCLOPRAMIDE HCL 10 MG/2 ML VIAL IV PUSH SCH ×2 (14:04→18:44)
--- NOTE | 2016-08-28 15:36 | HHI.IDPN ---
Subjective Subjective Remarks remains on vent + secretions low grade fever last night - up to 100 no fever today Antibiotics clinda levaquine linezolid Allergies: Coded Allergies: ARABELLA Inhibitors (Verified Allergy, Severe, Anaphylaxis, 08/20/16) Amoxicillin (Verified Allergy, Severe, Anaphylaxis, 08/20/16) Fentanyl (Verified Allergy, Severe, 08/20/16) ALLERGIC TO PATCH, RASH AT PATCH SITE pt states she was not aware of ever having a patch Keflex (Verified Allergy, Severe, Anaphylaxis, 08/20/16) Monosodium Glutamate (Verified Allergy, Severe, asthma attack, 08/20/16) Neomycin (Verified Allergy, Severe, Anaphylaxis, 08/20/16) Petrolatum (Verified Allergy, Severe, SWELLING, 08/20/16) Sulfa (Verified Allergy, Severe, Anaphylaxis, 08/20/16) Sulfites & Bisulfites (Verified Allergy, Severe, ASTHMA ATTACK, 08/20/16) Objective . Vital Signs Date Time Temp Pulse Resp B/P Pulse Ox O2 Delivery O2 Flow Rate FiO2 08/28/16 15:09 96 45 08/28/16 14:00 94 08/28/16 12:00 97.4 108 23 128/59 95 08/28/16 12:00 108 08/28/16 12:00 45 08/28/16 11:02 94 45 08/28/16 10:00 109 08/28/16 08:00 45 08/28/16 08:00 98.3 71 27 162/67 89 08/28/16 08:00 71 08/28/16 07:33 91 40 08/28/16 06:00 85 08/28/16 04:04 93 40 08/28/16 04:00 98.9 116 22 146/67 93 08/28/16 04:00 85 08/28/16 04:00 40 08/28/16 02:00 85 08/28/16 01:31 96 40 08/28/16 00:00 40 08/28/16 00:00 99.6 85 28 187/86 88 08/28/16 00:00 85 08/27/16 22:13 95 40 08/27/16 22:00 100.0 107 28 134/61 96 08/27/16 22:00 107 08/27/16 20:00 59 08/27/16 20:00 100.0 59 28 145/61 97 08/27/16 20:00 40 08/27/16 19:50 98 40 08/27/16 18:00 79 08/27/16 16:36 98 50 08/27/16 16:00 50 08/27/16 16:00 98.6 77 17 101/64 98 08/27/16 16:00 75 08/27/16 08/27/16 08/28/16 15:00 23:00 07:00 Intake Total 583 ml 2008 ml Output Total 400 ml 240.0 ml 200 ml Balance 183 ml -240.0 ml 1808 ml IV Total 583 ml 1203 ml Tube Feeding 565 ml Other 240 ml Output Urine Total 400 ml 200 ml Tube Feeding Residual Discard 240.0 ml # Bowel Movements 0 . Laboratory Tests Test 08/27/16 08/28/16 05:33 06:30 White Blood Count 9.8 TH/MM3 13.5 TH/MM3 Red Blood Count 3.87 MIL/MM3 4.04 MIL/MM3 Hemoglobin 11.3 GM/DL 11.4 GM/DL Hematocrit 34.0 % 35.8 % Mean Corpuscular Volume 87.7 FL 88.6 FL Mean Corpuscular Hemoglobin 29.3 PG 28.3 PG Mean Corpuscular Hemoglobin 33.4 % 31.9 % Concent Red Cell Distribution Width 14.4 % 14.7 % Platelet Count 180 TH/MM3 262 TH/MM3 Mean Platelet Volume 9.5 FL 10.2 FL Neutrophils (%) (Auto) 82.2 % Lymphocytes (%) (Auto) 5.0 % Monocytes (%) (Auto) 10.6 % Eosinophils (%) (Auto) 1.4 % Basophils (%) (Auto) 0.8 % Neutrophils # (Auto) 11.1 TH/MM3 Lymphocytes # (Auto) 0.7 TH/MM3 Monocytes # (Auto) 1.4 TH/MM3 Eosinophils # (Auto) 0.2 TH/MM3 Basophils # (Auto) 0.1 TH/MM3 CBC Comment AUTO DIFF Differential Total Cells 100 Counted Neutrophils % (Manual) 67 % Band Neutrophils % 16 % Lymphocytes % 5 % Monocytes % 6 % Neutrophils # (Manual) 12.0 TH/MM3 Metamyelocytes 2 % Myelocytes 4 % Differential Comment FINAL DIFF MANUAL Platelet Estimate NORMAL Platelet Morphology Comment ENLARGED Keratocytes OCC Laboratory Tests Test 3/09/1008/27/16 08/28/16 05:33 10:30 06:30 Sodium Level 141 MEQ/L 140 MEQ/L Potassium Level 4.9 MEQ/L 4.5 MEQ/L Chloride Level 110 MEQ/L 107 MEQ/L Carbon Dioxide Level 20.7 MEQ/L 22.4 MEQ/L Anion Gap 10 MEQ/L 11 MEQ/L Blood Urea Nitrogen 45 MG/DL 54 MG/DL Creatinine 1.90 MG/DL 2.01 MG/DL Estimat Glomerular Filtration 25 ML/MIN 23 ML/MIN Rate Random Glucose 415 MG/DL 393 MG/DL Calcium Level 8.3 MG/DL 8.5 MG/DL B-Type Natriuretic Peptide 631 PG/ML Lactic Acid Level 1.6 mmol/L Phosphorus Level 3.0 MG/DL Magnesium Level 2.1 MG/DL Microbiology Date/Time Procedure Status Source Growth 08/27/16 18:00 Influenza Types A,B Antigen (TITA) - Final Complete Nasal Washing NEGATIVE FOR FLU A AND B ANTIGEN.... 08/27/16 18:00 Gram Stain - Final Resulted Sputum Endotracheal 08/27/16 18:00 Sputum Culture - Preliminary Resulted Staphylococcus Aureus 08/27/16 18:00 Legionella Antigen - Final Complete Urine Random Urine PRESUMPTIVE NEGATIVE FOR LEGIONELLA P... 08/27/16 18:00 Streptococcus pneumoniae Antigen (M - Final Complete Urine Random Urine PRESUMPTIVE NEGATIVE FOR STREPTOCOCCU... Imaging Last Last Impressions Chest X-Ray 08/27/16 0600 Signed Impressions: Service Date/Time: Saturday, August 27, 2016 05:16 - CONCLUSION: Slight improvement in aeration Pollo Ramey MD Physical Exam ONSTITUTIONAL/GENERAL: This is an adequately nourished patient,sedated int'd on vent SKIN: No jaundice, rashes, or lesions. Ecchymoses on upper extremities. No wounds seen anteriorly. Skin temperature appropriate. Not diaphoretic. HEAD: Atraumatic. Normocephalic. EYES: Pupils equal and round and reactive. Extraocular motions intact. No scleral icterus. No injection or drainage. Fundi not examined. ENT: Nose without bleeding or purulent drainage. Throat without visible erythema, exudates, masses, or lesions. NECK: Trachea midline. Supple, nontender. No palpable thyroid enlargement or nodularity. CARDIOVASCULAR: Regular rate and rhythm without murmurs, gallops, or rubs. No JVD. Peripheral pulses symmetric. RESPIRATORY/CHEST: Symmetric, unlabored respirations. Diffuse rhonchi to auscultation. Breath sounds equal bilaterally. No wheezes, rales, or rhonchi. GASTROINTESTINAL: Abdomen soft, non-tender, nondistended. No hepato-splenomegaly , or palpable masses. No guarding. Bowel sounds present. GENITOURINARY: Without palpable bladder distension. Armas catheter in place. MUSCULOSKELETAL: Extremities without clubbing, cyanosis, or edema. No joint tenderness or effusion noted. No calf tenderness. No mottling or clubbing. LYMPHATICS: No palpable cervical or supraclavicular adenopathy. NEUROLOGICAL: Obtunded. Not follows commands. Moves all extremities not purposeful PSYCHIATRIC: unable to assess Assessment & Plan Remarks MSSA PNA - negative - leg/pneumococcal / influenzaAG Acute VDRF, on 40% FiO2 Symptomatic bradycardia Ent fecalis bacteriuria vs UTI - S to levaquine Multipld abx allergies Acute kidney injury ? vancomycin induced - UOP improved after vancomycion stopped - cont levaquine, - dc clindamycin -cont zyvox dw pt's dgtr Mackenzie Gordon MD Aug 28, 2016 15:36
--- NOTE | 2016-08-28 17:18 | HHI.CCPN ---
Subjective Remarks/Hospital Course 86-year-old female brought by her daughter with history of fatigue, tiredness and bradycardia. Per chart the patient has been sleeping 12-14 hours a day for past couple days. Today the home health nurse came and checked her pulse and it was in the low 40s. She advised that the patient should be brought to the emergency room. The patient is too somnolent and lethargic to provide any more history. 08/21: Afebrile. Heart rate currently in the 50s and 60s on dopamine drip at 12 micrograms per kilogram per minute. Patient appears to have a baseline heart rate between 40 and 55 according to review of old records here at [place]. Placed on ADA diet. No bowel movement. Subjective 08/22: Afebrile. Dopamine done at 3 mcg/kg/m. Rhythm changes between normal sinus rhythm in addition to a Mobitz second-degree heart block type I and atrial fibrillation. Awake and alert and following commands. Tolerating diet. Denies chest pain or shortness of breath. 08/23: The patient was reintubated overnight, secondary to altered mental status and increased lethargy. Sedation vacation obtain patient's starting to follow commands this a.m.. Dopamine was discontinued yesterday. The patient continues to vacillate between normal sinus rhythm and Mobitz second-degree heart block, and sinus arrhythmia, BP stable. 08/24:Afebrile. No acute events overnight. The patient is now following commands on sedation vacation. Plan to change transition to Precedex infusion, with discontinuation of propofol and continue CPAP trials. The family has requested palliative medicine consult. 08/25: The patient was bradycardic overnight heart rate 30s, normotensive, had received morphine 4 mg IV for agitation last evening. Palliative care has a planned family meeting today, to discuss goals of care. UA culture revealed Enterobacter fecalis the patient was started on vancomycin yesterday afternoon. 08/26: No change in neurological status. The patient does not follow commands, but does become anxious, attempting to pull out endotracheal tube. The patient was started on vancomycin 08/24, noted elevation in creatinine and decreasing urinary output overnight, vancomycin discontinued. Infectious disease consulted secondary to multiple allergies. 08/27: Early this a.m.0620, during positioning the patient was noted to be severely bradycardic, heart rate 28, intermittent blood pressure was not obtainable, all sedation discontinued. The patient's heart rate trended upward after repositioning supine mid 30s at 0625, blood pressure 143/58. Stat ABG drawn, with noted mixed respiratory metabolic acidosis, pH 7.10 PCO2 60 bicarbonate 17 base deficit,-10. The patient continues on heparin infusion. Urine output improved overnight. 08/28: No acute events overnight, heart rate 50-60's.The patient remains on low- dose propofol 7-10mcgs to maintain ventilator synchrony. Heparin infusing. The patient was noted to have elevated tube feed residuals. Reglan 5 mg 3 times a day instituted. Objective Vital Signs Date Time Temp Pulse Resp B/P Pulse Ox O2 Delivery O2 Flow Rate FiO2 08/28/16 15:09 96 45 08/28/16 14:00 94 08/28/16 12:00 97.4 23 128/59 Intake and Output 08/27/16 08/27/16 08/28/16 08:00 16:00 00:00 Intake Total 929 ml 583 ml Output Total 400 ml 400 ml 240.0 ml Balance 529 ml 183 ml -240.0 ml Result Diagram: 08/28/16 0630 08/28/16 0630 Other Results Microbiology Date/Time Procedure Status Source Growth 08/27/16 18:00 Influenza Types A,B Antigen (TITA) - Final Complete Nasal Washing NEGATIVE FOR FLU A AND B ANTIGEN.... 08/27/16 18:00 Legionella Antigen - Final Complete Urine Random Urine PRESUMPTIVE NEGATIVE FOR LEGIONELLA P... 08/27/16 18:00 Streptococcus pneumoniae Antigen (M - Final Complete Urine Random Urine PRESUMPTIVE NEGATIVE FOR STREPTOCOCCU... Imaging Last Impressions Chest X-Ray 08/20/16 1334 Signed Impressions: Service Date/Time: Saturday, August 20, 2016 13:40 - CONCLUSION: No acute disease. Mario Hassan MD FACR Objective Remarks GENERAL: 86 yo female, critically ill currently resting in bed intubated and nonresponsive, breathing over the vent SKIN: Warm and dry. No rash HEAD: Normocephalic. EYES: No scleral icterus. No injection or drainage. PERRL. EOMI. ENT: No tympanic drainage. Oropharynx without erythema or exudates orotracheally intubated NECK: Supple, trachea midline. No JVD or lymphadenopathy. No carotid bruit CARDIOVASCULAR: Currently normal sinus bradycardia with a heart rate 28-35. S1 , S2. No S4. RESPIRATORY: Breath sounds equal bilaterally, coarse. Mechanical ventilation GASTROINTESTINAL: Abdomen soft, non-tender, nondistended. Normoactive bowel sounds are appreciated. Tube feeds infusing MUSCULOSKELETAL: Peripheral edema bilateral extremities. Prior scarring from bypass right-sided noted BACK: Nontender without obvious deformity. No CVA tenderness. Date of Insertion: Aug 20, 2016 Line: Central Venous Catheter Side: Right Location: Internal, Jugular A/P Problem List: (1) Chronic kidney disease, stage 3 ICD Code: N18.3 Status: Acute (2) HTN (hypertension) ICD Code: I10 Status: Chronic (3) Symptomatic bradycardia ICD Code: R00.1 Status: Acute Assessment and Plan Neuro/Psych: Chronic benzodiazepine use Depression/anxiety Continue Elavil 25 mg by mouth daily/home medication Continue Escitalopram 10 mg by mouth daily for depression as home medication Discontinued Xanax 0.25 Acetaminophen for fever Precedex infusion discontinued, placed on propofol infusion low-dose 08/24-EEG results CV: Symptomatically bradycardia - .. ? Second-degree Mobitz type I currently in normal sinus rhythm History of a flutter status post ablation 2016 Nonobstructive coronary disease Hypertension Dyslipidemia Peripheral vascular disease history of post right femoropopliteal, femoral- tibial and femoroperoneal bypass This is a patient Dr. Verdin/cardiology. Cardiology has been consulted and appreciate recommendations. Likely secondary to amiodarone. No plansby Dr [place] for intervention this time Cardiac catheterization 04/11 revealed left main without disease, LAD 40% stenosis, left circumflex coronary disease and RCA 40% stenosis. No intervention. Currently on dopamine at 3 mcg/kg/m for heart rate management discontinued . Amiodarone currently has been held. Level pending Patient is on valsartan 320 mg daily for hypertension. This is currently on hold Continue Plavix 75 mg by mouth daily for peripheral vascular disease. Heparin infusion per cardiology recommendations Resp: Documentation of asthma History of pulmonary embolism Maintain saturations greater than equal to 92% Mechanical ventilation settings 12/500/100/5 Ventilator bundle Maintain head of bed 30 Continue duo nebs per schedule Continue CPAP trials GI: Peptamen AF D/C Protonix for GI prophylaxis, change to Pepcid. On Zantac 150 mg a night at home. Colace/Senokot twice a day for bowel regimen : Armas changed yesterday, initiation of vancomycin 08/24- 08/26 Proteus UTI, hesitancy towards utilization of Linezolid with patient's long-term SSRI use, nitrofurantoin unable to administer via gastric tube. Maintain/ strict accurate I' & O's Endo: Diabetes mellitus type 2 Home medications include Januvia 100 mg daily, Tresiba injection subcutaneous as needed and Farxiga 10 mg daily Sliding scale insulin Accu-Cheks every 6 before meals at bedtime to maintain euglycemia/moderate regimen TSH within normal limits Renal: History chronic kidney disease stage III Creatinine currently within normal limits. Accurate I's and O's. Monitor urine output, much improved overnight,approximately 60 cc/hour Monitor BMP Heme: Leukocytosis-resolved Follow CBC daily. Monitor trends ID: UTI Day #3 aztreonam, discontinued 06/22. Noted multiple drug allergies above.. UA culture- Enterococcus faecalis, Vancomycin(day 3) discontinued Pharmacy dosing initiated (maintain therapeutic level 10-15) unable to utilize the nasal lid secondary to SSRI medication Monitor for infection ID consulted-Dr. Gordon following Urine output adequate FEN: Hypokalemia - resolved Replace electrolyte as clinically indicated Goal keep magnesium greater than 2, potassium greater than 4 MSK: Osteoarthritis PT evaluate and treat Access - Right IJ CVL day 8 Prophylaxis - GI - Protonix - DVT - SCD/heparin infusion Dispo: Discussed with JACKERMAN at bedside. CODE STATUS changed to alternate, no CPR, no shock (defibrillation). Family stated they would not like patient to have a PEG, Trach placement. Attempts at weaning continue. Critical Care: Level 3 Physician Davina Solis MD Aug 28, 2016 17:18
[2016-08-28 18:02] LABS: APTT (PATIENT) 38.5 SEC (24.3-30.1)
[2016-08-28] MEDS: HEPARIN SODIUM - IV 10,000 UNITS/10 ML VIAL IV PRN (18:21)
[2016-08-28 23:35] LABS: APTT (PATIENT) 45.1 SEC (24.3-30.1)
[2016-08-29] VITALS (16 sets, daily range): BP systolic 120–169; BP diastolic 65–98; PULSE 83–107; RESP 17–23; TEMP 97.3–98.6; O2SAT 97–100
[2016-08-29] MEDS: CLINDAMYCIN INJ 600 MG in SODIUM CHLORIDE 0.9% INJ 100 ML IV SCH ×4 (00:26→18:45)
[2016-08-29] MEDS: LEVOFLOXACIN 750 MG PREMIX INJ 150 ML IV SCH (00:27)
[2016-08-29] MEDS: CHLORHEXIDINE GLUCONATE 2 % 1 PACK (2 CLOTHS) TOP SCH (04:00)
--- NOTE | 2016-08-29 06:45 | RADRPT ---
EXAM DATE/TIME: 08/29/2016 05:53 [facility] COMPARISON: CHEST SINGLE AP, August 27, 2016, 5:16. INDICATIONS : Shortness of breath, possible pulmonary disease. MEDICAL HISTORY : Hypertension. Cardiovascular disease. SURGICAL HISTORY : ENCOUNTER: Subsequent ACUITY: 1 week PAIN SCORE: Non-responsive. LOCATION: Bilateral chest FINDINGS: Endotracheal tube, nasogastric tube and right central line are stable. Persistent perihilar and bibas ilar infiltrate which is grossly unchanged. CONCLUSION: No significant change Pollo Ramey MD on August 29, 2016 at 6:43 Board Certified Radiologist. This report was verified electronically.
[2016-08-29] MEDS: INSULIN NovoLIN REGULAR SUPPLEMENTAL SCALE SQ SCH ×4 (06:48→21:00)
[2016-08-29] MEDS: LINEZOLID 600 MG PREMIX 300 ML IV SCH ×2 (06:48→17:54)
[2016-08-29 07:18] LABS: APTT (PATIENT) 38.3 SEC (24.3-30.1)
[2016-08-29] MEDS: PROPOFOL 1000 MG/100 ML INJ 100 ML IV SCH ×2 (08:11→17:54)
[2016-08-29] MEDS: FAMOTIDINE 20 MG TAB NG SCH ×2 (08:12→20:55)
[2016-08-29] MEDS: SENNOSIDES 8.6 MG TAB PO SCH ×2 (08:12→20:55)
[2016-08-29] MEDS: METOCLOPRAMIDE HCL 10 MG/2 ML VIAL IV PUSH SCH ×3 (08:12→17:54)
[2016-08-29] MEDS: DOCUSATE SODIUM 100 MG CAP PO SCH ×2 (08:12→20:55)
[2016-08-29] MEDS: ARTIFICIAL TEARS OPTH OINT 3.5 APPLIC/3.5 GM TUBO EACH EYE SCH ×2 (08:13→20:54)
[2016-08-29] MEDS: SODIUM CHLORIDE 0.9% FLUSH 5 ML FLUSH IV FLUSH SCH ×2 (08:13→20:54)
[2016-08-29] MEDS: HEPARIN SODIUM - IV 10,000 UNITS/10 ML VIAL IV PRN (08:16)
[2016-08-29 08:22] LABS: HEMATOCRIT 32.4 % (35.0-46.0); MEAN CELL VOLUME 86.4 FL (80.0-100.0); MEAN CORPUSCULAR HEMOGLOBIN 28.6 PG (27.0-34.0); MEAN CORPUSCULAR HGB CONC 33.2 % (32.0-36.0); PLATELET COUNT 231 TH/MM3 (150-450); RED BLOOD COUNT 3.75 MIL/MM3 (4.00-5.30); RED CELL DISTRIBUTION WIDTH 14.4 % (11.6-17.2); REVIEW FLAG FINAL; WHITE BLOOD COUNT 9.9 TH/MM3 (4.0-11.0)
[2016-08-29 08:46] LABS: BICARBONATE 26.2 MEQ/L (21.0-32.0); MAGNESIUM 1.9 MG/DL (1.5-2.5); POTASSIUM 4.5 MEQ/L (3.5-5.1)
--- NOTE | 2016-08-29 13:24 | RADRPT ---
EXAM DATE/TIME: 08/29/2016 12:51 [facility] COMPARISON: CHEST SINGLE AP, August 29, 2016, 5:53. INDICATIONS : Respiratory Failure. MEDICAL HISTORY : Hypertension. Cardiovascular disease. SURGICAL HISTORY : None. ENCOUNTER: Subsequent ACUITY: 1 week PAIN SCORE: Non-responsive. LOCATION: Bilateral chest FINDINGS: Portable AP view of the chest demonstrates a normal-sized cardiac silhouette. ETT, right IJ line, and nasogastric tube remain present and not significantly changed in position. There is stable left basi lar pleural-parenchymal opacity and right lower lung zone airspace consolidation with possible pleura l based opacity. No pneumothorax is visualized. CONCLUSION: Stable chest x-ray with bilateral pleural effusions with associated volume loss and consolidation. Pollo Willson MD on August 29, 2016 at 13:21 Board Certified Radiologist. This report was verified electronically.
[2016-08-29] MEDS: MAGNESIUM SULFAT 1 GM PREMIX 100 ML x2 bags IV SCH ×2 (13:31→14:55)
--- NOTE | 2016-08-29 13:31 | RADRPT ---
EXAM DATE/TIME: 08/29/2016 12:56 [facility] COMPARISON: CHEST SINGLE AP, August 29, 2016, 12:51. INDICATIONS : Evaluate for Ileus. MEDICAL HISTORY : Hypertension. Cardiovascular disease. SURGICAL HISTORY : None. ENCOUNTER: Subsequent ACUITY: 1 week PAIN SCORE: Non-responsive. LOCATION: Abdomen. FINDINGS: 2 supine frontal views of the abdomen demonstrate air within bowel in a nonobstructive pattern. Stool overlies the rectum. No organomegaly is appreciated. There is vascular calcification in the left upp er quadrant. No abnormal mass effect is appreciated. Nasogastric tube is in the stomach. There are de generative changes of the lumbar spine. There are stable bibasilar pleural-parenchymal opacities. CONCLUSION: 1. There are no imaging findings to suggest ileus. No acute abdominal process is identified. 2. Stable bilateral pleural effusions. Pollo Willson MD on August 29, 2016 at 13:28 Board Certified Radiologist. This report was verified electronically.
--- NOTE | 2016-08-29 13:40 | HHI.CCPN ---
Subjective Remarks/Hospital Course 86-year-old female brought by her daughter with history of fatigue, tiredness and bradycardia. Per chart the patient has been sleeping 12-14 hours a day for past couple days. Today the home health nurse came and checked her pulse and it was in the low 40s. She advised that the patient should be brought to the emergency room. The patient is too somnolent and lethargic to provide any more history. 08/21: Afebrile. Heart rate currently in the 50s and 60s on dopamine drip at 12 micrograms per kilogram per minute. Patient appears to have a baseline heart rate between 40 and 55 according to review of old records here at [place]. Placed on ADA diet. No bowel movement. Subjective 08/22: Afebrile. Dopamine done at 3 mcg/kg/m. Rhythm changes between normal sinus rhythm in addition to a Mobitz second-degree heart block type I and atrial fibrillation. Awake and alert and following commands. Tolerating diet. Denies chest pain or shortness of breath. 08/23: The patient was reintubated overnight, secondary to altered mental status and increased lethargy. Sedation vacation obtain patient's starting to follow commands this a.m.. Dopamine was discontinued yesterday. The patient continues to vacillate between normal sinus rhythm and Mobitz second-degree heart block, and sinus arrhythmia, BP stable. 08/24:Afebrile. No acute events overnight. The patient is now following commands on sedation vacation. Plan to change transition to Precedex infusion, with discontinuation of propofol and continue CPAP trials. The family has requested palliative medicine consult. 08/25: The patient was bradycardic overnight heart rate 30s, normotensive, had received morphine 4 mg IV for agitation last evening. Palliative care has a planned family meeting today, to discuss goals of care. UA culture revealed Enterobacter fecalis the patient was started on vancomycin yesterday afternoon. 08/26: No change in neurological status. The patient does not follow commands, but does become anxious, attempting to pull out endotracheal tube. The patient was started on vancomycin 08/24, noted elevation in creatinine and decreasing urinary output overnight, vancomycin discontinued. Infectious disease consulted secondary to multiple allergies. 08/27: Early this a.m.0620, during positioning the patient was noted to be severely bradycardic, heart rate 28, intermittent blood pressure was not obtainable, all sedation discontinued. The patient's heart rate trended upward after repositioning supine mid 30s at 0625, blood pressure 143/58. Stat ABG drawn, with noted mixed respiratory metabolic acidosis, pH 7.10 PCO2 60 bicarbonate 17 base deficit,-10. The patient continues on heparin infusion. Urine output improved overnight. 08/28: No acute events overnight, heart rate 50-60's.The patient remains on low- dose propofol 7-10mcgs to maintain ventilator synchrony. Heparin infusing. The patient was noted to have elevated tube feed residuals. Reglan 5 mg 3 times a day instituted. 08/29 Tmax 98.9. Patient continues to fail CPAP trials despite multiple attempts. Chest x-ray unchanged with perihilar and bibasilar opacities. The patient was placed on a higher insulin sliding scale and now does not require additional coverage. WBC count trending down today. Patient does not follow commands on sedation vacation. Objective Vital Signs Date Time Temp Pulse Resp B/P Pulse Ox O2 Delivery O2 Flow Rate FiO2 08/29/16 12:12 98 45 08/29/16 10:00 90 08/29/16 08:00 97.9 17 120/65 Intake and Output 08/28/16 08/28/16 08/29/16 08:00 16:00 00:00 Intake Total 2008 ml 1182 ml 581 ml Output Total 440.0 ml 350 ml 450 ml Balance 1568.0 ml 832 ml 131 ml Result Diagram: 08/29/16 0740 08/29/16 0740 Other Results Microbiology Date/Time Procedure Status Source Growth 08/27/16 18:00 Influenza Types A,B Antigen (TITA) - Final Complete Nasal Washing NEGATIVE FOR FLU A AND B ANTIGEN.... 08/27/16 18:00 Gram Stain - Final Complete Sputum Endotracheal 08/27/16 18:00 Sputum Culture - Final Complete Staphylococcus Aureus 08/27/16 18:00 Legionella Antigen - Final Complete Urine Random Urine PRESUMPTIVE NEGATIVE FOR LEGIONELLA P... 08/27/16 18:00 Streptococcus pneumoniae Antigen (M - Final Complete Urine Random Urine PRESUMPTIVE NEGATIVE FOR STREPTOCOCCU... Imaging Last Impressions Chest X-Ray 08/29/16 0000 Signed Impressions: Service Date/Time: Monday, August 29, 2016 05:53 - CONCLUSION: No significant change Pollo Ramey MD Last Impressions Chest X-Ray 08/20/16 2334 Signed Impressions: Service Date/Time: Saturday, August 20, 2016 13:40 - CONCLUSION: No acute disease. Mario Hassan MD FACR Objective Remarks GENERAL: 86 yo female, critically ill currently resting in bed intubated moving extremities not following commands off sedation very anxious SKIN: Warm and dry. No rash HEAD: Normocephalic. EYES: No scleral icterus. No injection or drainage. PERRL. EOMI. ENT: No tympanic drainage. Oropharynx without erythema or exudates orotracheally intubated NECK: Supple, trachea midline. No JVD or lymphadenopathy. No carotid bruit CARDIOVASCULAR: Normal sinus rhythm. Heart rate 60's. S1, S2. No S4. RESPIRATORY: Breath sounds equal bilaterally, coarse. Mechanical ventilation GASTROINTESTINAL: Abdomen soft, non-tender, nondistended. Normoactive bowel sounds are appreciated. Tube feeds infusing MUSCULOSKELETAL: Peripheral edema bilateral extremities. Prior scarring from bypass right-sided noted BACK: Nontender without obvious deformity. No CVA tenderness. Urinary Catheter: Yes Vascular Central Line Catheter: Yes Date of Insertion: Aug 20, 2016 Line: Central Venous Catheter Side: Right Location: Internal, Jugular A/P Problem List: (1) Chronic kidney disease, stage 3 ICD Code: N18.3 Status: Acute (2) HTN (hypertension) ICD Code: I10 Status: Chronic (3) Symptomatic bradycardia ICD Code: R00.1 Status: Acute Assessment and Plan Neuro/Psych: Chronic benzodiazepine use Depression/anxiety Continue Elavil 25 mg by mouth daily/home medication Continue Escitalopram 10 mg by mouth daily for depression as home medication Discontinued Xanax 0.25 Acetaminophen for fever Propofol infusion low-dose 7-15 mcgs 08/24-EEG results Nonresponsive to any commands CV: Symptomatically bradycardia - .. ? Second-degree Mobitz type I currently in normal sinus rhythm History of a flutter status post ablation 2016 Nonobstructive coronary disease Hypertension Dyslipidemia Peripheral vascular disease history of post right femoropopliteal, femoral- tibial and femoroperoneal bypass This is a patient Dr. Verdin/cardiology. Cardiology has been consulted and appreciate recommendations. Likely secondary to amiodarone. No plansby Dr Birmingham for intervention this time Cardiac catheterization 04/11 revealed left main without disease, LAD 40% stenosis, left circumflex coronary disease and RCA 40% stenosis. No intervention. Currently on dopamine at 3 mcg/kg/m for heart rate management discontinued . Amiodarone currently has been held. Level pending Patient is on valsartan 320 mg daily for hypertension. This is currently on hold Continue Plavix 75 mg by mouth daily for peripheral vascular disease. Heparin infusion per cardiology recommendations Resp: Documentation of asthma History of pulmonary embolism Maintain saturations greater than equal to 92% Mechanical ventilation settings 12/500/100/5 Ventilator bundle Maintain head of bed 30 Continue duo nebs per schedule Continue to attempt CPAP trials Second intubation Day 8-family has agreed to do not reintubate(DNI), the patient continues to fail CPAP trials GI: Constipation Peptamen AF Pepcid BID . On Zantac 150 mg a night at home. Colace/Senokot twice a day for bowel regimen, MiraLAX and lactulose added to medication regimen Last BM 08/23 F/U KUB : Armas changed yesterday, initiation of vancomycin 08/24- 08/26 Proteus UTI, hesitancy towards utilization of Linezolid with patient's long-term SSRI use, nitrofurantoin unable to administer via gastric tube. Maintain/ strict accurate I' & O's Endo: Diabetes mellitus type 2 Home medications include Januvia 100 mg daily, Tresiba injection subcutaneous as needed and Farxiga 10 mg daily Sliding scale insulin Accu-Cheks every 6 before meals at bedtime to maintain euglycemia/moderate regimen TSH within normal limits High dose SSI Renal: History chronic kidney disease stage III Creatinine currently within normal limits. Accurate I's and O's. Monitor urine output Creatinine improved from 2-> 1.6 today Monitor BMP Heme: Leukocytosis-resolved Follow CBC daily. Monitor trends ID: UTI Day #3 aztreonam, discontinued 06/22. Noted multiple drug allergies above.. UA culture- Enterococcus faecalis, Vancomycin(day 3) discontinued Pharmacy dosing initiated (maintain therapeutic level 10-15) unable to utilize the nasal lid secondary to SSRI medication Monitor for infection ID consulted-Dr. Gordon following Urine output adequate FEN: Hypokalemia - resolved Replace electrolyte as clinically indicated Goal keep magnesium greater than 2, potassium greater than 4 MSK: Osteoarthritis PT evaluate and treat Access - Right IJ CVL day 9 Prophylaxis - GI - Protonix - DVT - SCD/heparin infusion Dispo: Discussed with RIBB[employer] WINDER at bedside. CODE STATUS changed to alternate, no CPR, no shock (defibrillation).3/2 Family meeting with palliative team DNI/DNR. Will attempt to continue CPAP trials with the goal of extubation extensive discussion with family and palliative care team if successfully weaned to extubate, the patient will not be reintubated Family stated they would not like patient to have a PEG, Trach placement. Attempts at weaning continue. Critical Care: Level 3 Physician Davina Solis MD Aug 29, 2016 13:40
[2016-08-29] MEDS: LACTULOSE SYRUP 20 GM/30 ML CUP TUBE SCH ×3 (13:47→20:55)
[2016-08-29] MEDS: HEPARIN-D5W INJ 250 ML IV SCH (15:06)
[2016-08-29 16:40] LABS: APTT (PATIENT) 83.7 SEC (24.3-30.1)
[2016-08-29 19:26] LABS: APTT (PATIENT) 45.6 SEC (24.3-30.1)
[2016-08-29] MEDS: AMITRIPTYLINE HCL 25 MG TAB PO SCH (20:55)
[2016-08-29] MEDS: POLYETHYLENE GLYCOL 17 GM PKG PO SCH (20:55)
[2016-08-29] MEDS: SODIUM CHLOR 0.9% 1000 ML INJ 1,000 ML IV SCH (21:52)
[2016-08-30] VITALS (19 sets, daily range): BP systolic 99–149; BP diastolic 50–78; PULSE 76–97; RESP 16–22; TEMP 97.8–98.9; O2SAT 97–100
[2016-08-30] MEDS: CLINDAMYCIN INJ 600 MG in SODIUM CHLORIDE 0.9% INJ 100 ML IV SCH ×4 (01:13→18:18)
[2016-08-30 02:53] LABS: APTT (PATIENT) 51.1 SEC (24.3-30.1)
[2016-08-30] MEDS: RESP: ALBUTEROL 2.5 MG/IPRATROPIUM 0.5 MG NEB (PRN) INH (03:05)
[2016-08-30] MEDS: CHLORHEXIDINE GLUCONATE 2 % 1 PACK (2 CLOTHS) TOP SCH (04:00)
[2016-08-30] MEDS: PROPOFOL 1000 MG/100 ML INJ 100 ML IV SCH ×3 (04:45→17:00)
[2016-08-30] MEDS: LINEZOLID 600 MG PREMIX 300 ML IV SCH ×2 (06:00→17:00)
[2016-08-30 06:14] LABS: HEMATOCRIT 32.5 % (35.0-46.0); MEAN CELL VOLUME 86.1 FL (80.0-100.0); MEAN CORPUSCULAR HEMOGLOBIN 29.1 PG (27.0-34.0); MEAN CORPUSCULAR HGB CONC 33.8 % (32.0-36.0); PLATELET COUNT 224 TH/MM3 (150-450); RED BLOOD COUNT 3.77 MIL/MM3 (4.00-5.30); RED CELL DISTRIBUTION WIDTH 14.4 % (11.6-17.2); REVIEW FLAG FINAL; WHITE BLOOD COUNT 9.2 TH/MM3 (4.0-11.0)
[2016-08-30 06:34] LABS: BICARBONATE 27.1 MEQ/L (21.0-32.0); MAGNESIUM 2.2 MG/DL (1.5-2.5); POTASSIUM 4.4 MEQ/L (3.5-5.1)
[2016-08-30] MEDS: INSULIN NovoLIN REGULAR SUPPLEMENTAL SCALE SQ SCH ×4 (06:46→21:00)
[2016-08-30] MEDS: SODIUM CHLORIDE 0.9% FLUSH 5 ML FLUSH IV FLUSH SCH ×2 (08:40→21:07)
[2016-08-30] MEDS: SENNOSIDES 8.6 MG TAB PO SCH ×2 (08:40→21:00)
[2016-08-30] MEDS: FAMOTIDINE 20 MG TAB NG SCH ×2 (08:40→21:08)
[2016-08-30] MEDS: ARTIFICIAL TEARS OPTH OINT 3.5 APPLIC/3.5 GM TUBO EACH EYE SCH ×2 (08:40→21:06)
[2016-08-30] MEDS: LACTULOSE SYRUP 20 GM/30 ML CUP TUBE SCH ×4 (08:40→21:00)
[2016-08-30] MEDS: DOCUSATE SODIUM 100 MG CAP PO SCH ×2 (08:40→21:00)
[2016-08-30] MEDS: METOCLOPRAMIDE HCL 10 MG/2 ML VIAL IV PUSH SCH ×3 (08:40→17:00)
[2016-08-30] MEDS: POLYETHYLENE GLYCOL 17 GM PKG PO SCH ×2 (08:40→21:00)
--- NOTE | 2016-08-30 09:01 | HHI.CCPN ---
Subjective Remarks/Hospital Course 86-year-old female brought by her daughter with history of fatigue, tiredness and bradycardia. Per chart the patient has been sleeping 12-14 hours a day for past couple days. Today the home health nurse came and checked her pulse and it was in the low 40s. She advised that the patient should be brought to the emergency room. The patient is too somnolent and lethargic to provide any more history. 08/21: Afebrile. Heart rate currently in the 50s and 60s on dopamine drip at 12 micrograms per kilogram per minute. Patient appears to have a baseline heart rate between 40 and 55 according to review of old records here at [place]. Placed on ADA diet. No bowel movement. Subjective 08/22: Afebrile. Dopamine done at 3 mcg/kg/m. Rhythm changes between normal sinus rhythm in addition to a Mobitz second-degree heart block type I and atrial fibrillation. Awake and alert and following commands. Tolerating diet. Denies chest pain or shortness of breath. 08/23: The patient was reintubated overnight, secondary to altered mental status and increased lethargy. Sedation vacation obtain patient's starting to follow commands this a.m.. Dopamine was discontinued yesterday. The patient continues to vacillate between normal sinus rhythm and Mobitz second-degree heart block, and sinus arrhythmia, BP stable. 08/24:Afebrile. No acute events overnight. The patient is now following commands on sedation vacation. Plan to change transition to Precedex infusion, with discontinuation of propofol and continue CPAP trials. The family has requested palliative medicine consult. 08/25: The patient was bradycardic overnight heart rate 30s, normotensive, had received morphine 4 mg IV for agitation last evening. Palliative care has a planned family meeting today, to discuss goals of care. UA culture revealed Enterobacter fecalis the patient was started on vancomycin yesterday afternoon. 08/26: No change in neurological status. The patient does not follow commands, but does become anxious, attempting to pull out endotracheal tube. The patient was started on vancomycin 08/24, noted elevation in creatinine and decreasing urinary output overnight, vancomycin discontinued. Infectious disease consulted secondary to multiple allergies. 08/27: Early this a.m.0620, during positioning the patient was noted to be severely bradycardic, heart rate 28, intermittent blood pressure was not obtainable, all sedation discontinued. The patient's heart rate trended upward after repositioning supine mid 30s at 0625, blood pressure 143/58. Stat ABG drawn, with noted mixed respiratory metabolic acidosis, pH 7.10 PCO2 60 bicarbonate 17 base deficit,-10. The patient continues on heparin infusion. Urine output improved overnight. 08/28: No acute events overnight, heart rate 50-60's.The patient remains on low- dose propofol 7-10mcgs to maintain ventilator synchrony. Heparin infusing. The patient was noted to have elevated tube feed residuals. Reglan 5 mg 3 times a day instituted. 08/29 Tmax 98.9. Patient continues to fail CPAP trials despite multiple attempts. Chest x-ray unchanged with perihilar and bibasilar opacities. The patient was placed on a higher insulin sliding scale and now does not require additional coverage. WBC count trending down today. Patient does not follow commands on sedation vacation. 08/30 no changes overnight Objective Vital Signs Date Time Temp Pulse Resp B/P Pulse Ox O2 Delivery O2 Flow Rate FiO2 08/30/16 07:50 100 45 08/30/16 06:00 96 08/30/16 04:00 98.6 16 120/61 Intake and Output 08/29/16 08/29/16 08/30/16 08:00 16:00 00:00 Intake Total 1042 ml 1330 ml 1217 ml Output Total 850 ml 750 ml 625 ml Balance 192 ml 580 ml 592 ml Result Diagram: 08/30/16 0450 08/30/16 0450 Other Results Microbiology Date/Time Procedure Status Source Growth 08/27/16 18:00 Influenza Types A,B Antigen (TITA) - Final Complete Nasal Washing NEGATIVE FOR FLU A AND B ANTIGEN.... 08/27/16 18:00 Gram Stain - Final Complete Sputum Endotracheal 08/27/16 18:00 Sputum Culture - Final Complete Staphylococcus Aureus 08/27/16 18:00 Legionella Antigen - Final Complete Urine Random Urine PRESUMPTIVE NEGATIVE FOR LEGIONELLA P... 08/27/16 18:00 Streptococcus pneumoniae Antigen (M - Final Complete Urine Random Urine PRESUMPTIVE NEGATIVE FOR STREPTOCOCCU... Imaging Last Impressions Chest X-Ray 08/29/16 0000 Signed Impressions: Service Date/Time: Monday, August 29, 2016 05:53 - CONCLUSION: No significant change Pollo Ramey MD Last Impressions Chest X-Ray 08/20/16 2854 Signed Impressions: Service Date/Time: Saturday, August 20, 2016 13:40 - CONCLUSION: No acute disease. Mario Hassan MD FACR Objective Remarks GENERAL: 86 yo female, critically ill currently resting in bed intubated moving extremities not following commands off sedation very anxious SKIN: Warm and dry. No rash HEAD: Normocephalic. EYES: No scleral icterus. No injection or drainage. PERRL. EOMI. ENT: No tympanic drainage. Oropharynx without erythema or exudates orotracheally intubated NECK: Supple, trachea midline. No JVD or lymphadenopathy. No carotid bruit CARDIOVASCULAR: Normal sinus rhythm. Heart rate 60's. S1, S2. No S4. RESPIRATORY: Breath sounds equal bilaterally, coarse. Mechanical ventilation GASTROINTESTINAL: Abdomen soft, non-tender, nondistended. Normoactive bowel sounds are appreciated. Tube feeds infusing MUSCULOSKELETAL: Peripheral edema bilateral extremities. Prior scarring from bypass right-sided noted BACK: Nontender without obvious deformity. No CVA tenderness. Date of Insertion: Aug 20, 2016 Line: Central Venous Catheter Side: Right Location: Internal, Jugular A/P Problem List: (1) Chronic kidney disease, stage 3 ICD Code: N18.3 Status: Acute (2) HTN (hypertension) ICD Code: I10 Status: Chronic (3) Symptomatic bradycardia ICD Code: R00.1 Status: Acute Assessment and Plan Neuro/Psych: Chronic benzodiazepine use Depression/anxiety Continue Elavil 25 mg by mouth daily/home medication Continue Escitalopram 10 mg by mouth daily for depression as home medication Discontinued Xanax 0.25 Acetaminophen for fever Propofol infusion low-dose 7-15 mcgs 08/24-EEG results Nonresponsive to any commands Sedation vacation per ICU routine CV: Symptomatically bradycardia - .. ? Second-degree Mobitz type I currently in normal sinus rhythm History of a flutter status post ablation 2016 Nonobstructive coronary disease Hypertension Dyslipidemia Peripheral vascular disease history of post right femoropopliteal, femoral- tibial and femoroperoneal bypass Dr. Verdin/cardiology. Cardiology has been consulted and appreciate recommendations. Bradycardia and block likely secondary to amiodarone. No plans for intervention at this time per Dr Birmingham Cardiac catheterization 04/11 revealed left main without disease, LAD 40% stenosis, left circumflex coronary disease and RCA 40% stenosis. No intervention. Continue dopamine at 3 mcg/kg/m for heart rate management discontinued 08/22. Amiodarone currently has been held. Patient is on valsartan 320 mg daily for hypertension. This is currently on hold Continue Plavix 75 mg by mouth daily for peripheral vascular disease. Heparin infusion per cardiology recommendations Resp: Documentation of asthma History of pulmonary embolism Maintain saturations greater than equal to 92% Mechanical ventilation settings 12/500/100/5 Ventilator bundle Maintain head of bed 30 Continue duo nebs per schedule Continue to attempt CPAP trials Day 9 of mechanical ventilation - family has agreed to do not reintubate(DNI), the patient continues to fail CPAP trials GI: Constipation Peptamen AF Pepcid BID . On Zantac 150 mg a night at home. Colace/Senokot twice a day for bowel regimen, MiraLAX and lactulose added to medication regimen Last BM 08/23 F/U KUB : Armas changed 08/28, initiation of vancomycin 08/24- 08/26 Proteus UTI, hesitancy towards utilization of Linezolid with patient's long-term SSRI use, nitrofurantoin unable to administer via gastric tube. Maintain/ strict accurate I' & O's Endo: Diabetes mellitus type 2 Home medications Januvia 100 mg daily, Tresiba injection subcutaneous as needed and Farxiga 10 mg daily Sliding scale insulin Accu-Cheks every 6 before meals at bedtime to maintain euglycemia/moderate regimen TSH within normal limits High dose SSI Renal: History chronic kidney disease stage III Creatinine currently slightly elevated Accurate I's and O's. Monitor urine output Creatinine improved and stable Monitor BMP Heme: Leukocytosis-resolved Follow CBC daily. Monitor trends ID: UTI Day # 4 aztreonam, UA culture- Enterococcus faecalis, Vancomycin(day for) discontinued Pharmacy dosing initiated (maintain therapeutic level 10-15) unable to utilize the linezolid secondary to SSRI medication Monitor for infection ID consulted-Dr. Gordon following Urine output adequate FEN: Hypokalemia - resolved Replace electrolyte as clinically indicated Goal keep magnesium greater than 2, potassium greater than 4 MSK: Osteoarthritis PT evaluate and treat Access - Right IJ CVL day 9 Prophylaxis - GI - Protonix - DVT - SCD/heparin infusion Dispo: Discussed with [employer] HELPER at bedside. CODE STATUS changed to alternate, no CPR, no shock (defibrillation).3/2 Family meeting with palliative team DNI/DNR. Will attempt to continue CPAP trials with the goal of extubation extensive discussion with family and palliative care team if successfully weaned to extubate, the patient will not be reintubated Family stated they would not like patient to have a PEG, Trach placement. Attempts at weaning continue. Critical Care: Level 3 Kevin Chen MD Aug 30, 2016 09:01
[2016-08-30 10:15] LABS: APTT (PATIENT) 48.4 SEC (24.3-30.1)
--- NOTE | 2016-08-30 16:30 | HHI.HCPN ---
Reason for visit a. To assist with evaluation and management of symptoms including: dyspnea, debility, agitation. b. To assist medical decision maker(s) with: better understanding of current medical conditions; weighing benefits/burdens of medical treatment options; making medical treatment decisions. . Subjective/Interval History Patient seen and examined in ICU. Discussed with nurse. Left message for Dr. Chen. Intermittent agitation per nurse. Remains agitated and encephalopathic off sedation. She is not tracking or following commands. Patient is sedated on Propofol. Repeat sputum culture collected 08/27/16 positive Staph aureus, sensitivity pending. Afebrile. HR 80-90. LBM 08/30/16. Creatinine improving now 1.39. WBC normal 9.2. No new imaging. . Family/friend interactions Spoke with 2 daughters and son via telephone. Medical update provided. Explained possible decision regarding trach/PEG in the coming days if unable to be weaned. She does not appear to be weaning at this time. Remains encephalopathic, will discuss plan/ prognosis and need for decisions with Dr. Chen. . Advance Directives Living Will: Completed, but not made available Advance Directive Specifics Significant change in goals: NO CODE. Will discuss plan of care with Dr. Chen and arrange meeting when needed to further clarify goals. . Objective Vital Signs Date Time Temp Pulse Resp B/P Pulse Ox O2 Delivery O2 Flow Rate FiO2 08/30/16 14:00 80 08/30/16 12:00 86 08/30/16 12:00 45 08/30/16 12:00 97.8 91 18 99/53 97 08/30/16 11:13 100 45 08/30/16 10:00 97 08/30/16 08:00 92 08/30/16 08:00 45 08/30/16 08:00 98.3 92 20 149/78 99 08/30/16 07:50 100 45 08/30/16 06:00 96 08/30/16 04:04 99 45 08/30/16 04:00 86 08/30/16 04:00 98.6 86 16 120/61 99 08/30/16 04:00 45 08/30/16 02:00 84 08/30/16 01:16 98 45 08/30/16 00:00 98.9 93 16 115/72 97 08/30/16 00:00 45 08/30/16 00:00 93 08/29/16 22:17 100 45 08/29/16 22:00 92 08/29/16 20:00 45 08/29/16 20:00 103 08/29/16 20:00 98.6 101 19 169/98 98 08/29/16 19:43 98 45 08/29/16 18:00 99 Intake & Output 08/30/16 08/30/16 07:00 19:00 Intake Total 2162 ml 1252 ml Output Total 1100 ml 500 ml Balance 1062 ml 752 ml IV Total 1546 ml 767 ml Tube Feeding 556 ml 385 ml Tube Irrigant 60 ml Other 100 ml Output Urine Total 1100 ml 500 ml # Bowel Movements 3 Physical Exam CONSTITUTIONAL/GENERAL: This is an elderly, critically ill patient, sedated and intubated. TUBES/LINES/DRAINS: ETT, OG, central line, PIV left, bilateral soft wrist restraints, Armas, SCD's SKIN: No jaundice, rashes, or lesions. Ecchymoses on upper extremities. 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 Skin temperature appropriate. Not diaphoretic. ENT: unable to adequately assess hearing. Nose without bleeding or purulent drainage. Throat difficult to visualize secondary to tubes. Thick whitish secretions when suctioned. CARDIOVASCULAR: rate 80s, irregular. RESPIRATORY/CHEST: Symmetric, unlabored respirations on mechanical ventilation. Course breath sounds bilaterally. Diminished breath sounds left greater than right. GASTROINTESTINAL: Abdomen soft, non-tender, nondistended. No guarding. Bowel sounds present. GENITOURINARY: Without palpable bladder distension. Armas catheter in place. MUSCULOSKELETAL: Extremities with worsening edema. NEUROLOGICAL: Eyes open, does not track or follow commands. Moves all extremities. PSYCHIATRIC: Relaxed during my visit. . Diagnostic Tests Laboratory Laboratory Tests Test 08/28/16 08/28/16 08/28/16 08/28/16 06:30 11:20 17:15 23:00 White Blood Count 13.5 TH/MM3 (4.0-11.0) Red Blood Count 4.04 MIL/MM3 (4.00-5.30) Hemoglobin 11.4 GM/DL (11.6-15.3) Hematocrit 35.8 % (35.0-46.0) Mean Corpuscular Volume 88.6 FL (80.0-100.0) Mean Corpuscular Hemoglobin 28.3 PG (27.0-34.0) Mean Corpuscular Hemoglobin 31.9 % Concent (32.0-36.0) Red Cell Distribution Width 14.7 % (11.6-17.2) Platelet Count 262 TH/MM3 (150-450) Mean Platelet Volume 10.2 FL (7.0-11.0) Neutrophils (%) (Auto) 82.2 % (16.0-70.0) Lymphocytes (%) (Auto) 5.0 % (9.0-44.0) Monocytes (%) (Auto) 10.6 % (0.0-8.0) Eosinophils (%) (Auto) 1.4 % (0.0-4.0) Basophils (%) (Auto) 0.8 % (0.0-2.0) Neutrophils # (Auto) 11.1 TH/MM3 (1.8-7.7) Lymphocytes # (Auto) 0.7 TH/MM3 (1.0-4.8) Monocytes # (Auto) 1.4 TH/MM3 (0-0.9) Eosinophils # (Auto) 0.2 TH/MM3 (0-0.4) Basophils # (Auto) 0.1 TH/MM3 (0-0.2) CBC Comment AUTO DIFF Differential Total Cells 100 Counted Neutrophils % (Manual) 67 % (16-70) Band Neutrophils % 16 % (0-6) Lymphocytes % 5 % (9-44) Monocytes % 6 % (0-8) Neutrophils # (Manual) 12.0 TH/MM3 (1.8-7.7) Metamyelocytes 2 % (0-1) Myelocytes 4 % (0-0) Differential Comment FINAL DIFF MANUAL Platelet Estimate NORMAL (NORMAL) Platelet Morphology Comment ENLARGED (NORMAL) Keratocytes OCC (NORMAL) Sodium Level 140 MEQ/L (136-145) Potassium Level 4.5 MEQ/L (3.5-5.1) Chloride Level 107 MEQ/L (98-107) Carbon Dioxide Level 22.4 MEQ/L (21.0-32.0) Anion Gap 11 MEQ/L (5-15) Blood Urea Nitrogen 54 MG/DL (7-18) Creatinine 2.01 MG/DL (0.50-1.00) Estimat Glomerular Filtration 23 ML/MIN (>89) Rate Random Glucose 393 MG/DL (74-106) Calcium Level 8.5 MG/DL (8.5-10.1) Phosphorus Level 3.0 MG/DL (2.5-4.9) Magnesium Level 2.1 MG/DL (1.5-2.5) Activated Partial 86.0 SEC 38.5 SEC 45.1 SEC Thromboplast Time (24.3-30.1) (24.3-30.1) (24.3-30.1) Test 08/29/16 08/29/16 08/29/16 08/29/16 06:00 07:40 15:15 18:15 Activated Partial 38.3 SEC 83.7 SEC 45.6 SEC Thromboplast Time (24.3-30.1) (24.3-30.1) (24.3-30.1) White Blood Count 9.9 TH/MM3 (4.0-11.0) Red Blood Count 3.75 MIL/MM3 (4.00-5.30) Hemoglobin 10.7 GM/DL (11.6-15.3) Hematocrit 32.4 % (35.0-46.0) Mean Corpuscular Volume 86.4 FL (80.0-100.0) Mean Corpuscular Hemoglobin 28.6 PG (27.0-34.0) Mean Corpuscular Hemoglobin 33.2 % Concent (32.0-36.0) Red Cell Distribution Width 14.4 % (11.6-17.2) Platelet Count 231 TH/MM3 (150-450) Mean Platelet Volume 10.1 FL (7.0-11.0) Sodium Level 143 MEQ/L (136-145) Potassium Level 4.5 MEQ/L (3.5-5.1) Chloride Level 108 MEQ/L (98-107) Carbon Dioxide Level 26.2 MEQ/L (21.0-32.0) Anion Gap 9 MEQ/L (5-15) Blood Urea Nitrogen 44 MG/DL (7-18) Creatinine 1.66 MG/DL (0.50-1.00) Estimat Glomerular Filtration 29 ML/MIN (>89) Rate Random Glucose 166 MG/DL (74-106) Calcium Level 7.9 MG/DL (8.5-10.1) Phosphorus Level 3.2 MG/DL (2.5-4.9) Magnesium Level 1.9 MG/DL (1.5-2.5) Test 08/30/16 08/30/16 08/30/16 02:05 04:50 08:55 Activated Partial 51.1 SEC 48.4 SEC Thromboplast Time (24.3-30.1) (24.3-30.1) White Blood Count 9.2 TH/MM3 (4.0-11.0) Red Blood Count 3.77 MIL/MM3 (4.00-5.30) Hemoglobin 11.0 GM/DL (11.6-15.3) Hematocrit 32.5 % (35.0-46.0) Mean Corpuscular Volume 86.1 FL (80.0-100.0) Mean Corpuscular Hemoglobin 29.1 PG (27.0-34.0) Mean Corpuscular Hemoglobin 33.8 % Concent (32.0-36.0) Red Cell Distribution Width 14.4 % (11.6-17.2) Platelet Count 224 TH/MM3 (150-450) Mean Platelet Volume 10.2 FL (7.0-11.0) Sodium Level 142 MEQ/L (136-145) Potassium Level 4.4 MEQ/L (3.5-5.1) Chloride Level 108 MEQ/L (98-107) Carbon Dioxide Level 27.1 MEQ/L (21.0-32.0) Anion Gap 7 MEQ/L (5-15) Blood Urea Nitrogen 39 MG/DL (7-18) Creatinine 1.39 MG/DL (0.50-1.00) Estimat Glomerular Filtration 36 ML/MIN (>89) Rate Random Glucose 198 MG/DL (74-106) Calcium Level 8.5 MG/DL (8.5-10.1) Phosphorus Level 3.4 MG/DL (2.5-4.9) Magnesium Level 2.2 MG/DL (1.5-2.5) Result Diagram: 08/30/16 0450 08/30/16 0450 Microbiology Microbiology Date/Time Procedure Status Source Growth 08/27/16 18:00 Influenza Types A,B Antigen (TITA) - Final Complete Nasal Washing NEGATIVE FOR FLU A AND B ANTIGEN.... 08/27/16 18:00 Gram Stain - Final Complete Sputum Endotracheal 08/27/16 18:00 Sputum Culture - Final Complete Staphylococcus Aureus 08/27/16 18:00 Legionella Antigen - Final Complete Urine Random Urine PRESUMPTIVE NEGATIVE FOR LEGIONELLA P... 08/27/16 18:00 Streptococcus pneumoniae Antigen (M - Final Complete Urine Random Urine PRESUMPTIVE NEGATIVE FOR STREPTOCOCCU... . Imaging Last Impressions Chest X-Ray 08/29/16 0000 Signed Impressions: Service Date/Time: Monday, August 29, 2016 12:51 - CONCLUSION: Stable chest x-ray with bilateral pleural effusions with associated volume loss and consolidation. Pollo Willson MD Abdomen X-Ray 08/29/16 0000 Signed Impressions: Service Date/Time: Monday, August 29, 2016 12:56 - CONCLUSION: 1. There are no imaging findings to suggest ileus. No acute abdominal process is identified. 2. Stable bilateral pleural effusions. Pollo Willson MD . Assessment and Plan Disease Oriented Problem List: (1) Respiratory failure (2) Paroxysmal atrial flutter (3) Paroxysmal atrial fibrillation (4) CAD (coronary artery disease) (5) Bradycardia (6) Aortic stenosis Symptom Scale: (1) Shortness of breath 0-10 Scale: Unable to quantify Comment: on mech vent (2) Weakness 0-10 Scale: Unable to quantify Pertinent Non-Medical Issues Psychosocial: . Spiritual: [facility] Legal:Patient currently incapacitated to make her own health care decisions. Notes indicate patient has a living will, will request copy. Ethical issues impacting care: No known concerns at this time. . Important Contacts * Joanie Jose, daughter: [phone] or [phone] * Lilian Negrito, daughter: [phone] . Prognosis Will need to speak with cardiology and toy assembler for further clarification of overall prognosis. . Code Status: No Code (DO NOT reintubate if medically extubated. ) Plan * Patient currently incapacitated to make her own health care decisions. Copy of Living Will on chart. Sent to HIM to be scanned in. According to LW is primary HCS (he has end stage dementia and is unable to participate) and son Douglas is alternate HCS, however his name is crossed off and daughter, Sandra "Lilian" Aimee is written in as HCS. All family is working together to make decisions. * Intubation Only - family considering reintubation if pt self extubates. * 08/30/16 - Spoke with 2 daughters and son via telephone. Medical update provided. Explained possible decision regarding trach/PEG in the coming days if unable to be weaned. She does not appear to be weaning at this time. Remains encephalopathic, will discuss plan/ prognosis and need for decisions with Dr. Chen. * SYMPTOMS: Dyspnea: on mech vent. Anxiety: On Propofol drip this morning. Appears comfortable. Agitation: intermittent agitation per nurse. Not following commands when off sedation. * Palliative care will continue to follow to assist with symptom management and clarification of treatment goals throughout hospital course. . Attestation To help prompt me to consider important information that might be impacting today's encounter and assessment, information from prior notes written by myself or my colleagues may have been "brought forward" into today's note. My signature on this note, however, is an attestation that I personally performed the exam, history, and/or decision-making noted today, and, unless otherwise indicated, the interactions with patient, family, and staff as well as the review of records all occurred today. I also attest that the listed assessment and stated plan reflect my best clinical judgment today based on the combination of historical information, prior notes, and today's exam/ interactions. When time spent is documented, it refers only to time spent today by the signer, or if indicated, combined time spent today by collaborating physician/nurse practitioner. HAKEEM MANN Aug 30, 2016 16:30
[2016-08-30] MEDS: HEPARIN-D5W INJ 250 ML IV SCH (17:01)
[2016-08-30] MEDS: AMITRIPTYLINE HCL 25 MG TAB PO SCH (21:08)
[2016-08-30] MEDS: SODIUM CHLOR 0.9% 1000 ML INJ 1,000 ML IV SCH (21:09)
[2016-08-31] VITALS (20 sets, daily range): BP systolic 88–159; BP diastolic 49–69; PULSE 63–95; RESP 16–28; TEMP 97.7–98.3; O2SAT 96–100
[2016-08-31] MEDS: PROPOFOL 1000 MG/100 ML INJ 100 ML IV SCH ×3 (00:50→20:09)
[2016-08-31] MEDS: CLINDAMYCIN INJ 600 MG in SODIUM CHLORIDE 0.9% INJ 100 ML IV SCH ×3 (00:58→15:34)
[2016-08-31] MEDS: LEVOFLOXACIN 750 MG PREMIX INJ 150 ML IV SCH (02:17)
[2016-08-31] MEDS: CHLORHEXIDINE GLUCONATE 2 % 1 PACK (2 CLOTHS) TOP SCH (04:00)
[2016-08-31 05:10] LABS: BLOOD GAS BASE EXCESS -0.8 mmol/L (-2-2); BLOOD GAS HCO3 23 mmol/L (22-26); BLOOD GAS METHEMOGLOBIN 1.1 % (0-2); BLOOD GAS O2 HGB SATURATION 95 % (90-100); BLOOD GAS OXYGEN CONTENT 18.9 Vol % (12.0-20.0); BLOOD GAS PCO2 37 mmHg (38-42); BLOOD GAS PO2 91 mmHg (61-120); CRITICAL VALUE NO; DRAW SITE RT RADIAL; FIO2 40 %; OXYGEN DEVICE VENTILATOR; TEMP CORR TO 98.6; VENT SETTINGS AC/500/16/PEEP5
[2016-08-31 05:11] LABS: NUMBER OF ARTERIAL PUNCTURES 2; STAT YES; ULNAR PULSE PRESENT
[2016-08-31 05:32] LABS: AUTOMATED NEUTROPHIL # 7.2 TH/MM3 (1.8-7.7); BASOPHIL # 0.1 TH/MM3 (0-0.2); BASOPHIL % 1.2 % (0.0-2.0); EOSINOPHIL # 0.4 TH/MM3 (0-0.4); EOSINOPHIL % 4.5 % (0.0-4.0); LYMPH % 11.5 % (9.0-44.0); LYMPHOCYTE # 1.1 TH/MM3 (1.0-4.8); MEAN CELL VOLUME 86.7 FL (80.0-100.0); MEAN CORPUSCULAR HEMOGLOBIN 28.9 PG (27.0-34.0); MEAN CORPUSCULAR HGB CONC 33.4 % (32.0-36.0); MONO % 9.7 % (0.0-8.0); NEUT % 73.1 % (16.0-70.0); PLATELET COUNT 260 TH/MM3 (150-450); RED BLOOD COUNT 3.92 MIL/MM3 (4.00-5.30); RED CELL DISTRIBUTION WIDTH 14.7 % (11.6-17.2); WHITE BLOOD COUNT 9.8 TH/MM3 (4.0-11.0)
[2016-08-31 05:35] LABS: HEMO FLAGS AUTO DIFF
[2016-08-31 05:43] LABS: APTT (PATIENT) 39.7 SEC (24.3-30.1)
[2016-08-31] MEDS: LINEZOLID 600 MG PREMIX 300 ML IV SCH ×2 (05:46→18:45)
[2016-08-31 05:52] LABS: ALT (GPT) 33 U/L (10-53); ANION GAP 8 MEQ/L (5-15); AST (GOT) 20 U/L (15-37); BICARBONATE 26.7 MEQ/L (21.0-32.0); BLOOD UREA NITROGEN 34 MG/DL (7-18); CHLORIDE 108 MEQ/L (98-107); GLOMERULAR FILTRATION RATE 37 ML/MIN (>89); POTASSIUM 4.4 MEQ/L (3.5-5.1); SODIUM (NA) 143 MEQ/L (136-145)
[2016-08-31 05:54] LABS: ALKALINE PHOSPHATASE 317 U/L (45-117); TOTAL BILIRUBIN ADULT 0.3 MG/DL (0.2-1.0)
[2016-08-31] MEDS: INSULIN NovoLIN REGULAR SUPPLEMENTAL SCALE SQ SCH ×4 (06:02→20:30)
--- NOTE | 2016-08-31 06:09 | RADRPT ---
EXAM DATE/TIME: 08/31/2016 04:46 [facility] COMPARISON: CHEST SINGLE AP, August 29, 2016, 12:51. INDICATIONS : Shortness of breath. MEDICAL HISTORY : Hypertension. Cardiovascular disease. SURGICAL HISTORY : None. ENCOUNTER: Subsequent ACUITY: 1 week PAIN SCORE: Non-responsive. LOCATION: Bilateral chest FINDINGS: A single view of the chest demonstrates persistent bibasilar areas of consolidation/effusion, unchang ed. Heart size is upper limits of normal. Life support tubes are all stable in position. CONCLUSION: 1. Persistent bibasilar areas of consolidation/effusion, unchanged. 2. Stable position of life support tubes. Luis Schulz MD on August 31, 2016 at 6:07 Board Certified Radiologist. This report was verified electronically.
[2016-08-31 07:20] LABS: BANDS 10 % (0-6); BASOPHILS 1 % (0-2); EOSINOPHILS 3 % (0-4); METAMYELOCYTES 1 % (0-1); MYELOCYTES 2 % (0-0); NEUTROPHIL # MANUAL DIFF 7.7 TH/MM3 (1.8-7.7); POLYS (SEG NEUTROPHILS) 66 % (16-70); WBC DIFF SAMPLE 100
[2016-08-31 07:21] LABS: PLATELET ESTIMATE SMEAR NORMAL (NORMAL); PLATELET MORPHOLOGY ENLARGED (NORMAL)
[2016-08-31 07:22] LABS: SCAN/DIFF FINAL DIFF MANUAL
[2016-08-31] MEDS: DOCUSATE SODIUM 100 MG CAP PO SCH ×2 (08:46→20:30)
[2016-08-31] MEDS: METOCLOPRAMIDE HCL 10 MG/2 ML VIAL IV PUSH SCH ×3 (08:46→18:45)
[2016-08-31] MEDS: FAMOTIDINE 20 MG TAB NG SCH ×2 (08:46→20:28)
[2016-08-31] MEDS: POLYETHYLENE GLYCOL 17 GM PKG PO SCH ×2 (08:47→20:30)
[2016-08-31] MEDS: LACTULOSE SYRUP 20 GM/30 ML CUP TUBE SCH ×4 (08:47→20:31)
[2016-08-31] MEDS: SENNOSIDES 8.6 MG TAB PO SCH ×2 (08:47→20:30)
[2016-08-31] MEDS: ARTIFICIAL TEARS OPTH OINT 3.5 APPLIC/3.5 GM TUBO EACH EYE SCH ×2 (08:47→20:30)
[2016-08-31] MEDS: SODIUM CHLORIDE 0.9% FLUSH 5 ML FLUSH IV FLUSH SCH ×2 (08:48→20:30)
--- NOTE | 2016-08-31 09:10 | HHI.CCPN ---
Subjective Remarks/Hospital Course 86-year-old female brought by her daughter with history of fatigue, tiredness and bradycardia. Per chart the patient has been sleeping 12-14 hours a day for past couple days. Today the home health nurse came and checked her pulse and it was in the low 40s. She advised that the patient should be brought to the emergency room. The patient is too somnolent and lethargic to provide any more history. 08/21: Afebrile. Heart rate currently in the 50s and 60s on dopamine drip at 12 micrograms per kilogram per minute. Patient appears to have a baseline heart rate between 40 and 55 according to review of old records here at [place]. Placed on ADA diet. No bowel movement. Subjective 08/22: Afebrile. Dopamine done at 3 mcg/kg/m. Rhythm changes between normal sinus rhythm in addition to a Mobitz second-degree heart block type I and atrial fibrillation. Awake and alert and following commands. Tolerating diet. Denies chest pain or shortness of breath. 08/23: The patient was reintubated overnight, secondary to altered mental status and increased lethargy. Sedation vacation obtain patient's starting to follow commands this a.m.. Dopamine was discontinued yesterday. The patient continues to vacillate between normal sinus rhythm and Mobitz second-degree heart block, and sinus arrhythmia, BP stable. 08/24:Afebrile. No acute events overnight. The patient is now following commands on sedation vacation. Plan to change transition to Precedex infusion, with discontinuation of propofol and continue CPAP trials. The family has requested palliative medicine consult. 08/25: The patient was bradycardic overnight heart rate 30s, normotensive, had received morphine 4 mg IV for agitation last evening. Palliative care has a planned family meeting today, to discuss goals of care. UA culture revealed Enterobacter fecalis the patient was started on vancomycin yesterday afternoon. 08/26: No change in neurological status. The patient does not follow commands, but does become anxious, attempting to pull out endotracheal tube. The patient was started on vancomycin 08/24, noted elevation in creatinine and decreasing urinary output overnight, vancomycin discontinued. Infectious disease consulted secondary to multiple allergies. 08/27: Early this a.m.0620, during positioning the patient was noted to be severely bradycardic, heart rate 28, intermittent blood pressure was not obtainable, all sedation discontinued. The patient's heart rate trended upward after repositioning supine mid 30s at 0625, blood pressure 143/58. Stat ABG drawn, with noted mixed respiratory metabolic acidosis, pH 7.10 PCO2 60 bicarbonate 17 base deficit,-10. The patient continues on heparin infusion. Urine output improved overnight. 08/28: No acute events overnight, heart rate 50-60's.The patient remains on low- dose propofol 7-10mcgs to maintain ventilator synchrony. Heparin infusing. The patient was noted to have elevated tube feed residuals. Reglan 5 mg 3 times a day instituted. 08/29 Tmax 98.9. Patient continues to fail CPAP trials despite multiple attempts. Chest x-ray unchanged with perihilar and bibasilar opacities. The patient was placed on a higher insulin sliding scale and now does not require additional coverage. WBC count trending down today. Patient does not follow commands on sedation vacation. 08/30 no changes overnight 08/31 failed CPAP trial yesterday due to rapid shallow breathing Objective Vital Signs Date Time Temp Pulse Resp B/P Pulse Ox O2 Delivery O2 Flow Rate FiO2 08/31/16 08:08 100 40 08/31/16 06:00 91 08/31/16 04:00 98.3 28 134/59 Intake and Output 08/30/16 08/30/16 08/31/16 08:00 16:00 00:00 Intake Total 945 ml 1252 ml 1342 ml Output Total 475 ml 500 ml 600 ml Balance 470 ml 752 ml 742 ml Result Diagram: 08/31/16 0445 08/31/16 0445 Other Results Laboratory Tests Test 08/31/16 04:57 Blood Gas Puncture Site RT RADIAL Blood Gas Patient Temperature 98.6 Blood Gas HCO3 23 mmol/L (22-26) Blood Gas Base Excess -0.8 mmol/L (-2-2) Blood Gas Oxygen Saturation 95 % (90-100) Arterial Blood pH 7.42 (7.380-7.420) Arterial Blood Partial 37 mmHg (38-42) Pressure CO2 Arterial Blood Partial 91 mmHg Pressure O2 (61-120) Arterial Blood Oxygen Content 18.9 Vol % (12.0-20.0) Arterial Blood 1.0 % (0-4) Carboxyhemoglobin Arterial Blood Methemoglobin 1.1 % (0-2) Blood Gas Hemoglobin 14.0 G/DL (12.0-16.0) Oxygen Delivery Device VENTILATOR Blood Gas Ventilator Setting AC/500/16/PEEP5 Blood Gas Inspired Oxygen 40 % Imaging Last Impressions Chest X-Ray 08/29/16 0000 Signed Impressions: Service Date/Time: Monday, August 29, 2016 05:53 - CONCLUSION: No significant change Pollo Ramey MD Last Impressions Chest X-Ray 08/20/16 1334 Signed Impressions: Service Date/Time: Saturday, August 20, 2016 13:40 - CONCLUSION: No acute disease. Mario Hassan MD FACR Objective Remarks GENERAL: 86 yo female, critically ill currently resting in bed intubated moving extremities not following commands off sedation very anxious SKIN: Warm and dry. No rash HEAD: Normocephalic. EYES: No scleral icterus. No injection or drainage. PERRL. EOMI. ENT: No tympanic drainage. Oropharynx without erythema or exudates orotracheally intubated NECK: Supple, trachea midline. No JVD or lymphadenopathy. No carotid bruit CARDIOVASCULAR: Normal sinus rhythm. Heart rate 60's. S1, S2. No S4. RESPIRATORY: Breath sounds equal bilaterally, coarse. Mechanical ventilation GASTROINTESTINAL: Abdomen soft, non-tender, nondistended. Normoactive bowel sounds are appreciated. Tube feeds infusing MUSCULOSKELETAL: Peripheral edema bilateral extremities. Prior scarring from bypass right-sided noted BACK: Nontender without obvious deformity. No CVA tenderness. Date of Insertion: Aug 20, 2016 Line: Central Venous Catheter Side: Right Location: Internal, Jugular A/P Problem List: (1) Chronic kidney disease, stage 3 ICD Code: N18.3 Status: Acute (2) HTN (hypertension) ICD Code: I10 Status: Chronic (3) Symptomatic bradycardia ICD Code: R00.1 Status: Acute Assessment and Plan Neuro/Psych: Chronic benzodiazepine use Depression/anxiety Continue Elavil 25 mg by mouth daily/home medication Continue Escitalopram 10 mg by mouth daily for depression as home medication Discontinued Xanax 0.25 Acetaminophen for fever Propofol infusion low-dose 7-15 mcgs 08/24-EEG results - without evidence of active seizure activity Nonresponsive to any commands Sedation vacation per ICU routine CV: Symptomatically bradycardia Second-degree Mobitz type I currently in normal sinus rhythm History of a flutter status post ablation 2016 Nonobstructive coronary disease Hypertension Dyslipidemia Peripheral vascular disease history of post right femoropopliteal, femoral- tibial and femoroperoneal bypass Dr. Verdin/cardiology. Cardiology has been consulted however no meaningful recommendations. Bradycardia and block likely secondary to amiodarone?. No plans for intervention at this time per Dr [place], patient is hemodynamically stable not requiring pressors or pacing Cardiac catheterization 04/11 revealed left main without disease, LAD 40% stenosis, left circumflex coronary disease and RCA 40% stenosis. No intervention. Off dopamine since 08/22. Amiodarone currently has been held. Patient is on valsartan 320 mg daily for hypertension. This is currently on hold Continue Plavix 75 mg by mouth daily for peripheral vascular disease. Heparin infusion will stop today and change to full dose of Lovenox Resp: Documentation of asthma History of pulmonary embolism Maintain saturations greater than equal to 92% Mechanical ventilation settings 12/500/100/5 Ventilator bundle Maintain head of bed 30 Continue duo nebs per schedule Continue to attempt CPAP trials daily Day 10 of mechanical ventilation - family has agreed to do not reintubate(DNI), the patient continues to fail CPAP trials GI: Constipation Peptamen AF Pepcid BID . On Zantac 150 mg a night at home. Colace/Senokot twice a day for bowel regimen, MiraLAX and lactulose added to medication regimen Last BM 08/23 F/U KUB : Armas changed 08/28, initiation of vancomycin 08/24- 3 Proteus UTI, hesitancy towards utilization of Linezolid with patient's long-term SSRI use, nitrofurantoin unable to administer via gastric tube. Maintain/ strict accurate I' & O's Endo: Diabetes mellitus type 2 Home medications Januvia 100 mg daily, Tresiba injection subcutaneous as needed and Farxiga 10 mg daily Sliding scale insulin Accu-Cheks every 6 before meals at bedtime to maintain euglycemia/moderate regimen TSH within normal limits High dose SSI Renal: History chronic kidney disease stage III Creatinine currently slightly elevated Accurate I's and O's. Monitor urine output Creatinine improved and stable Monitor BMP Heme: Leukocytosis-resolved Follow CBC daily. Monitor trends ID: UTI Day # 5 aztreonam, UA culture- Enterococcus faecalis, Vancomycin(day for) discontinued Pharmacy dosing initiated (maintain therapeutic level 10-15) unable to utilize the linezolid secondary to SSRI medication Monitor for infection ID consulted-Dr. Gordon following Urine output adequate FEN: Hypokalemia - resolved Replace electrolyte as clinically indicated Goal keep magnesium greater than 2, potassium greater than 4 MSK: Osteoarthritis PT evaluate and treat Access - Right IJ CVL day 9 Prophylaxis - GI - Protonix - DVT - SCD/heparin infusion Dispo: Discussed with FILAMENT SHAPER at bedside. CODE STATUS changed to alternate, no CPR, no shock (defibrillation).3/2 Family meeting with palliative team DNI/DNR. Will attempt to continue CPAP trials with the goal of extubation extensive discussion with family and palliative care team if successfully weaned to extubate, the patient will not be reintubated Family stated they would not like patient to have a PEG, Trach placement. Attempts at weaning continue. Critical Care: Level 3 Kevin Chen MD Aug 31, 2016 09:10
[2016-08-31] MEDS: ENOXAPARIN SODIUM 80 MG/0.8 ML SYRINGE SQ SCH ×2 (11:12→22:29)
[2016-08-31] MEDS: RESP: ALBUTEROL 2.5 MG/IPRATROPIUM 0.5 MG NEB (PRN) INH (11:26)
[2016-08-31] MEDS: methylPREDNISolone SOD SUCC 40 MG/1 ML VIAL IV PUSH SCH ×2 (15:32→22:29)
[2016-08-31] MEDS: RESP: ALBUTEROL 2.5 MG/IPRATROPIUM 0.5 MG NEB (SCH) NEB ×2 (15:41→20:02)
--- NOTE | 2016-08-31 16:30 | HHI.HCPN ---
Reason for visit a. To assist with evaluation and management of symptoms including: dyspnea, debility, agitation. b. To assist medical decision maker(s) with: better understanding of current medical conditions; weighing benefits/burdens of medical treatment options; making medical treatment decisions. . Subjective/Interval History Patient seen and examined in ICU. and 2 daughters at bedside. Discussed with nurse, Viktor and Dr. Chen. Did not tolerate CPAP yesterday. Nurse reports sedation vacation this morning, took the patient approximate an hour to wake up , she worries agitated, shaking her head and appear to be purposefully attempting to pull out ET tube. She again appears with facial grimacing. She is still not tracking or following commands when off sedation. Was unable to attend CPAP trial today her nursing staff. Afebrile. HR 80-90. BP 88/49 at noon, since improved. LBM 08/31/16. Creatinine improving now 1.36. WBC normal 9.8. Chest x-ray with persistent bibasilar areas of consolidation/effusion, unchanged, stable position of life support tubes. . Family/friend interactions Met with 2 of the patient's daughter's, Lilian and Joanie. Reviewed my conversation with Dr. Chen regarding trach and PEG decisions. Medical update provided. Explained we will need a trach/PEG decision on . Requested family meeting on with patients 4 children to clarify trach/PEG decision vs. transition to comfort measures. Family will arrange a time and let me know. . Advance Directives Living Will: Copy in medical record Health Care Surrogate: Copy in medical record Advance Directive Specifics Health Care Surrogate(s): Patient currently incapacitated to make her own health care decisions. Copy of Living Will on chart. Sent to HIM to be scanned in. According to LW is primary HCS (he has end stage dementia and is unable to participate) and sonDouglas is alternate HCS, however his name is crossed off and daughterSandra (Michelle) is written in as HCS. All family (4 children) are working together to make decisions. Significant change in goals: NO CODE. Family meeting 09/02/16, time to be arranged among family to further clarify treatment goals (trach/PEG decision). . Objective Vital Signs Date Time Temp Pulse Resp B/P Pulse Ox O2 Delivery O2 Flow Rate FiO2 08/31/16 15:42 100 40 08/31/16 12:00 40 08/31/16 12:00 98.1 95 26 88/49 97 08/31/16 12:00 82 08/31/16 11:15 96 40 08/31/16 10:00 66 08/31/16 09:50 40 08/31/16 08:08 100 40 08/31/16 08:00 92 08/31/16 08:00 40 08/31/16 08:00 97.9 82 22 142/58 99 08/31/16 06:00 91 08/31/16 04:15 97 40 08/31/16 04:00 63 08/31/16 04:00 40 08/31/16 04:00 98.3 63 28 134/59 100 08/31/16 02:00 86 08/31/16 01:12 100 40 08/31/16 00:00 94 08/31/16 00:00 40 08/31/16 00:00 98.0 94 21 139/59 100 08/30/16 22:22 100 40 08/30/16 22:00 84 08/30/16 20:00 98.1 76 19 145/65 98 08/30/16 20:00 40 08/30/16 20:00 89 08/30/16 19:47 100 40 08/30/16 18:00 76 08/30/16 16:54 99 45 Intake & Output 08/31/16 08/31/16 07:00 19:00 Intake Total 2352 ml Output Total 1150 ml Balance 1202 ml IV Total 1535 ml Tube Feeding 757 ml Tube Irrigant 60 ml Output Urine Total 1150 ml # Bowel Movements 1 Physical Exam CONSTITUTIONAL/GENERAL: This is an elderly, critically ill patient, sedated and intubated. TUBES/LINES/DRAINS: ETT, OG, central line, PIV left, bilateral soft wrist restraints, Armas, SCD's SKIN: No jaundice, rashes, or lesions. Ecchymoses on upper extremities. 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 Skin temperature appropriate. Not diaphoretic. ENT: unable to adequately assess hearing. Nose without bleeding or purulent drainage. Throat difficult to visualize secondary to tubes. Thick whitish secretions when suctioned. CARDIOVASCULAR: rate 80s, irregular. RESPIRATORY/CHEST: Symmetric, unlabored respirations on mechanical ventilation. Course breath sounds bilaterally. Diminished breath sounds left greater than right. GASTROINTESTINAL: Abdomen soft, non-tender, nondistended. No guarding. Bowel sounds present. GENITOURINARY: Without palpable bladder distension. Armas catheter in place. MUSCULOSKELETAL: Extremities with worsening edema. NEUROLOGICAL: Eyes open, does not track or follow commands. Moves all extremities. PSYCHIATRIC: Relaxed during my visit. . Diagnostic Tests Laboratory Laboratory Tests Test 08/28/16 08/28/16 08/29/16 08/29/16 17:15 23:00 06:00 07:40 Activated Partial 38.5 SEC 45.1 SEC 38.3 SEC Thromboplast Time (24.3-30.1) (24.3-30.1) (24.3-30.1) White Blood Count 9.9 TH/MM3 (4.0-11.0) Red Blood Count 3.75 MIL/MM3 (4.00-5.30) Hemoglobin 10.7 GM/DL (11.6-15.3) Hematocrit 32.4 % (35.0-46.0) Mean Corpuscular Volume 86.4 FL (80.0-100.0) Mean Corpuscular Hemoglobin 28.6 PG (27.0-34.0) Mean Corpuscular Hemoglobin 33.2 % Concent (32.0-36.0) Red Cell Distribution Width 14.4 % (11.6-17.2) Platelet Count 231 TH/MM3 (150-450) Mean Platelet Volume 10.1 FL (7.0-11.0) Sodium Level 143 MEQ/L (136-145) Potassium Level 4.5 MEQ/L (3.5-5.1) Chloride Level 108 MEQ/L (98-107) Carbon Dioxide Level 26.2 MEQ/L (21.0-32.0) Anion Gap 9 MEQ/L (5-15) Blood Urea Nitrogen 44 MG/DL (7-18) Creatinine 1.66 MG/DL (0.50-1.00) Estimat Glomerular Filtration 29 ML/MIN (>89) Rate Random Glucose 166 MG/DL (74-106) Calcium Level 7.9 MG/DL (8.5-10.1) Phosphorus Level 3.2 MG/DL (2.5-4.9) Magnesium Level 1.9 MG/DL (1.5-2.5) Test 08/29/16 08/29/16 08/30/16 08/30/16 15:15 18:15 02:05 04:50 Activated Partial 83.7 SEC 45.6 SEC 51.1 SEC Thromboplast Time (24.3-30.1) (24.3-30.1) (24.3-30.1) White Blood Count 9.2 TH/MM3 (4.0-11.0) Red Blood Count 3.77 MIL/MM3 (4.00-5.30) Hemoglobin 11.0 GM/DL (11.6-15.3) Hematocrit 32.5 % (35.0-46.0) Mean Corpuscular Volume 86.1 FL (80.0-100.0) Mean Corpuscular Hemoglobin 29.1 PG (27.0-34.0) Mean Corpuscular Hemoglobin 33.8 % Concent (32.0-36.0) Red Cell Distribution Width 14.4 % (11.6-17.2) Platelet Count 224 TH/MM3 (150-450) Mean Platelet Volume 10.2 FL (7.0-11.0) Sodium Level 142 MEQ/L (136-145) Potassium Level 4.4 MEQ/L (3.5-5.1) Chloride Level 108 MEQ/L (98-107) Carbon Dioxide Level 27.1 MEQ/L (21.0-32.0) Anion Gap 7 MEQ/L (5-15) Blood Urea Nitrogen 39 MG/DL (7-18) Creatinine 1.39 MG/DL (0.50-1.00) Estimat Glomerular Filtration 36 ML/MIN (>89) Rate Random Glucose 198 MG/DL (74-106) Calcium Level 8.5 MG/DL (8.5-10.1) Phosphorus Level 3.4 MG/DL (2.5-4.9) Magnesium Level 2.2 MG/DL (1.5-2.5) Test 08/30/16 08/31/16 08/31/16 08:55 04:45 04:57 Activated Partial 48.4 SEC 39.7 SEC Thromboplast Time (24.3-30.1) (24.3-30.1) White Blood Count 9.8 TH/MM3 (4.0-11.0) Red Blood Count 3.92 MIL/MM3 (4.00-5.30) Hemoglobin 11.3 GM/DL (11.6-15.3) Hematocrit 34.0 % (35.0-46.0) Mean Corpuscular Volume 86.7 FL (80.0-100.0) Mean Corpuscular Hemoglobin 28.9 PG (27.0-34.0) Mean Corpuscular Hemoglobin 33.4 % Concent (32.0-36.0) Red Cell Distribution Width 14.7 % (11.6-17.2) Platelet Count 260 TH/MM3 (150-450) Mean Platelet Volume 10.1 FL (7.0-11.0) Neutrophils (%) (Auto) 73.1 % (16.0-70.0) Lymphocytes (%) (Auto) 11.5 % (9.0-44.0) Monocytes (%) (Auto) 9.7 % (0.0-8.0) Eosinophils (%) (Auto) 4.5 % (0.0-4.0) Basophils (%) (Auto) 1.2 % (0.0-2.0) Neutrophils # (Auto) 7.2 TH/MM3 (1.8-7.7) Lymphocytes # (Auto) 1.1 TH/MM3 (1.0-4.8) Monocytes # (Auto) 1.0 TH/MM3 (0-0.9) Eosinophils # (Auto) 0.4 TH/MM3 (0-0.4) Basophils # (Auto) 0.1 TH/MM3 (0-0.2) CBC Comment AUTO DIFF Differential Total Cells 100 Counted Neutrophils % (Manual) 66 % (16-70) Band Neutrophils % 10 % (0-6) Lymphocytes % 11 % (9-44) Monocytes % 6 % (0-8) Eosinophils % 3 % (0-4) Basophils % 1 % (0-2) Neutrophils # (Manual) 7.7 TH/MM3 (1.8-7.7) Metamyelocytes 1 % (0-1) Myelocytes 2 % (0-0) Differential Comment FINAL DIFF MANUAL Platelet Estimate NORMAL (NORMAL) Platelet Morphology Comment ENLARGED (NORMAL) Sodium Level 143 MEQ/L (136-145) Potassium Level 4.4 MEQ/L (3.5-5.1) Chloride Level 108 MEQ/L (98-107) Carbon Dioxide Level 26.7 MEQ/L (21.0-32.0) Anion Gap 8 MEQ/L (5-15) Blood Urea Nitrogen 34 MG/DL (7-18) Creatinine 1.36 MG/DL (0.50-1.00) Estimat Glomerular Filtration 37 ML/MIN (>89) Rate Random Glucose 180 MG/DL (74-106) Calcium Level 8.2 MG/DL (8.5-10.1) Phosphorus Level 3.7 MG/DL (2.5-4.9) Magnesium Level 2.0 MG/DL (1.5-2.5) Total Bilirubin 0.3 MG/DL (0.2-1.0) Aspartate Amino Transf 20 U/L (15-37) (AST/SGOT) Alanine Aminotransferase 33 U/L (10-53) (ALT/SGPT) Alkaline Phosphatase 317 U/L (45-117) Total Protein 5.2 GM/DL (6.4-8.2) Albumin 1.7 GM/DL (3.4-5.0) Blood Gas Puncture Site RT RADIAL Blood Gas Patient Temperature 98.6 Blood Gas HCO3 23 mmol/L (22-26) Blood Gas Base Excess -0.8 mmol/L (-2-2) Blood Gas Oxygen Saturation 95 % (90-100) Arterial Blood pH 7.42 (7.380-7.420) Arterial Blood Partial 37 mmHg (38-42) Pressure CO2 Arterial Blood Partial 91 mmHg Pressure O2 (61-120) Arterial Blood Oxygen Content 18.9 Vol % (12.0-20.0) Arterial Blood 1.0 % (0-4) Carboxyhemoglobin Arterial Blood Methemoglobin 1.1 % (0-2) Blood Gas Hemoglobin 14.0 G/DL (12.0-16.0) Oxygen Delivery Device VENTILATOR Blood Gas Ventilator Setting AC/500/16/PEEP5 Blood Gas Inspired Oxygen 40 % Result Diagram: 08/31/165 08/31/16 0445 Microbiology Microbiology Date/Time Procedure Status Source Growth 08/27/16 18:00 Legionella Antigen - Final Complete Urine Random Urine PRESUMPTIVE NEGATIVE FOR LEGIONELLA P... 08/27/16 18:00 Streptococcus pneumoniae Antigen (M - Final Complete Urine Random Urine PRESUMPTIVE NEGATIVE FOR STREPTOCOCCU... 08/27/16 18:00 Influenza Types A,B Antigen (TITA) - Final Complete Nasal Washing NEGATIVE FOR FLU A AND B ANTIGEN.... 08/27/16 18:00 Gram Stain - Final Complete Sputum Endotracheal 08/27/16 18:00 Sputum Culture - Final Complete Staphylococcus Aureus . Imaging Last Impressions Chest X-Ray 08/31/16 0600 Signed Impressions: Service Date/Time: Wednesday, August 31, 2016 04:46 - CONCLUSION: 1. Persistent bibasilar areas of consolidation/effusion, unchanged. 2. Stable position of life support tubes. Luis Schulz MD Abdomen X-Ray 08/29/16 0000 Signed Impressions: Service Date/Time: Monday, August 29, 2016 12:56 - CONCLUSION: 1. There are no imaging findings to suggest ileus. No acute abdominal process is identified. 2. Stable bilateral pleural effusions. Pollo Willson MD . Procedures 08/23/16 - Reintubated. Assessment and Plan Disease Oriented Problem List: (1) Respiratory failure (2) Paroxysmal atrial flutter (3) Paroxysmal atrial fibrillation (4) CAD (coronary artery disease) (5) Bradycardia (6) Aortic stenosis Symptom Scale: (1) Shortness of breath 0-10 Scale: Unable to quantify Comment: on mech vent (2) Weakness 0-10 Scale: Unable to quantify Pertinent Non-Medical Issues Psychosocial: , spouse has ES dementia on hospice. 3 daughters and 1 son. Spiritual: Zoroastrianism ray Legal: Patient currently incapacitated to make her own health care decisions. Notes indicate patient has a living will, will request copy. Ethical issues impacting care: No known concerns at this time. . Important Contacts * Joanie Jose, daughter: [phone] or [phone] * Lilian Mahan, daughter: [phone] . Prognosis Will need to speak with cardiology and tire mechanic for further clarification of overall prognosis. . Code Status: No Code (DO NOT reintubate if medically extubated. ) Plan * Patient currently incapacitated to make her own health care decisions. Copy of Living Will on chart. Sent to HIM to be scanned in. According to LW is primary HCS (he has end stage dementia and is unable to participate) and son Douglas is alternate HCS, however his name is crossed off and daughterSandra (Michelle) is written in as HCS. All family (4 children) is working together to make decisions. * NO CODE. * 08/31/16 - Met with 2 of the patient's daughter's, Lilian and Joanie. Reviewed my conversation with Dr. Chen regarding trach and PEG decisions. Medical update provided. Explained we will need a trach/PEG decision on . Requested family meeting on with patients 4 children to clarify trach/PEG decision vs. transition to comfort measures. Family will arrange a time and let me know. * Re-faxed and emailed daughterLilian [place] paperwork per her request. Confirmation received. * SYMPTOMS: Dyspnea: on mech vent. Anxiety: On Propofol drip this morning. Appears comfortable. Agitation: intermittent agitation per nurse. Not following commands when off sedation. * Palliative care will continue to follow to assist with symptom management and clarification of treatment goals throughout hospital course. . Attestation To help prompt me to consider important information that might be impacting today's encounter and assessment, information from prior notes written by myself or my colleagues may have been "brought forward" into today's note. My signature on this note, however, is an attestation that I personally performed the exam, history, and/or decision-making noted today, and, unless otherwise indicated, the interactions with patient, family, and staff as well as the review of records all occurred today. I also attest that the listed assessment and stated plan reflect my best clinical judgment today based on the combination of historical information, prior notes, and today's exam/ interactions. When time spent is documented, it refers only to time spent today by the signer, or if indicated, combined time spent today by collaborating physician/nurse practitioner. HAKEEM MANN Aug 31, 2016 16:30
[2016-08-31] MEDS: AMITRIPTYLINE HCL 25 MG TAB PO SCH (20:28)
[2016-08-31] MEDS: SODIUM CHLOR 0.9% 1000 ML INJ 1,000 ML IV SCH (21:52)
--- NOTE | 2016-08-31 23:11 | HHI.IDPN ---
Subjective Subjective Remarks delayed entry - pt was seen earlier today around 1700 pt remains on vent no fever failed CPAP trial yesterday Antibiotics clinda levaquine linezolid - started 08/27 Allergies: Coded Allergies: ARABELLA Inhibitors (Verified Allergy, Severe, Anaphylaxis, 08/20/16) Amoxicillin (Verified Allergy, Severe, Anaphylaxis, 08/20/16) Fentanyl (Verified Allergy, Severe, 08/20/16) ALLERGIC TO PATCH, RASH AT PATCH SITE pt states she was not aware of ever having a patch Keflex (Verified Allergy, Severe, Anaphylaxis, 08/20/16) Monosodium Glutamate (Verified Allergy, Severe, asthma attack, 08/20/16) Neomycin (Verified Allergy, Severe, Anaphylaxis, 08/20/16) Petrolatum (Verified Allergy, Severe, SWELLING, 08/20/16) Sulfa (Verified Allergy, Severe, Anaphylaxis, 08/20/16) Sulfites & Bisulfites (Verified Allergy, Severe, ASTHMA ATTACK, 08/20/16) Objective . Vital Signs Date Time Temp Pulse Resp B/P Pulse Ox O2 Delivery O2 Flow Rate FiO2 08/31/16 22:06 96 40 08/31/16 20:00 87 08/31/16 20:00 97.7 87 18 159/69 97 08/31/16 20:00 40 08/31/16 19:58 97 40 08/31/16 18:00 94 08/31/16 16:00 98.1 79 16 118/56 97 08/31/16 16:00 40 08/31/16 16:00 79 08/31/16 15:42 100 40 08/31/16 14:00 79 08/31/16 12:00 40 08/31/16 12:00 98.1 95 26 88/49 97 08/31/16 12:00 82 08/31/16 11:15 96 40 08/31/16 10:00 66 08/31/16 09:50 40 08/31/16 08:08 100 40 08/31/16 08:00 92 08/31/16 08:00 40 08/31/16 08:00 97.9 82 22 142/58 99 08/31/16 06:00 91 08/31/16 04:15 97 40 08/31/16 04:00 63 08/31/16 04:00 40 08/31/16 04:00 98.3 63 28 134/59 100 08/31/16 02:00 86 08/31/16 01:12 100 40 08/31/16 00:00 94 08/31/16 00:00 40 08/31/16 00:00 98.0 94 21 139/59 100 08/30/16 08/30/16 08/31/16 14:59 22:59 06:59 Intake Total 1252 ml 1342 ml 1010 ml Output Total 500 ml 600 ml 550 ml Balance 752 ml 742 ml 460 ml IV Total 767 ml 880 ml 655 ml Tube Feeding 385 ml 402 ml 355 ml Tube Irrigant 60 ml Other 100 ml Output Urine Total 500 ml 600 ml 550 ml # Bowel Movements 0 1 . Laboratory Tests Test 08/30/16 08/31/16 04:50 04:45 White Blood Count 9.2 TH/MM3 9.8 TH/MM3 Red Blood Count 3.77 MIL/MM3 3.92 MIL/MM3 Hemoglobin 11.0 GM/DL 11.3 GM/DL Hematocrit 32.5 % 34.0 % Mean Corpuscular Volume 86.1 FL 86.7 FL Mean Corpuscular Hemoglobin 29.1 PG 28.9 PG Mean Corpuscular Hemoglobin 33.8 % 33.4 % Concent Red Cell Distribution Width 14.4 % 14.7 % Platelet Count 224 TH/MM3 260 TH/MM3 Mean Platelet Volume 10.2 FL 10.1 FL Neutrophils (%) (Auto) 73.1 % Lymphocytes (%) (Auto) 11.5 % Monocytes (%) (Auto) 9.7 % Eosinophils (%) (Auto) 4.5 % Basophils (%) (Auto) 1.2 % Neutrophils # (Auto) 7.2 TH/MM3 Lymphocytes # (Auto) 1.1 TH/MM3 Monocytes # (Auto) 1.0 TH/MM3 Eosinophils # (Auto) 0.4 TH/MM3 Basophils # (Auto) 0.1 TH/MM3 CBC Comment AUTO DIFF Differential Total Cells 100 Counted Neutrophils % (Manual) 66 % Band Neutrophils % 10 % Lymphocytes % 11 % Monocytes % 6 % Eosinophils % 3 % Basophils % 1 % Neutrophils # (Manual) 7.7 TH/MM3 Metamyelocytes 1 % Myelocytes 2 % Differential Comment FINAL DIFF MANUAL Platelet Estimate NORMAL Platelet Morphology Comment ENLARGED Laboratory Tests Test 08/30/16 08/31/16 04:50 04:45 Sodium Level 142 MEQ/L 143 MEQ/L Potassium Level 4.4 MEQ/L 4.4 MEQ/L Chloride Level 108 MEQ/L 108 MEQ/L Carbon Dioxide Level 27.1 MEQ/L 26.7 MEQ/L Anion Gap 7 MEQ/L 8 MEQ/L Blood Urea Nitrogen 39 MG/DL 34 MG/DL Creatinine 1.39 MG/DL 1.36 MG/DL Estimat Glomerular Filtration 36 ML/MIN 37 ML/MIN Rate Random Glucose 198 MG/DL 180 MG/DL Calcium Level 8.5 MG/DL 8.2 MG/DL Phosphorus Level 3.4 MG/DL 3.7 MG/DL Magnesium Level 2.2 MG/DL 2.0 MG/DL Total Bilirubin 0.3 MG/DL Aspartate Amino Transf 20 U/L (AST/SGOT) Alanine Aminotransferase 33 U/L (ALT/SGPT) Alkaline Phosphatase 317 U/L Total Protein 5.2 GM/DL Albumin 1.7 GM/DL Imaging Last Impressions Chest X-Ray 08/31/16 0600 Signed Impressions: Service Date/Time: Wednesday, August 31, 2016 04:46 - CONCLUSION: 1. Persistent bibasilar areas of consolidation/effusion, unchanged. 2. Stable position of life support tubes. Luis Schulz MD Abdomen X-Ray 08/29/16 0000 Signed Impressions: Service Date/Time: Monday, August 29, 2016 12:56 - CONCLUSION: 1. There are no imaging findings to suggest ileus. No acute abdominal process is identified. 2. Stable bilateral pleural effusions. Pollo Willson MD Physical Exam CONSTITUTIONAL/GENERAL: This is an adequately nourished patient,sedated int'd on vent SKIN: No jaundice, rashes, or lesions. Ecchymoses on upper extremities. No wounds seen anteriorly. Skin temperature appropriate. Not diaphoretic. EYES: Pupils equal and round and reactive. Extraocular motions intact. No scleral icterus. No injection or drainage. Fundi not examined. ENT: Nose without bleeding or purulent drainage. Throat without visible erythema, exudates, masses, or lesions. NECK: Trachea midline. Supple, nontender. No palpable thyroid enlargement or nodularity. CARDIOVASCULAR: Regular rate and rhythm 3/6 holosystolic murmur on RUSB, gallops, or rubs. No JVD. Peripheral pulses symmetric. RESPIRATORY/CHEST: Symmetric, unlabored respirations. scattered rhonchi to auscultation. Breath sounds equal bilaterally. No wheezes, rales, or rhonchi. GASTROINTESTINAL: Abdomen soft, non-tender, nondistended. No hepato-splenomegaly , or palpable masses. No guarding. Bowel sounds present. GENITOURINARY: Without palpable bladder distension. Armas catheter in place. MUSCULOSKELETAL: Extremities without clubbing, cyanosis, + 2 periferal edema. No joint tenderness or effusion noted. No calf tenderness. No mottling or clubbing. NEUROLOGICAL: Obtunded. Not follows commands. Moves all extremities not purposeful Assessment & Plan Remarks MSSA PNA - negative - leg/pneumococcal / influenzaAG Acute VDRF, on 40% FiO2 Symptomatic bradycardia Ent fecalis bacteriuria vs UTI - S to levaquine Multipld abx allergies Acute kidney injury ? vancomycin induced - UOP improved after vancomycion stopped - cont levaquine, - cont clindamycin - dc zyvox Mackenzie Zelaya Dr, MD Aug 31, 2016 23:11
[2016-09-01] VITALS (20 sets, daily range): BP systolic 95–135; BP diastolic 50–119; PULSE 67–109; RESP 16–19; TEMP 97.7–98.8; O2SAT 95–98
[2016-09-01] MEDS: CLINDAMYCIN INJ 600 MG in SODIUM CHLORIDE 0.9% INJ 100 ML IV SCH ×5 (00:10→22:45)
[2016-09-01] MEDS: PROPOFOL 1000 MG/100 ML INJ 100 ML IV SCH ×5 (00:21→22:45)
[2016-09-01] MEDS: RESP: ALBUTEROL 2.5 MG/IPRATROPIUM 0.5 MG NEB (SCH) NEB ×4 (03:19→20:03)
[2016-09-01] MEDS: CHLORHEXIDINE GLUCONATE 2 % 1 PACK (2 CLOTHS) TOP SCH ×2 (04:00→22:46)
[2016-09-01 04:32] LABS: BASOPHIL % 0.4 % (0.0-2.0); EOSINOPHIL % 0.1 % (0.0-4.0); HEMATOCRIT 33.8 % (35.0-46.0); LYMPH % 4.2 % (9.0-44.0); LYMPHOCYTE # 0.4 TH/MM3 (1.0-4.8); MEAN CELL VOLUME 87.2 FL (80.0-100.0); MEAN CORPUSCULAR HEMOGLOBIN 28.5 PG (27.0-34.0); MEAN CORPUSCULAR HGB CONC 32.7 % (32.0-36.0); MONO % 1.3 % (0.0-8.0); PLATELET COUNT 253 TH/MM3 (150-450); RED BLOOD COUNT 3.87 MIL/MM3 (4.00-5.30); RED CELL DISTRIBUTION WIDTH 14.6 % (11.6-17.2); WHITE BLOOD COUNT 10.6 TH/MM3 (4.0-11.0)
[2016-09-01 04:54] LABS: HEMO FLAGS AUTO DIFF
[2016-09-01 05:05] LABS: BLOOD GAS BASE EXCESS -1.1 mmol/L (-2-2); BLOOD GAS CARBOXYHEMOGLOBIN 1.2 % (0-4); BLOOD GAS HCO3 23 mmol/L (22-26); BLOOD GAS METHEMOGLOBIN 1.3 % (0-2); BLOOD GAS O2 HGB SATURATION 94 % (90-100); BLOOD GAS OXYGEN CONTENT 14.5 Vol % (12.0-20.0); BLOOD GAS PCO2 36 mmHg (38-42); BLOOD GAS PO2 82 mmHg (61-120); CRITICAL VALUE NO; OXYGEN DEVICE VENTILATOR; TEMP CORR TO 98.6; VENT SETTINGS AC16/500/5PEEP
[2016-09-01 05:06] LABS: DRAW SITE RT RADIAL; FIO2 40 %; NUMBER OF ARTERIAL PUNCTURES 1; STAT NO; ULNAR PULSE PRESENT
[2016-09-01 05:11] LABS: ALKALINE PHOSPHATASE 289 U/L (45-117); ALT (GPT) 33 U/L (10-53); ANION GAP 9 MEQ/L (5-15); AST (GOT) 33 U/L (15-37); BICARBONATE 25.6 MEQ/L (21.0-32.0); BLOOD UREA NITROGEN 36 MG/DL (7-18); CHLORIDE 106 MEQ/L (98-107); GLOMERULAR FILTRATION RATE 34 ML/MIN (>89); POTASSIUM 5.4 MEQ/L (3.5-5.1); SODIUM (NA) 141 MEQ/L (136-145); TOTAL BILIRUBIN ADULT 0.2 MG/DL (0.2-1.0)
--- NOTE | 2016-09-01 05:32 | RADRPT ---
EXAM DATE/TIME: 09/01/2016 04:29 [facility] COMPARISON: CHEST SINGLE AP, August 31, 2016, 4:46. INDICATIONS : Respiratory failure MEDICAL HISTORY : Hypertension. Cardiovascular disease. SURGICAL HISTORY : None. ENCOUNTER: Subsequent ACUITY: 1 week PAIN SCORE: Non-responsive. LOCATION: Bilateral chest FINDINGS: A single view of the chest demonstrates persistent bilateral effusions with concomitant atelectatic c hanges. Heart size is normal. Stable position of life support tubes. CONCLUSION: 1. Persistent bilateral effusions/atelectasis. 2. Stable position of life support tubes. Luis Schulz MD on September 01, 2016 at 5:29 Board Certified Radiologist. This report was verified electronically.
[2016-09-01] MEDS: INSULIN NovoLIN REGULAR SUPPLEMENTAL SCALE SQ SCH ×4 (06:18→20:14)
[2016-09-01] MEDS: methylPREDNISolone SOD SUCC 40 MG/1 ML VIAL IV PUSH SCH ×3 (06:19→20:14)
[2016-09-01 08:34] LABS: BANDS 4 % (0-6); METAMYELOCYTES 1 % (0-1); NEUTROPHIL # MANUAL DIFF 10.3 TH/MM3 (1.8-7.7); PLATELET ESTIMATE SMEAR NORMAL (NORMAL); PLATELET MORPHOLOGY NORMAL (NORMAL); POLYS (SEG NEUTROPHILS) 92 % (16-70); WBC DIFF SAMPLE 100
[2016-09-01 08:35] LABS: SCAN/DIFF FINAL DIFF MANUAL
[2016-09-01] MEDS: QUEtiapine FUMARATE 25 MG TAB PO SCH ×2 (10:06→11:56)
[2016-09-01] MEDS: SODIUM CHLORIDE 0.9% FLUSH 5 ML FLUSH IV FLUSH SCH ×2 (10:06→20:13)
[2016-09-01] MEDS: FAMOTIDINE 20 MG TAB NG SCH ×2 (10:06→20:13)
[2016-09-01] MEDS: DOCUSATE SODIUM 100 MG CAP PO SCH ×2 (10:06→20:12)
[2016-09-01] MEDS: SENNOSIDES 8.6 MG TAB PO SCH ×2 (10:06→20:13)
[2016-09-01] MEDS: POLYETHYLENE GLYCOL 17 GM PKG PO SCH ×2 (10:07→20:12)
[2016-09-01] MEDS: LACTULOSE SYRUP 20 GM/30 ML CUP TUBE SCH ×4 (10:07→20:12)
[2016-09-01] MEDS: ENOXAPARIN SODIUM 80 MG/0.8 ML SYRINGE SQ SCH ×2 (10:07→22:45)
[2016-09-01] MEDS: METOCLOPRAMIDE HCL 10 MG/2 ML VIAL IV PUSH SCH ×3 (10:08→17:41)
[2016-09-01] MEDS: ARTIFICIAL TEARS OPTH OINT 3.5 APPLIC/3.5 GM TUBO EACH EYE SCH ×2 (10:08→20:10)
--- NOTE | 2016-09-01 10:36 | HHI.CCPN ---
Subjective Remarks/Hospital Course 86-year-old female brought by her daughter with history of fatigue, tiredness and bradycardia. Per chart the patient has been sleeping 12-14 hours a day for past couple days. Today the home health nurse came and checked her pulse and it was in the low 40s. She advised that the patient should be brought to the emergency room. The patient is too somnolent and lethargic to provide any more history. 08/21: Afebrile. Heart rate currently in the 50s and 60s on dopamine drip at 12 micrograms per kilogram per minute. Patient appears to have a baseline heart rate between 40 and 55 according to review of old records here at [place]. Placed on ADA diet. No bowel movement. Subjective 08/22: Afebrile. Dopamine done at 3 mcg/kg/m. Rhythm changes between normal sinus rhythm in addition to a Mobitz second-degree heart block type I and atrial fibrillation. Awake and alert and following commands. Tolerating diet. Denies chest pain or shortness of breath. 08/23: The patient was reintubated overnight, secondary to altered mental status and increased lethargy. Sedation vacation obtain patient's starting to follow commands this a.m.. Dopamine was discontinued yesterday. The patient continues to vacillate between normal sinus rhythm and Mobitz second-degree heart block, and sinus arrhythmia, BP stable. 08/24:Afebrile. No acute events overnight. The patient is now following commands on sedation vacation. Plan to change transition to Precedex infusion, with discontinuation of propofol and continue CPAP trials. The family has requested palliative medicine consult. 08/25: The patient was bradycardic overnight heart rate 30s, normotensive, had received morphine 4 mg IV for agitation last evening. Palliative care has a planned family meeting today, to discuss goals of care. UA culture revealed Enterobacter fecalis the patient was started on vancomycin yesterday afternoon. 08/26: No change in neurological status. The patient does not follow commands, but does become anxious, attempting to pull out endotracheal tube. The patient was started on vancomycin 08/24, noted elevation in creatinine and decreasing urinary output overnight, vancomycin discontinued. Infectious disease consulted secondary to multiple allergies. 08/27: Early this a.m.0620, during positioning the patient was noted to be severely bradycardic, heart rate 28, intermittent blood pressure was not obtainable, all sedation discontinued. The patient's heart rate trended upward after repositioning supine mid 30s at 0625, blood pressure 143/58. Stat ABG drawn, with noted mixed respiratory metabolic acidosis, pH 7.10 PCO2 60 bicarbonate 17 base deficit,-10. The patient continues on heparin infusion. Urine output improved overnight. 08/28: No acute events overnight, heart rate 50-60's.The patient remains on low- dose propofol 7-10mcgs to maintain ventilator synchrony. Heparin infusing. The patient was noted to have elevated tube feed residuals. Reglan 5 mg 3 times a day instituted. 08/29 Tmax 98.9. Patient continues to fail CPAP trials despite multiple attempts. Chest x-ray unchanged with perihilar and bibasilar opacities. The patient was placed on a higher insulin sliding scale and now does not require additional coverage. WBC count trending down today. Patient does not follow commands on sedation vacation. 08/30 no changes overnight 08/31 failed CPAP trial yesterday due to rapid shallow breathing 09/01 looking better today we'll attempt CPAP trial again Objective Vital Signs Date Time Temp Pulse Resp B/P Pulse Ox O2 Delivery O2 Flow Rate FiO2 09/01/16 08:06 98 40 09/01/16 06:00 86 09/01/16 04:00 98.0 16 130/55 Intake and Output 08/31/16 08/31/16 09/01/16 08:00 16:00 00:00 Intake Total 1010 ml 1100 ml 1146 ml Output Total 550 ml 800 ml 850 ml Balance 460 ml 300 ml 296 ml Result Diagram: 09/01/16 0325 09/01/16 0325 Other Results Laboratory Tests Test 09/01/16 04:53 Blood Gas Puncture Site RT RADIAL Blood Gas Patient Temperature 98.6 Blood Gas HCO3 23 mmol/L (22-26) Blood Gas Base Excess -1.1 mmol/L (-2-2) Blood Gas Oxygen Saturation 94 % (90-100) Arterial Blood pH 7.42 (7.380-7.420) Arterial Blood Partial 36 mmHg (38-42) Pressure CO2 Arterial Blood Partial 82 mmHg Pressure O2 (61-120) Arterial Blood Oxygen Content 14.5 Vol % (12.0-20.0) Arterial Blood 1.2 % (0-4) Carboxyhemoglobin Arterial Blood Methemoglobin 1.3 % (0-2) Blood Gas Hemoglobin 11.0 G/DL (12.0-16.0) Oxygen Delivery Device VENTILATOR Blood Gas Ventilator Setting AC16/500/5PEEP Blood Gas Inspired Oxygen 40 % Imaging Last Impressions Chest X-Ray 08/29/16 0000 Signed Impressions: Service Date/Time: Monday, August 29, 2016 05:53 - CONCLUSION: No significant change Pollo Ramey MD Last Impressions Chest X-Ray 08/20/16 1334 Signed Impressions: Service Date/Time: Saturday, August 20, 2016 13:40 - CONCLUSION: No acute disease. Mario Hassan MD FACR Objective Remarks GENERAL: 86 yo female, critically ill currently resting in bed intubated moving extremities not following commands off sedation very anxious SKIN: Warm and dry. No rash HEAD: Normocephalic. EYES: No scleral icterus. No injection or drainage. PERRL. EOMI. ENT: No tympanic drainage. Oropharynx without erythema or exudates orotracheally intubated NECK: Supple, trachea midline. No JVD or lymphadenopathy. No carotid bruit CARDIOVASCULAR: Normal sinus rhythm. Heart rate 60's. S1, S2. No S4. RESPIRATORY: Breath sounds equal bilaterally, coarse. Mechanical ventilation GASTROINTESTINAL: Abdomen soft, non-tender, nondistended. Normoactive bowel sounds are appreciated. Tube feeds infusing MUSCULOSKELETAL: Peripheral edema bilateral extremities. Prior scarring from bypass right-sided noted BACK: Nontender without obvious deformity. No CVA tenderness. Date of Insertion: Aug 20, 2016 Line: Central Venous Catheter Side: Right Location: Internal, Jugular A/P Problem List: (1) Chronic kidney disease, stage 3 ICD Code: N18.3 Status: Acute (2) HTN (hypertension) ICD Code: I10 Status: Chronic (3) Symptomatic bradycardia ICD Code: R00.1 Status: Acute Assessment and Plan Neuro/Psych: Chronic benzodiazepine use Depression/anxiety Continue Elavil 25 mg by mouth daily/home medication Continue Escitalopram 10 mg by mouth daily for depression as home medication Discontinued Xanax 0.25 Acetaminophen for fever Propofol infusion low-dose 7-15 mcgs 08/24-EEG results - without evidence of active seizure activity Seroquel for agitation CV: Symptomatically bradycardia Second-degree Mobitz type I currently in normal sinus rhythm History of a flutter status post ablation 2016 Nonobstructive coronary disease Hypertension Dyslipidemia Peripheral vascular disease history of post right femoropopliteal, femoral- tibial and femoroperoneal bypass Dr. Verdin/cardiology. Cardiology has been consulted however no meaningful recommendations. Bradycardia and block likely secondary to amiodarone?. No plans for intervention at this time per Dr Birmingham, patient is hemodynamically stable not requiring pressors or pacing Cardiac catheterization 04/11 revealed left main without disease, LAD 40% stenosis, left circumflex coronary disease and RCA 40% stenosis. No intervention. Off dopamine since 08/22. Amiodarone currently has been held. Patient is on valsartan 320 mg daily for hypertension. This is currently on hold Continue Plavix 75 mg by mouth daily for peripheral vascular disease. Heparin infusion will stop today and change to full dose of Lovenox Resp: Documentation of asthma History of pulmonary embolism Maintain saturations greater than equal to 92% Mechanical ventilation settings 12/500/100/5 Ventilator bundle Maintain head of bed 30 Continue duo nebs per schedule CPAP trials daily Day 11 of mechanical ventilation - family has agreed to do not reintubate(DNI), the patient continues to fail CPAP trials GI: Constipation Peptamen AF Pepcid BID . On Zantac 150 mg a night at home. Colace/Senokot twice a day for bowel regimen, MiraLAX and lactulose added to medication regimen Last BM 08/23 F/U KUB : Armas changed 08/28, initiation of vancomycin 08/24- 08/26 Proteus UTI, hesitancy towards utilization of Linezolid with patient's long-term SSRI use, nitrofurantoin unable to administer via gastric tube. Maintain/ strict accurate I' & O's Endo: Diabetes mellitus type 2 Home medications Januvia 100 mg daily, Tresiba injection subcutaneous as needed and Farxiga 10 mg daily Sliding scale insulin Accu-Cheks every 6 before meals at bedtime to maintain euglycemia/moderate regimen TSH within normal limits High dose SSI We will start Levemir Renal: History chronic kidney disease stage III Creatinine currently slightly elevated Accurate I's and O's. Monitor urine output Creatinine improved and stable Monitor BMP Heme: Leukocytosis-resolved Follow CBC daily. Monitor trends ID: UTI Day # 6 aztreonam, UA culture- Enterococcus faecalis, Vancomycin(day for) discontinued Pharmacy dosing initiated (maintain therapeutic level 10-15) unable to utilize the linezolid secondary to SSRI medication Monitor for infection ID consulted-Dr. Gordon following Urine output adequate FEN: Hypokalemia - resolved Replace electrolyte as clinically indicated Goal keep magnesium greater than 2, potassium greater than 4 MSK: Osteoarthritis PT evaluate and treat Access - Right IJ CVL day 9 Prophylaxis - GI - Protonix - DVT - SCD/heparin infusion Dispo: Discussed with SUPERINTENDENT REFUSE DISPOSAL at bedside. CODE STATUS changed to alternate, no CPR, no shock (defibrillation).3/2 Family meeting with palliative team DNI/DNR. Will attempt to continue CPAP trials with the goal of extubation extensive discussion with family and palliative care team if successfully weaned to extubate, the patient will not be reintubated Family stated they would not like patient to have a PEG, Trach placement. Attempts at weaning continue. Critical Care: Level 3 Kevin Chen MD Sep 01, 2016 10:35
[2016-09-01] MEDS: INSULIN DETEMIR 100 UNITS/ML VIAL SQ SCH ×2 (11:55→20:11)
--- NOTE | 2016-09-01 13:47 | HHI.HCPN ---
Call from daughter to request family meeting on 09/02/16 at 11am. Left message with family to confirm I got message and will plan to meet in patient room at 11am. HAKEEM MANN Sep 01, 2016 13:47
--- NOTE | 2016-09-01 18:40 | EKG ---
Date Performed: 08/31/2016 Time Performed: 19:14:06 PTAGE: 86 years EKG: ATRIAL FLUTTER/TACHYCARDIA LEFT BUNDLE BRANCH BLOCK ABNORMAL ECG PREVIOUS TRACING : 08/21/2016 09.46 DOCTOR: Robert Lewis Interpretating Date/Time 09/01/2016 18:37:42
[2016-09-01] MEDS: SODIUM CHLOR 0.9% 1000 ML INJ 1,000 ML IV SCH (20:12)
[2016-09-01] MEDS: AMITRIPTYLINE HCL 25 MG TAB PO SCH (20:13)
[2016-09-02] VITALS (19 sets, daily range): BP systolic 105–131; BP diastolic 55–90; PULSE 87–122; RESP 19–22; TEMP 97.7–98.6; O2SAT 92–98
[2016-09-02] MEDS: LEVOFLOXACIN 750 MG PREMIX INJ 150 ML IV SCH (00:26)
[2016-09-02] MEDS: PROPOFOL 1000 MG/100 ML INJ 100 ML IV SCH ×6 (02:39→23:47)
[2016-09-02] MEDS: RESP: ALBUTEROL 2.5 MG/IPRATROPIUM 0.5 MG NEB (SCH) NEB ×4 (03:38→20:04)
[2016-09-02] MEDS: INSULIN NovoLIN REGULAR SUPPLEMENTAL SCALE SQ SCH ×4 (04:42→19:34)
[2016-09-02] MEDS: methylPREDNISolone SOD SUCC 40 MG/1 ML VIAL IV PUSH SCH ×3 (04:42→21:11)
[2016-09-02] MEDS: CLINDAMYCIN INJ 600 MG in SODIUM CHLORIDE 0.9% INJ 100 ML IV SCH ×4 (04:42→23:44)
[2016-09-02 07:12] LABS: AUTOMATED NEUTROPHIL # 13.4 TH/MM3 (1.8-7.7); BASOPHIL % 0.1 % (0.0-2.0); HEMATOCRIT 36.3 % (35.0-46.0); LYMPH % 5.8 % (9.0-44.0); LYMPHOCYTE # 0.9 TH/MM3 (1.0-4.8); MEAN CELL VOLUME 87.9 FL (80.0-100.0); MEAN CORPUSCULAR HEMOGLOBIN 28.5 PG (27.0-34.0); MEAN CORPUSCULAR HGB CONC 32.4 % (32.0-36.0); MONO % 5.6 % (0.0-8.0); NEUT % 88.5 % (16.0-70.0); PLATELET COUNT 337 TH/MM3 (150-450); RED BLOOD COUNT 4.13 MIL/MM3 (4.00-5.30); RED CELL DISTRIBUTION WIDTH 15.3 % (11.6-17.2); WHITE BLOOD COUNT 15.2 TH/MM3 (4.0-11.0)
[2016-09-02 07:31] LABS: HEMO FLAGS AUTO DIFF
[2016-09-02 07:49] LABS: BICARBONATE 24.5 MEQ/L (21.0-32.0); POTASSIUM 4.9 MEQ/L (3.5-5.1)
[2016-09-02] MEDS: INSULIN DETEMIR 100 UNITS/ML VIAL SQ SCH ×2 (07:55→19:42)
[2016-09-02] MEDS: FAMOTIDINE 20 MG TAB NG SCH ×2 (07:56→19:33)
[2016-09-02] MEDS: DOCUSATE SODIUM 100 MG CAP PO SCH ×2 (07:56→19:03)
[2016-09-02] MEDS: QUEtiapine FUMARATE 25 MG TAB PO SCH ×2 (07:56→11:55)
[2016-09-02] MEDS: METOCLOPRAMIDE HCL 10 MG/2 ML VIAL IV PUSH SCH ×3 (07:56→17:36)
[2016-09-02 08:32] LABS: BANDS 6 % (0-6); CORRECTED NUCLEATED RBC 1 /100 WBC (0-0); METAMYELOCYTES 1 % (0-1); MYELOCYTES 3 % (0-0); NEUTROPHIL # MANUAL DIFF 13.4 TH/MM3 (1.8-7.7); POLYS (SEG NEUTROPHILS) 78 % (16-70); WBC DIFF SAMPLE 100
[2016-09-02 08:33] LABS: BURR CELLS 2+ (NORMAL); PLATELET ESTIMATE SMEAR NORMAL (NORMAL); PLATELET MORPHOLOGY ENLARGED (NORMAL); SCAN/DIFF FINAL DIFF MANUAL
[2016-09-02] MEDS: SENNOSIDES 8.6 MG TAB PO SCH ×2 (09:00→19:03)
[2016-09-02] MEDS: LACTULOSE SYRUP 20 GM/30 ML CUP TUBE SCH ×4 (09:00→19:04)
[2016-09-02] MEDS: POLYETHYLENE GLYCOL 17 GM PKG PO SCH ×2 (09:00→19:03)
[2016-09-02] MEDS: SODIUM CHLORIDE 0.9% FLUSH 5 ML FLUSH IV FLUSH SCH ×2 (09:43→19:34)
[2016-09-02] MEDS: ENOXAPARIN SODIUM 80 MG/0.8 ML SYRINGE SQ SCH ×2 (09:44→21:11)
[2016-09-02] MEDS: ARTIFICIAL TEARS OPTH OINT 3.5 APPLIC/3.5 GM TUBO EACH EYE SCH ×2 (09:46→19:32)
--- NOTE | 2016-09-02 13:40 | HHI.CCPN ---
Subjective Remarks/Hospital Course 86-year-old female brought by her daughter with history of fatigue, tiredness and bradycardia. Per chart the patient has been sleeping 12-14 hours a day for past couple days. Today the home health nurse came and checked her pulse and it was in the low 40s. She advised that the patient should be brought to the emergency room. The patient is too somnolent and lethargic to provide any more history. 08/21: Afebrile. Heart rate currently in the 50s and 60s on dopamine drip at 12 micrograms per kilogram per minute. Patient appears to have a baseline heart rate between 40 and 55 according to review of old records here at [place]. Placed on ADA diet. No bowel movement. Subjective 08/22: Afebrile. Dopamine done at 3 mcg/kg/m. Rhythm changes between normal sinus rhythm in addition to a Mobitz second-degree heart block type I and atrial fibrillation. Awake and alert and following commands. Tolerating diet. Denies chest pain or shortness of breath. 08/23: The patient was reintubated overnight, secondary to altered mental status and increased lethargy. Sedation vacation obtain patient's starting to follow commands this a.m.. Dopamine was discontinued yesterday. The patient continues to vacillate between normal sinus rhythm and Mobitz second-degree heart block, and sinus arrhythmia, BP stable. 08/24:Afebrile. No acute events overnight. The patient is now following commands on sedation vacation. Plan to change transition to Precedex infusion, with discontinuation of propofol and continue CPAP trials. The family has requested palliative medicine consult. 08/25: The patient was bradycardic overnight heart rate 30s, normotensive, had received morphine 4 mg IV for agitation last evening. Palliative care has a planned family meeting today, to discuss goals of care. UA culture revealed Enterobacter fecalis the patient was started on vancomycin yesterday afternoon. 08/26: No change in neurological status. The patient does not follow commands, but does become anxious, attempting to pull out endotracheal tube. The patient was started on vancomycin 08/24, noted elevation in creatinine and decreasing urinary output overnight, vancomycin discontinued. Infectious disease consulted secondary to multiple allergies. 08/27: Early this a.m.0620, during positioning the patient was noted to be severely bradycardic, heart rate 28, intermittent blood pressure was not obtainable, all sedation discontinued. The patient's heart rate trended upward after repositioning supine mid 30s at 0625, blood pressure 143/58. Stat ABG drawn, with noted mixed respiratory metabolic acidosis, pH 7.10 PCO2 60 bicarbonate 17 base deficit,-10. The patient continues on heparin infusion. Urine output improved overnight. 08/28: No acute events overnight, heart rate 50-60's.The patient remains on low- dose propofol 7-10mcgs to maintain ventilator synchrony. Heparin infusing. The patient was noted to have elevated tube feed residuals. Reglan 5 mg 3 times a day instituted. 08/29 Tmax 98.9. Patient continues to fail CPAP trials despite multiple attempts. Chest x-ray unchanged with perihilar and bibasilar opacities. The patient was placed on a higher insulin sliding scale and now does not require additional coverage. WBC count trending down today. Patient does not follow commands on sedation vacation. 08/30 no changes overnight 08/31 failed CPAP trial yesterday due to rapid shallow breathing 09/01 looking better today we'll attempt CPAP trial again 09/02 failed again the CPAP trial yesterday due to rapid shallow breathing Objective Vital Signs Date Time Temp Pulse Resp B/P Pulse Ox O2 Delivery O2 Flow Rate FiO2 09/02/16 13:23 96 35 09/02/16 12:00 87 09/02/16 12:00 98.2 19 109/65 Intake and Output 09/01/16 09/01/16 09/02/16 08:00 16:00 00:00 Intake Total 751 ml 986 ml 821 ml Output Total 375 ml 400 ml 350 ml Balance 376 ml 586 ml 471 ml Result Diagram: 09/02/16 0600 09/02/16 0600 Imaging Last Impressions Chest X-Ray 08/29/16 0000 Signed Impressions: Service Date/Time: Monday, August 29, 2016 05:53 - CONCLUSION: No significant change Pollo Ramey MD Last Impressions Chest X-Ray 08/20/16 1334 Signed Impressions: Service Date/Time: Saturday, August 20, 2016 13:40 - CONCLUSION: No acute disease. Mario Hassan MD FACR Objective Remarks GENERAL: 86 yo female, critically ill currently resting in bed intubated moving extremities not following commands off sedation very anxious SKIN: Warm and dry. No rash HEAD: Normocephalic. EYES: No scleral icterus. No injection or drainage. PERRL. EOMI. ENT: No tympanic drainage. Oropharynx without erythema or exudates orotracheally intubated NECK: Supple, trachea midline. No JVD or lymphadenopathy. No carotid bruit CARDIOVASCULAR: Normal sinus rhythm. Heart rate 60's. S1, S2. No S4. RESPIRATORY: Breath sounds equal bilaterally, coarse. Mechanical ventilation GASTROINTESTINAL: Abdomen soft, non-tender, nondistended. Normoactive bowel sounds are appreciated. Tube feeds infusing MUSCULOSKELETAL: Peripheral edema bilateral extremities. Prior scarring from bypass right-sided noted BACK: Nontender without obvious deformity. No CVA tenderness. Date of Insertion: Aug 20, 2016 Line: Central Venous Catheter Side: Right Location: Internal, Jugular A/P Problem List: (1) Chronic kidney disease, stage 3 ICD Code: N18.3 Status: Acute (2) HTN (hypertension) ICD Code: I10 Status: Chronic (3) Symptomatic bradycardia ICD Code: R00.1 Status: Acute Assessment and Plan Neuro/Psych: Chronic benzodiazepine use Depression/anxiety Continue Elavil 25 mg by mouth daily/home medication Continue Escitalopram 10 mg by mouth daily for depression as home medication Acetaminophen as needed for fever Propofol infusion low-dose 7-15 mcgs attempt to wean off 08/24-EEG results - without evidence of active seizure activity Seroquel for agitation CV: Symptomatically bradycardia Second-degree Mobitz type I currently in normal sinus rhythm History of a flutter status post ablation 2016 Nonobstructive coronary disease Hypertension Dyslipidemia Peripheral vascular disease history of post right femoropopliteal, femoral- tibial and femoroperoneal bypass No recommendations per cardiology Bradycardia and block likely secondary to amiodarone?. No plans for intervention at this time per Dr Birmingham, patient is hemodynamically stable not requiring pressors or pacing Cardiac catheterization 04/11 revealed left main without disease, LAD 40% stenosis, left circumflex coronary disease and RCA 40% stenosis. No intervention. Off dopamine since 08/22. Amiodarone currently has been held. Patient is on valsartan 320 mg daily for hypertension. This is currently on hold Continue Plavix 75 mg by mouth daily for peripheral vascular disease. Heparin infusion will stop today and change to full dose of Lovenox Resp: Documentation of asthma History of pulmonary embolism Maintain saturations greater than 92% Mechanical ventilation settings 12/500/100/5 Ventilator bundle Maintain head of bed 30 Continue duo nebs per schedule CPAP trials daily Day 12 of mechanical ventilation - family has agreed to do not reintubate(DNI), the patient continues to fail CPAP trials GI: Constipation Peptamen AF Pepcid BID . On Zantac 150 mg a night at home. Colace/Senokot twice a day for bowel regimen, MiraLAX and lactulose added to medication regimen Last BM 08/23 F/U KUB : Armas changed 08/28, initiation of vancomycin 08/24- 08/26 Proteus UTI, hesitancy towards utilization of Linezolid with patient's long-term SSRI use, nitrofurantoin unable to administer via gastric tube. Maintain/ strict accurate I' & O's Endo: Diabetes mellitus type 2 Home medications Januvia 100 mg daily, Tresiba injection subcutaneous as needed and Farxiga 10 mg daily Sliding scale insulin Accu-Cheks every 6 before meals at bedtime to maintain euglycemia/moderate regimen TSH within normal limits High dose SSI Levemir started 09/01 Renal: History chronic kidney disease stage III Creatinine currently slightly elevated Accurate I's and O's. Monitor urine output Creatinine improved and stable Monitor BMP Heme: Leukocytosis-resolved Follow CBC daily. Monitor trends ID: UTI Day # 6 aztreonam, UA culture- Enterococcus faecalis, Vancomycin(day for) discontinued Pharmacy dosing initiated (maintain therapeutic level 10-15) unable to utilize the linezolid secondary to SSRI medication Monitor for infection ID consulted-Dr. Gordon following Urine output adequate FEN: Hypokalemia - resolved Replace electrolyte as clinically indicated Goal keep magnesium greater than 2, potassium greater than 4 MSK: Osteoarthritis PT evaluate and treat Access - Right IJ CVL day 9 Prophylaxis - GI - Protonix - DVT - SCD/heparin infusion Dispo: Discussed with DIRECTOR INSTRUMENTATION at bedside. CODE STATUS changed to alternate, no CPR, no shock (defibrillation).08/26 Family meeting with palliative team DNI/DNR. Will attempt to continue CPAP trials with the goal of extubation extensive discussion with family and palliative care team if successfully weaned to extubate, the patient will not be reintubated Family stated they would not like patient to have a PEG, Trach placement. Attempts at weaning continue. Critical Care: Level 3 Voda,Kevin MD Sep 02, 2016 13:40
--- NOTE | 2016-09-02 15:37 | HHI.HCPN ---
Reason for visit a. To assist with evaluation and management of symptoms including: dyspnea, debility, agitation. b. To assist medical decision maker(s) with: better understanding of current medical conditions; weighing benefits/burdens of medical treatment options; making medical treatment decisions. . Subjective/Interval History Patient seen and examined in ICU. Discussed with nurseUmer. Intermittent agitation reported by nurse and family. She is still not tracking or following commands when off sedation. Afebrile. HR 80-110. BP stable. LBM 09/02/16. Creatinine improving now 1.47. WBC normal 15.2. No new imaging. . Family/friend interactions Met with spouse (ES dementia does not participate), Douglas (son, an MD), 3 daughters. Son feels pt has had continued incremental improvement referring to decreasing FiO2 need and decreased secretions. He desires to proceed with trach as "this will make it easier to wean her from vent with trach." One daughter is concerned about pts quality of life, I reviewed likely dependance if patient survives this hospitalization, son disagrees with me. All 4 children desire to proceed with trach. The family does not necessarily want to proceed with PEG tube, son (and other ST, OT) in family request Dobbhoff. I reviewed meds cannot be given via Dobbhoff so this may not be a possibility. Family agrees to PEG tube (reluctantly) if Dobbhoff is not an option. . Advance Directives Living Will: Copy in medical record Health Care Surrogate: Copy in medical record Advance Directive Specifics Health Care Surrogate(s): Patient currently incapacitated to make her own health care decisions. Copy of Living Will on chart. Sent to HIM to be scanned in. According to LW is primary HCS (he has end stage dementia and is unable to participate) and sonDouglas is alternate HCS, however his name is crossed off and daughter, Sandra "Lilian" Aimee is written in as HCS. All family (4 children) are working together to make decisions. Significant change in goals: NO CODE. Family desires to proceed with trach as son feels "this will make it easier to wean her from vent with trach." One daughter is concerned about pts quality of life, I reviewed likely dependance if patient survives this hospitalization, son disagrees with me. All 4 children desire to proceed with trach. The family does not necessarily want to proceed with PEG tube, son (and other ST, OT) in family request Dobbhoff. I reviewed meds cannot be given via Dobbhoff so this may not be a possibility. Family agrees to PEG tube ( reluctantly) if Dobbhoff is not an option. . Objective Vital Signs Date Time Temp Pulse Resp B/P Pulse Ox O2 Delivery O2 Flow Rate FiO2 09/02/16 14:00 87 09/02/16 13:23 96 35 09/02/16 12:00 35 09/02/16 12:00 87 09/02/16 12:00 98.2 122 19 109/65 96 09/02/16 10:00 87 09/02/16 10:00 87 09/02/16 08:41 96 35 09/02/16 08:00 87 09/02/16 08:00 35 09/02/16 08:00 97.9 90 20 128/90 96 09/02/16 06:00 109 09/02/16 04:14 97 35 09/02/16 04:00 103 09/02/16 04:00 40 09/02/16 04:00 98.6 103 19 130/68 96 09/02/16 02:00 100 09/02/16 00:03 98 40 09/02/16 00:00 40 09/02/16 00:00 93 09/02/16 00:00 98.0 93 19 131/67 97 09/01/16 22:00 109 09/01/16 20:07 97 40 09/01/16 20:00 98.8 101 19 130/62 98 09/01/16 20:00 40 09/01/16 20:00 103 09/01/16 18:00 101 09/01/16 16:18 95 40 09/01/16 16:00 108 09/01/16 16:00 98.6 108 17 108/119 97 09/01/16 15:56 97 40 Intake & Output 09/02/16 09/02/16 07:00 19:00 Intake Total 1610 ml 1243 ml Output Total 700 ml 150 ml Balance 910 ml 1093 ml IV Total 1019 ml 707 ml Tube Feeding 591 ml 436 ml Other 100 ml Output Urine Total 700 ml 150 ml # Bowel Movements 2 Physical Exam CONSTITUTIONAL/GENERAL: This is an elderly, critically ill patient, sedated and intubated. TUBES/LINES/DRAINS: ETT, OG, central line, PIV left, bilateral soft wrist restraints, Armas, SCD's SKIN: No jaundice, rashes, or lesions. Ecchymoses on upper extremities. 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 Skin temperature appropriate. Not diaphoretic. ENT: unable to adequately assess hearing. Nose without bleeding or purulent drainage. Throat difficult to visualize secondary to tubes. Thick whitish secretions when suctioned. CARDIOVASCULAR: rate 80- 110, irregular. RESPIRATORY/CHEST: Symmetric, unlabored respirations on mechanical ventilation. Course breath sounds bilaterally. Diminished breath sounds left greater than right. GASTROINTESTINAL: Abdomen soft, non-tender, nondistended. No guarding. Bowel sounds present. GENITOURINARY: Without palpable bladder distension. Armas catheter in place. MUSCULOSKELETAL: Extremities with worsening edema. NEUROLOGICAL: Does follow commands. Moves all extremities. PSYCHIATRIC: Relaxed during my visit. . Diagnostic Tests Laboratory Laboratory Tests Test 08/31/16 08/31/16 09/01/16 09/01/16 04:45 04:57 03:25 04:53 White Blood Count 9.8 TH/MM3 10.6 TH/MM3 (4.0-11.0) (4.0-11.0) Red Blood Count 3.92 MIL/MM3 3.87 MIL/MM3 (4.00-5.30) (4.00-5.30) Hemoglobin 11.3 GM/DL 11.0 GM/DL (11.6-15.3) (11.6-15.3) Hematocrit 34.0 % 33.8 % (35.0-46.0) (35.0-46.0) Mean Corpuscular Volume 86.7 FL 87.2 FL (80.0-100.0) (80.0-100.0) Mean Corpuscular Hemoglobin 28.9 PG 28.5 PG (27.0-34.0) (27.0-34.0) Mean Corpuscular Hemoglobin 33.4 % 32.7 % Concent (32.0-36.0) (32.0-36.0) Red Cell Distribution Width 14.7 % 14.6 % (11.6-17.2) (11.6-17.2) Platelet Count 260 TH/MM3 253 TH/MM3 (150-450) (150-450) Mean Platelet Volume 10.1 FL 10.2 FL (7.0-11.0) (7.0-11.0) Neutrophils (%) (Auto) 73.1 % 94.0 % (16.0-70.0) (16.0-70.0) Lymphocytes (%) (Auto) 11.5 % 4.2 % (9.0-44.0) (9.0-44.0) Monocytes (%) (Auto) 9.7 % (0.0-8.0) 1.3 % (0.0-8.0) Eosinophils (%) (Auto) 4.5 % (0.0-4.0) 0.1 % (0.0-4.0) Basophils (%) (Auto) 1.2 % (0.0-2.0) 0.4 % (0.0-2.0) Neutrophils # (Auto) 7.2 TH/MM3 10.0 TH/MM3 (1.8-7.7) (1.8-7.7) Lymphocytes # (Auto) 1.1 TH/MM3 0.4 TH/MM3 (1.0-4.8) (1.0-4.8) Monocytes # (Auto) 1.0 TH/MM3 0.1 TH/MM3 (0-0.9) (0-0.9) Eosinophils # (Auto) 0.4 TH/MM3 0.0 TH/MM3 (0-0.4) (0-0.4) Basophils # (Auto) 0.1 TH/MM3 0.0 TH/MM3 (0-0.2) (0-0.2) CBC Comment AUTO DIFF AUTO DIFF Differential Total Cells 100 100 Counted Neutrophils % (Manual) 66 % (16-70) 92 % (16-70) Band Neutrophils % 10 % (0-6) 4 % (0-6) Lymphocytes % 11 % (9-44) 3 % (9-44) Monocytes % 6 % (0-8) Eosinophils % 3 % (0-4) Basophils % 1 % (0-2) Neutrophils # (Manual) 7.7 TH/MM3 10.3 TH/MM3 (1.8-7.7) (1.8-7.7) Metamyelocytes 1 % (0-1) 1 % (0-1) Myelocytes 2 % (0-0) Differential Comment FINAL DIFF FINAL DIFF MANUAL MANUAL Platelet Estimate NORMAL NORMAL (NORMAL) (NORMAL) Platelet Morphology Comment ENLARGED NORMAL (NORMAL) (NORMAL) Activated Partial 39.7 SEC Thromboplast Time (24.3-30.1) Sodium Level 143 MEQ/L 141 MEQ/L (136-145) (136-145) Potassium Level 4.4 MEQ/L 5.4 MEQ/L (3.5-5.1) (3.5-5.1) Chloride Level 108 MEQ/L 106 MEQ/L (98-107) (98-107) Carbon Dioxide Level 26.7 MEQ/L 25.6 MEQ/L (21.0-32.0) (21.0-32.0) Anion Gap 8 MEQ/L (5-15) 9 MEQ/L (5-15) Blood Urea Nitrogen 34 MG/DL (7-18) 36 MG/DL (7-18) Creatinine 1.36 MG/DL 1.46 MG/DL (0.50-1.00) (0.50-1.00) Estimat Glomerular Filtration 37 ML/MIN (>89) 34 ML/MIN (>89) Rate Random Glucose 180 MG/DL 369 MG/DL (74-106) (74-106) Calcium Level 8.2 MG/DL 8.3 MG/DL (8.5-10.1) (8.5-10.1) Phosphorus Level 3.7 MG/DL 4.4 MG/DL (2.5-4.9) (2.5-4.9) Magnesium Level 2.0 MG/DL 2.0 MG/DL (1.5-2.5) (1.5-2.5) Total Bilirubin 0.3 MG/DL 0.2 MG/DL (0.2-1.0) (0.2-1.0) Aspartate Amino Transf 20 U/L (15-37) 33 U/L (15-37) (AST/SGOT) Alanine Aminotransferase 33 U/L (10-53) 33 U/L (10-53) (ALT/SGPT) Alkaline Phosphatase 317 U/L 289 U/L (45-117) (45-117) Total Protein 5.2 GM/DL 5.3 GM/DL (6.4-8.2) (6.4-8.2) Albumin 1.7 GM/DL 1.7 GM/DL (3.4-5.0) (3.4-5.0) Blood Gas Puncture Site RT RADIAL RT RADIAL Blood Gas Patient Temperature 98.6 98.6 Blood Gas HCO3 23 mmol/L 23 mmol/L (22-26) (22-26) Blood Gas Base Excess -0.8 mmol/L -1.1 mmol/L (-2-2) (-2-2) Blood Gas Oxygen Saturation 95 % (90-100) 94 % (90-100) Arterial Blood pH 7.42 7.42 (7.380-7.420) (7.380-7.420) Arterial Blood Partial 37 mmHg (38-42) 36 mmHg (38-42) Pressure CO2 Arterial Blood Partial 91 mmHg 82 mmHg Pressure O2 (61-120) (61-120) Arterial Blood Oxygen Content 18.9 Vol % 14.5 Vol % (12.0-20.0) (12.0-20.0) Arterial Blood 1.0 % (0-4) 1.2 % (0-4) Carboxyhemoglobin Arterial Blood Methemoglobin 1.1 % (0-2) 1.3 % (0-2) Blood Gas Hemoglobin 14.0 G/DL 11.0 G/DL (12.0-16.0) (12.0-16.0) Oxygen Delivery Device VENTILATOR VENTILATOR Blood Gas Ventilator Setting AC/500/16/PEEP5 AC16/500/5PEEP Blood Gas Inspired Oxygen 40 % 40 % Red Cell Morphology Comment NORMAL (NORMAL) Test 09/02/16 06:00 White Blood Count 15.2 TH/MM3 (4.0-11.0) Red Blood Count 4.13 MIL/MM3 (4.00-5.30) Hemoglobin 11.8 GM/DL (11.6-15.3) Hematocrit 36.3 % (35.0-46.0) Mean Corpuscular Volume 87.9 FL (80.0-100.0) Mean Corpuscular Hemoglobin 28.5 PG (27.0-34.0) Mean Corpuscular Hemoglobin 32.4 % Concent (32.0-36.0) Red Cell Distribution Width 15.3 % (11.6-17.2) Platelet Count 337 TH/MM3 (150-450) Mean Platelet Volume 9.6 FL (7.0-11.0) Neutrophils (%) (Auto) 88.5 % (16.0-70.0) Lymphocytes (%) (Auto) 5.8 % (9.0-44.0) Monocytes (%) (Auto) 5.6 % (0.0-8.0) Eosinophils (%) (Auto) 0.0 % (0.0-4.0) Basophils (%) (Auto) 0.1 % (0.0-2.0) Neutrophils # (Auto) 13.4 TH/MM3 (1.8-7.7) Lymphocytes # (Auto) 0.9 TH/MM3 (1.0-4.8) Monocytes # (Auto) 0.8 TH/MM3 (0-0.9) Eosinophils # (Auto) 0.0 TH/MM3 (0-0.4) Basophils # (Auto) 0.0 TH/MM3 (0-0.2) CBC Comment AUTO DIFF Differential Total Cells 100 Counted Neutrophils % (Manual) 78 % (16-70) Band Neutrophils % 6 % (0-6) Lymphocytes % 8 % (9-44) Monocytes % 4 % (0-8) Neutrophils # (Manual) 13.4 TH/MM3 (1.8-7.7) Metamyelocytes 1 % (0-1) Myelocytes 3 % (0-0) Nucleated Red Blood Cells 1 /100 WBC (0-0) Differential Comment FINAL DIFF MANUAL Platelet Estimate NORMAL (NORMAL) Platelet Morphology Comment ENLARGED (NORMAL) Isidro Cells 2+ (NORMAL) Sodium Level 142 MEQ/L (136-145) Potassium Level 4.9 MEQ/L (3.5-5.1) Chloride Level 105 MEQ/L (98-107) Carbon Dioxide Level 24.5 MEQ/L (21.0-32.0) Anion Gap 13 MEQ/L (5-15) Blood Urea Nitrogen 47 MG/DL (7-18) Creatinine 1.47 MG/DL (0.50-1.00) Estimat Glomerular Filtration 34 ML/MIN (>89) Rate Random Glucose 338 MG/DL (74-106) Calcium Level 8.6 MG/DL (8.5-10.1) Result Diagram: 09/02/16 0600 09/02/16 0600 Imaging Last Impressions Chest X-Ray 09/01/16 06 Signed Impressions: Service Date/Time: Thursday, September 01, 2016 04:29 - CONCLUSION: 1. Persistent bilateral effusions/atelectasis. 2. Stable position of life support tubes. Luis Schulz MD Abdomen X-Ray 08/29/16 0000 Signed Impressions: Service Date/Time: Monday, August 29, 2016 12:56 - CONCLUSION: 1. There are no imaging findings to suggest ileus. No acute abdominal process is identified. 2. Stable bilateral pleural effusions. Pollo Willson MD . Procedures 08/23/16 - Reintubated. Assessment and Plan Disease Oriented Problem List: (1) Respiratory failure (2) Paroxysmal atrial flutter (3) Paroxysmal atrial fibrillation (4) CAD (coronary artery disease) (5) Bradycardia (6) Aortic stenosis Symptom Scale: (1) Shortness of breath 0-10 Scale: Unable to quantify Comment: on mech vent (2) Weakness 0-10 Scale: Unable to quantify Pertinent Non-Medical Issues Psychosocial: , spouse has ES dementia on hospice. 3 daughters and 1 son. Spiritual: Protestant ray Legal: Patient currently incapacitated to make her own health care decisions. Notes indicate patient has a living will, will request copy. Ethical issues impacting care: No known concerns at this time. . Important Contacts * Joanie Garcia, daughter: [phone] or [phone] * Lilian Snowdenirais, daughter: [phone] . Prognosis Will need to speak with cardiology and automatic shirring machine operator for further clarification of overall prognosis. . Code Status: No Code (DO NOT reintubate if medically extubated. ) Plan * Patient currently incapacitated to make her own health care decisions. Copy of Living Will on chart. Sent to HIM to be scanned in. According to LW is primary HCS (he has end stage dementia and is unable to participate) and son Douglas is alternate HCS, however his name is crossed off and daughterSandra" Aimee is written in as HCS. All family (4 children) is working together to make decisions. * NO CODE. * 09/02/16 - Met spouse (ES Dementia does not participate) and all 4 children. Family desires to proceed with trach as son (Douglas anuel KERN) feels "this will make it easier to wean her from vent with trach." One daughter is concerned about pts quality of life, I reviewed likely dependance if patient survives this hospitalization, son disagrees with me. All 4 children desire to proceed with trach. The family does not necessarily want to proceed with PEG tube, son ( and other ST, OT) in family request Dobbhoff. I reviewed meds cannot be given via Dobbhoff so this may not be a possibility. Family agrees to PEG tube ( reluctantly) if Dobbhoff is not an option. * Discussed with nursing staff. * Daughter provides articles from [employer] called Mobilizing Patients in the Intensive Care Unit: Improving Neuromuscular Weakness and Physical Function and a Fact Sheet about Occupational Therapy's Role in Acute Care. * SYMPTOMS: Dyspnea: on mech vent. Anxiety: On Propofol drip this morning. Appears comfortable. Agitation: intermittent agitation per nurse. Not following commands when off sedation. * Palliative care will continue to follow to assist with symptom management and clarification of treatment goals throughout hospital course. . Attestation To help prompt me to consider important information that might be impacting today's encounter and assessment, information from prior notes written by myself or my colleagues may have been "brought forward" into today's note. My signature on this note, however, is an attestation that I personally performed the exam, history, and/or decision-making noted today, and, unless otherwise indicated, the interactions with patient, family, and staff as well as the review of records all occurred today. I also attest that the listed assessment and stated plan reflect my best clinical judgment today based on the combination of historical information, prior notes, and today's exam/ interactions. When time spent is documented, it refers only to time spent today by the signer, or if indicated, combined time spent today by collaborating physician/nurse practitioner. . HAKEEM MANN Sep 02, 2016 15:37
[2016-09-02] MEDS: CHLORHEXIDINE GLUCONATE 2 % 1 PACK (2 CLOTHS) TOP SCH (19:04)
[2016-09-02] MEDS: AMITRIPTYLINE HCL 25 MG TAB PO SCH (19:33)
[2016-09-02] MEDS: SODIUM CHLOR 0.9% 1000 ML INJ 1,000 ML IV SCH (19:35)
[2016-09-03] VITALS (14 sets, daily range): BP systolic 114–147; BP diastolic 54–70; PULSE 79–112; RESP 19–21; TEMP 97.9–98.3; O2SAT 90–99
[2016-09-03] MEDS: RESP: ALBUTEROL 2.5 MG/IPRATROPIUM 0.5 MG NEB (SCH) NEB ×3 (03:31→15:12)
[2016-09-03] MEDS: PROPOFOL 1000 MG/100 ML INJ 100 ML IV SCH ×3 (04:17→15:27)
[2016-09-03] MEDS: CLINDAMYCIN INJ 600 MG in SODIUM CHLORIDE 0.9% INJ 100 ML IV SCH ×2 (05:46→12:44)
[2016-09-03] MEDS: methylPREDNISolone SOD SUCC 40 MG/1 ML VIAL IV PUSH SCH ×2 (05:46→12:30)
[2016-09-03] MEDS: INSULIN NovoLIN REGULAR SUPPLEMENTAL SCALE SQ SCH ×2 (05:46→11:00)
[2016-09-03 05:51] LABS: BLOOD GAS BASE EXCESS -1.5 mmol/L (-2-2); BLOOD GAS HCO3 22 mmol/L (22-26); BLOOD GAS METHEMOGLOBIN 0.5 % (0-2); BLOOD GAS O2 HGB SATURATION 92 % (90-100); BLOOD GAS OXYGEN CONTENT 13.2 Vol % (12.0-20.0); BLOOD GAS PCO2 34 mmHg (38-42); BLOOD GAS PO2 65 mmHG (61-120); BLOOD GAS TOTAL HGB 10.1 G/DL (12.0-16.0); CRITICAL VALUE NO; DRAW SITE RT RADIAL; FIO2 35 %; NUMBER OF ARTERIAL PUNCTURES 1; OXYGEN DEVICE VENTILATOR; STAT NO; TEMP CORR TO 98.6; ULNAR PULSE PRESENT; VENT SETTINGS AC 16/500/5PEEP
--- NOTE | 2016-09-03 06:33 | RADRPT ---
EXAM DATE/TIME: 09/03/2016 05:12 [facility] COMPARISON: CHEST SINGLE AP, September 01, 2016, 4:29. INDICATIONS : Evaluate for respiratory failure. MEDICAL HISTORY : Hypertension. Cardiovascular disease. SURGICAL HISTORY : None. ENCOUNTER: Subsequent ACUITY: 1 month PAIN SCORE: Non-responsive. LOCATION: chest FINDINGS: There is increasing consolidation in the left lower lung, now with some loss of delineation of the in ferior lateral heart border in addition to the left hemidiaphragm. Diffuse hazy opacity in the right mid and lower lung with loss of delineation right heart border and right hemidiaphragm is also more prominent than on prior. Endotracheal tube tip well above the jose alfredo. Gastric tube traverses field- of-view. Right internal jugular catheter tip in the distal superior vena cava. CONCLUSION: Increasing severity mid and lower lung consolidation and pleural effusions. Smooth Montez MD on September 03, 2016 at 6:30 Board Certified Radiologist. This report was verified electronically.
[2016-09-03] MEDS: METOCLOPRAMIDE HCL 10 MG/2 ML VIAL IV PUSH SCH ×2 (08:00→12:30)
[2016-09-03] MEDS: QUEtiapine FUMARATE 25 MG TAB PO SCH ×2 (08:00→12:30)
[2016-09-03] MEDS: FAMOTIDINE 20 MG TAB NG SCH (08:00)
[2016-09-03] MEDS: INSULIN DETEMIR 100 UNITS/ML VIAL SQ SCH (08:01)
[2016-09-03 08:06] LABS: AUTOMATED NEUTROPHIL # 10.7 TH/MM3 (1.8-7.7); BASOPHIL % 0.2 % (0.0-2.0); HEMATOCRIT 31.9 % (35.0-46.0); LYMPHOCYTE # 0.7 TH/MM3 (1.0-4.8); MEAN CELL VOLUME 87.4 FL (80.0-100.0); MEAN CORPUSCULAR HEMOGLOBIN 28.7 PG (27.0-34.0); MEAN CORPUSCULAR HGB CONC 32.9 % (32.0-36.0); MONO % 6.8 % (0.0-8.0); PLATELET COUNT 270 TH/MM3 (150-450); RED BLOOD COUNT 3.64 MIL/MM3 (4.00-5.30); RED CELL DISTRIBUTION WIDTH 14.9 % (11.6-17.2); WHITE BLOOD COUNT 12.3 TH/MM3 (4.0-11.0)
[2016-09-03 08:09] LABS: HEMO FLAGS AUTO DIFF
[2016-09-03 08:30] LABS: ANION GAP 10 MEQ/L (5-15); AST (GOT) 16 U/L (15-37); BICARBONATE 25.4 MEQ/L (21.0-32.0); BLOOD UREA NITROGEN 56 MG/DL (7-18); CHLORIDE 106 MEQ/L (98-107); GLOMERULAR FILTRATION RATE 30 ML/MIN (>89); MAGNESIUM 2.4 MG/DL (1.5-2.5); POTASSIUM 5.4 MEQ/L (3.5-5.1); SODIUM (NA) 141 MEQ/L (136-145)
[2016-09-03 08:32] LABS: ALKALINE PHOSPHATASE 204 U/L (45-117); ALT (GPT) 27 U/L (10-53); TOTAL BILIRUBIN ADULT 0.3 MG/DL (0.2-1.0)
[2016-09-03] MEDS: POLYETHYLENE GLYCOL 17 GM PKG PO SCH (09:00)
[2016-09-03] MEDS: DOCUSATE SODIUM 100 MG CAP PO SCH (09:00)
[2016-09-03] MEDS: SODIUM CHLORIDE 0.9% FLUSH 5 ML FLUSH IV FLUSH SCH (09:00)
[2016-09-03] MEDS: LACTULOSE SYRUP 20 GM/30 ML CUP TUBE SCH ×2 (09:00→13:00)
[2016-09-03] MEDS: SENNOSIDES 8.6 MG TAB PO SCH (09:00)
[2016-09-03 09:08] LABS: SCAN/DIFF AUTO DIFF CONFIRMED
[2016-09-03] MEDS: ARTIFICIAL TEARS OPTH OINT 3.5 APPLIC/3.5 GM TUBO EACH EYE SCH (10:58)
[2016-09-03] MEDS: ENOXAPARIN SODIUM 80 MG/0.8 ML SYRINGE SQ SCH (10:58)
--- NOTE | 2016-09-03 15:26 | HHI.CCPN ---
Subjective Remarks/Hospital Course 86-year-old female brought by her daughter with history of fatigue, tiredness and bradycardia. Per chart the patient has been sleeping 12-14 hours a day for past couple days. Today the home health nurse came and checked her pulse and it was in the low 40s. She advised that the patient should be brought to the emergency room. The patient is too somnolent and lethargic to provide any more history. 08/21: Afebrile. Heart rate currently in the 50s and 60s on dopamine drip at 12 micrograms per kilogram per minute. Patient appears to have a baseline heart rate between 40 and 55 according to review of old records here at [place]. Placed on ADA diet. No bowel movement. Subjective 08/22: Afebrile. Dopamine done at 3 mcg/kg/m. Rhythm changes between normal sinus rhythm in addition to a Mobitz second-degree heart block type I and atrial fibrillation. Awake and alert and following commands. Tolerating diet. Denies chest pain or shortness of breath. 08/23: The patient was reintubated overnight, secondary to altered mental status and increased lethargy. Sedation vacation obtain patient's starting to follow commands this a.m.. Dopamine was discontinued yesterday. The patient continues to vacillate between normal sinus rhythm and Mobitz second-degree heart block, and sinus arrhythmia, BP stable. 08/24:Afebrile. No acute events overnight. The patient is now following commands on sedation vacation. Plan to change transition to Precedex infusion, with discontinuation of propofol and continue CPAP trials. The family has requested palliative medicine consult. 08/25: The patient was bradycardic overnight heart rate 30s, normotensive, had received morphine 4 mg IV for agitation last evening. Palliative care has a planned family meeting today, to discuss goals of care. UA culture revealed Enterobacter fecalis the patient was started on vancomycin yesterday afternoon. 08/26: No change in neurological status. The patient does not follow commands, but does become anxious, attempting to pull out endotracheal tube. The patient was started on vancomycin 08/24, noted elevation in creatinine and decreasing urinary output overnight, vancomycin discontinued. Infectious disease consulted secondary to multiple allergies. 08/27: Early this a.m.0620, during positioning the patient was noted to be severely bradycardic, heart rate 28, intermittent blood pressure was not obtainable, all sedation discontinued. The patient's heart rate trended upward after repositioning supine mid 30s at 0625, blood pressure 143/58. Stat ABG drawn, with noted mixed respiratory metabolic acidosis, pH 7.10 PCO2 60 bicarbonate 17 base deficit,-10. The patient continues on heparin infusion. Urine output improved overnight. 08/28: No acute events overnight, heart rate 50-60's.The patient remains on low- dose propofol 7-10mcgs to maintain ventilator synchrony. Heparin infusing. The patient was noted to have elevated tube feed residuals. Reglan 5 mg 3 times a day instituted. 08/29 Tmax 98.9. Patient continues to fail CPAP trials despite multiple attempts. Chest x-ray unchanged with perihilar and bibasilar opacities. The patient was placed on a higher insulin sliding scale and now does not require additional coverage. WBC count trending down today. Patient does not follow commands on sedation vacation. 08/30 no changes overnight 08/31 failed CPAP trial yesterday due to rapid shallow breathing 09/01 looking better today we'll attempt CPAP trial again 09/02 failed again the CPAP trial yesterday due to rapid shallow breathing 09/03 palliative care has met with a family yesterday Objective Vital Signs Date Time Temp Pulse Resp B/P Pulse Ox O2 Delivery O2 Flow Rate FiO2 09/03/16 15:13 90 45 09/03/16 14:00 79 09/03/16 12:00 98.0 20 135/70 Intake and Output 09/02/16 09/02/16 09/03/16 08:00 16:00 00:00 Intake Total 789 ml 1243 ml 856 ml Output Total 350 ml 150 ml 200 ml Balance 439 ml 1093 ml 656 ml Result Diagram: 09/03/16 0735 09/03/16 0735 Other Results Laboratory Tests Test 09/03/16 05:02 Blood Gas Puncture Site RT RADIAL Blood Gas Patient Temperature 98.6 Blood Gas HCO3 22 mmol/L (22-26) Blood Gas Base Excess -1.5 mmol/L (-2-2) Blood Gas Oxygen Saturation 92 % (90-100) Arterial Blood pH 7.44 (7.380-7.420) Arterial Blood Partial 34 mmHg (38-42) Pressure CO2 Arterial Blood Partial 65 mmHG Pressure O2 (61-120) Arterial Blood Oxygen Content 13.2 Vol % (12.0-20.0) Arterial Blood 1.0 % (0-4) Carboxyhemoglobin Arterial Blood Methemoglobin 0.5 % (0-2) Blood Gas Hemoglobin 10.1 G/DL (12.0-16.0) Oxygen Delivery Device VENTILATOR Blood Gas Ventilator Setting AC 16/500/5PEEP Blood Gas Inspired Oxygen 35 % Imaging Last Impressions Chest X-Ray 08/29/16 0000 Signed Impressions: Service Date/Time: Monday, August 29, 2016 05:53 - CONCLUSION: No significant change Pollo Ramey MD Last Impressions Chest X-Ray 08/20/16 1334 Signed Impressions: Service Date/Time: Saturday, August 20, 2016 13:40 - CONCLUSION: No acute disease. Mario Hassan MD FACR Objective Remarks GENERAL: 86 yo female, critically ill currently resting in bed intubated moving extremities not following commands off sedation very anxious SKIN: Warm and dry. No rash HEAD: Normocephalic. EYES: No scleral icterus. No injection or drainage. PERRL. EOMI. ENT: No tympanic drainage. Oropharynx without erythema or exudates orotracheally intubated NECK: Supple, trachea midline. No JVD or lymphadenopathy. No carotid bruit CARDIOVASCULAR: Normal sinus rhythm. Heart rate 60's. S1, S2. No S4. RESPIRATORY: Breath sounds equal bilaterally, coarse. Mechanical ventilation GASTROINTESTINAL: Abdomen soft, non-tender, nondistended. Normoactive bowel sounds are appreciated. Tube feeds infusing MUSCULOSKELETAL: Peripheral edema bilateral extremities. Prior scarring from bypass right-sided noted BACK: Nontender without obvious deformity. No CVA tenderness. Date of Insertion: Aug 20, 2016 Line: Central Venous Catheter Side: Right Location: Internal, Jugular A/P Problem List: (1) Chronic kidney disease, stage 3 ICD Code: N18.3 Status: Acute (2) HTN (hypertension) ICD Code: I10 Status: Chronic (3) Symptomatic bradycardia ICD Code: R00.1 Status: Acute Assessment and Plan Neuro/Psych: Chronic benzodiazepine use Depression/anxiety No significant change in management Continue Elavil 25 mg by mouth daily/home medication Continue Escitalopram 10 mg by mouth daily for depression as home medication Acetaminophen as needed for fever Propofol infusion low-dose 7-15 mcgs attempt to wean off 08/24-EEG results - without evidence of active seizure activity Seroquel for agitation CV: Symptomatically bradycardia Second-degree Mobitz type I currently in normal sinus rhythm History of a flutter status post ablation 2016 Nonobstructive coronary disease Hypertension Dyslipidemia Peripheral vascular disease history of post right femoropopliteal, femoral- tibial and femoroperoneal bypass No recommendations per cardiology Bradycardia and block likely secondary to amiodarone - now resolved No plans for intervention at this time per Dr Birmingham, patient is hemodynamically stable not requiring pressors or pacing Cardiac catheterization 04/11 revealed left main without disease, LAD 40% stenosis, left circumflex coronary disease and RCA 40% stenosis. No intervention. Off dopamine since 08/22. Amiodarone currently has been held. Hold home and that blood pressure medication to borderline pressures Continue Plavix 75 mg by mouth daily for peripheral vascular disease. Heparin infusion will stop today and change to full dose of Lovenox Resp: Documentation of asthma History of pulmonary embolism Maintain saturations greater than 92% Mechanical ventilation settings 12/500/100/5 Ventilator bundle Maintain head of bed 30 Continue duo nebs per schedule CPAP trials daily Day 13 of mechanical ventilation - family has agreed to do not reintubate(DNI), the patient continues to fail CPAP trials GI: Constipation Peptamen AF Pepcid BID . On Zantac 150 mg a night at home. Colace/Senokot twice a day for bowel regimen, MiraLAX and lactulose added to medication regimen Last BM 08/23 F/U KUB : Armas changed 08/28, initiation of vancomycin 08/24- 08/26 Proteus UTI, hesitancy towards utilization of Linezolid with patient's long-term SSRI use, nitrofurantoin unable to administer via gastric tube. Maintain/ strict accurate I' & O's Endo: Diabetes mellitus type 2 Home medications Januvia 100 mg daily, Tresiba injection subcutaneous as needed and Farxiga 10 mg daily Sliding scale insulin Accu-Cheks every 6 before meals at bedtime to maintain euglycemia/moderate regimen TSH within normal limits High dose SSI Levemir started 09/01 Renal: History chronic kidney disease stage III Creatinine currently slightly elevated Accurate I's and O's. Monitor urine output Creatinine improved and stable Monitor BMP Heme: Leukocytosis-resolved Follow CBC daily. Monitor trends ID: UTI Day # 6 aztreonam, UA culture- Enterococcus faecalis, Vancomycin(day for) discontinued Pharmacy dosing initiated (maintain therapeutic level 10-15) unable to utilize the linezolid secondary to SSRI medication Monitor for infection ID consulted-Dr. Gordon following Urine output adequate FEN: Hypokalemia - resolved Replace electrolyte as clinically indicated Goal keep magnesium greater than 2, potassium greater than 4 MSK: Osteoarthritis PT evaluate and treat Access - Right IJ CVL day 9 Prophylaxis - GI - Protonix - DVT - SCD/heparin infusion Dispo: Discussed with CVOR NURSE at bedside. CODE STATUS changed to alternate, no CPR, no shock (defibrillation).3/2 Family meeting with palliative team DNI/DNR. Will attempt to continue CPAP trials with the goal of extubation extensive discussion with family and palliative care team if successfully weaned to extubate, the patient will not be reintubated Family stated they would not like patient to have a PEG, Trach placement. Attempts at weaning continue. Critical Care: Level 3 Kevin Chen MD Sep 03, 2016 15:26
[2016-09-03] MEDS ORDERED: LORazepam 2 MG/ML VIAL IV ONE ×2 (16:30→17:00)
[2016-09-03] MEDS ORDERED: HYOSCYAMINE 0.125 MG TAB PO/SL ONE (16:30)
[2016-09-03] MEDS ORDERED: HYDROmorphone HCL PF 2 MG/ML VIAL IV ONE ×2 (16:30→17:00)
[2016-09-03] MEDS ORDERED: ATROPINE SULFATE 1% OPHT SOLN 2 ML BTL SL PRN (16:45)
[2016-09-03] MEDS ORDERED: FUROSEMIDE 20 MG/2 ML VIAL IV PRN (17:00)
[2016-09-03] MEDS ORDERED: HYDROmorphone HCL PF 2 MG/ML VIAL IV PRN ×2 (17:00)
[2016-09-03] MEDS ORDERED: BISACODYL 10 MG SUPP PR PRN (17:00)
[2016-09-03] MEDS ORDERED: LORazepam 2 MG/ML VIAL IVS PRN (17:00)
[2016-09-03] MEDS ORDERED: ACETAMINOPHEN 650 MG SUPP PR PRN (17:00)
[2016-09-03] MEDS ORDERED: LORazepam 2 MG/ML VIAL IV PRN ×2 (17:00)
--- NOTE | 2016-09-03 17:18 | HHI.HCPN ---
Reason for visit a. To assist with evaluation and management of symptoms including: dyspnea, debility, agitation. b. To assist medical decision maker(s) with: better understanding of current medical conditions; weighing benefits/burdens of medical treatment options; making medical treatment decisions. . Subjective/Interval History Patient seen and examined in ICU. Discussed with nurse, Umer. Patient has had periods of asystole today. Chest x-ray appears worse. She still not tracking or following commands when off sedation. Creatinine is getting worse, decreased urine output. Afebrile. HR 110s now. . Family/friend interactions Met with , son and 2 of 3 daughters along with their counterperson. Family does not want to proceed with trach or PEG. Family wants to transition to comfort measures with withdrawal of life support. Declines hospice at this time. They are ready to proceed now. Exhibits B & C signed. I attempted to call other daughter Rosalba, left message for return call. Anticipatory guidance provided. . Advance Directives Living Will: Copy in medical record Health Care Surrogate: Copy in medical record Advance Directive Specifics Health Care Surrogate(s): Patient currently incapacitated to make her own health care decisions. Copy of Living Will on chart. Sent to HIM to be scanned in. According to LW is primary HCS (he has end stage dementia and is unable to participate) and sonDouglas is alternate HCS, however his name is crossed off and daughterSandra "Lilian" Aimee is written in as HCS. All family (4 children) are working together to make decisions. Significant change in goals: NO CODE. Met with (ES dementia does not participate), son and 2 of 3 daughters along with their counterperson. Family does not want to proceed with trach or PEG. Family wants to transition to comfort measures with withdrawal of life support. Declines hospice at this time. They are ready to proceed now. Exhibits B & C signed. I attempted to call other daughter Rosalba, left message for return call. Anticipatory guidance provided. Objective Vital Signs Date Time Temp Pulse Resp B/P Pulse Ox O2 Delivery O2 Flow Rate FiO2 09/03/16 15:13 90 45 09/03/16 14:00 79 09/03/16 12:00 98.0 112 20 135/70 96 09/03/16 12:00 79 09/03/16 11:48 91 35 09/03/16 10:00 79 09/03/16 08:49 99 35 09/03/16 08:00 97.9 79 21 147/64 95 09/03/16 08:00 79 09/03/16 06:00 100 09/03/16 04:02 92 35 09/03/16 04:00 98.3 82 19 144/65 93 09/03/16 04:00 82 09/03/16 02:00 80 09/03/16 01:10 91 35 09/03/16 00:00 95 09/03/16 00:00 98.0 95 19 114/54 92 09/02/16 22:01 93 35 09/02/16 22:00 111 09/02/16 20:05 92 35 09/02/16 20:00 98.4 110 19 105/66 93 09/02/16 20:00 110 09/02/16 18:00 87 Intake & Output 09/03/16 09/03/16 07:00 19:00 Intake Total 1786 ml 1060 ml Output Total 500 ml 350 ml Balance 1286 ml 710 ml IV Total 1186 ml 392 ml Tube Feeding 600 ml 368 ml Other 300 ml Output Urine Total 500 ml 350 ml # Bowel Movements 1 Physical Exam CONSTITUTIONAL/GENERAL: This is an elderly, critically ill patient, sedated and intubated. TUBES/LINES/DRAINS: ETT, OG, central line, PIV left, bilateral soft wrist restraints, Armas, SCD's SKIN: No jaundice, rashes, or lesions. Ecchymoses on upper extremities. 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 Skin temperature appropriate. Not diaphoretic. ENT: unable to adequately assess hearing. Nose without bleeding or purulent drainage. Throat difficult to visualize secondary to tubes. Thick whitish secretions when suctioned. CARDIOVASCULAR: rate 110s with periods of asystole, irregular. RESPIRATORY/CHEST: Symmetric, unlabored respirations on mechanical ventilation. Course breath sounds bilaterally worse and expiratory wheezing noted. GASTROINTESTINAL: Abdomen soft, non-tender, nondistended. GENITOURINARY: Without palpable bladder distension. Armas catheter in place, decreased UOP. MUSCULOSKELETAL: Extremities with worsening edema. NEUROLOGICAL: Does follow commands. Moves all extremities. PSYCHIATRIC: Relaxed during my visit. . Diagnostic Tests Laboratory Laboratory Tests Test 09/01/16 09/01/16 09/02/16 09/03/16 03:25 04:53 06:00 05:02 White Blood Count 10.6 TH/MM3 15.2 TH/MM3 (4.0-11.0) (4.0-11.0) Red Blood Count 3.87 MIL/MM3 4.13 MIL/MM3 (4.00-5.30) (4.00-5.30) Hemoglobin 11.0 GM/DL 11.8 GM/DL (11.6-15.3) (11.6-15.3) Hematocrit 33.8 % 36.3 % (35.0-46.0) (35.0-46.0) Mean Corpuscular Volume 87.2 FL 87.9 FL (80.0-100.0) (80.0-100.0) Mean Corpuscular Hemoglobin 28.5 PG 28.5 PG (27.0-34.0) (27.0-34.0) Mean Corpuscular Hemoglobin 32.7 % 32.4 % Concent (32.0-36.0) (32.0-36.0) Red Cell Distribution Width 14.6 % 15.3 % (11.6-17.2) (11.6-17.2) Platelet Count 253 TH/MM3 337 TH/MM3 (150-450) (150-450) Mean Platelet Volume 10.2 FL 9.6 FL (7.0-11.0) (7.0-11.0) Neutrophils (%) (Auto) 94.0 % 88.5 % (16.0-70.0) (16.0-70.0) Lymphocytes (%) (Auto) 4.2 % 5.8 % (9.0-44.0) (9.0-44.0) Monocytes (%) (Auto) 1.3 % (0.0-8.0) 5.6 % (0.0-8.0) Eosinophils (%) (Auto) 0.1 % (0.0-4.0) 0.0 % (0.0-4.0) Basophils (%) (Auto) 0.4 % (0.0-2.0) 0.1 % (0.0-2.0) Neutrophils # (Auto) 10.0 TH/MM3 13.4 TH/MM3 (1.8-7.7) (1.8-7.7) Lymphocytes # (Auto) 0.4 TH/MM3 0.9 TH/MM3 (1.0-4.8) (1.0-4.8) Monocytes # (Auto) 0.1 TH/MM3 0.8 TH/MM3 (0-0.9) (0-0.9) Eosinophils # (Auto) 0.0 TH/MM3 0.0 TH/MM3 (0-0.4) (0-0.4) Basophils # (Auto) 0.0 TH/MM3 0.0 TH/MM3 (0-0.2) (0-0.2) CBC Comment AUTO DIFF AUTO DIFF Differential Total Cells 100 100 Counted Neutrophils % (Manual) 92 % (16-70) 78 % (16-70) Band Neutrophils % 4 % (0-6) 6 % (0-6) Lymphocytes % 3 % (9-44) 8 % (9-44) Neutrophils # (Manual) 10.3 TH/MM3 13.4 TH/MM3 (1.8-7.7) (1.8-7.7) Metamyelocytes 1 % (0-1) 1 % (0-1) Differential Comment FINAL DIFF FINAL DIFF MANUAL MANUAL Platelet Estimate NORMAL NORMAL (NORMAL) (NORMAL) Platelet Morphology Comment NORMAL ENLARGED (NORMAL) (NORMAL) Red Cell Morphology Comment NORMAL (NORMAL) Sodium Level 141 MEQ/L 142 MEQ/L (136-145) (136-145) Potassium Level 5.4 MEQ/L 4.9 MEQ/L (3.5-5.1) (3.5-5.1) Chloride Level 106 MEQ/L 105 MEQ/L (98-107) (98-107) Carbon Dioxide Level 25.6 MEQ/L 24.5 MEQ/L (21.0-32.0) (21.0-32.0) Anion Gap 9 MEQ/L (5-15) 13 MEQ/L (5-15) Blood Urea Nitrogen 36 MG/DL (7-18) 47 MG/DL (7-18) Creatinine 1.46 MG/DL 1.47 MG/DL (0.50-1.00) (0.50-1.00) Estimat Glomerular Filtration 34 ML/MIN (>89) 34 ML/MIN (>89) Rate Random Glucose 369 MG/DL 338 MG/DL (74-106) (74-106) Calcium Level 8.3 MG/DL 8.6 MG/DL (8.5-10.1) (8.5-10.1) Phosphorus Level 4.4 MG/DL (2.5-4.9) Magnesium Level 2.0 MG/DL (1.5-2.5) Total Bilirubin 0.2 MG/DL (0.2-1.0) Aspartate Amino Transf 33 U/L (15-37) (AST/SGOT) Alanine Aminotransferase 33 U/L (10-53) (ALT/SGPT) Alkaline Phosphatase 289 U/L (45-117) Total Protein 5.3 GM/DL (6.4-8.2) Albumin 1.7 GM/DL (3.4-5.0) Blood Gas Puncture Site RT RADIAL RT RADIAL Blood Gas Patient Temperature 98.6 98.6 Blood Gas HCO3 23 mmol/L 22 mmol/L (22-26) (22-26) Blood Gas Base Excess -1.1 mmol/L -1.5 mmol/L (-2-2) (-2-2) Blood Gas Oxygen Saturation 94 % (90-100) 92 % (90-100) Arterial Blood pH 7.42 7.44 (7.380-7.420) (7.380-7.420) Arterial Blood Partial 36 mmHg (38-42) 34 mmHg (38-42) Pressure CO2 Arterial Blood Partial 82 mmHg 65 mmHG Pressure O2 (61-120) (61-120) Arterial Blood Oxygen Content 14.5 Vol % 13.2 Vol % (12.0-20.0) (12.0-20.0) Arterial Blood 1.2 % (0-4) 1.0 % (0-4) Carboxyhemoglobin Arterial Blood Methemoglobin 1.3 % (0-2) 0.5 % (0-2) Blood Gas Hemoglobin 11.0 G/DL 10.1 G/DL (12.0-16.0) (12.0-16.0) Oxygen Delivery Device VENTILATOR VENTILATOR Blood Gas Ventilator Setting AC16/500/5PEEP AC 16/500/5PEEP Blood Gas Inspired Oxygen 40 % 35 % Monocytes % 4 % (0-8) Myelocytes 3 % (0-0) Nucleated Red Blood Cells 1 /100 WBC (0-0) Isidro Cells 2+ (NORMAL) Test 09/03/16 07:35 White Blood Count 12.3 TH/MM3 (4.0-11.0) Red Blood Count 3.64 MIL/MM3 (4.00-5.30) Hemoglobin 10.5 GM/DL (11.6-15.3) Hematocrit 31.9 % (35.0-46.0) Mean Corpuscular Volume 87.4 FL (80.0-100.0) Mean Corpuscular Hemoglobin 28.7 PG (27.0-34.0) Mean Corpuscular Hemoglobin 32.9 % Concent (32.0-36.0) Red Cell Distribution Width 14.9 % (11.6-17.2) Platelet Count 270 TH/MM3 (150-450) Mean Platelet Volume 9.1 FL (7.0-11.0) Neutrophils (%) (Auto) 87.0 % (16.0-70.0) Lymphocytes (%) (Auto) 6.0 % (9.0-44.0) Monocytes (%) (Auto) 6.8 % (0.0-8.0) Eosinophils (%) (Auto) 0.0 % (0.0-4.0) Basophils (%) (Auto) 0.2 % (0.0-2.0) Neutrophils # (Auto) 10.7 TH/MM3 (1.8-7.7) Lymphocytes # (Auto) 0.7 TH/MM3 (1.0-4.8) Monocytes # (Auto) 0.8 TH/MM3 (0-0.9) Eosinophils # (Auto) 0.0 TH/MM3 (0-0.4) Basophils # (Auto) 0.0 TH/MM3 (0-0.2) CBC Comment AUTO DIFF Differential Comment AUTO DIFF CONFIRMED Sodium Level 141 MEQ/L (136-145) Potassium Level 5.4 MEQ/L (3.5-5.1) Chloride Level 106 MEQ/L (98-107) Carbon Dioxide Level 25.4 MEQ/L (21.0-32.0) Anion Gap 10 MEQ/L (5-15) Blood Urea Nitrogen 56 MG/DL (7-18) Creatinine 1.61 MG/DL (0.50-1.00) Estimat Glomerular Filtration 30 ML/MIN (>89) Rate Random Glucose 341 MG/DL (74-106) Calcium Level 8.2 MG/DL (8.5-10.1) Phosphorus Level 5.0 MG/DL (2.5-4.9) Magnesium Level 2.4 MG/DL (1.5-2.5) Total Bilirubin 0.3 MG/DL (0.2-1.0) Aspartate Amino Transf 16 U/L (15-37) (AST/SGOT) Alanine Aminotransferase 27 U/L (10-53) (ALT/SGPT) Alkaline Phosphatase 204 U/L (45-117) Total Protein 5.3 GM/DL (6.4-8.2) Albumin 1.9 GM/DL (3.4-5.0) Result Diagram: 09/03/16 0735 09/03/16 0735 Imaging Last Impressions Chest X-Ray 09/03/16 0600 Signed Impressions: Service Date/Time: Saturday, September 03, 2016 05:12 - CONCLUSION: Increasing severity mid and lower lung consolidation and pleural effusions. Smooth Montez MD Abdomen X-Ray 08/29/16 0000 Signed Impressions: Service Date/Time: Monday, August 29, 2016 12:56 - CONCLUSION: 1. There are no imaging findings to suggest ileus. No acute abdominal process is identified. 2. Stable bilateral pleural effusions. Pollo Willson MD . Procedures 08/23/16 - Reintubated. Assessment and Plan Disease Oriented Problem List: (1) Respiratory failure (2) Paroxysmal atrial flutter (3) Paroxysmal atrial fibrillation (4) CAD (coronary artery disease) (5) Bradycardia (6) Aortic stenosis Symptom Scale: (1) Shortness of breath 0-10 Scale: Unable to quantify Comment: on mech vent (2) Weakness 0-10 Scale: Unable to quantify Pertinent Non-Medical Issues Psychosocial: , spouse has ES dementia on hospice. 3 daughters and 1 son. Spiritual: Sikh ray Legal: Patient currently incapacitated to make her own health care decisions. Notes indicate patient has a living will, will request copy. Ethical issues impacting care: No known concerns at this time. . Important Contacts * Joanie Jose, daughter: [phone] or [phone] * Lilian Negrito, daughter: [phone] . Prognosis Will need to speak with cardiology and refractory furnace designer for further clarification of overall prognosis. . Code Status: No Code (DO NOT reintubate if medically extubated. ) Plan * Patient currently incapacitated to make her own health care decisions. Copy of Living Will on chart. Sent to HIM to be scanned in. According to LW is primary HCS (he has end stage dementia and is unable to participate) and son Douglas is alternate HCS, however his name is crossed off and daughterSandra (Michelle) is written in as HCS. All family (4 children) is working together to make decisions. * NO CODE. * 09/03/16 - NO CODE. Met with (ES dementia does not participate), son and 2 of 3 daughters along with their counterperson. Family does not want to proceed with trach or PEG. Family wants to transition to comfort measures with withdrawal of life support. Declines hospice at this time. They are ready to proceed now. Exhibits B & C signed. I attempted to call other daughter Rosalba, left message for return call. Anticipatory guidance provided. * Orders for comfort written by Dr. Gaines. * SYMPTOMS: Dyspnea: on mech vent. Anxiety: Appears comfortable. Agitation: intermittent agitation per nurse. Not following commands when off sedation. * Palliative care will continue to follow to assist with symptom management and clarification of treatment goals throughout hospital course. . Attestation To help prompt me to consider important information that might be impacting today's encounter and assessment, information from prior notes written by myself or my colleagues may have been "brought forward" into today's note. My signature on this note, however, is an attestation that I personally performed the exam, history, and/or decision-making noted today, and, unless otherwise indicated, the interactions with patient, family, and staff as well as the review of records all occurred today. I also attest that the listed assessment and stated plan reflect my best clinical judgment today based on the combination of historical information, prior notes, and today's exam/ interactions. When time spent is documented, it refers only to time spent today by the signer, or if indicated, combined time spent today by collaborating physician/nurse practitioner. HAKEEM MANN Sep 03, 2016 17:18
[2016-09-03] MEDS ORDERED: HYDROmorphone HCL PF 2 MG/ML VIAL IV SCH (20:00)
[2016-09-03] MEDS ORDERED: LORazepam 2 MG/ML VIAL IV SCH (20:00)
--- NOTE | 2016-12-08 23:38 | HHI.DS ---
Summary Note Date of : Sep 03, 2016 Time Of : 2000 Admission Date Aug 20, 2016 at 15:30 Admitting Diagnosis symptomatic bradycardia Diagnosis at Time of : Brief History 86-year-old female brought by her daughter with history of fatigue, tiredness and bradycardia. Per chart the patient has been sleeping 12-14 hours a day for past couple days. Today the home health nurse came and checked her pulse and it was in the low 40s. She advised that the patient should be brought to the emergency room. The patient is too somnolent and lethargic to provide any more history. Imaging Last Impressions Chest X-Ray 08/29/16 0000 Signed Impressions: Service Date/Time: Monday, August 29, 2016 05:53 - CONCLUSION: No significant change Pollo Ramey MD Last Impressions Chest X-Ray 08/20/16 1334 Signed Impressions: Service Date/Time: Saturday, August 20, 2016 13:40 - CONCLUSION: No acute disease. Mario Hassan MD [facility] Course 86-year-old female brought by her daughter with history of fatigue, tiredness and bradycardia. Per chart the patient has been sleeping 12-14 hours a day for past couple days. Today the home health nurse came and checked her pulse and it was in the low 40s. She advised that the patient should be brought to the emergency room. The patient is too somnolent and lethargic to provide any more history. 08/21: Afebrile. Heart rate currently in the 50s and 60s on dopamine drip at 12 micrograms per kilogram per minute. Patient appears to have a baseline heart rate between 40 and 55 according to review of old records here at [facility]. Placed on ADA diet. No bowel movement. Subjective 08/22: Afebrile. Dopamine done at 3 mcg/kg/m. Rhythm changes between normal sinus rhythm in addition to a Mobitz second-degree heart block type I and atrial fibrillation. Awake and alert and following commands. Tolerating diet. Denies chest pain or shortness of breath. 08/23: The patient was reintubated overnight, secondary to altered mental status and increased lethargy. Sedation vacation obtain patient's starting to follow commands this a.m.. Dopamine was discontinued yesterday. The patient continues to vacillate between normal sinus rhythm and Mobitz second-degree heart block, and sinus arrhythmia, BP stable. 08/24:Afebrile. No acute events overnight. The patient is now following commands on sedation vacation. Plan to change transition to Precedex infusion, with discontinuation of propofol and continue CPAP trials. The family has requested palliative medicine consult. 08/25: The patient was bradycardic overnight heart rate 30s, normotensive, had received morphine 4 mg IV for agitation last evening. Palliative care has a planned family meeting today, to discuss goals of care. UA culture revealed Enterobacter fecalis the patient was started on vancomycin yesterday afternoon. 08/26: No change in neurological status. The patient does not follow commands, but does become anxious, attempting to pull out endotracheal tube. The patient was started on vancomycin 08/24, noted elevation in creatinine and decreasing urinary output overnight, vancomycin discontinued. Infectious disease consulted secondary to multiple allergies. 08/27: Early this a.m.0620, during positioning the patient was noted to be severely bradycardic, heart rate 28, intermittent blood pressure was not obtainable, all sedation discontinued. The patient's heart rate trended upward after repositioning supine mid 30s at 0625, blood pressure 143/58. Stat ABG drawn, with noted mixed respiratory metabolic acidosis, pH 7.10 PCO2 60 bicarbonate 17 base deficit,-10. The patient continues on heparin infusion. Urine output improved overnight. 08/28: No acute events overnight, heart rate 50-60's.The patient remains on low- dose propofol 7-10mcgs to maintain ventilator synchrony. Heparin infusing. The patient was noted to have elevated tube feed residuals. Reglan 5 mg 3 times a day instituted. 08/29 Tmax 98.9. Patient continues to fail CPAP trials despite multiple attempts. Chest x-ray unchanged with perihilar and bibasilar opacities. The patient was placed on a higher insulin sliding scale and now does not require additional coverage. WBC count trending down today. Patient does not follow commands on sedation vacation. 08/30 no changes overnight 08/31 failed CPAP trial yesterday due to rapid shallow breathing 09/01 looking better today we'll attempt CPAP trial again 09/02 failed again the CPAP trial yesterday due to rapid shallow breathing 09/03 palliative care has met with a family yesterday 09/05 Discussed with LENS FINISHER at bedside. CODE STATUS changed to alternate, no CPR , no shock (defibrillation). Family meeting with palliative team DNI/DNR. Attempt to continue CPAP trials with the goal of extubation extensive discussion with family and palliative care team if successfully weaned to extubate, the patient will not be reintubated Family stated they would not like patient to have a PEG, Trach placement. Attempts at weaning continue. Despite multiple attempts of CPAP and extubation patient failed her wishes as mentioned above she wouldn't and family as well would not want her to be reintubated patient has September 03, 2016@20 00 p.m. Kevin Chen MD Dec 08, 2016 23:38
== END 2016-09-03 20:00 | disposition expired | DRG 308 ==
LOC: PHED 13:15 → PHEDA 15:30 → HIMW 17:35
PROVIDERS: ADMIT Internal Medicine Critical Care Medicine; ATTEND Internal Medicine Critical Care Medicine
PROC: 5A1955Z Respiratory Ventilation, Greater than 96 Consecutive Hours (ICD-10-PCS; principal; 2016-08-22)
PROC: 0BH17EZ Insertion of Endotracheal Airway into Trachea, Via Natural or Artificial Opening (ICD-10-PCS; 2016-08-22)
PROC: 05HM33Z Insertion of Infusion Device into Right Internal Jugular Vein, Percutaneous Approach (ICD-10-PCS; 2016-08-22)
DX: R00.1 Bradycardia, unspecified (principal); J15.211 Pneumonia due to Methicillin susceptible Staphylococcus aureus; J96.90 Respiratory failure, unspecified, unspecified whether with hypoxia or hypercapnia; N17.9 Acute kidney failure, unspecified; E87.2 Acidosis; G93.40 Encephalopathy, unspecified; Z99.11 Dependence on respirator [ventilator] status; N18.3 Chronic kidney disease, stage 3 (moderate); N39.0 Urinary tract infection, site not specified; F03.90 Unspecified dementia, unspecified severity, without behavioral disturbance, psychotic disturbance, mood disturbance, and anxiety; E11.22 Type 2 diabetes mellitus with diabetic chronic kidney disease; E86.0 Dehydration; I12.9 Hypertensive chronic kidney disease with stage 1 through stage 4 chronic kidney disease, or unspecified chronic kidney disease; J45.909 Unspecified asthma, uncomplicated; E78.5 Hyperlipidemia, unspecified; H40.9 Unspecified glaucoma; M19.90 Unspecified osteoarthritis, unspecified site; I25.10 Atherosclerotic heart disease of native coronary artery without angina pectoris; I35.0 Nonrheumatic aortic (valve) stenosis; I44.1 Atrioventricular block, second degree; I48.0 Paroxysmal atrial fibrillation; F41.9 Anxiety disorder, unspecified; F32.9 Major depressive disorder, single episode, unspecified; I73.9 Peripheral vascular disease, unspecified; I48.92 Unspecified atrial flutter; K59.00 Constipation, unspecified; B95.2 Enterococcus as the cause of diseases classified elsewhere; Z51.5 Encounter for palliative care; E87.6 Hypokalemia; Z88.9 Allergy status to unspecified drugs, medicaments and biological substances; Z79.84 Long term (current) use of oral hypoglycemic drugs; Z86.711 Personal history of pulmonary embolism; T46.2X5A Adverse effect of other antidysrhythmic drugs, initial encounter
CPT/HCPCS: 31500; 36556; 36600; 71010; 74000; 76937; 80048; 80053; 80202; 80299; 81001; 82272; 82550; 82805; 82948; 83605; 83735; 83880; 84100; 84132; 84443; 84484; 85007; 85025; 85027; 85610; 85730; 86403; 87070; 87086; 87147; 87186; 87205; 87449; 87641; 87804; 93005; 94002; 94003; 94150; 94640; 94664; 95819; 96360; C9113; C9399; J1170; J1265; J1630; J1644; J1650; J1956; J2020; J2060; J2250; J2270; J2765; J2920; J3010; J3370; J3475; J3480; J7030; J7040; J7050